=== PATIENT | female | born 1980 | race African-American/Black ===

== ENCOUNTER 2016-07-12 13:05 | Emergency (ER) | payer OTHER ==
[2016-07-12 13:18] VITALS: BP 124/84; PULSE 113; TEMP 99.4; BMI 30.9
[2016-07-12] MEDS ORDERED: ALBUTEROL SO4 6.7 GM HFA INHALER IH ONE (13:30)
[2016-07-12] MEDS ORDERED: IBUPROFEN 400 MG TABLET (FP) PO ONE ×2 (13:46→13:53)
--- NOTE | 2016-07-12 14:22 | PDOC ---
History of Present Illness - General Chief Complaint: Cold Symptoms Stated Complaint: FEVER, SORE THROAT Time Seen by Provider: 07/12/16 13:37 History Source: Patient Exam Limitations: No Limitations - History of Present Illness Initial Comments: 07/12/16 14:17 cc LEFT EAR PAIN, SORE THROAT; BODY ACHES X 3 DAYS; SOME COUGHING; NO NVD Timing/Duration: reports: getting worse (STARTED X 4 DAYS AGO WITH FEVER X TODAY ) Severity: reports: moderate Possible Cause: No: other Modifying Factors: improves with: activity Past History - Past Medical History Allergies/Adverse Reactions: Allergies Allergy/AdvReac Type Severity Reaction Status Date / Time No Known Allergies Allergy Verified 07/12/16 13:14 Home Medications: Ambulatory Orders Hydrochlorothiazide [Hctz -] 25 mg PO DAILY 05/02/15 Metoprolol Succinate [Toprol XL -] 25 mg PO DAILY #30 tab.sr.24h 05/02/15 Cephalexin Monohydrate [Keflex -] 500 mg PO BID #20 capsule 04/13/16 Metoclopramide HCl [Reglan] 10 mg PO QID #20 tablet 04/13/16 HTN: Yes Suicide Attempt (Hx): No - Immunization History Immunization Up to Date: Yes - Psycho/Social/Smoking Cessation Hx Anxiety: No Suicidal Ideation: No Smoking Status: No Smoking History: Never smoked Have you smoked in the past 12 months: Yes Number of Cigarettes Smoked Daily: 6 Information on smoking cessation initiated: No 'Breaking Loose' booklet given: 04/13/16 Hx Alcohol Use: No Drug/Substance Use Hx: No Substance Use Type: None Review of Systems - Review of Systems Constitutional: Yes: Fever, Malaise. No: Chills HEENTM: Yes: Ear Pain (ON LEFT X 2 DAYS). No: Symptoms Reported Respiratory: No: Symptoms reported Cardiac (ROS): No: Symptoms Reported, Lightheadedness ABD/GI: No: Symptoms Reported Integumentary: No: Symptoms Reported, Rash *Physical Exam - Vital Signs Last Vital Signs Temp Pulse Resp BP Pulse Ox 99.4 F 113 H 18 124/84 100 07/12/16 13:15 07/12/16 13:15 07/12/16 13:15 07/12/16 13:15 07/12/16 13:15 - Physical Exam General Appearance: Yes: Appropriately Dressed. No: Apparent Distress HEENT: positive: TMs Normal, Pharynx Normal, Pharyngeal Erythema, Tonsillar Erythema, Nasal Congestion, Rhinorrhea, Other (MILD STS TO LEFT CANAL; PAIN INCREASES WITH TRAGUS TUG). negative: Tonsillar Exudate, TM Bulging, TM Dull, TM Erythema Respiratory/Chest: positive: Lungs Clear. negative: Chest Tender, Normal Breath Sounds, Accessory Muscle Use Cardiovascular: positive: Regular Rhythm, Regular Rate Female Pelvic Exam: negative: normal external exam Gastrointestinal/Abdominal: positive: Normal Bowel Sounds, Flat, Soft, Organomegaly. negative: Tender Lymphatic: negative: Adenopathy Extremity: negative: Normal Capillary Refill Integumentary: positive: Normal Color, Dry, Warm ED Treatment Course - ADDITIONAL ORDERS Additional order review: 07/12/16 13:45 Group A Strep Rapid Antigen - Final Throat - Medications Given in the ED: ED Medications Discontinued Medications Generic Name Dose Route Start Last Admin Trade Name Freq PRN Reason Stop Dose Admin Albuterol Sulfate 2 puff 07/12/16 13:30 07/12/16 13:54 Ventolin Hfa Inhaler - IH 07/12/16 13:31 Not Given ONCE ONE Ibuprofen 400 mg 07/12/16 13:46 07/12/16 13:54 Motrin - PO 07/12/16 13:47 400 mg ONCE ONE Administration Medical Decision Making - Medical Decision Making 07/12/16 14:21 WILL TREAT WITH MOTRIN AND EAR DROPS; STREP = NEGATIVE *DC/Admit/Observation/Transfer Diagnosis at time of Disposition: Otitis externa Qualifiers: Otitis externa type: unspecified type Laterality: left Chronicity: acute Qualified Code(s): H60.502 - Unspecified acute noninfective otitis externa, left ear - Discharge Dispostion Disposition: HOME Condition at time of disposition: Stable Admit: No - Patient Instructions Additional Instructions: EAR DROPS DIRECTED; MOTRIN FOR PAIN - Post Discharge Activity Work/School Note: Back to Work
== END 2016-07-12 14:32 | disposition home or self-care (01) ==
LOC: JERFT 13:05
PROC: 3E0F7GC Introduction of Other Therapeutic Substance into Respiratory Tract, Via Natural or Artificial Opening (ICD-10-PCS; principal; 2016-07-12)
DX: H60.502 Unspecified acute noninfective otitis externa, left ear (principal)
CPT/HCPCS: 87070; 87430; 94640; 99281-25

== ENCOUNTER 2016-11-07 21:03 | Emergency (ER) | payer SELFPAY ==
[2016-11-07 21:37] VITALS: BMI 32.3
[2016-11-07] MEDS ORDERED: SODIUM CHLORIDE 1,000 ML IV STA (22:38)
--- NOTE | 2016-11-07 22:38 | PDOC ---
History of Present Illness - General History Source: Patient Exam Limitations: No Limitations - History of Present Illness Initial Comments: 11/07/16 23:08 The patient is a 36 year old female with significant past medical history of hypertension who presents to the ED for 3 days of diffuse abdominal discomfort, nausea, vomiting, and diarrhea. States she has no appetite since yesterday. Patient reports having one episode of diverticulitis in the past, however her abdominal discomfort does not appear to be the same. She also reports 3 days of sore throat, fever, and chills. States she has not checked her temperature. Denies any sick contacts or recent travels. The patient denies cough, SOB, chest pain, and palpitations. Allergies: NKDA Social History: No alcohol, tobacco, or drug use reported. Past Surgical History: None reported PCP: At [facility] <Rehana Wallis - Last Filed: 11/07/16 23:08> - General History Source: Patient <Eric Vazquez - Last Filed: 11/08/16 00:42> - General Chief Complaint: Vomiting/Diarrhea Stated Complaint: COLD SYMPTOMS Time Seen by Provider: 11/07/16 22:38 Past History <Rehana Wallis - Last Filed: 11/07/16 23:08> - Past Medical History HTN: Yes Suicide Attempt (Hx): No - Immunization History Immunization Up to Date: Yes - Psycho/Social/Smoking Cessation Hx Anxiety: No Suicidal Ideation: No Smoking Status: No Smoking History: Never smoked Have you smoked in the past 12 months: Yes Number of Cigarettes Smoked Daily: 6 Information on smoking cessation initiated: No 'Breaking Loose' booklet given: 04/13/16 Hx Alcohol Use: No Drug/Substance Use Hx: No Substance Use Type: None <Eric Vazquez - Last Filed: 11/08/16 00:42> - Past Medical History Allergies/Adverse Reactions: Allergies Allergy/AdvReac Type Severity Reaction Status Date / Time No Known Allergies Allergy Verified 11/07/16 21:36 Home Medications: Ambulatory Orders Hydrochlorothiazide [Hctz -] 25 mg PO DAILY 05/02/15 Nifedipine [Procardia Xl] 30 mg PO DAILY 11/07/16 Ibuprofen 800 mg PO TID #30 tablet 11/08/16 Penicillin V Potassium [Pen Vee K -] 500 mg PO TID #30 tablet 11/08/16 Review of Systems - Review of Systems Able to Perform ROS?: Yes Comments:: 11/07/16 23:08 CONSTITUTIONAL: +fever, chills, decreased appetite Absent: no fatigue EYES: Absent: visual changes ENT: +sore throat Absent: ear pain CARDIOVASCULAR: Absent: chest pain, no palpitations RESPIRATORY: Absent: cough, no SOB GI: +abdominal pain, nausea, vomiting, diarrhea Absent: no constipation GENITOURINARY: Absent: dysuria, no frequency, no hematuria MUSCULOSKELETAL: Absent: back pain, no arthralgia, no myalgia SKIN: Absent: rash NEURO: Absent: headache <Rehana Wallis - Last Filed: 11/07/16 23:08> *Physical Exam - Vital Signs Last Vital Signs Temp Pulse Resp BP Pulse Ox 98.5 F 105 H 20 107/85 98 11/07/16 21:33 11/07/16 21:33 11/07/16 21:33 11/07/16 21:33 11/07/16 21:33 - Physical Exam Comments: 11/07/16 23:08 GENERAL: Well-appearing, well-nourished. Mild distress. HEENT: Normocephalic, atraumatic. PERRL, EOM intact. Posterior pharynx is erythematous with no exudates. CARDIOVASCULAR: Tachycardia. Regular rhythm. Normal S1, S2. PULMONARY: Clear to auscultation bilaterally. ABDOMEN: Soft, non-distended, mild tenderness throughout. Normoactive bowel sounds. EXTREMITIES: Normal ROM in all four extremities. No gross deformities. SKIN: Warm, dry. No rash NEUROLOGICAL: No focal neurological deficits. <Rehana Wallis - Last Filed: 11/07/16 23:08> - Vital Signs Last Vital Signs Temp Pulse Resp BP Pulse Ox 98.5 F 105 H 20 107/85 98 11/07/16 21:33 11/07/16 21:33 11/07/16 21:33 11/07/16 21:33 11/07/16 21:33 <Eric Vazquez - Last Filed: 11/08/16 00:42> ED Treatment Course - LABORATORY CBC & Chemistry Diagram: 11/07/16 23:28 11/07/16 23:28 <Eric Vazquez - Last Filed: 11/08/16 00:42> Medical Decision Making - Medical Decision Making 11/08/16 00:42 Dr. Vazquez: The scribe's documentation has been prepared under my direction and personally reviewed by me in its entirery. I confirm that the note above accurately reflects all work, treatment, procedures, and medical decision making performed by me. <Eric Vazquez - Last Filed: 11/08/16 00:42> *DC/Admit/Observation/Transfer - Attestations Scribe Attestion: 11/07/16 23:09 Documentation prepared by Rehana Wallis, acting as claim review medical director for Eric Vazquez MD/DO. <Rehana Wallis - Last Filed: 11/07/16 23:08> - Discharge Dispostion Admit: No <Eric Vazquez - Last Filed: 11/08/16 00:42> Diagnosis at time of Disposition: Strep pharyngitis - Discharge Dispostion Disposition: HOME Condition at time of disposition: Stable - Prescriptions Prescriptions: Ibuprofen 800 mg PO TID #30 tablet Penicillin V Potassium [Pen Vee K -] 500 mg PO TID #30 tablet - Referrals Referrals: STAFF,NOT ON [Primary Care Provider] - Jaz Hermosillo MD [Staff Physician] - - Patient Instructions Printed Discharge Instructions: DI for Strep Throat - Post Discharge Activity Work/School Note: Back to Work
[2016-11-07] MEDS ORDERED: ONDANSETRON 4 MG/2 ML VIAL IVPUSH STA (22:39)
[2016-11-07] MEDS ORDERED: ONDANSETRON 4 MG/2 ML VIAL ONE (23:08)
[2016-11-07 23:34] LABS: EOSINOPHIL 0.9 % (0-4.5); MCHC 32.7 g/dl (32.0-36.0); MEAN CELL VOLUME 91.8 fl (80-96); MEAN PLT VOLUME 8.4 fl (7.5-11.1); NEUTROPHILS 74.9 % (42.8-82.8); PLATELET COUNT 333 K/MM3 (134-434); RDW 15.4 % (11.6-15.6); WHITE BLOOD COUNT 12.6 K/mm3 (4.0-10.0)
[2016-11-08 00:06] LABS: AMYLASE 33 U/L (25-115); ANION GAP 12 (8-16); CALCIUM 8.7 mg/dL (8.5-10.1); CO2 30 mmol/L (21-32); CREATININE 0.7 mg/dL (0.55-1.02); GLUCOSE,RANDOM 89 mg/dL (74-106); MAGNESIUM 2.5 mg/dL (1.8-2.4); SGOT/AST 20 U/L (15-37); SGPT/ALT 21 U/L (12-78)
[2016-11-08 00:08] LABS: ALK PHOS 115 U/L (45-117); BILIRUBIN,TOTAL 0.4 mg/dL (0.2-1.0); TOT PROT 7.6 g/dl (6.4-8.2)
[2016-11-08] MEDS ORDERED: PENICILLIN V POTASSIUM 500 MG TABLET PO ONE (00:39)
[2016-11-08] MEDS ORDERED: IBUPROFEN 400 MG TABLET (FP) PO ONE ×2 (00:40→00:53)
[2016-11-08 01:40] VITALS: BP 111/84; PULSE 89; TEMP 98.3
== END 2016-11-08 01:40 | disposition home or self-care (01) ==
LOC: JER 21:03
PROC: 3E033GC Introduction of Other Therapeutic Substance into Peripheral Vein, Percutaneous Approach (ICD-10-PCS; principal; 2016-11-07)
PROC: 3E0337Z Introduction of Electrolytic and Water Balance Substance into Peripheral Vein, Percutaneous Approach (ICD-10-PCS; 2016-11-07)
DX: J02.0 Streptococcal pharyngitis (principal); I10 Essential (primary) hypertension; Z87.891 Personal history of nicotine dependence
CPT/HCPCS: 36415; 80053; 81003; 82150; 83690; 83735; 84703; 85025; 87070; 87077; 87430; 99283-25

== ENCOUNTER 2016-12-22 15:26 | Inpatient (IN) | payer SELFPAY ==
[2016-12-22 15:31] VITALS: BMI 30.9
[2016-12-22] MEDS ORDERED: SODIUM CHLORIDE 2,000 ML IV STA (16:27)
[2016-12-22] MEDS ORDERED: ONDANSETRON 4 MG/2 ML VIAL IVPB ONE (16:27)
[2016-12-22] MEDS ORDERED: ONDANSETRON 4 MG/2 ML VIAL ONE (16:40)
--- NOTE | 2016-12-22 16:52 | PDOC ---
History of Present Illness - General History Source: Patient Exam Limitations: No Limitations - History of Present Illness Initial Comments: The patient is a 36 yo F with a past medical history significant for HTN, D&C in April and diverticulitis who presents with nausea, vomiting, diarrhea and abdominal pain since 1 am last night. The patient states shes had approximately 12 episodes of vomiting and diarrhea. She describes her diarrhea as a yellow bile-like color. The patient denies blood in her vomit or stool. The patient states her abdominal pain radiates towards her back on both sides. She notes her pain increases immediately prior an episode of vomiting and diarrhea. The patient also endorses an associated headache. She states her last meal was grilled pork chop and carrots. 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 The patient denies fevers, She endorses chills. She denies chest pain , sob, dysuria or hematuria. The patient denies vaginal discharge or bleeding. She states her LMP was in November 25. Social Hx: Smoker (1 pack per week), Social ETOH <Ashlyn Diego - Last Filed: 12/22/16 17:03> <Daysi Cortez - Last Filed: 12/23/16 00:35> - General Chief Complaint: Pain Stated Complaint: FEVER, ABD PAIN/VOMITING/DIARRHEA Time Seen by Provider: 12/22/16 15:56 Past History <Ashlyn Diego - Last Filed: 12/22/16 17:03> - Past Medical History HTN: Yes Suicide Attempt (Hx): No - Immunization History Immunization Up to Date: Yes - Psycho/Social/Smoking Cessation Hx Anxiety: No Suicidal Ideation: No Smoking Status: No Smoking History: Never smoked Have you smoked in the past 12 months: Yes Number of Cigarettes Smoked Daily: 6 Information on smoking cessation initiated: No 'Breaking Loose' booklet given: 04/13/16 Hx Alcohol Use: No Drug/Substance Use Hx: No Substance Use Type: None <Daysi Cortez - Last Filed: 12/23/16 00:35> - Past Medical History Allergies/Adverse Reactions: Allergies Allergy/AdvReac Type Severity Reaction Status Date / Time No Known Allergies Allergy Verified 12/22/16 17:00 Home Medications: Ambulatory Orders Hydrochlorothiazide [Hctz -] 25 mg PO DAILY 05/02/15 Nifedipine [Procardia Xl] 30 mg PO DAILY 11/07/16 Review of Systems - Review of Systems Able to Perform ROS?: Yes Comments:: GENERAL/CONSTITUTIONAL: No fever or chills. No weakness. HEAD, EYES, EARS, NOSE AND THROAT: No change in vision. No ear pain or discharge. No sore throat. CARDIOVASCULAR: No chest pain or shortness of breath. RESPIRATORY: No cough, wheezing, or hemoptysis. GASTROINTESTINAL: + nausea, vomiting, diarrhea, abdominal No constipation. GENITOURINARY: No dysuria, frequency, or change in urination. MUSCULOSKELETAL: No joint or muscle swelling or pain. No neck or back pain. SKIN: No rash NEUROLOGIC: +headache No vertigo, loss of consciousness, or change in strength/sensation. ALLERGIC/IMMUNOLOGIC: No hives or skin allergy. <Ashlyn Diego - Last Filed: 12/22/16 17:03> *Physical Exam - Vital Signs Last Vital Signs Temp Pulse Resp BP Pulse Ox 98 F 105 H 19 141/98 100 12/22/16 15:29 12/22/16 15:29 12/22/16 15:29 12/22/16 15:29 12/22/16 15:29 - Physical Exam Comments: GENERAL: Awake, alert, and fully oriented, in no acute distress HEAD: No signs of trauma EYES: PERRLA, EOMI, sclera anicteric, conjunctiva clear ENT: Auricles normal inspection, hearing grossly normal, nares patent, oropharynx clear without exudates. Dry mucosa NECK: Normal ROM, supple, no lymphadenopathy, JVD, or masses LUNGS: Breath sounds equal, clear to auscultation bilaterally. No wheezes, and no crackles HEART: Regular rate and rhythm, normal S1 and S2, no murmurs, rubs or gallops ABDOMEN: Soft, tenderness to palpation in all four quadrants but worse in LUQ and epigastric area, normoactive bowel sounds. No guarding, no rebound. No masses EXTREMITIES: Normal range of motion, no edema. No clubbing or cyanosis. No cords, erythema, or tenderness NEUROLOGICAL: Cranial nerves II through XII grossly intact. Normal speech, normal gait SKIN: Warm, Dry, normal turgor, no rashes or lesions noted. <Ashlyn Diego - Last Filed: 12/22/16 17:03> - Vital Signs Last Vital Signs Temp Pulse Resp BP Pulse Ox 98 F 105 H 19 141/98 100 12/22/16 15:29 12/22/16 15:29 12/22/16 15:29 12/22/16 15:29 12/22/16 15:29 <Daysi Cortez - Last Filed: 12/23/16 00:35> ED Treatment Course - LABORATORY CBC & Chemistry Diagram: 12/22/16 16:40 12/22/16 16:40 <Daysi Cortez - Last Filed: 12/23/16 00:35> Medical Decision Making - Medical Decision Making 12/22/16 17:11 36yo F hx HTN, diverticulitis p/w cramping diffuse abd pain, worse in the epigastric and LUQs a/w NBNB emesis and diarrhea. HR is 105 and pt's MM appear dry. 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 Likely gastroenteritis with dehydration, however given diffuse abd ttp including in the LLQ and RLQ, the differential is wide and includes recurrent diverticulitis vs appendicitis vs FLIGHT PARAMEDIC pathology such as ectopic , ovarian cyst, TOA, ovarian torsion. Will perform pelvic exam to eval for FLIGHT PARAMEDIC etiology. UTI vs pyelo also on differential but unlkely as she lucy dysuria, freq, etc. With N/V /D and cramping, likely gastro but given patients age and broad differential, especially with hx for diverticulitis/LLQ ttp will consider a CT if she continues to be tender on serial abd exams. -UPT -UA -labs -2L NS -zofran -serial abd exams 12/22/16 18:06 Upon serial abd exam, pt persistently tender in LLQ. Pelvic exam wnl with no CMT and no adnexal/uterine ttp Also continues to have NBNB diarrhea. Will order CTAP to eval for diverticulitis vs other acute intrabd pathology 12/23/16 00:27 CTAP with enteritis. Pt continues to have diarrhea. Likely gastroenteritis. Ordered levaquin and flagyl. Pt also still clinically dry and mildly tachycardic to 106 after 2L NS. Ordered 1L lactated ringer and admitted to the hospitalist for further management <Daysi Cortez - Last Filed: 12/23/16 00:35> *DC/Admit/Observation/Transfer - Attestations Scribe Attestion: Documentation prepared by Ashlyn Diego, acting as medical reviewer for Daysi Cortez MD, /DO. <Ashlyn Diego - Last Filed: 12/22/16 17:03> - Discharge Dispostion Admit: Yes - Attestations Physician Attestion: 12/22/16 22:31 I, Dr. Daysi Cortez MD, attest that this document has been prepared under my direction and personally reviewed by me in its entirety. I further attest, that it accurately reflects all work, treatment, procedures and medical decision -making performed by me. <Daysi Cortez - Last Filed: 12/23/16 00:35> Diagnosis at time of Disposition: Enteritis, Gastroenteritis - Discharge Dispostion Condition at time of disposition: Stable
--- NOTE | 2016-12-22 17:25 | PDOC ---
History of Present Illness - General History Source: Patient Exam Limitations: No Limitations - History of Present Illness Initial Comments: 12/22/16 17:18 The patient is a 36F with a PMH of HTN who presents to the ED with b/l lumbar region abdominal pain. The patient states that she woke up at 3 am this morning and has had nonstop nausea and vomiting and diarrhea. The vomiting is NBNB and the diarrhea is watery and now yellow. She has had no recent travel, no sick contacts, no recent antibiotics. She states that nothing stays down. She has not eaten any weird foods to trigger this episode. 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 The patient also has a history of diverticulitis in 2012 and states that the feeling is similar to this. Surg: D&C in april, shoulder surgery Allergies: None Social: Occasional cigarettes and drinking, no drugs <Aiden Barksdale - Last Filed: 12/29/16 22:26> <Daysi Cortez - Last Filed: 12/30/16 02:31> - General Chief Complaint: Pain Stated Complaint: FEVER, ABD PAIN/VOMITING/DIARRHEA Time Seen by Provider: 12/22/16 15:56 Past History - Past Medical History HTN: Yes Suicide Attempt (Hx): No - Immunization History Immunization Up to Date: Yes - Psycho/Social/Smoking Cessation Hx Anxiety: No Suicidal Ideation: No Smoking Status: No Smoking History: Never smoked Have you smoked in the past 12 months: Yes Number of Cigarettes Smoked Daily: 6 Information on smoking cessation initiated: No 'Breaking Loose' booklet given: 04/13/16 Hx Alcohol Use: No Drug/Substance Use Hx: No Substance Use Type: None <Aiden Barksdale - Last Filed: 12/29/16 22:26> <Daysi Cortez - Last Filed: 12/30/16 02:31> - Past Medical History Allergies/Adverse Reactions: Allergies Allergy/AdvReac Type Severity Reaction Status Date / Time No Known Allergies Allergy Verified 12/22/16 17:00 Home Medications: Ambulatory Orders Hydrochlorothiazide [Hctz -] 25 mg PO DAILY 05/02/15 Nifedipine [Procardia Xl] 30 mg PO DAILY 11/07/16 Levofloxacin [Levaquin -] 500 mg PO DAILY@0600 #1 tablet 12/28/16 Metronidazole [Flagyl -] 500 mg PO TID #5 tablet 12/28/16 Review of Systems - Review of Systems Able to Perform ROS?: Yes Is the patient limited Hebrew proficient: No Constitutional: Yes: Chills. No: Fever HEENTM: Yes: Other (neck stiffness) Respiratory: No: Shortness of Breath Cardiac (ROS): No: Chest Pain ABD/GI: Yes: Nausea, Vomiting, Other (abd pain) Endocrine: Yes: Increased Thirst <Aiden Barksdale - Last Filed: 12/29/16 22:26> *Physical Exam - Vital Signs Last Vital Signs Temp Pulse Resp BP Pulse Ox 98 F 105 H 19 141/98 100 12/22/16 15:29 12/22/16 15:29 12/22/16 15:29 12/22/16 15:29 12/22/16 15:29 - Physical Exam General Appearance: Yes: Nourished, Appropriately Dressed, Mild Distress. No: Apparent Distress HEENT: positive: Normal Voice, Hearing Grossly Normal Neck: negative: Tender Respiratory/Chest: positive: Lungs Clear, Normal Breath Sounds. negative: Chest Tender, Respiratory Distress, Crackles, Rales, Rhonchi, Stridor, Wheezing Cardiovascular: positive: Regular Rhythm, Regular Rate, S1, S2. negative: Diastolic Murmur, Systolic Murmur Female Pelvic Exam: positive: normal external exam, normal adnexa. negative: CMT, discharge, lesions, Bartholin mass, adnexal tenderness, vaginal bleeding Gastrointestinal/Abdominal: positive: Tender (LLQ tender to deep palpation), Flat, Soft. negative: Protuberent, Distended, Guarding, Rebound, Tenderness Extremity: positive: Normal Inspection, Normal Range of Motion. negative: Swelling, Calf Tenderness Integumentary: positive: Normal Color, Dry, Warm. negative: Clammy, Diaphoresis , Swelling, Ecchymosis Neurologic: positive: Fully Oriented, Alert, Normal Mood/Affect, Motor Strength 5/5 <Aiden Barksdale - Last Filed: 12/29/16 22:26> - Vital Signs Last Vital Signs Temp Pulse Resp BP Pulse Ox 97.2 F L 89 24 132/76 98 12/28/16 09:41 12/28/16 13:25 12/28/16 13:25 12/28/16 13:25 12/28/16 11:00 <Daysi Cortez - Last Filed: 12/30/16 02:31> ED Treatment Course - LABORATORY CBC & Chemistry Diagram: 12/28/16 06:20 12/28/16 06:20 - Medications Given in the ED: ED Medications Discontinued Medications Generic Name Dose Route Start Last Admin Trade Name Freq PRN Reason Stop Dose Admin Ondansetron HCl 4 mg 12/22/16 16:27 12/22/16 16:57 Zofran Injection IVPB 12/22/16 16:28 4 mg ONCE ONE Administration <ElvatrinidadAiden - Last Filed: 12/29/16 22:26> - LABORATORY CBC & Chemistry Diagram: 12/28/16 06:20 12/28/16 06:20 - ADDITIONAL ORDERS Additional order review: 12/23/16 09:40 Salmonella/Shigella Culture - Final Stool NO GROWTH OF SALMONELLA OR SHIGELLA SPECIES OBTAINED Campylobacter Culture - Final NO GROWTH OF CAMPYLOBACTER SPECIES OBTAINED Yersinia Culture - Final NO GROWTH OF YERSINIA SPECIES OBTAINED Vibrio Culture - Final NO GROWTH OF VIBRIO SPECIES OBTAINED Escherichia coli 0157 Culture - Final NO GROWTH OF E COLI 0157 OBTAINED 12/23/16 09:40 Gram Stain - Final Stool 12/23/16 09:40 Clostridium difficile Antigen (JULY) - Final Stool Clostridium difficile Toxin Assay - Final 12/23/16 12/22/16 06:58 16:40 RBC 3.14 L 3.83 MCV 93.3 93.8 MCHC 33.2 32.1 RDW 15.9 H 15.8 H MPV 8.5 9.0 Neutrophils % 86.5 H 90.8 H D Lymphocytes % 9.8 D 5.3 L D Monocytes % 3.3 L 3.1 L Eosinophils % 0.3 0.6 Basophils % 0.1 0.2 - Medications Given in the ED: ED Medications Discontinued Medications Generic Name Dose Route Start Last Admin Trade Name Freq PRN Reason Stop Dose Admin Acetaminophen 650 mg 12/22/16 22:31 12/24/16 21:32 Tylenol - PO 650 mg Q4H PRN Administration FEVER OR PAIN Hydrochlorothiazide 25 mg 12/23/16 10:00 12/28/16 13:26 Hctz - PO 25 mg DAILY KASSI Administration Sodium Chloride 2,000 mls @ 1,000 mls/hr 12/22/16 16:27 12/22/16 16:57 Normal Saline - IV 12/22/16 18:26 1,000 mls/hr ASDIR STA Administration Metronidazole 100 mls @ 100 mls/hr 12/22/16 22:21 12/22/16 22:38 Flagyl 500mg Premixed Ivpb - IVPB 12/22/16 23:20 100 mls/hr ONCE ONE Administration Levofloxacin 100 mls @ 100 mls/hr 12/22/16 22:21 12/22/16 23:29 Levaquin 500 Mg Premixed Ivpb - IVPB 12/22/16 23:20 100 mls/hr ONCE ONE Administration Lactated Ringer's 1,000 mls @ 1,000 mls/hr 12/22/16 22:28 12/22/16 23:56 Lactated Ringers Solution IV 12/22/16 23:27 1,000 mls/hr ONCE STA Administration Sodium Chloride 1,000 mls @ 125 mls/hr 12/22/16 22:45 12/23/16 22:04 Normal Saline - IV 125 mls/hr ASDIR KASSI Administration Metronidazole 100 mls @ 100 mls/hr 12/23/16 15:45 12/27/16 18:39 Flagyl 500mg Premixed Ivpb - IVPB Not Given Q8H-IV KASSI Levofloxacin 100 mls @ 100 mls/hr 12/23/16 22:00 12/26/16 22:18 Levaquin 500 Mg Premixed Ivpb - IVPB 100 mls/hr DAILY@2200 KASSI Administration Potassium Chloride 100 mls @ 100 mls/hr 12/24/16 09:45 12/24/16 13:37 Potassium Chloride 10 Meq Premix Ivpb - IVPB 12/24/16 11:44 100 mls/hr Q60M KASSI Administration Potassium Chloride 40 meq/ 1,020 mls @ 125 mls/hr 12/24/16 09:32 12/26/16 12:25 Sodium Chloride IVPB Not Given Q8H KASSI Sodium Chloride 1,000 mls @ 125 mls/hr 12/26/16 11:45 12/27/16 12:00 Normal Saline - IV 125 mls/hr ASDIR KASSI Administration Levofloxacin 500 mg 12/27/16 20:45 12/28/16 06:03 Levaquin - PO 500 mg DAILY@0600 KASSI Administration Metronidazole 500 mg 12/27/16 22:00 12/28/16 13:31 Flagyl - PO 500 mg TID KASSI Administration Morphine Sulfate 1 mg 12/23/16 08:42 12/23/16 10:06 Morphine Injection - IVPUSH 1 mg Q4H PRN Administration PAIN Morphine Sulfate 1 mg 12/23/16 09:57 12/24/16 13:27 Morphine Injection - IVPUSH 1 mg Q4H PRN Administration PAIN Nifedipine 30 mg 12/23/16 10:00 12/28/16 13:26 Procardia Xl - PO 30 mg DAILY KASSI Administration Ondansetron HCl 4 mg 12/22/16 16:27 12/22/16 16:57 Zofran Injection IVPB 12/22/16 16:28 4 mg ONCE ONE Administration Ondansetron HCl 4 mg 12/22/16 22:31 12/23/16 13:48 Zofran Injection IVPB 4 mg Q6H PRN Administration NAUSEA Potassium Chloride 20 meq 12/24/16 14:54 12/24/16 15:47 Potassium Chloride Oral Liquid PO 12/24/16 14:55 20 meq ONCE ONE Administration Potassium Chloride 40 meq 12/27/16 10:00 12/27/16 10:00 Potassium Chloride Oral Liquid PO Not Given DAILY [facility] Sumatriptan Succinate 25 mg 12/24/16 09:32 12/24/16 11:11 Imitrex - PO 12/24/16 09:33 25 mg ONCE ONE Administration Sumatriptan Succinate 25 mg 12/25/16 13:35 12/25/16 14:22 Imitrex - PO 12/25/16 13:36 25 mg ONCE ONE Administration <Nassef,Yomna - Last Filed: 12/30/16 02:31> Medical Decision Making - Medical Decision Making 12/22/16 17:55 The patient is a 36F with a PMH of HTN and diverticulitis who presents with 1 day of vomiting and diarrhea. The patient's acute onset and symptoms make the diagnosis of diverticulitis less likely. On the differential is ectopic , appendicitis, TOA. My cured meats supervisor has ordered labs to rule out these diagnoses. 12/22/16 18:17 The patient has been reevaluated as still is tender to palpation over her LUQ. I will discuss these findings with Dr. Cortez. 12/22/16 19:[address] Paz, night team. <Aiden Barksdale - Last Filed: 12/29/16 22:26> *DC/Admit/Observation/Transfer - Attestations Physician Attestion: 12/29/16 22:26 I, Dr. Aiden Barksdale, attest that this document has been prepared under my direction and personally reviewed by me in its entirety. I further attest, that it accurately reflects all work, treatment, procedures and medical decision -making performed by me. <Aiden Barksdale - Last Filed: 12/29/16 22:26> - Discharge Dispostion Admit: Yes <Daysi Cortez - Last Filed: 12/30/16 02:31> Diagnosis at time of Disposition: Enteritis, Gastroenteritis - Discharge Dispostion Condition at time of disposition: Stable - Prescriptions
[2016-12-22 17:47] LABS: BASOPHIL 0.2 % (0-2.0); EOSINOPHIL 0.6 % (0-4.5); MCH 30.1 pg (25.7-33.7); MCHC 32.1 g/dl (32.0-36.0); MEAN CELL VOLUME 93.8 fl (80-96); NEUTROPHILS 90.8 % (42.8-82.8); PLATELET COUNT 278 K/MM3 (134-434); RDW 15.8 % (11.6-15.6); WHITE BLOOD COUNT 10.5 K/mm3 (4.0-10.0)
[2016-12-22 18:14] LABS: ALBUMIN 2.9 g/dl (3.4-5.0); ANION GAP 9 (8-16); BILIRUBIN,TOTAL 0.5 mg/dL (0.2-1.0); CALCIUM 8.4 mg/dL (8.5-10.1); CO2 25 mmol/L (21-32); CREATININE 0.8 mg/dL (0.55-1.02); GLUCOSE,RANDOM 77 mg/dL (74-106); SGOT/AST 12 U/L (15-37); SGPT/ALT 17 U/L (12-78); TOT PROT 6.9 g/dl (6.4-8.2)
[2016-12-22 18:15] LABS: ALK PHOS 97 U/L (45-117)
[2016-12-22 18:24] LABS: URINE APPEARANCE CLEAR; URINE BILIRUBIN NEGATIVE (NEGATIVE); URINE BLOOD NEGATIVE (NEGATIVE); URINE COLOR LTYELLOW; URINE GLUCOSE (UA) NEGATIVE (NEGATIVE); URINE KETONE TRACE (NEGATIVE); URINE LEUK ESTERASE NEGATIVE (NEGATIVE); URINE NITRITE NEGATIVE (NEGATIVE); URINE PROTEIN NEGATIVE (NEGATIVE); URINE UROBILINOGEN NEGATIVE mg/dL (0.2-1.0)
[2016-12-22] MEDS ORDERED: METRONIDAZOLE 500 MG PREMIXED 100 ML IVPB ONE ×2 (22:21→22:30)
[2016-12-22] MEDS ORDERED: LEVOFLOXACIN 500 MG IVPB 100 ML IVPB ONE ×2 (22:21→22:30)
[2016-12-22] MEDS ORDERED: LACTATED RINGERS SOLUTION 1,000 ML IV STA (22:28)
--- NOTE | 2016-12-22 22:28 | PN ---
Teaching Attending Note Name of Resident: Luda Osorio ATTENDING PHYSICIAN STATEMENT I saw and evaluated the patient. I reviewed the resident's note and discussed the case with the resident. I agree with the resident's findings and plan as documented. SUBJECTIVE: 36 y/o woman c/o vomiting, diarrhea and chills. OBJECTIVE: GEN: Afebrile, A&Ox3 HEENT: PERRLA, EOMI, MMM CVS: RRR, S1,S2 Lungs: CTA, no wheezing Abd: Soft, tender, BS+, no guarding or rebound Ext: Nl ROM, 2+Pulses, CBCD WBC 10.5 K/mm3 (4.0-10.0) H 12/22/16 16:40 RBC 3.83 M/mm3 (3.60-5.2) 12/22/16 16:40 Hgb 11.5 GM/dL (10.7-15.3) 12/22/16 16:40 Hct 35.9 % (32.4-45.2) 12/22/16 16:40 MCV 93.8 fl (80-96) 12/22/16 16:40 MCHC 32.1 g/dl (32.0-36.0) 12/22/16 16:40 RDW 15.8 % (11.6-15.6) H 12/22/16 16:40 Plt Count 278 K/MM3 (134-434) 12/22/16 16:40 MPV 9.0 fl (7.5-11.1) 12/22/16 16:40 CMP Sodium 138 mmol/L (136-145) 12/22/16 16:40 Potassium 3.6 mmol/L (3.5-5.1) 12/22/16 16:40 Chloride 104 mmol/L (98-107) D 12/22/16 16:40 Carbon Dioxide 25 mmol/L (21-32) 12/22/16 16:40 Anion Gap 9 (8-16) 12/22/16 16:40 BUN 13 mg/dL (7-18) 12/22/16 16:40 Creatinine 0.8 mg/dL (0.55-1.02) 12/22/16 16:40 Creat Clearance w eGFR > 60 (>60) 12/22/16 16:40 Calcium 8.4 mg/dL (8.5-10.1) L 12/22/16 16:40 Total Bilirubin 0.5 mg/dL (0.2-1.0) D 12/22/16 16:40 AST 12 U/L (15-37) L D 12/22/16 16:40 ALT 17 U/L (12-78) 12/22/16 16:40 Alkaline Phosphatase 97 U/L (45-117) 12/22/16 16:40 Total Protein 6.9 g/dl (6.4-8.2) 12/22/16 16:40 Albumin 2.9 g/dl (3.4-5.0) L 12/22/16 16:40 ASSESSMENT AND PLAN: Acute Gastroenteritis IVF NS 150cc/h Zofran prn Tylenol prn q6h Diluadid 0.5mg stat and prn q6h Admitted for observation
[2016-12-22] MEDS ORDERED: ONDANSETRON 4 MG/2 ML VIAL IVPB PRN (22:31)
--- NOTE | 2016-12-22 23:28 | HP ---
CHIEF COMPLAINT: vomiting, diarrhea, abdominal pain PCP: [facility], pt does not recall name HISTORY OF PRESENT ILLNESS: 36yo F with PMH of HTN, diverticulitis, presents today c/o vomiting, diarrhea, abdominal pain since 3am. Pt reports cramping and left sided abdominal pain followed by watery diarrhea beginning at 3am this morning. Pt reports nb/nb vomiting beginning at 4am. Pt took Tylenol for pain, but has not been able to keep anything down. At its peak pain rated 10/10, with a sharp/stabbing quality. Pain increases prior to an episode of vomiting or diarrhea. 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 Pt has never had these symptoms before. ER course was notable for: (1) urine test negative (2) zofran (3) NS 1L (4) metronidazole (5) levofloxacin Recent Travel: Arrived back from [place] last Monday, 6 days ago. PAST MEDICAL HISTORY: HTN diverticulitis 2007 PAST SURGICAL HISTORY: D&C 04/2016 L shoulder surgery 2 yrs ago Social History: Smokin pack per week x 9 yrs Alcohol: occasionally Drugs: none Family History: mother with HTN mother's mother with DM Allergies No Known Allergies Allergy (Verified 12/22/16 17:00) HOME MEDICATIONS: Home Medications Medication Instructions Recorded Hydrochlorothiazide [Hctz -] 25 mg PO DAILY 05/02/15 Nifedipine [Procardia Xl] 30 mg PO DAILY 11/07/16 REVIEW OF SYSTEMS CONSTITUTIONAL: Present: generalized weakness Absent: fever, chills, diaphoresis, malaise HEENT: Absent: rhinorrhea, nasal congestion, throat pain, throat swelling, ear pain, eye pain, visual changes CARDIOVASCULAR: Absent: chest pain, palpitations, irregular heart rate, lightheadedness, peripheral edema RESPIRATORY: Absent: cough, shortness of breath, dyspnea with exertion, orthopnea, wheezing, stridor, hemoptysis GASTROINTESTINAL: Present: Left sided abdominal pain, abdominal distension, nausea, vomiting, diarrhea Absent: melena, hematochezia GENITOURINARY: Absent: dysuria, frequency, urgency, hesitancy, hematuria, flank pain, genital pain MUSCULOSKELETAL: Absent: myalgia, arthralgia, joint swelling, back pain, neck pain SKIN: Absent: rash, itching, pallor HEMATOLOGIC/IMMUNOLOGIC: Absent: easy bleeding, easy bruising, lymphadenopathy, frequent infections NEUROLOGIC: Present: headache PHYSICAL EXAMINATION Vital Signs - 24 hr 12/22/16 12/22/16 15:29 21:08 Temperature 98 F Pulse Rate 105 H Pulse Rate [ 110 H Apical] Respiratory 19 14 Rate Blood Pressure 141/98 Blood Pressure 128/83 [Left Arm] O2 Sat by Pulse 100 99 Oximetry (%) GENERAL: Awake, alert, and fully oriented, in no acute distress. HEAD: Normal with no signs of trauma. EYES: Extraocular movements intact, sclera anicteric, conjunctiva clear. No lid lag. EARS, NOSE, THROAT: Ears normal, dry mucous membranes NECK: Supple without lymphadenopathy, JVD, or masses. LUNGS: Breath sounds diminished, but equal and clear to auscultation bilaterally. No wheezes, and no crackles. No accessory muscle use. HEART: Regular rate and rhythm, normal S1 and S2 without murmur, rub or gallop. ABDOMEN: tender to deep palpation, distended, normoactive bowel sounds, no guarding, no rebound, no masses. LOWER EXTREMITIES: 2+ pulses, warm, well-perfused. No calf tenderness. No peripheral edema. NEUROLOGICAL: Normal speech. PSYCHIATRIC: Cooperative. Good eye contact. Appropriate mood and affect. SKIN: Warm, dry, normal turgor, no rashes or lesions noted, normal capillary refill. Laboratory Results - last 24 hr 12/22/16 12/22/16 12/22/16 16:38 16:38 16:40 WBC 10.5 H RBC 3.83 Hgb 11.5 Hct 35.9 MCV 93.8 MCH 30.1 MCHC 32.1 RDW 15.8 H Plt Count 278 MPV 9.0 Neutrophils % 90.8 H D Lymphocytes % 5.3 L D Monocytes % 3.1 L Eosinophils % 0.6 Basophils % 0.2 Sodium Potassium Chloride Carbon Dioxide Anion Gap BUN Creatinine Creat Clearance w eGFR Random Glucose Calcium Total Bilirubin AST ALT Alkaline Phosphatase Total Protein Albumin Lipase Urine Color Ltyellow Urine Appearance Clear Urine pH 5.0 Ur Specific [place] 1.020 Urine Protein Negative Urine Glucose (UA) Negative Urine Ketones Trace H Urine Blood Negative Urine Nitrite Negative Urine Bilirubin Negative Urine Urobilinogen Negative Ur Leukocyte Esterase Negative Urine HCG, Qual Negative 12/22/16 16:40 WBC RBC Hgb Hct MCV MCH MCHC RDW Plt Count MPV Neutrophils % Lymphocytes % Monocytes % Eosinophils % Basophils % Sodium 138 Potassium 3.6 Chloride 104 D Carbon Dioxide 25 Anion Gap 9 BUN 13 Creatinine 0.8 Creat Clearance w eGFR > 60 Random Glucose 77 Calcium 8.4 L Total Bilirubin 0.5 D AST 12 L D ALT 17 Alkaline Phosphatase 97 Total Protein 6.9 Albumin 2.9 L Lipase 65 L Urine Color Urine Appearance Urine pH Ur Specific [place] Urine Protein Urine Glucose (UA) Urine Ketones Urine Blood Urine Nitrite Urine Bilirubin Urine Urobilinogen Ur Leukocyte Esterase Urine HCG, Qual IMAGIN12/22/16 CT ab/pelvis reveals short small bowel segment with significant wall thickening. Ischemia and an infiltrative process also noted. Diverticulosis without evidence of active diverticulitis. Normal-appearing appendix. Suggestion of multiple uterine fibroids. ASSESSMENT/PLAN: 36yo F with PMH of diverticulitis, HTN adm to med-surg for gastroenteritis. (1) intractable nausea/vomiting, diarrhea - likely r/t gastroenteritis vs diverticulitis vs ischemic bowel - cont. IVFs - cont. zofran prn - f/u lactic acid - f/u stool culture - dilaudid 0.5mg po q6hr prn and tylenol 650mg po q4hr prn for pain (2) htn - cont. nifedipine and HCTZ (3) FEN - Fluids: NS 1L - Electrolytes: cont. to monitor - Nutrition: clear liquids, advance as souleymane (4) [employer] - pt should be referred to [facility] for outpatient f/u (5) DVT Prophylaxis - early ambulation as souleymane Visit type - Emergency Visit Emergency Visit: Yes ED Registration Date: 12/22/16 Care time: The patient presented to the Emergency Department on the above date and was hospitalized for further evaluation of their emergent condition. - New Patient This patient is new to me today: Yes Date on this admission: 12/23/16 - Critical Care Critical Care patient: No
[2016-12-23] MEDS: SODIUM CHLORIDE 1,000 ML IV SCH ×4 (00:28→22:04)
[2016-12-23] MEDS: ACETAMINOPHEN 325 MG TABLET (FP) PO PRN ×4 (01:35→22:04)
[2016-12-23] MEDS ORDERED: ACETAMINOPHEN 325 MG TABLET (FP) ONE (01:40)
[2016-12-23] MEDS ORDERED: HYDROmorphone HCL 2 MG TABLET PO PRN (06:27)
[2016-12-23 08:12] LABS: BASOPHIL 0.1 % (0-2.0); EOSINOPHIL 0.3 % (0-4.5); MCHC 33.2 g/dl (32.0-36.0); MEAN CELL VOLUME 93.3 fl (80-96); MEAN PLT VOLUME 8.5 fl (7.5-11.1); NEUTROPHILS 86.5 % (42.8-82.8); PLATELET COUNT 230 K/MM3 (134-434); RDW 15.9 % (11.6-15.6); WHITE BLOOD COUNT 9.1 K/mm3 (4.0-10.0)
[2016-12-23] MEDS ORDERED: morphine CARPU-JECT 2 MG/1 ML DISP.SYRIN IVPUSH PRN (08:42)
[2016-12-23] MEDS: HYDROCHLOROTHIAZIDE 25 MG TABLET (FP) PO SCH (10:05)
[2016-12-23] MEDS: NIFEdipine E.R. 30 MG TABLET (FP) PO SCH (10:05)
--- NOTE | 2016-12-23 10:08 | EKG ---
Test Reason : Blood Pressure : / mmHG Vent. Rate : 116 BPM Atrial Rate : 116 BPM P-R Int : 130 ms QRS Dur : 086 ms QT Int : 344 ms P-R-T Axes : 052 018 009 degrees QTc Int : 478 ms SINUS TACHYCARDIA NONSPECIFIC ST ABNORMALITY WHEN COMPARED WITH ECG OF 13-APR-2016 01:31, NO SIGNIFICANT CHANGE WAS FOUND Confirmed by URSULA BENÍTEZ MD ([id number]) on 12/23/2016 10:08:25 AM Referred By: Confirmed By:URSULA BENÍTEZ MD
[2016-12-23] MEDS ORDERED: ALBUTEROL SO4 2.5/IPRATROPIUM 0.5 INH SOL 3 ML VIAL.NEB. NEB PRN (15:10)
--- NOTE | 2016-12-23 15:21 | PN ---
Physical Exam: SUBJECTIVE: Patient seen and examined. c/o abdominal pain, distention and continuous rectal leakage watery diarrhea. unable to tolerate po, she gets abdominal cramps and nausea with any food intake. denies further episodes of vomiting but due to nausea and abdominal cramps does want to eat anything. Colonoscopy at time of diverticulitis in 2007 was negative for any masses, ulcers, colonic mucosal lesions. Does not follow with GI, does not take any GI medications. OBJECTIVE: Vital Signs Period Temp Pulse Resp BP Sys/Jj Pulse Ox Last 24 Hr 98.4 F-100.1 F 95-113 14-18 107-119/60-76 99-99 GENERAL: The patient is awake, alert, and fully oriented, in no acute distress. HEAD: Normal with no signs of trauma. no sinus tenderness EYES: PERRL, extraocular movements intact, sclera anicteric, conjunctiva clear. No ptosis. ENT: oropharynx clear without exudates, ulcers, lesions, moist mucous membranes. NECK: Trachea midline, full range of motion, supple. thick neck without LAD, thyromegaly. LUNGS: Breath sounds equal, clear to auscultation bilaterally, no wheezes, no crackles, no accessory muscle use. HEART: Regular rate and rhythm, S1, S2 without murmur, rub or gallop. ABDOMEN: Soft,tender to palpation in LLQ, suprapubic and RUQ, distended, hyperactive bowel sounds, no guarding, + rebound in b/l lower quadrants, tympanic throughout to percussion. obturators/ psoas/rebollar's negative. +CVA tenderness to percussion b/l EXTREMITIES: 2+ DP pulses, warm, well-perfused, no edema in upper or lower extremities. no spinal tenderness. NEUROLOGICAL: Normal speech, facial symmetry, 5/5 b/l handgrip. PSYCH: Normal mood, normal affect. SKIN: Warm, dry, normal turgor, no rashes or lesions noted RECTAL: no external hemorrhoids/anal fissures/ulcers, normal rectal tone, rectal vault without blood/stool. no stool externally. skin intact. normal rectal tone. Laboratory Results - last 24 hr 12/23/16 12/23/16 06:58 06:58 WBC 9.1 RBC 3.14 L Hgb 9.7 L D Hct 29.3 L D MCV 93.3 MCH 31.0 MCHC 33.2 RDW 15.9 H Plt Count 230 MPV 8.5 Neutrophils % 86.5 H Lymphocytes % 9.8 D Monocytes % 3.3 L Eosinophils % 0.3 Basophils % 0.1 Lactic Acid 0.7 Active Medications Generic Name Dose Route Start Last Admin Trade Name Freq PRN Reason Stop Dose Admin Acetaminophen 650 mg 12/22/16 22:31 12/23/16 13:53 Tylenol - PO 650 mg Q4H PRN Administration FEVER OR PAIN Hydrochlorothiazide 25 mg 12/23/16 10:00 12/23/16 10:05 Hctz - PO 25 mg DAILY KASSI Administration Sodium Chloride 1,000 mls @ 125 mls/hr 12/22/16 22:45 12/23/16 06:17 Normal Saline - IV 125 mls/hr ASDIR KASSI Administration Morphine Sulfate 1 mg 12/23/16 09:57 Morphine Injection - IVPUSH Q4H PRN PAIN Nifedipine 30 mg 12/23/16 10:00 12/23/16 10:05 Procardia Xl - PO 30 mg DAILY KASSI Administration Ondansetron HCl 4 mg 12/22/16 22:31 12/23/16 13:48 Zofran Injection IVPB 4 mg Q6H PRN Administration NAUSEA ASSESSMENT/PLAN: 36yo F with hx of diverticulitis and HTN admitted to for gastroenteritis, unable to tolerate PO and continuous diarrhea. # continous diarrhea, intractable nausea - likely due to enteritis or inflammation. given pt's hx of colitis, likely inflammatory -- while ischemic bowel is in differential, pt does not appear toxic, have bloody diarrhea, have afib for possible emboli or atherosclerosis for vessel occlusion and BP is controlled. - stool cx and gram stain pending to r/i infectious process(pt is now afebrile, no white count) - cont. IVF NS @ 125cc/hr - advance diet as tolerated, pain control with tylenol 650mg po q4hr prn and morphine 1mg ivpush prn q4hr - continue abx metronidazole 500 q8hr IVPB + levoquin 500mg IVPB qdaily - nausea 4mg zofran IVPB q6hr prn - GI consulted for further evaluation, if further imaging is needed or continued abx. #Ruptured ovarian cyst noted on CT scan - outpatient follow-up with INSURANCE CODER #HTN - nifedipine 30mg po daily - HCTZ 25mg po daily DVT Prophylaxis - early ambulation as tolerated, low risk Diet: low sodium regular for dinner Visit type - Emergency Visit Emergency Visit: No - New Patient This patient is new to me today: Yes Date on this admission: 12/23/16 - Critical Care Critical Care patient: No
--- NOTE | 2016-12-23 16:16 | CON.GI ---
Consult Consult Specialty:: GI - for Dr. Herrera Referred by:: Hospitalist Service Reason for Consultation:: Nausea/Vomiting/Diarrhea - History of Present Illness Chief Complaint: I was vomiting and had diarrhea History of Present Illness: The patient is a 36F in her USOH up until early yesterday morning. She says that at around 4 AM she was awoken by significant abdominal cramping followed by copious watery diarrhea. The diarrhea was non-bloody, non-mucoid. [facility] vomiting occurred as well along with chills. She waited to see iof her symptoms improved however the N/V/D persisted accompanied by a 101.1 fever at home. This promted evaluation at the [facility] ER yesterday afternoon. In the ER triage vitals revealed T: 98 P: 105 BP: 141/98. She was noted to have a temp of 100.1 a little later on as well. A mild leukocytosis of 10.5 was noted with initial hgb of 11.5. Repeat Hgb this morning was 9.7. She denies a history of anemia, there was no melena and she saw a scant amount of bright red blood with a BM 4 am this morning. She was given 1 L of IV fluids in the ER. Currently the nausea/vomiting has subsided but the diarrhea persists. She denies similar episodes in the past but says she has intermittently had diarrhea chronically depending on what she eats (dairy / beef). She recently returned from an uneventful 1 week long trip to [place] this past Monday, but otherwise denies recent travel. (She did comment that she may have eaten something that gave her cramps and some gas during the trip). 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 She was on a 2 week course of penicillin last month for strep throat. She alludes to seeing Dr. Jose Abdi, centerless grinder operator, after she was admitted to [facility] for evaluation of diverticulitis. She says that work-up culminated in her undergoing EGD and Colonoscopy that were OK. There is no family history of colorectal cancer, IBD or other GI malignancy. She has a history of HTN but denies a recent change in her medications or use of any recent OTC medications. 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 Place of : [facility] History of Recent Travel: Yes ([place] for 1 week) Home Medications - Allergies Allergies/Adverse Reactions: Allergies Allergy/AdvReac Type Severity Reaction Status Date / Time No Known Allergies Allergy Verified 12/22/16 17:00 - Home Medications Home Medications: Ambulatory Orders Hydrochlorothiazide [Hctz -] 25 mg PO DAILY 05/02/15 Nifedipine [Procardia Xl] 30 mg PO DAILY 11/07/16 Family Disease History - Family Disease History Family Disease History: Other: Father ( 78: drowned), Mother ( 50: ruptured cerebral aneurysm), Brother (1, healthy), Sister (1, healthy) Other Family History: No children. Remaining family history as in HPI Review of Systems - Review of Systems Constitutional: denies: Loss of Appetite, Unintentional Wgt. Loss Cardiovascular: denies: Chest Pain Respiratory: denies: SOB Gastrointestinal: reports: Bloating, Diarrhea, Nausea (resolved), Vomiting ( resolved). denies: Constipation, Dysphagia, Indigestion, Melena Genitourinary: denies: Vaginal Bleeding (denies menorrhagia) Musculoskeletal: denies: Back Pain, Joint Pain Neurological: denies: Headache Physical Exam-GI Vital Signs: Vital Signs Temperature 98.4 F 12/23/16 13:47 Pulse Rate 95 H 12/23/16 13:47 Respiratory Rate 18 12/23/16 13:47 Blood Pressure 119/76 12/23/16 13:47 O2 Sat by Pulse Oximetry (%) 99 12/23/16 14:00 Constitutional: Yes: Calm Eyes: No: Sclera Icterus Cardiovascular: Yes: Regular Rate and Rhythm Respiratory: Yes: CTA Bilaterally Gastrointestinal Inspection: No: Distention ...Auscultate: Yes: Normoactive Bowel Sounds ...Palpate: Yes: Tenderness (TTP LUQ, left paramedian abdomen.). No: Guarding, Hepatomegaly, Splenomegaly ...Percussion: No: Tympanitic ...Rectal Exam: Yes: Guaiac Negative (trace liquid brown stool), Other. No: Hemorrhoids/External, Mass Edema: No Neurological: Yes: Alert, Oriented Labs: CBC, BMP 12/23/16 06:58 Hepatic Panel Total Bilirubin 0.5 mg/dL (0.2-1.0) D 12/22/16 16:40 AST 12 U/L (15-37) L D 12/22/16 16:40 ALT 17 U/L (12-78) 12/22/16 16:40 Alkaline Phosphatase 97 U/L (45-117) 12/22/16 16:40 Albumin 2.9 g/dl (3.4-5.0) L 12/22/16 16:40 Imaging - Results Cat Scan: Report Reviewed (multiple fibroids, adnexal cysts, ? com[pression of bladder, segment of small bowel wall thickening), Image Reviewed Problem List - Problems (1) Gastroenteritis Assessment/Plan: Overall clinically improved from presentation, still with low grade temps earlier today Plan: Stool studies are pending. Ordered stool for rota/norovirus / O&P Continue Abx for now. Consider ID eval Full liquid diet Unclear etiology of normocytic anemia. Guaiac negative on exam without history of anemia or overt rectal bleeding/melena. ? if secondary to viral process. ? dilutional. Anemia w/u per primary team. Consider heme eval W/U of guide changer findings with guide changer If worsening abdominal pain, consider surgical evaluation and keep NPO Code(s): K52.9 - NONINFECTIVE GASTROENTERITIS AND COLITIS, UNSPECIFIED
[2016-12-23] MEDS: METRONIDAZOLE 500 MG PREMIXED 100 ML IVPB SCH (16:49)
--- NOTE | 2016-12-23 17:48 | PN ---
Teaching Attending Note Name of Resident: Iam Varma ATTENDING PHYSICIAN STATEMENT I saw and evaluated the patient. I reviewed the resident's note and discussed the case with the resident. I agree with the resident's findings and plan as documented. SUBJECTIVE: Patient continues to have non-bloody, watery diarrhea, nausea and chills. OBJECTIVE: Vital Signs Period Temp Pulse Resp BP Sys/Jj Pulse Ox Last 24 Hr 98.4 F-100.1 F 95-113 14-18 107-134/60-83 99-99 HEART: S1S2, RRR LUNGS: Clear ABDOMEN: Soft, non-distended, mild diffuse tenderness, hyperactive BS EXTREMITIES: No edema Current Medications Generic Name Dose Route Start Last Admin Trade Name Freq PRN Reason Stop Dose Admin Acetaminophen 650 mg 12/22/16 22:31 12/23/16 13:53 Tylenol - PO 650 mg Q4H PRN Administration FEVER OR PAIN Hydrochlorothiazide 25 mg 12/23/16 10:00 12/23/16 10:05 Hctz - PO 25 mg DAILY KASSI Administration Sodium Chloride 1,000 mls @ 125 mls/hr 12/22/16 22:45 12/23/16 16:48 Normal Saline - IV 125 mls/hr ASDIR KASSI Administration Metronidazole 100 mls @ 100 mls/hr 12/23/16 15:45 12/23/16 16:49 Flagyl 500mg Premixed Ivpb - IVPB 100 mls/hr Q8H-IV KASSI Administration Levofloxacin 100 mls @ 100 mls/hr 12/23/16 22:00 Levaquin 500 Mg Premixed Ivpb - IVPB DAILY@2200 KASSI Morphine Sulfate 1 mg 12/23/16 09:57 Morphine Injection - IVPUSH Q4H PRN PAIN Nifedipine 30 mg 12/23/16 10:00 12/23/16 10:05 Procardia Xl - PO 30 mg DAILY KASSI Administration Ondansetron HCl 4 mg 12/22/16 22:31 12/23/16 13:48 Zofran Injection IVPB 4 mg Q6H PRN Administration NAUSEA ASSESSMENT AND PLAN: This is a 36-year-old woman with a history of diverticulitis, HTN who presented to the ER with abdominal pain, vomiting and diarrhea. 1. Nausea, vomiting, diarrhea - Had temp 100.1 this overnight, tachycardia improving - Possible infectious gastroenteritis - Continue IV fluid - Continue Levaquin, Flagyl - Continue Zofran as needed for nausea - Stool studies pending 2. Ruptured ovarian cyst - Outpatient philosophy and religion instructor follow-up 3. HTN - Continue Procardia, HCTZ 4. Anemia, normocytic
[2016-12-23] MEDS ORDERED: ALBUTEROL SO4 2.5/IPRATROPIUM 0.5 INH SOL 3 ML VIAL.NEB. NEB SCH (18:00)
[2016-12-23] MEDS: LEVOFLOXACIN 500 MG IVPB 100 ML IVPB SCH (22:02)
[2016-12-23] MEDS: morphine CARPU-JECT 4 MG/1 ML DISP.SYRIN IVPUSH PRN (23:55)
[2016-12-24] MEDS: METRONIDAZOLE 500 MG PREMIXED 100 ML IVPB SCH ×4 (02:36→18:54)
[2016-12-24 07:04] LABS: BASOPHIL 0.3 % (0-2.0); EOSINOPHIL 2.9 % (0-4.5); MCH 30.7 pg (25.7-33.7); MCHC 32.9 g/dl (32.0-36.0); MEAN CELL VOLUME 93.3 fl (80-96); MEAN PLT VOLUME 8.3 fl (7.5-11.1); PLATELET COUNT 245 K/MM3 (134-434); RDW 15.8 % (11.6-15.6); WHITE BLOOD COUNT 6.9 K/mm3 (4.0-10.0)
[2016-12-24 07:29] LABS: ANION GAP 7 (8-16); CALCIUM 7.4 mg/dL (8.5-10.1); CO2 24 mmol/L (21-32); CREATININE 0.5 mg/dL (0.55-1.02); GLUCOSE,RANDOM 78 mg/dL (74-106)
[2016-12-24 07:36] LABS: THYROID STIMULATING HORMONE 2.19 uIU/ml (0.358-3.74)
--- NOTE | 2016-12-24 09:21 | PN ---
Teaching Attending Note Name of Resident: Jovon Morfin ATTENDING PHYSICIAN STATEMENT I saw and evaluated the patient. I reviewed the resident's note and discussed the case with the resident. I agree with the resident's findings and plan as documented. SUBJECTIVE: Patient continues to have diarrhea. She had severe left sided abdominal pain when she attempted full liquid diet. OBJECTIVE: Vital Signs Period Temp Pulse Resp BP Sys/Jj Pulse Ox Last 24 Hr 98.2 F-99.6 F 83-101 18-20 106-134/60-79 99-99 HEART: S1S2, RRR LUNGS: Clear ABDOMEN: Soft, non-distended, mild left-sided tenderness, normal BS EXTREMITIES: No edema ASSESSMENT AND PLAN: This is a 36-year-old woman with a history of diverticulitis, HTN who presented to the ER with abdominal pain, vomiting and diarrhea. 1. Nausea, vomiting, diarrhea - Afebrile, tachycardia improved - Possible infectious gastroenteritis - Change back to clear liquid diet and advance as tolerated - Continue IV fluid, Levaquin, Flagyl, Zofran as needed for nausea - Stool C. difficile negative; other studies pending 2. Hypokalemia - Replete potassium 3. Ruptured ovarian cyst - Outpatient baked and graphite inspector follow-up 4. HTN - Continue Procardia, HCTZ 5. Anemia, normocytic - TSH normal - Ferritin normal; iron, TIBC, iron saturation pending - Stool negative for occult blood
--- NOTE | 2016-12-24 09:35 | PN ---
GI Progress Note - Objective Vital Signs: Vital Signs Temperature 98.2 F 12/24/16 06:00 Pulse Rate 83 12/24/16 09:04 Respiratory Rate 20 12/24/16 09:04 Blood Pressure 118/70 12/24/16 09:04 O2 Sat by Pulse Oximetry (%) 99 12/23/16 22:00 Labs: CBC, BMP 12/24/16 06:00 12/24/16 06:00 Problem List - Problems (1) Gastroenteritis Code(s): K52.9 - NONINFECTIVE GASTROENTERITIS AND COLITIS, UNSPECIFIED
--- NOTE | 2016-12-24 09:48 | PN ---
GI Progress Note Subjective: States that pain was worse after full liquid diet Overall,however,she states that abdominal pain and diarrhea have both improved Afebrile overnight - Objective Vital Signs: Vital Signs Temperature 98.2 F 12/24/16 06:00 Pulse Rate 83 12/24/16 09:04 Respiratory Rate 20 12/24/16 09:04 Blood Pressure 118/70 12/24/16 09:04 O2 Sat by Pulse Oximetry (%) 99 12/23/16 22:00 Constitutional: Calm Eyes: No: Sclera Icterus Cardiovascular: Yes: Regular Rate and Rhythm Gastrointestinal Inspection: No: Distention ...Auscultate: Yes: Normoactive Bowel Sounds ...Palpate: Yes: Tenderness (much improved TTP LUQ / left paramedian abdomen). No: Guarding, Tenderness, Rebound Edema: No Neurological: Yes: Alert, Oriented Labs: CBC, BMP 12/24/16 06:00 12/24/16 06:00 Problem List - Problems (1) Gastroenteritis Assessment/Plan: Clinically improved however pain after full liquid diet Change back to clears. If continued worsening pain, NPO w/ IV hydration AM labs Other recommendation as outlined in initial consult Code(s): K52.9 - NONINFECTIVE GASTROENTERITIS AND COLITIS, UNSPECIFIED
[2016-12-24] MEDS: SUMAtriptan SUCCINATE 25 MG TABLET PO ONE ×2 (11:02→11:11)
[2016-12-24] MEDS: KCL 10 MEQ IVPB 100 ML IVPB SCH ×2 (11:02→13:37)
[2016-12-24] MEDS: NIFEdipine E.R. 30 MG TABLET (FP) PO SCH (11:11)
[2016-12-24] MEDS: SODIUM CHLORIDE 1,000 ML with POTASSIUM CHLORIDE 40 MEQ IVPB SCH ×2 (11:11→13:30)
[2016-12-24] MEDS: HYDROCHLOROTHIAZIDE 25 MG TABLET (FP) PO SCH (11:11)
--- NOTE | 2016-12-24 12:02 | PN ---
Physical Exam: SUBJECTIVE: Patient seen and examined Patient had 3 BM overnight. No blood. Pain was worse on a full liquid diet. Patient has been complaining of left sided headaches with photophobia. Has hx of migraine. OBJECTIVE: Vital Signs Period Temp Pulse Resp BP Sys/Jj Pulse Ox Last 24 Hr 98.2 F-98.4 F 83-89 18-20 106-129/60-79 99 GENERAL: The patient is awake, alert, and fully oriented, in no acute distress. HEAD: Normal with no signs of trauma. no sinus tenderness EYES: PERRL, extraocular movements intact, sclera anicteric, conjunctiva clear. No ptosis. ENT: oropharynx clear without exudates, ulcers, lesions, moist mucous membranes. NECK: Trachea midline, full range of motion, supple. thick neck without LAD, thyromegaly. LUNGS: Breath sounds equal, clear to auscultation bilaterally, no wheezes, no crackles, no accessory muscle use. HEART: Regular rate and rhythm, S1, S2 without murmur, rub or gallop. ABDOMEN: Soft,tender to palpation in LUQ, mild distention, hyperactive bowel sounds (improved from yesterday), no guarding, EXTREMITIES: 2+ DP pulses, warm, well-perfused, no edema in upper or lower extremities. no spinal tenderness. NEUROLOGICAL: Normal speech, facial symmetry, 5/5 b/l handgrip. PSYCH: Normal mood, normal affect. SKIN: Warm, dry, normal turgor, no rashes or lesions noted RECTAL: no external hemorrhoids/anal fissures/ulcers, normal rectal tone, rectal vault without blood/stool. no stool externally. skin intact. normal rectal tone. Laboratory Results - last 24 hr 12/24/16 12/24/16 12/24/16 06:00 06:00 06:00 WBC 6.9 RBC 3.05 L Hgb 9.4 L Hct 28.5 L MCV 93.3 MCH 30.7 MCHC 32.9 RDW 15.8 H Plt Count 245 MPV 8.3 Neutrophils % 65.0 D Lymphocytes % 24.1 D Monocytes % 7.7 D Eosinophils % 2.9 D Basophils % 0.3 Retic Count 2.04 H Sodium 140 Potassium 3.0 L Chloride 109 H Carbon Dioxide 24 Anion Gap 7 L BUN 2 L* D Creatinine 0.5 L D Random Glucose 78 Calcium 7.4 L Ferritin TSH 2.19 12/24/16 06:00 WBC RBC Hgb Hct MCV MCH MCHC RDW Plt Count MPV Neutrophils % Lymphocytes % Monocytes % Eosinophils % Basophils % Retic Count Sodium Potassium Chloride Carbon Dioxide Anion Gap BUN Creatinine Random Glucose Calcium Ferritin 44.945 TSH Active Medications Generic Name Dose Route Start Last Admin Trade Name Freq PRN Reason Stop Dose Admin Acetaminophen 650 mg 12/22/16 22:31 12/23/16 22:04 Tylenol - PO 650 mg Q4H PRN Administration FEVER OR PAIN Hydrochlorothiazide 25 mg 12/23/16 10:00 12/24/16 11:11 Hctz - PO 25 mg DAILY KASSI Administration Metronidazole 100 mls @ 100 mls/hr 12/23/16 15:45 12/24/16 11:02 Flagyl 500mg Premixed Ivpb - IVPB Not Given Q8H-IV KASSI Levofloxacin 100 mls @ 100 mls/hr 12/23/16 22:00 12/23/16 22:02 Levaquin 500 Mg Premixed Ivpb - IVPB 100 mls/hr DAILY@2200 KASSI Administration Potassium Chloride 40 meq/ 1,020 mls @ 125 mls/hr 12/24/16 09:32 12/24/16 11:11 Sodium Chloride IVPB Not Given Q8H KASSI Morphine Sulfate 1 mg 12/23/16 09:57 12/23/16 23:55 Morphine Injection - IVPUSH 1 mg Q4H PRN Administration PAIN Nifedipine 30 mg 12/23/16 10:00 12/24/16 11:11 Procardia Xl - PO 30 mg DAILY KASSI Administration Ondansetron HCl 4 mg 12/22/16 22:31 12/23/16 13:48 Zofran Injection IVPB 4 mg Q6H PRN Administration NAUSEA ASSESSMENT/PLAN: 36yo F with hx of diverticulitis and HTN admitted to for gastroenteritis, unable to tolerate PO and continuous diarrhea. # continous diarrhea, intractable nausea - likely due to enteritis or inflammation. given pt's hx of colitis, likely inflammatory -- while ischemic bowel is in differential, pt does not appear toxic, have bloody diarrhea, have afib for possible emboli or atherosclerosis for vessel occlusion and BP is controlled. - stool cx and gram stain pending to r/o infectious process (pt is afebrile, no white count, tachycardia is improving), C. Diff negative. - cont. IVF NS @ 125cc/hr - change back to clear liquid diet, advance diet as tolerated - pain control with tylenol 650mg po q4hr prn and morphine 1mg ivpush prn q4hr - continue abx metronidazole 500 q8hr IVPB + levoquin 500mg IVPB qdaily - nausea 4mg zofran IVPB q6hr prn - GI on board #Headache -Left sided, with photophobia -Has hx of migraine headaches -1x dose of imitrex 25 mg PO given #Hypokalemia -Kcl 40 meq in IVF given #Ruptured ovarian cyst noted on CT scan - outpatient follow-up with CERTIFIED PHYSICIAN'S ASSISTANT #HTN - nifedipine 30mg po daily - HCTZ 25mg po daily #Normocytic anemia -TSH normal -Iron studies currently pending -Guiaic negative DVT Prophylaxis - early ambulation as tolerated, low risk Diet: clear liquid Visit type - Emergency Visit Emergency Visit: No - New Patient This patient is new to me today: Yes Date on this admission: 12/24/16 - Critical Care Critical Care patient: No
[2016-12-24] MEDS: morphine CARPU-JECT 4 MG/1 ML DISP.SYRIN IVPUSH PRN (13:27)
[2016-12-24] MEDS ORDERED: POTASSIUM CHLORIDE ORAL LIQUID 20 MEQ/15 ML PO ONE (14:54)
[2016-12-24] MEDS: ACETAMINOPHEN 325 MG TABLET (FP) PO PRN (21:32)
[2016-12-24] MEDS: LEVOFLOXACIN 500 MG IVPB 100 ML IVPB SCH (21:32)
[2016-12-25] MEDS: METRONIDAZOLE 500 MG PREMIXED 100 ML IVPB SCH ×3 (01:42→18:39)
[2016-12-25] MEDS: SODIUM CHLORIDE 1,000 ML with POTASSIUM CHLORIDE 40 MEQ IVPB SCH ×3 (01:42→16:30)
[2016-12-25 06:41] LABS: SERUM IRON 16 ug/dL (27-159); TOTAL IRON BINDING CAPACITY 296 ug/dL (250-450); UIBC 280 ug/dL (131-425)
[2016-12-25 08:59] LABS: BASOPHIL 0.3 % (0-2.0); EOSINOPHIL 2.7 % (0-4.5); MCH 30.4 pg (25.7-33.7); MEAN CELL VOLUME 92.4 fl (80-96); MEAN PLT VOLUME 8.4 fl (7.5-11.1); NEUTROPHILS 48.6 % (42.8-82.8); PLATELET COUNT 278 K/MM3 (134-434); RDW 15.1 % (11.6-15.6); WHITE BLOOD COUNT 6.1 K/mm3 (4.0-10.0)
--- NOTE | 2016-12-25 09:16 | PN ---
Physical Exam: SUBJECTIVE: Patient seen and examined The patient is a 36-year-old woman with a history of diverticulitis and HTN who was admitted to inpatient services with suspected infectious gastroenteritis. She has less abdominal pain today. Stools more formed. OBJECTIVE: Vital Signs Period Temp Pulse Resp BP Sys/Jj Pulse Ox Last 24 Hr 98.1 F-99.2 F 79-88 18-20 107-139/68-90 98 HEART: S1S2, RRR LUNGS: Rhonchi at left base ABDOMEN: Soft, mildly tender to deep palpation in the LLQ and LUQ, non-distended , normal BS EXTREMITIES: Trace edema Laboratory Results - last 24 hr 12/24/16 12/25/16 06:00 07:50 WBC 6.1 RBC 3.36 L Hgb 10.2 L Hct 31.1 L MCV 92.4 MCH 30.4 MCHC 33.0 RDW 15.1 Plt Count 278 MPV 8.4 Neutrophils % 48.6 D Lymphocytes % 38.2 D Monocytes % 10.2 Eosinophils % 2.7 Basophils % 0.3 Iron 16 L TIBC 296 Iron Saturation 5 L Active Medications Generic Name Dose Route Start Last Admin Trade Name Freq PRN Reason Stop Dose Admin Acetaminophen 650 mg 12/22/16 22:31 12/24/16 21:32 Tylenol - PO 650 mg Q4H PRN Administration FEVER OR PAIN Hydrochlorothiazide 25 mg 12/23/16 10:00 12/24/16 11:11 Hctz - PO 25 mg DAILY KASSI Administration Metronidazole 100 mls @ 100 mls/hr 12/23/16 15:45 12/25/16 01:42 Flagyl 500mg Premixed Ivpb - IVPB 100 mls/hr Q8H-IV KASSI Administration Levofloxacin 100 mls @ 100 mls/hr 12/23/16 22:00 12/24/16 21:32 Levaquin 500 Mg Premixed Ivpb - IVPB 100 mls/hr DAILY@2200 KASSI Administration Potassium Chloride 40 meq/ 1,020 mls @ 125 mls/hr 12/24/16 09:32 12/25/16 01:42 Sodium Chloride IVPB 125 mls/hr Q8H KASSI Administration Morphine Sulfate 1 mg 12/23/16 09:57 12/24/16 13:27 Morphine Injection - IVPUSH 1 mg Q4H PRN Administration PAIN Nifedipine 30 mg 12/23/16 10:00 12/24/16 11:11 Procardia Xl - PO 30 mg DAILY KASSI Administration Ondansetron HCl 4 mg 12/22/16 22:31 12/23/16 13:48 Zofran Injection IVPB 4 mg Q6H PRN Administration NAUSEA ASSESSMENT/PLAN: #GI Suspected infectious gastroenteritis Afebrile, tachycardia improved Stool C. difficile negative, stool cx negative thus-far, norovirus and rotovirus pending Appreciate GI input Continue IV fluid Advance diet to full liquids Continue Levaquin and Flagyl fornow Zofran prn nausea Tylenol and Morphine prn pain #FEN Diet advanced to full liquids She was hypokalemic Continue NS with KCL May be able to d/c KCL in am # Ruptured ovarian cyst Outpatient mechanical integrity engineer follow-up #CARDIOVASCULAR Chronic HTN Stable Continue Procardia, HCTZ #HEME Mild anemia, normocytic and with normal RMD TSH normal Ferritin normal TIBS normal Iron was low (16) Stool negative for occult blood Will defer and further evaluation and/or treatment to outpatient setting #PROPHYLAXIS Eating Ambulating #DISPOSITION Possible discharge in am Visit type - Emergency Visit Emergency Visit: Yes ED Registration Date: 12/23/16 Care time: The patient presented to the Emergency Department on the above date and was hospitalized for further evaluation of their emergent condition. - New Patient This patient is new to me today: Yes Date on this admission: 12/25/16 - Critical Care Critical Care patient: No
[2016-12-25 09:23] LABS: ALBUMIN 2.5 g/dl (3.4-5.0); ANION GAP 8 (8-16); BILIRUBIN,TOTAL 0.2 mg/dL (0.2-1.0); C-REACTIVE PROTEIN 3.3 MG/DL (0.00-0.3); CALCIUM 7.9 mg/dL (8.5-10.1); CO2 24 mmol/L (21-32); CREATININE 0.6 mg/dL (0.55-1.02); GLUCOSE,RANDOM 80 mg/dL (74-106); SGOT/AST 8 U/L (15-37); SGPT/ALT 12 U/L (12-78); TOT PROT 5.9 g/dl (6.4-8.2)
[2016-12-25 09:24] LABS: ALK PHOS 73 U/L (45-117)
[2016-12-25] MEDS: NIFEdipine E.R. 30 MG TABLET (FP) PO SCH (09:54)
[2016-12-25] MEDS: HYDROCHLOROTHIAZIDE 25 MG TABLET (FP) PO SCH (09:54)
--- NOTE | 2016-12-25 10:09 | PN ---
GI Progress Note Subjective: Sitting up in bed, states feeling much better Had 1 soft BM this morning Pain improved but she feels as though it has moved to the left lower quadrant - Objective Vital Signs: Vital Signs Temperature 99.3 F 12/25/16 09:39 Pulse Rate 80 12/25/16 09:39 Respiratory Rate 20 12/25/16 09:39 Blood Pressure 125/71 12/25/16 09:39 O2 Sat by Pulse Oximetry (%) 98 12/24/16 11:00 Constitutional: Calm Eyes: No: Sclera Icterus Cardiovascular: Yes: Regular Rate and Rhythm Gastrointestinal Inspection: No: Distention ...Auscultate: Yes: Normoactive Bowel Sounds ...Palpate: Yes: Tenderness (TTP LUQ, mild LLQ) ...Percussion: No: Tympanitic Edema: No Neurological: Yes: Alert, Oriented Labs: CBC, BMP 12/25/16 07:50 12/25/16 07:50 Microbiology 12/23/16 09:40 Stool Gram Stain - Neg 12/23/16 09:40 Stool Clostridium difficile Antigen (JULY) - Neg 12/23/16 09:40 Stool Clostridium difficile Toxin Assay - Neg 12/23/16 21:45 Stool Norovirus GI - Pending 12/23/16 21:45 Stool Norovirus GII - Pending 12/23/16 09:40 Stool Salmonella/Shigella Culture - Preliminary 12/23/16 09:40 Stool Escherichia coli 0157 Culture - Preliminary NO ENTERIC PATHOGENS, 24 HOURS, ON PRIMARY PLATES NO ENTERIC PATHOGENS, 24 HOURS, ON PRIMARY PLATES NO ENTERIC PATHOGENS, 24 HOURS, ON PRIMARY PLATES NO ENTERIC PATHOGENS, 24 HOURS, ON PRIMARY PLATES NO ENTERIC PATHOGENS, 24 HOURS, ON PRIMARY PLATES 12/24/16 06:00 Rotavirus Report Status Pending Problem List - Problems (1) Gastroenteritis Assessment/Plan: Clinically improved. Still with LUQ pain.Ordered abdominal US to reevaluate spleen Advancing diet to full liquids again Anemia improving without intervention. ? if secondary to systemic process Code(s): K52.9 - NONINFECTIVE GASTROENTERITIS AND COLITIS, UNSPECIFIED
[2016-12-25] MEDS ORDERED: SUMAtriptan SUCCINATE 25 MG TABLET PO ONE (13:35)
[2016-12-25] MEDS: LEVOFLOXACIN 500 MG IVPB 100 ML IVPB SCH (21:27)
[2016-12-26] MEDS: METRONIDAZOLE 500 MG PREMIXED 100 ML IVPB SCH ×3 (01:32→17:43)
[2016-12-26] MEDS: SODIUM CHLORIDE 1,000 ML with POTASSIUM CHLORIDE 40 MEQ IVPB SCH ×2 (01:34→12:25)
[2016-12-26 07:36] LABS: MCH 30.5 pg (25.7-33.7); MCHC 32.7 g/dl (32.0-36.0); MEAN CELL VOLUME 93.3 fl (80-96); MEAN PLT VOLUME 8.3 fl (7.5-11.1); PLATELET COUNT 315 K/MM3 (134-434); RDW 15.5 % (11.6-15.6); WHITE BLOOD COUNT 7.1 K/mm3 (4.0-10.0)
[2016-12-26 08:05] LABS: ANION GAP 8 (8-16); CO2 23 mmol/L (21-32); CREATININE 0.6 mg/dL (0.55-1.02); GLUCOSE,RANDOM 84 mg/dL (74-106); PHOSPHOROUS 2.6 mg/dL (2.5-4.9)
[2016-12-26] MEDS: NIFEdipine E.R. 30 MG TABLET (FP) PO SCH (10:27)
[2016-12-26] MEDS: HYDROCHLOROTHIAZIDE 25 MG TABLET (FP) PO SCH (10:27)
--- NOTE | 2016-12-26 11:24 | PN ---
Teaching Attending Note Name of Resident: Jovon Morfin ATTENDING PHYSICIAN STATEMENT I saw and evaluated the patient. I reviewed the resident's note and discussed the case with the resident. I agree with the resident's findings and plan as documented. SUBJECTIVE: She feels better OBJECTIVE: Vitals noted ASSESSMENT AND PLAN: Continue current diet Change to NS without KCl Begin po KCl Appreciate GI input Possible discharge tomorrow if she continues to improve See resident note for full details
--- NOTE | 2016-12-26 11:30 | PN ---
GI Progress Note Subjective: Diarrhea resolving however left sided abdominal pain persists No acute events - Objective Vital Signs: Vital Signs Temperature 98.4 F 12/26/16 06:00 Pulse Rate 70 12/26/16 06:00 Respiratory Rate 20 12/26/16 06:00 Blood Pressure 114/70 12/26/16 06:00 O2 Sat by Pulse Oximetry (%) 99 12/25/16 11:00 Constitutional: Well Nourished Eyes: No: Sclera Icterus Cardiovascular: Yes: Regular Rate and Rhythm Respiratory: No: CTA Bilaterally Gastrointestinal Inspection: No: Distention ...Auscultate: Yes: Normoactive Bowel Sounds ...Palpate: Yes: Tenderness (Left abdomen both LUQ and LLQ) ...Percussion: No: Tympanitic Edema: No Neurological: Yes: Alert, Oriented Labs: CBC, BMP 12/26/16 07:15 12/26/16 07:15 Hepatic Panel Total Bilirubin 0.2 mg/dL (0.2-1.0) D 12/25/16 07:50 AST 8 U/L (15-37) L D 12/25/16 07:50 ALT 12 U/L (12-78) D 12/25/16 07:50 Alkaline Phosphatase 73 U/L (45-117) D 12/25/16 07:50 Albumin 2.5 g/dl (3.4-5.0) L 12/25/16 07:50 Problem List - Problems (1) Gastroenteritis Assessment/Plan: Clinically improved however with persistent left sided abdominal pain Awaiting abdominal US Pending results and if left sided abdominal pain persists, repeat contrast CT scan Code(s): K52.9 - NONINFECTIVE GASTROENTERITIS AND COLITIS, UNSPECIFIED
[2016-12-26] MEDS: SODIUM CHLORIDE 1,000 ML IV SCH (12:24)
--- NOTE | 2016-12-26 17:19 | PN ---
Physical Exam: SUBJECTIVE: Patient seen and examined Patient states diarrhea is resolving but left sided abdominal pain still persists. OBJECTIVE: Vital Signs Period Temp Pulse Resp BP Sys/Jj Pulse Ox Last 24 Hr 97.9 F-98.4 F 61-82 18-20 102-134/55-82 GENERAL: The patient is awake, alert, and fully oriented, in no acute distress. HEAD: Normal with no signs of trauma. no sinus tenderness EYES: PERRL, extraocular movements intact, sclera anicteric, conjunctiva clear. No ptosis. ENT: oropharynx clear without exudates, ulcers, lesions, moist mucous membranes. NECK: Trachea midline, full range of motion, supple. thick neck without LAD, thyromegaly. LUNGS: Breath sounds equal, clear to auscultation bilaterally, no wheezes, no crackles, no accessory muscle use. HEART: Regular rate and rhythm, S1, S2 without murmur, rub or gallop. ABDOMEN: Soft,tender to palpation in LUQ/LLQ, No distention, Positive bs, no guarding, EXTREMITIES: 2+ DP pulses, warm, well-perfused, no edema in upper or lower extremities. no spinal tenderness. NEUROLOGICAL: Normal speech, facial symmetry, 5/5 b/l handgrip. PSYCH: Normal mood, normal affect. SKIN: Warm, dry, normal turgor, no rashes or lesions noted RECTAL: no external hemorrhoids/anal fissures/ulcers, normal rectal tone, rectal vault without blood/stool. no stool externally. skin intact. normal rectal tone. Laboratory Results - last 24 hr 12/26/16 12/26/16 07:15 07:15 WBC 7.1 RBC 3.55 L Hgb 10.8 Hct 33.1 MCV 93.3 MCH 30.5 MCHC 32.7 RDW 15.5 Plt Count 315 MPV 8.3 Sodium 139 Potassium 4.2 Chloride 108 H Carbon Dioxide 23 Anion Gap 8 BUN 3 L D Creatinine 0.6 Random Glucose 84 Calcium 8.0 L Phosphorus 2.6 Magnesium 2.0 Active Medications Generic Name Dose Route Start Last Admin Trade Name Freq PRN Reason Stop Dose Admin Acetaminophen 650 mg 12/22/16 22:31 12/24/16 21:32 Tylenol - PO 650 mg Q4H PRN Administration FEVER OR PAIN Hydrochlorothiazide 25 mg 12/23/16 10:00 12/26/16 10:27 Hctz - PO 25 mg DAILY KASSI Administration Metronidazole 100 mls @ 100 mls/hr 12/23/16 15:45 12/26/16 10:27 Flagyl 500mg Premixed Ivpb - IVPB 100 mls/hr Q8H-IV KASSI Administration Levofloxacin 100 mls @ 100 mls/hr 12/23/16 22:00 12/25/16 21:27 Levaquin 500 Mg Premixed Ivpb - IVPB 100 mls/hr DAILY@2200 KASSI Administration Sodium Chloride 1,000 mls @ 125 mls/hr 12/26/16 11:45 12/26/16 12:24 Normal Saline - IV 125 mls/hr ASDIR KASSI Administration Nifedipine 30 mg 12/23/16 10:00 12/26/16 10:27 Procardia Xl - PO 30 mg DAILY KASSI Administration Ondansetron HCl 4 mg 12/22/16 22:31 12/23/16 13:48 Zofran Injection IVPB 4 mg Q6H PRN Administration NAUSEA Potassium Chloride 40 meq 12/27/16 10:00 Potassium Chloride Oral Liquid PO DAILY KASSI ASSESSMENT/PLAN: 36yo F with hx of diverticulitis and HTN admitted to for gastroenteritis, unable to tolerate PO and continuous diarrhea. # continous diarrhea, intractable nausea - likely due to enteritis or inflammation. given pt's hx of colitis, likely inflammatory -- while ischemic bowel is in differential, pt does not appear toxic, have bloody diarrhea, have afib for possible emboli or atherosclerosis for vessel occlusion and BP is controlled. - stool cx and gram stain negative to date, C. Diff negative. - cont. IVF NS @ 125cc/hr - pain control with tylenol 650mg po q4hr prn - continue abx metronidazole 500 q8hr IVPB + levoquin 500mg IVPB qdaily - nausea 4mg zofran IVPB q6hr prn - GI on board #Headache, Resolved -Left sided, with photophobia -Has hx of migraine headaches -1x dose of imitrex 25 mg PO given #Hypokalemia -Kcl 40 meq po daily #Ruptured ovarian cyst noted on CT scan - outpatient follow-up with JUKE BOX MECHANIC #HTN - nifedipine 30mg po daily - HCTZ 25mg po daily #Normocytic anemia -TSH normal -Iron studies currently pending -Guiaic negative DVT Prophylaxis - early ambulation as tolerated, low risk Diet: Full liquid, advance as tolerated Dispo: if pt still complains of pain tomorrow, will undergo repeat CT with po/ iv contrast. Visit type - Emergency Visit Emergency Visit: No - New Patient This patient is new to me today: No - Critical Care Critical Care patient: No - Discharge Referral Referred to [facility] Med P.C.: No
[2016-12-26] MEDS: LEVOFLOXACIN 500 MG IVPB 100 ML IVPB SCH (22:18)
[2016-12-27] MEDS: METRONIDAZOLE 500 MG PREMIXED 100 ML IVPB SCH ×3 (03:00→18:39)
[2016-12-27 08:42] LABS: BASOPHIL 0.4 % (0-2.0); MCH 30.9 pg (25.7-33.7); MCHC 33.2 g/dl (32.0-36.0); MEAN CELL VOLUME 93.2 fl (80-96); MEAN PLT VOLUME 8.5 fl (7.5-11.1); NEUTROPHILS 49.8 % (42.8-82.8); PLATELET COUNT 353 K/MM3 (134-434); RDW 15.8 % (11.6-15.6); WHITE BLOOD COUNT 8.6 K/mm3 (4.0-10.0)
[2016-12-27 08:50] LABS: ANION GAP 6 (8-16); CALCIUM 7.9 mg/dL (8.5-10.1); CO2 24 mmol/L (21-32); CREATININE 0.7 mg/dL (0.55-1.02); GLUCOSE,RANDOM 88 mg/dL (74-106); MAGNESIUM 1.8 mg/dL (1.8-2.4); PHOSPHOROUS 3.1 mg/dL (2.5-4.9)
[2016-12-27] MEDS ORDERED: POTASSIUM CHLORIDE ORAL LIQUID 20 MEQ/15 ML PO SCH (10:00)
--- NOTE | 2016-12-27 10:28 | PN ---
GI Progress Note Subjective: No acute events Diarrhea improved however persistent left flank / LUQ abdominal pain - Objective Vital Signs: Vital Signs Temperature 98.4 F 12/27/16 06:00 Pulse Rate 85 12/27/16 06:00 Respiratory Rate 18 12/27/16 06:00 Blood Pressure 122/84 12/27/16 06:00 O2 Sat by Pulse Oximetry (%) 98 12/26/16 21:00 Constitutional: Calm Eyes: No: Sclera Icterus Cardiovascular: Yes: Regular Rate and Rhythm Respiratory: Yes: CTA Bilaterally Gastrointestinal Inspection: No: Distention ...Auscultate: Yes: Normoactive Bowel Sounds ...Palpate: Yes: Tenderness (TTP left abdomen / flank, no CVA tenderness) ...Percussion: No: Tympanitic Edema: No Neurological: Yes: Alert, Oriented Labs: CBC, BMP 12/27/16 07:15 12/27/16 07:15 - ....Imaging Ultrasound: Report Reviewed (Normal sized spleen) Problem List - Problems (1) Gastroenteritis Assessment/Plan: Clinically improved however now with persistent left flank pain For repeat CT scan with PO contrast to assess for urinary tract pathology / reevaluate small bowel Code(s): K52.9 - NONINFECTIVE GASTROENTERITIS AND COLITIS, UNSPECIFIED
[2016-12-27] MEDS: NIFEdipine E.R. 30 MG TABLET (FP) PO SCH (10:36)
[2016-12-27] MEDS: HYDROCHLOROTHIAZIDE 25 MG TABLET (FP) PO SCH (10:36)
[2016-12-27] MEDS: SODIUM CHLORIDE 1,000 ML IV SCH (12:00)
--- NOTE | 2016-12-27 16:11 | PN ---
Teaching Attending Note Name of Resident: Jovon Morfin ATTENDING PHYSICIAN STATEMENT I saw and evaluated the patient. I reviewed the resident's note and discussed the case with the resident. I agree with the resident's findings and plan as documented. SUBJECTIVE:continues to have pain. not exacerbated by food. states shes had similar pain in the past but was assoc with diverticulitis. only 1 BM yesterday , soft but not loose. no BM today. denies CP, SOB, fever, chills, N/V/C/D. no family hx of blood disorders OBJECTIVE: Last Vital Signs Temp Pulse Resp BP Pulse Ox 97.9 F 72 18 126/81 100 12/27/16 14:35 12/27/16 14:35 12/27/16 14:35 12/27/16 14:35 12/27/16 11:00 General NAD CV S1 S2 RRR no murmur/rub/gallop Lungs CTA B/l no wheezing/rales/rhonchi Abdomen soft +LUQ tenderness no cva tenderness, soft ND, +BS ASSESSMENT AND PLAN: 36-year-old woman with a history of diverticulitis, HTN who presented to the ER with abdominal pain, vomiting and diarrhea. 1. Gastroenteritis- resolved. diarrhea has resolved. was on liquid diet as having LUQ pain. currently drinking contrast will repeat CT today to further evaluate. U/s negative for spleen pathology. On flagyl/Levaquin day 5. GI on board 2. Hypokalemia-resolved 3. R Ruptured ovarian cyst- Outpatient flight engineer performance qualified follow-up 4. HTN- Continue Procardia, HCTZ 5. Anemia, normocytic- resolved. 6. DVT ppx- EAM
--- NOTE | 2016-12-27 16:21 | PN ---
Physical Exam: SUBJECTIVE: Patient seen and examined No acute events overnight. Patient's diarrhea is improving. Stools are becoming more formed. Patient still complains of LUQ abdominal pain. OBJECTIVE: Vital Signs Period Temp Pulse Resp BP Sys/Jj Pulse Ox Last 24 Hr 97.9 F-98.6 F 18-85 18-20 96-129/56-85 98-100 GENERAL: The patient is awake, alert, and fully oriented, in no acute distress. HEAD: Normal with no signs of trauma. no sinus tenderness EYES: PERRL, extraocular movements intact, sclera anicteric, conjunctiva clear. No ptosis. ENT: oropharynx clear without exudates, ulcers, lesions, moist mucous membranes. NECK: Trachea midline, full range of motion, supple. thick neck without LAD, thyromegaly. LUNGS: Breath sounds equal, clear to auscultation bilaterally, no wheezes, no crackles, no accessory muscle use. HEART: Regular rate and rhythm, S1, S2 without murmur, rub or gallop. ABDOMEN: Soft,tender to palpation in LUQ, No distention, Positive bs, no guarding, EXTREMITIES: 2+ DP pulses, warm, well-perfused, no edema in upper or lower extremities. no spinal tenderness. NEUROLOGICAL: Normal speech, facial symmetry, 5/5 b/l handgrip. PSYCH: Normal mood, normal affect. SKIN: Warm, dry, normal turgor, no rashes or lesions noted RECTAL on admission: no external hemorrhoids/anal fissures/ulcers, normal rectal tone, rectal vault without blood/stool. no stool externally. skin intact. normal rectal tone. Laboratory Results - last 24 hr 12/27/16 12/27/16 07:15 07:15 WBC 8.6 RBC 3.62 Hgb 11.2 Hct 33.8 MCV 93.2 MCH 30.9 MCHC 33.2 RDW 15.8 H Plt Count 353 MPV 8.5 Neutrophils % 49.8 Lymphocytes % 40.3 H Monocytes % 7.5 Eosinophils % 2.0 Basophils % 0.4 Sodium 138 Potassium 4.0 Chloride 108 H Carbon Dioxide 24 Anion Gap 6 L BUN 7 D Creatinine 0.7 Random Glucose 88 Calcium 7.9 L Phosphorus 3.1 Magnesium 1.8 Active Medications Generic Name Dose Route Start Last Admin Trade Name Freq PRN Reason Stop Dose Admin Acetaminophen 650 mg 12/22/16 22:31 12/24/16 21:32 Tylenol - PO 650 mg Q4H PRN Administration FEVER OR PAIN Hydrochlorothiazide 25 mg 12/23/16 10:00 12/27/16 10:36 Hctz - PO 25 mg DAILY KASSI Administration Metronidazole 100 mls @ 100 mls/hr 12/23/16 15:45 12/27/16 10:36 Flagyl 500mg Premixed Ivpb - IVPB 100 mls/hr Q8H-IV KASSI Administration Levofloxacin 100 mls @ 100 mls/hr 12/23/16 22:00 12/26/16 22:18 Levaquin 500 Mg Premixed Ivpb - IVPB 100 mls/hr DAILY@2200 KASSI Administration Sodium Chloride 1,000 mls @ 125 mls/hr 12/26/16 11:45 12/27/16 12:00 Normal Saline - IV 125 mls/hr ASDIR KASSI Administration Nifedipine 30 mg 12/23/16 10:00 12/27/16 10:36 Procardia Xl - PO 30 mg DAILY KASSI Administration Ondansetron HCl 4 mg 12/22/16 22:31 12/23/16 13:48 Zofran Injection IVPB 4 mg Q6H PRN Administration NAUSEA Potassium Chloride 40 meq 12/27/16 10:00 Potassium Chloride Oral Liquid PO DAILY KASSI ASSESSMENT/PLAN: 36yo F with hx of diverticulitis and HTN admitted to for gastroenteritis, unable to tolerate PO and continuous diarrhea. # Gastroenteritis, resolving. Likely infectious -Currently on full liquid diet, still causing LUQ pain - stool cx and gram stain negative to date, C. Diff negative. - cont. IVF NS @ 125cc/hr - pain control with tylenol 650mg po q4hr prn - continue abx Day 6 metronidazole 500 q8hr IVPB + levoquin 500mg IVPB qdaily - nausea 4mg zofran IVPB q6hr prn - GI on board -Will f/u CT abd/pelvis with contrast #Headache, Resolved -Left sided, with photophobia -Has hx of migraine headaches -1x dose of imitrex 25 mg PO given #Hypokalemia, resolved -Monitor potassium #Ruptured ovarian cyst noted on CT scan - outpatient follow-up with PURCHASING EXPEDITOR #HTN - nifedipine 30mg po daily - HCTZ 25mg po daily #Normocytic anemia -TSH normal -Iron studies currently pending -Guiaic negative DVT Prophylaxis - early ambulation as tolerated, low risk Diet: Full liquid, advance as tolerated Dispo: Pending CT results Visit type - Emergency Visit Emergency Visit: No - New Patient This patient is new to me today: No - Critical Care Critical Care patient: No
[2016-12-27] MEDS ORDERED: ONDANSETRON *ODT* 4 MG TABLET SL PRN (20:38)
[2016-12-27] MEDS ORDERED: metroNIDAZOLE 250 MG TABLET PO SCH ×3 (20:45→21:16)
[2016-12-27] MEDS: LEVOFLOXACIN 500 MG TABLET (FP) PO SCH (21:46)
[2016-12-27] MEDS: metroNIDAZOLE 250 MG TABLET PO SCH (21:46)
[2016-12-28] MEDS: LEVOFLOXACIN 500 MG TABLET (FP) PO SCH (06:03)
[2016-12-28] MEDS: metroNIDAZOLE 250 MG TABLET PO SCH ×2 (06:03→13:31)
[2016-12-28 07:44] LABS: BASOPHIL 0.3 % (0-2.0); EOSINOPHIL 2.1 % (0-4.5); MCH 30.3 pg (25.7-33.7); MEAN PLT VOLUME 8.4 fl (7.5-11.1); NEUTROPHILS 50.5 % (42.8-82.8); PLATELET COUNT 327 K/MM3 (134-434); RDW 15.3 % (11.6-15.6); WHITE BLOOD COUNT 7.7 K/mm3 (4.0-10.0)
[2016-12-28 08:05] LABS: ANION GAP 10 (8-16); CALCIUM 8.4 mg/dL (8.5-10.1); CO2 23 mmol/L (21-32); CREATININE 0.7 mg/dL (0.55-1.02); GLUCOSE,RANDOM 92 mg/dL (74-106); MAGNESIUM 1.9 mg/dL (1.8-2.4); PHOSPHOROUS 3.4 mg/dL (2.5-4.9)
[2016-12-28 09:42] VITALS: TEMP 97.2
[2016-12-28] MEDS: NIFEdipine E.R. 30 MG TABLET (FP) PO SCH ×2 (09:42→13:26)
[2016-12-28] MEDS: HYDROCHLOROTHIAZIDE 25 MG TABLET (FP) PO SCH ×2 (09:42→13:26)
--- NOTE | 2016-12-28 13:22 | PN ---
GI Progress Note Subjective: No acute events. Diarrhea resolved Some persistent LUQ abdominal pain, occurs after meals Denies CP/SOB - Objective Vital Signs: Vital Signs Temperature 97.2 F L 12/28/16 09:41 Pulse Rate 90 12/28/16 09:41 Respiratory Rate 20 12/28/16 09:41 Blood Pressure 129/55 12/28/16 09:41 O2 Sat by Pulse Oximetry (%) 100 12/27/16 11:00 Constitutional: Calm Eyes: No: Sclera Icterus Cardiovascular: Yes: Regular Rate and Rhythm Respiratory: Yes: CTA Bilaterally Gastrointestinal Inspection: No: Scars ...Auscultate: Yes: Normoactive Bowel Sounds ...Palpate: Yes: Tenderness (TTP along left lower ribs anteriorly and latrerally ) Edema: No Neurological: Yes: Alert, Oriented Labs: CBC, BMP 12/28/16 06:20 12/28/16 06:20 Problem List - Problems (1) Gastroenteritis Assessment/Plan: Clinically improved. Pain in the LUQ seems to be reproducible. ? if musculoskeletal in nature. Unrevealing repeat CT scan in the area as well as US. Improved appearance of enteritis. Consider topical therapy to the area? Complete 7 day course of abx. Ms. Waldron follows with Dr. Abdi however currently has no insurance. I offered her follow-up at the [facility] GI clinic and called over there to get her an appointment ([phone]) on 01/11/17 at 3pm. I gave this information to her nurse as part of her discharge disposition Code(s): K52.9 - NONINFECTIVE GASTROENTERITIS AND COLITIS, UNSPECIFIED
[2016-12-28 13:26] VITALS: BP 132/76; PULSE 89
--- NOTE | 2016-12-28 14:35 | DS ---
Physical Exam: LABS Laboratory Results - last 24 hr Selected Entries 12/22/16 12/23/16 12/23/16 15:29 03:24 09:22 Temperature 98 F 100.1 F H Pulse Rate 105 H 113 H 101 H Blood Pressure 141/98 12/23/16 12/25/16 12/27/16 13:47 14:29 19:12 Temperature 98.4 F Pulse Rate 95 H Blood Pressure 125/80 12/28/16 12/28/16 12/28/16 07:00 09:41 13:25 Temperature 97.2 F L Pulse Rate 89 Blood Pressure 118/68 132/76 Laboratory Tests 12/22/16 12/22/16 12/23/16 16:40 16:40 06:58 WBC 10.5 H Potassium 3.6 Lactic Acid 0.7 Calcium 8.4 L Iron TIBC Iron Saturation AST ALT Alkaline Phosphatase C-Reactive Protein Total Protein Albumin Lipase 65 L TSH 12/24/16 12/24/16 12/25/16 06:00 06:00 07:50 WBC Potassium 3.0 L Lactic Acid Calcium 7.9 L Iron 16 L TIBC 296 Iron Saturation 5 L AST 8 L D ALT 12 D Alkaline Phosphatase 73 D C-Reactive Protein 3.3 H Total Protein 5.9 L Albumin 2.5 L Lipase TSH 2.19 12/25/16 12/28/16 12/28/16 07:50 06:20 06:20 WBC 6.1 7.7 Potassium Lactic Acid Calcium 8.4 L Iron TIBC Iron Saturation AST ALT Alkaline Phosphatase C-Reactive Protein Total Protein Albumin Lipase TSH Microbiology 12/23/16 21:45 Stool Norovirus GI - Final NEG 12/23/16 21:45 Stool Norovirus GII - Hannah NEGl 12/23/16 09:40 Stool Salmonella/Shigella Culture - Final NEG 12/23/16 09:40 Stool Escherichia coli 0157 Culture - Final NEG NO GROWTH OF SALMONELLA OR SHIGELLA SPECIES OBTAINED NO GROWTH OF CAMPYLOBACTER SPECIES OBTAINED NO GROWTH OF YERSINIA SPECIES OBTAINED NO GROWTH OF VIBRIO SPECIES OBTAINED NO GROWTH OF E COLI 0157 OBTAINED 12/23/16 09:40 Stool Gram Stain - Final 12/23/16 09:40 Stool Clostridium difficile Antigen (JULY) - Final NEG 12/23/16 09:40 Stool Clostridium difficile Toxin Assay - Final NEG Imaging: EKG 12/22- Sinus tachy CT abd/pelvis w/ contrast 12/22- Diverticulosis coli again seen in the descending and proximal sigmoid colon without evidence of acute diverticulitis. Normal- appearing appendix. Short small bowel segment with significant thickening of its wall without enhancement, stranding of the surrounding fat and minimal free fluid. Differential diagnoses includes enteritis, inflammatory versus infectious. It also includes ischemia and an infiltrative process. Us abdomen 12/26- Normal spleen. Repeat ct abd/pelvis w/ contrast 12/27- Improvement in small bowel thickening since 12/22/2016. No evidence of acute pathology within the abdomen or pelvis. HOSPITAL COURSE: Date of Admission:12/23/16 Date of Discharge: 12/28/16 36yo F with PMH of HTN, diverticulitis, presented with vomiting, diarrhea, LUQ abdominal pain. Patient was admitted for likley gastroenteritis, vs diverticulitis, vs ischemic bowel. She underwent Ct abd/pelvis w/ contrast in the ED (results above). Patient was started on levaquin and flagyl. She underwent stool studies, which all resulted as negative. She was started on clear liquid diet, which was advanced to full liquid. However, patient was put back on a clear liquid diet when she began experiencing worsening pain after eating. An abd u/s was performed to r/o splenomegaly (results above) and a repeat CT abd/pelvis was done, which showed improvement (results above). Patient 's diarrhea resolved and she began tolerating food. Patient was d/c to finish a 7 day course of levaquin and flagyl. She was told to f/u with video news editor regarding an incidental ovarian cyst found on CT. She was set up with a PCP to f/u. Minutes to complete discharge: 45 Discharge Summary Reason For Visit: ENTERITIS Current Active Problems Gastroenteritis (Acute) History of hypertension (Chronic) Condition: Improved - Instructions Diet, Activity, Other Instructions: You were in the hospital due to an infection in your gastrointestinal tract. Please follow up with the GI clinic in 1-2 weeks at [facility] on the 1st floor on december at 3pm -[phone] .follow lactose free low residue diet. Please follow up with a primary care provider within 1 week. A referral has been provided for you. For your Ruptured ovarian cyst, you can follow up with your tuck pointer. Please finish a course of antibiotics as prescribed (last day 12/29/16). -Levaquin 500 mg daily (1 tablet on 12/29) -Flagyl 500 mg three times per day (2 more tablets on 12/28, 3 tablets on 12/29) Continue your home medications for your high blood pressure. If you have any chest pain, shortness of breath, worsening diarrhea, bloody diarrhea, or any new symptoms please come back to the hospital immediately. Referrals: Jose Abdi MD [Staff Physician] - 3 Weeks Shana Khan MD [Staff Physician] - Disposition: HOME - Home Medications Comprehensive Discharge Medication List: Ambulatory Orders Hydrochlorothiazide [Hctz -] 25 mg PO DAILY 05/02/15 Nifedipine [Procardia Xl] 30 mg PO DAILY 11/07/16 Levofloxacin [Levaquin -] 500 mg PO DAILY@0600 #1 tablet 12/28/16 Metronidazole [Flagyl -] 500 mg PO TID #5 tablet 12/28/16 This patient is new to me today: No Emergency Visit: No Critical Care patient: No - Discharge Referral Referred to [facility] Med P.C.: No
--- NOTE | 2016-12-28 15:01 | PN ---
Teaching Attending Note Name of Resident: Jovon Morfin ATTENDING PHYSICIAN STATEMENT I saw and evaluated the patient. I reviewed the resident's note and discussed the case with the resident. I agree with the resident's findings and plan as documented. SUBJECTIVE:clinically improved. ate regular diet with only minimal LUQ tenderness. denies CP, SOB, fever, chills, N/V OBJECTIVE: Last Vital Signs Temp Pulse Resp BP Pulse Ox 97.2 F L 89 24 132/76 100 12/28/16 09:41 12/28/16 13:25 12/28/16 13:25 12/28/16 13:25 12/27/16 11:00 General NAD CV S1 S2 RRR no murmur/rub/gallop Lungs CTA B/l no wheezing/rales/rhonchi Abdomen soft +LUQ tenderness no cva tenderness, soft ND, +BS ASSESSMENT AND PLAN: 36-year-old woman with a history of diverticulitis, HTN who presented to the ER with abdominal pain, vomiting and diarrhea. 1. Gastroenteritis- resolved. diarrhea has resolved. repeat CT done today shows resolving colitis and no other pathology. tolerated regualr diet. possible LUQ tendernes is more muscular at this time possibly from frequent BM. multiple imaging studies are negative for acute pathology. will d/c on levaquin/flagyl to complete 7 day course. will need to f/u in [facility] GI clinic. 2. Hypokalemia-resolved 3. R Ruptured ovarian cyst- Outpatient residential supervisor follow-up 4. HTN- Continue Procardia, HCTZ 5. Anemia, normocytic- resolved. 6. DVT ppx- EAM
== END 2016-12-28 14:14 | disposition home or self-care (01) | DRG 392 ==
LOC: JER 15:26 → JERBED 22:32 → J5S 12-23 02:58 → OBSVTOIN 12-23 15:22
PROVIDERS: ADMIT Internal Medicine; ATTEND Internal Medicine
DX: K52.9 Noninfective gastroenteritis and colitis, unspecified (principal); E87.6 Hypokalemia; N83.201 Unspecified ovarian cyst, right side; I10 Essential (primary) hypertension; D64.9 Anemia, unspecified; R51 Headache; K57.90 Diverticulosis of intestine, part unspecified, without perforation or abscess without bleeding; H53.143 Visual discomfort, bilateral; G43.909 Migraine, unspecified, not intractable, without status migrainosus; R11.2 Nausea with vomiting, unspecified
CPT/HCPCS: 36415; 74176-TC; 74177-TC; 76705-TC; 80048; 80053; 81003; 82728; 83540; 83550; 83605; 83690; 83735; 84100; 84443; 84703; 85025; 85027; 85044; 86140; 87045; 87046; 87205; 87324; 87425; 87449; 87798; 93005; 93010; 99283-25; G0378

== ENCOUNTER 2017-11-12 19:26 | Emergency (ER) | payer OTHER ==
[2017-11-12 19:32] VITALS: BP 143/82; PULSE 123; TEMP 97.9; BMI 34.9
--- NOTE | 2017-11-12 20:15 | PDOC ---
History of Present Illness - General Chief Complaint: Pain, Acute Stated Complaint: VOMITING/nausea/diarrhea Time Seen by Provider: 11/12/17 19:57 History Source: Patient Exam Limitations: No Limitations - History of Present Illness Initial Comments: 11/12/17 20:10 Patient is a 37 year old female with h/o Diverticulosis, diverticulitis, HTN, left shoulder rotator cuff repair, cystectomy left breast c/o abd pain, n/v/d. States diarrhea and RLQ pain which started 1 week ago, diarrhea is watery, no hematochezia, then progressed to vomiting and chills which started 5 days ago, with no assoc fever. Pain is in the llq similar to her diverticulitis pain, 7/ 10, sharp, cramping, radiates to the back. Has not seem anyone for these symptoms. LMP 10/10/17 PMD: Dr. Shavonne Llamas PMHX: as above PSOCHX: (+) cig 1/pack wk, occ etoh, no drug ALL: NKDA GENERAL/CONSTITUTIONAL: [No fever or chills. No weakness. No weight change.] HEAD, EYES, EARS, NOSE AND THROAT: [No change in vision. No ear pain or discharge. No sore throat.] CARDIOVASCULAR: [No chest pain or shortness of breath.] RESPIRATORY: [No cough, wheezing, or hemoptysis.] GASTROINTESTINAL: [No nausea, vomiting, diarrhea or constipation. No rectal bleeding.] GENITOURINARY: [No dysuria, frequency, or change in urination.] MUSCULOSKELETAL: [No joint or muscle swelling or pain. No neck or back pain.] SKIN AND BREASTS: [No rash or easy bruising.] NEUROLOGIC: [No headache, vertigo, loss of consciousness, or loss of sensation.] PSYCHIATRIC: [No depression or anxiety.] ENDOCRINE: [No increased thirst. No abnormal weight change.] HEMATOLOGIC/LYMPHATIC: [No anemia, easy bleeding, or history of blood clots.] ALLERGIC/IMMUNOLOGIC: [No hives or skin allergy. No latex allergy.] GENERAL: [The patient is awake, alert, and fully oriented, in no acute distress. ] HEAD: [Normal with no signs of trauma.] EYES: [Pupils equal, round and reactive to light, extraocular movements intact, sclera anicteric, conjunctiva clear.] ENT: [Ears normal, nares patent, oropharynx clear without exudates. Moist mucous membranes.] NECK: [Normal range of motion, supple without lymphadenopathy, JVD, or masses.] LUNGS: [Breath sounds equal, clear to auscultation bilaterally. No wheezes, and no crackles.] HEART: [Regular rate and rhythm, normal S1 and S2 without murmur, rub.] ABDOMEN: [Soft, (+) tenderness to the LLQ, normoactive bowel sounds. No guarding, no rebound. No masses.] PELVIC: no vag bleeding, (+) no mass felt in the left adnexal, EXTREMITIES: [Normal range of motion, no edema. No clubbing or cyanosis. No cords, erythema, or tenderness.] NEUROLOGICAL: [Cranial nerves II through XII grossly intact. Normal speech, normal gait.] PSYCH: [Normal mood, normal affect.] SKIN: [Warm, Dry, normal turgor, no rashes or lesions noted.] Past History - Past Medical History Allergies/Adverse Reactions: Allergies Allergy/AdvReac Type Severity Reaction Status Date / Time No Known Allergies Allergy Verified 11/12/17 19:32 Home Medications: Ambulatory Orders Hydrochlorothiazide [Hctz -] 25 mg PO DAILY 05/02/15 Nifedipine [Procardia Xl] 30 mg PO DAILY 11/07/16 Cephalexin [Keflex] 500 mg PO QID 7 Days #28 capsule 11/13/17 Metoclopramide HCl [Reglan] 10 mg PO QID #20 tablet 11/13/17 GI Disorders: Yes (diverticulitis) HTN: Yes - Surgical History Orthopedic Surgery: Yes (left shoulder) - Immunization History Immunization Up to Date: Yes - Suicide/Smoking/Psychosocial Hx Smoking Status: No Smoking History: Never smoked Have you smoked in the past 12 months: No Number of Cigarettes Smoked Daily: 6 Information on smoking cessation initiated: No 'Breaking Loose' booklet given: 04/13/16 Hx Alcohol Use: No Drug/Substance Use Hx: No Substance Use Type: None Review of Systems - Review of Systems Constitutional: Yes: See HPI, Chills. No: Fever, Loss of Appetite HEENTM: Yes: See HPI. No: Eye Pain, Blurred Vision, Recent change in vision Respiratory: Yes: See HPI. No: Cough, Orthopnea, Shortness of Breath Cardiac (ROS): No: Chest Pain ABD/GI: Yes: See HPI, Nausea, Vomiting, Abdominal cramping : Yes: Flank Pain. No: Dysuria Integumentary: No: Change in Color, Dryness, Erythema Neurological: No: Headache Psychiatric: No: Anxiety, Depression Endocrine: No: Excessive Sweating Hematologic/Lymphatic: Yes: Anemia *Physical Exam - Vital Signs Last Vital Signs Temp Pulse Resp BP Pulse Ox 97.9 F 123 H 16 143/82 100 11/12/17 19:30 11/12/17 19:30 11/12/17 19:30 11/12/17 19:30 11/12/17 19:30 - Physical Exam General Appearance: Yes: Mild Distress HEENT: positive: EOMI, POLA. negative: Scleral Icterus (R) Neck: positive: Trachea midline Respiratory/Chest: positive: Lungs Clear, Normal Breath Sounds. negative: Chest Tender, Respiratory Distress Cardiovascular: positive: Regular Rhythm, Regular Rate, S1, S2. negative: Edema , JVD, Murmur Gastrointestinal/Abdominal: positive: Tender (Left side of abdomen ). 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 labs, ct abd/pelvis IVF, toradol decline pain meds noted to have (+) test. US bedside show gest sac small. will send for offical US of the Laboratory Tests 11/12/17 22:30 Beta HCG, Quant 3194.8 11/13/17 02:30 Patient Full Name: JOSE GOMEZ Patient Accession No: [id number] Patient : 1980 Reason for Exam: llq abd pain,r/o ectopic Referring Physician: Patient Name: PATRICIA GARCIA THIS IS A PRELIMINARY REPORT FROM IMAGING TELEPHONE ORDER CLERK ROOM SERVICE DATE OF SERVICE: 2017-11-13 00:26:48 IMAGES: 28 Exam: Obstetrical ultrasound HISTORY: Left lower quadrant pain. Rule out ectopic COMPARISON: None. FINDINGS: There is a small 4.2 mm sac in the endometrial complex. This could represent a gestational sac. It measures 5 weeks. No pole or yolk sac is identified. It may be too early. 6.1 cm uterine fibroid noted. Normal right ovary. The left ovary could not be visualized. Please note that since the left ovary could not be visualized, and the patient had left lower quadrant pain, I cannot evaluate the possibility of pathology such as ectopic gestation in the left adnexa (in which case the sac noted in the uterus would be pseudo-gestational sac). Close followup recommended to distinguish between a normal early intrauterine gestation versus failed gestation versus ectopic gestation. THIS DOCUMENT HAS BEEN ELECTRONICALLY SIGNED Jay Preston MD 11/13/2017 01:29 EM MItz. Please call Imaging Desk Editor [phone] ([phone]) with questions. INTERPRETING RADIOLOGIST: Jay Preston MD Electronically Signed: Nov 13, 2017 01:30AM EDT 11/13/17 02:34 D/W the patient finding on the ultrasound. Explained to her that we are unable to rule out ectopic at this time and will need to follow up in 48 hours. I will put the patient on Keflex should incase this is a divertiulitis. 11/13/17 02:46 Case is discussed with Dr. Treviño of PRINTING BINDERY ASSISTANT agrees with the plan to repeat the ultrasound and beta hCG in 48 hours. 11/13/17 03:20 Repeat vital signs b/p 146/88, p 99, t 98.3, O2 sat 100% on RA Patient is currently on hydrochlorothiazide and Procardia. We'll tell her to continue her meds until she is seen by OB. I advised her to get an PRINTING BINDERY ASSISTANT immediately I discussed the physical exam findings, ancillary test results and final diagnoses with the patient. I answered all of the patient's questions. The patient was satisfied with the care received and felt comfortable with the discharge plan and treatment plan. The Patient agrees to follow up with the primary care physician within 24-72 hours. *DC/Admit/Observation/Transfer Diagnosis at time of Disposition: Abdominal pain, left lower quadrant Qualifiers: Weeks of gestation: unspecified Qualified Code(s): Z34.90 - Encounter for supervision of normal , unspecified, unspecified trimester - Discharge Dispostion Disposition: HOME Condition at time of disposition: Stable - Prescriptions Prescriptions: Cephalexin [Keflex] 500 mg PO QID 7 Days #28 capsule Metoclopramide HCl [Reglan] 10 mg PO QID #20 tablet - Referrals - Patient Instructions Printed Discharge Instructions: DI for Ectopic , DI for Antibiotic -- associated Colitis -- C difficile, DI for Hyperemesis Gravidarum, DI for Abdominal Pain -- Early Additional Instructions: Your Discharge Instructions: You must call primary care physician within 24 hours to arrange follow-up. Return to the Emergency Department within 48 hours for repeat beta hCG and ultrasound. Since ectopic was not completely ruled out it is important for you to return to the emergency room at the scheduled time. However if your symptoms are persistent or worsening symptoms, for fever, chills , SOB, dizziness, worsening abdominal pain, chest pain or any other concerns. Return to the emergency room immediately. Continue your blood pressure medications until seen by PRINTING BINDERY ASSISTANT. Hydrochlorothiazide may not be the drug of choice to be on while you're , however, will not discontinue your meds at this time without OB follow-up. Please see PRINTING BINDERY ASSISTANT immediately. - Post Discharge Activity
[2017-11-12] MEDS ORDERED: KETOROLAC TROMETHAMINE 30 MG/1 ML VIAL IVPUSH ONE (20:36)
[2017-11-12] MEDS ORDERED: ONDANSETRON 4 MG/2 ML VIAL IVPUSH ONE (20:36)
[2017-11-12 21:15] LABS: BASO % 0.8 % (0-2.0); EOS % 1.6 % (0-4.5); HEMATOCRIT 34.4 % (32.4-45.2); HEMOGLOBIN 11.4 GM/dL (10.7-15.3); LYMPH % 30.8 % (8-40); MCH 31.8 pg (25.7-33.7); MCHC 33.3 g/dl (32.0-36.0); MEAN CELL VOLUME 95.4 fl (80-96); MEAN PLT VOLUME 8.4 fl (7.5-11.1); MONO % 6.4 % (3.8-10.2); NEUT % 60.4 % (42.8-82.8); PLATELET COUNT 344 K/MM3 (134-434); RDW 16.4 % (11.6-15.6); WHITE BLOOD COUNT 8.9 K/mm3 (4.0-10.0)
[2017-11-12 22:27] LABS: URINE APPEARANCE CLEAR; URINE BILIRUBIN NEGATIVE (<2.0 mg/dL); URINE COLOR YELLOW; URINE GLUCOSE (UA) NEGATIVE (NEGATIVE); URINE KETONE NEGATIVE (NEGATIVE); URINE LEUK ESTERASE NEGATIVE (NEGATIVE); URINE NITRITE NEGATIVE (NEGATIVE); URINE PROTEIN NEGATIVE (NEGATIVE); URINE UROBILINOGEN NEGATIVE mg/dL (0.2-1.0)
[2017-11-12 22:31] LABS: HCG,QUALITATIVE URINE POSITIVE
[2017-11-12 23:11] LABS: ALBUMIN 3.1 g/dl (3.4-5.0); ALK PHOS 91 U/L (45-117); ANION GAP 8 (8-16); BILIRUBIN,TOTAL 0.3 mg/dL (0.2-1.0); BLOOD UREA NITROGEN 11 mg/dL (7-18); CALCIUM 8.7 mg/dL (8.5-10.1); CHLORIDE 106 mmol/L (98-107); CHOLESTEROL 147 mg/dL (50-200); CO2 23 mmol/L (21-32); CREATININE 0.7 mg/dL (0.55-1.02); GLUCOSE,RANDOM 91 mg/dL (74-106); HDL CHOLESTEROL 105 mg/dL (40-60); POTASSIUM 3.5 mmol/L (3.5-5.1); SGOT/AST 16 U/L (15-37); SGPT/ALT 25 U/L (12-78); SODIUM 137 mmol/L (136-145); TRIGLYCERIDES 131 mg/dL (35-160)
[2017-11-13] MEDS ORDERED: CEPHALEXIN MONOHYDRATE 500 MG CAPSULE (UD) PO ONE (02:53)
[2017-11-13] MEDS ORDERED: SODIUM CHLORIDE 0.9% 500 ML INFUS.BAG IV ONE (03:07)
== END 2017-11-13 03:30 | disposition home or self-care (01) ==
LOC: JER 19:26
PROC: 3E033GC Introduction of Other Therapeutic Substance into Peripheral Vein, Percutaneous Approach (ICD-10-PCS; principal; 2017-11-12)
PROC: 3E0333Z Introduction of Anti-inflammatory into Peripheral Vein, Percutaneous Approach (ICD-10-PCS; 2017-11-12)
DX: O26.891 Other specified pregnancy related conditions, first trimester (principal); R10.32 Left lower quadrant pain; O34.11 Maternal care for benign tumor of corpus uteri, first trimester; O10.911 Unspecified pre-existing hypertension complicating pregnancy, first trimester; O99.611 Diseases of the digestive system complicating pregnancy, first trimester; K92.89 Other specified diseases of the digestive system; Z3A.01 Less than 8 weeks gestation of pregnancy
CPT/HCPCS: 36415; 76817-TC; 80053; 80061; 81003; 83721; 84702; 84703; 85025; 96374; 96375; 99282-25

== ENCOUNTER 2017-11-14 13:36 | Emergency (ER) | payer OTHER ==
[2017-11-14 13:50] VITALS: BP 145/76; PULSE 120; TEMP 98.3; BMI 34.9
[2017-11-14] MEDS ORDERED: ACETAMINOPHEN 325 MG TABLET (FP) PO ONE (14:26)
--- NOTE | 2017-11-14 14:27 | PDOC ---
Rapid Medical Evaluation Chief Complaint: Pain Time Seen by Provider: 11/14/17 14:21 Medical Evaluation: Allergies Allergy/AdvReac Type Severity Reaction Status Date / Time No Known Allergies Allergy Verified 11/14/17 13:48 Vital Signs Temp Pulse Resp BP Pulse Ox 98.3 F 120 H 18 145/76 100 11/14/17 13:48 11/14/17 13:48 11/14/17 13:48 11/14/17 13:48 11/14/17 13:48 11/14/17 14:27 Pt. is a 37 y/o F who presents to the ED for f/u on her US and blood work. Pt states when she was here on 11/12/17 they were unable to see a . Pt also reports lower abdominal cramping Exam: Ambulatory, AAOx3, abdomen soft non-tender with no rebound or tenderness Orders: Labs, transvaginal, Tylenol Pt to proceed to ED for further evaluation
[2017-11-14] MEDS ORDERED: ACETAMINOPHEN 325 MG TABLET (FP) ONE (14:54)
--- NOTE | 2017-11-14 15:16 | PDOC ---
*Physical Exam - Vital Signs Last Vital Signs Temp Pulse Resp BP Pulse Ox 98.3 F 120 H 18 145/76 100 11/14/17 13:48 11/14/17 13:48 11/14/17 13:48 11/14/17 13:48 11/14/17 13:48 ED Treatment Course - LABORATORY CBC & Chemistry Diagram: 11/14/17 14:56 11/14/17 14:52 - Medications Given in the ED: ED Medications Discontinued Medications Generic Name Dose Route Start Last Admin Trade Name Keyon PRN Reason Stop Dose Admin Acetaminophen 650 mg 11/14/17 14:26 11/14/17 14:58 Tylenol - PO 11/14/17 14:27 650 mg ONCE ONE Administration Medical Decision Making - Medical Decision Making 11/14/17 15:16 Pt seen by Midlevel Provider under my direct supervision Pt interviewed and examined Ancillary studies reviewed I agree with plan as outlined by Midlevel Provider *DC/Admit/Observation/Transfer Diagnosis at time of Disposition: Abdominal pain during - Discharge Dispostion Disposition: HOME Condition at time of disposition: Good - Referrals Referrals: Nuris Batista MD [Staff Physician] - - Patient Instructions Printed Discharge Instructions: DI for Abdominal Pain -- Early Additional Instructions: Please start vitamins and follow up with referred RETAIL MANAGEMENT TRAINEE. I also recommend that you contact her insurance to see which provider is in the plan along with high lift operator/GYN due to history of miscarriages. - Post Discharge Activity
--- NOTE | 2017-11-14 16:28 | PDOC ---
History of Present Illness - General Chief Complaint: Pain Stated Complaint: REPEAT BETA HCG (PCP SENT) Time Seen by Provider: 11/14/17 14:21 History Source: Patient Exam Limitations: No Limitations - History of Present Illness Initial Comments: 11/14/17 15:41 37-year-old female presents to the emergency room for follow-up beta hCG and ultrasound. Patient states was here 2 days prior had lab work but was unable to see and ultrasound. Patient states has had no vaginal bleeding but complaints of mild mid suprapubic tenderness for the past week. Patient states has had 4 other miscarries with no genetic or high risk follow-up. 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 Patient has no urinary complaints, fever, chills, complaints of constipation, diarrhea, abdominal distention, or vaginal discharge. Timing/Duration: reports: intermittent Quality: reports: mild, cramping Abdominal Pain Onset Location: reports: suprapubic Pain Radiation: reports: no radiation Activities at Onset: reports: none Aggravating Factors: improves with: None Alleviating Factors: improves with: None Past History - Travel Traveled outside of the country in the last 30 days: No - Past Medical History Allergies/Adverse Reactions: Allergies Allergy/AdvReac Type Severity Reaction Status Date / Time No Known Allergies Allergy Verified 11/14/17 13:48 Home Medications: Ambulatory Orders Nifedipine [Procardia Xl] 30 mg PO DAILY 11/07/16 COPD: No GI Disorders: Yes (diverticulitis) HTN: Yes - Surgical History Orthopedic Surgery: Yes (left shoulder) - Immunization History Immunization Up to Date: Yes - Suicide/Smoking/Psychosocial Hx Smoking Status: No Smoking History: Never smoked Have you smoked in the past 12 months: No Number of Cigarettes Smoked Daily: 10 Information on smoking cessation initiated: No 'Breaking Loose' booklet given: 04/13/16 Hx Alcohol Use: No Drug/Substance Use Hx: No Substance Use Type: None Patient Lives Alone: No Review of Systems - Review of Systems Able to Perform ROS?: No Constitutional: No: Symptoms Reported HEENTM: No: Symptoms Reported Respiratory: No: Symptoms reported Cardiac (ROS): No: Symptoms Reported ABD/GI: Yes: Abdominal cramping : No: Symptoms Reported Integumentary: No: Symptoms Reported Neurological: No: Symptoms reported *Physical Exam - Vital Signs Last Vital Signs Temp Pulse Resp BP Pulse Ox 98.3 F 120 H 18 145/76 100 11/14/17 13:48 11/14/17 13:48 11/14/17 13:48 11/14/17 13:48 11/14/17 13:48 - Physical Exam General Appearance: Yes: Nourished, Appropriately Dressed. No: Apparent Distress HEENT: negative: Pale Conjunctivae Neck: positive: Normal Thyroid, Supple Respiratory/Chest: positive: Lungs Clear, Normal Breath Sounds. negative: Respiratory Distress, Accessory Muscle Use Cardiovascular: positive: Regular Rhythm, Tachycardia. negative: Murmur Female Pelvic Exam: negative: discharge, vaginal bleeding Gastrointestinal/Abdominal: positive: Normal Bowel Sounds, Soft. negative: Distended, Tenderness Extremity: positive: Normal Capillary Refill. negative: Pedal Edema Integumentary: positive: Normal Color, Warm, Moist Neurologic: positive: Motor Strength 5/5 (ambulatory) ED Treatment Course - LABORATORY CBC & Chemistry Diagram: 11/14/17 14:56 11/14/17 14:52 - ADDITIONAL ORDERS Additional order review: Laboratory Results 11/14/17 11/14/17 14:52 14:52 Beta HCG, Quant 4372.5 Blood Type O POSITIVE Antibody Screen Negative - Medications Given in the ED: ED Medications Discontinued Medications Generic Name Dose Route Start Last Admin Trade Name Keyno PRN Reason Stop Dose Admin Acetaminophen 650 mg 11/14/17 14:26 11/14/17 14:58 Tylenol - PO 11/14/17 14:27 650 mg ONCE ONE Administration Medical Decision Making - Medical Decision Making 11/14/17 15:42 Patient here for repeat beta hCG and ultrasound. Patient had a beta hCG of 3400 with no IUP seen 2 days ago. Patient ordered for labs and urine and ultrasound. 11/14/17 16:43 Laboratory Tests 11/12/17 11/14/17 11/14/17 22:30 14:52 14:52 Beta HCG, Quant 3194.8 4372.5 Blood Type O POSITIVE Antibody Screen Negative 11/14/17 17:02 Patient states pain has been relieved with Tylenol. Ultrasound shows an intrauterine fluid collection with the appearance of the gestational sac. A yolk sac is present. No photo pole is identified , measured at 5 weeks 3 days. Chemistry CBC and urine still pending. 11/14/17 17:45 Laboratory Tests 11/14/17 11/14/17 14:30 14:52 Sodium 143 Potassium 3.8 Chloride 113 H Carbon Dioxide 21 Anion Gap 9 BUN 5 L Creatinine 0.7 Random Glucose 86 Calcium 8.6 Total Bilirubin 0.2 AST 18 ALT 25 Alkaline Phosphatase 93 Total Protein 7.4 Albumin 3.3 L Urine Blood 1+ H Urine Nitrite Negative Urine Bilirubin Negative Ur Leukocyte Esterase Negative Urine WBC (Auto) <1 Urine RBC (Auto) 2 Patient will be given referral to DIP PAINTER and recommended to start prenatals. *DC/Admit/Observation/Transfer Diagnosis at time of Disposition: Abdominal pain during Qualifiers: Trimester: first trimester Qualified Code(s): O26.891 - Other specified related conditions, first trimester - Discharge Dispostion Disposition: HOME Condition at time of disposition: Good - Referrals Referrals: Nuris Batista MD [Staff Physician] - - Patient Instructions Printed Discharge Instructions: DI for Abdominal Pain -- Early Additional Instructions: Please start vitamins and follow up with referred ULTRASOUND COORDINATOR. I also recommend that you contact her insurance to see which provider is in the plan along with high heel builder/GYN due to history of miscarriages. - Post Discharge Activity
[2017-11-14 17:09] LABS: ALBUMIN 3.3 g/dl (3.4-5.0); ALK PHOS 93 U/L (45-117); ANION GAP 9 (8-16); BILIRUBIN,TOTAL 0.2 mg/dL (0.2-1.0); BLOOD UREA NITROGEN 5 mg/dL (7-18); CALCIUM 8.6 mg/dL (8.5-10.1); CHLORIDE 113 mmol/L (98-107); CO2 21 mmol/L (21-32); CREATININE 0.7 mg/dL (0.55-1.02); GLUCOSE,RANDOM 86 mg/dL (74-106); POTASSIUM 3.8 mmol/L (3.5-5.1); SGOT/AST 18 U/L (15-37); SGPT/ALT 25 U/L (12-78); SODIUM 143 mmol/L (136-145); TOT PROT 7.4 g/dl (6.4-8.2)
[2017-11-14 17:12] LABS: BASO % 0.5 % (0-2.0); EOS % 1.6 % (0-4.5); HEMATOCRIT 36.6 % (32.4-45.2); HEMOGLOBIN 12.2 GM/dL (10.7-15.3); LYMPH % 28.8 % (8-40); MCH 31.6 pg (25.7-33.7); MCHC 33.3 g/dl (32.0-36.0); MEAN CELL VOLUME 94.9 fl (80-96); MEAN PLT VOLUME 9.1 fl (7.5-11.1); MONO % 6.6 % (3.8-10.2); NEUT % 62.5 % (42.8-82.8); PLATELET COUNT 335 K/MM3 (134-434); RBC 3.86 M/mm3 (3.60-5.2); RDW 16.3 % (11.6-15.6); WHITE BLOOD COUNT 6.1 K/mm3 (4.0-10.0)
[2017-11-14 17:16] LABS: URINE APPEARANCE CLOUDY; URINE BILIRUBIN NEGATIVE (<2.0 mg/dL); URINE COLOR STRAW; URINE GLUCOSE (UA) NEGATIVE (NEGATIVE); URINE KETONE NEGATIVE (NEGATIVE); URINE LEUK ESTERASE NEGATIVE (NEGATIVE); URINE NITRITE NEGATIVE (NEGATIVE); URINE PROTEIN NEGATIVE (NEGATIVE); URINE UROBILINOGEN NEGATIVE mg/dL (0.2-1.0)
[2017-11-14 17:32] LABS: EPI CELLS FEW /HPF (FEW); URINE BACTERIA RARE /hpf (NONE SEEN)
== END 2017-11-14 18:20 | disposition home or self-care (01) ==
LOC: JER 13:36
DX: O26.891 Other specified pregnancy related conditions, first trimester (principal); R10.30 Lower abdominal pain, unspecified; Z3A.01 Less than 8 weeks gestation of pregnancy; O16.1 Unspecified maternal hypertension, first trimester; Z87.19 Personal history of other diseases of the digestive system
CPT/HCPCS: 36415; 76817-TC; 80053; 81003; 81015; 84702; 85025; 86850; 86900; 86901; 99282-25

== ENCOUNTER 2018-02-13 13:28 | Emergency (ER) | payer OTHER ==
[2018-02-13 13:39] VITALS: BP 131/86; PULSE 88; TEMP 99.2; BMI 33.9
--- NOTE | 2018-02-13 14:42 | PDOC ---
History of Present Illness - General Chief Complaint: Ear Problem Stated Complaint: Cold Symptoms Time Seen by Provider: 02/13/18 14:26 History Source: Patient Exam Limitations: No Limitations - History of Present Illness Initial Comments: 02/13/18 14:34 Came for evaluation of 2 weeks intermittent cough, fullness to face and sinus congestion, ear congestion. 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 Has used Tylenol and Motrin but was concerned about using any decongestants due to her hypertension. MAXIMUM TEMPERATURE was 102 at home a few days ago Timing/Duration: reports: getting worse, intermittent Severity: reports: mild, moderate Modifying Factors: improves with: coughing Associated Symptoms: reports: cough, earache, facial pain, fever/chills, headache, nasal congestion, nasal drainage. denies: sore throat, wheezing Past History - Travel Traveled outside of the country in the last 30 days: No Close contact w/someone who was outside of country & ill: No - Past Medical History Allergies/Adverse Reactions: Allergies Allergy/AdvReac Type Severity Reaction Status Date / Time No Known Allergies Allergy Verified 02/13/18 13:39 Home Medications: Ambulatory Orders Nifedipine [Procardia Xl] 30 mg PO DAILY 11/07/16 Amox-Tr/K Cl [Augmentin 875Mg Tablet] 1 tab PO BID #20 tablet 02/13/18 Nifedipine [Adalat cc] 60 mg PO DAILY #14 tablet.er 02/13/18 COPD: No GI Disorders: Yes (diverticulitis) HTN: Yes - Surgical History Orthopedic Surgery: Yes (left shoulder) - Immunization History Immunization Up to Date: Yes - Suicide/Smoking/Psychosocial Hx Smoking Status: No Smoking History: Current every day smoker Have you smoked in the past 12 months: No Number of Cigarettes Smoked Daily: 10 Information on smoking cessation initiated: No 'Breaking Loose' booklet given: 04/13/16 Hx Alcohol Use: No Drug/Substance Use Hx: No Substance Use Type: None *Physical Exam - Vital Signs Last Vital Signs Temp Pulse Resp BP Pulse Ox 99.2 F 88 18 131/86 98 02/13/18 13:36 02/13/18 13:36 02/13/18 13:36 02/13/18 13:36 02/13/18 13:36 - Physical Exam General Appearance: Yes: Nourished, Appropriately Dressed, Apparent Distress, Mild Distress, Moderate Distress HEENT: positive: POLA, TMs Normal (congtested but landmarks easily visualized), Pharynx Normal, Rhinorrhea, Other (sinuses are full with some tenderness and ethmoid and maxillary sinus areas.). negative: Pharyngeal Erythema, Tonsillar Exudate Neck: positive: Supple. negative: Tender, Lymphadenopathy (R), Lymphadenopathy (L) Respiratory/Chest: positive: Lungs Clear, Normal Breath Sounds. 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 Understands we'll start and follow-up with her physician if necessary *DC/Admit/Observation/Transfer Diagnosis at time of Disposition: Upper respiratory infection Qualifiers: URI type: unspecified URI Qualified Code(s): J06.9 - Acute upper respiratory infection, unspecified - Discharge Dispostion Disposition: HOME Condition at time of disposition: Stable Decision to Admit order: No - Prescriptions Prescriptions: Amox-Tr/K Cl [Augmentin 875Mg Tablet] 1 tab PO BID #20 tablet Nifedipine [Adalat cc] 60 mg PO DAILY #14 tablet.er - Referrals - Patient Instructions Printed Discharge Instructions: DI for Viral Upper Respiratory Infection -- Adult Additional Instructions: Rest, drink lots of fluids: Teas, water, soups, Pedialyte Saltwater gargles Steamy showers/seem to face break up mucus Avoid contact with others until fevers and cough resolved Lots of handwashing and good hygiene Continue [id number] medications for symptomatic relief Tylenol or Motrin for fever and pain Watch and wait Augmentin, if symptoms worsen: Thickened yellow-green drainage from nose or with cough, worsened fevers, worsened symptoms Followup with private physician in one to 2 days as needed Return to emergency department for worsened symptoms, fevers, dehydration - Post Discharge Activity Forms/Work/School Notes: Back to Work
== END 2018-02-13 15:35 | disposition home or self-care (01) ==
LOC: JERFT 13:28
DX: J06.9 Acute upper respiratory infection, unspecified (principal)
CPT/HCPCS: 99281-25

== ENCOUNTER 2018-03-31 23:32 | Observation (INO) | payer OTHER ==
[2018-03-31 23:38] VITALS: BMI 32.3
--- NOTE | 2018-03-31 23:51 | PDOC ---
Attending Attestation - HPI HPI: 04/01/18 00:08 The patient is a 38 year old female, with a significant PMH of hypertension, who presents to the emergency department with 30 minutes of constant chest pain. The patient states the chest pain radiates to the left side of her chest, exacerbated while lying flat and alleviated while sitting upright, with associated lightheadedness and shortness of breath. The patient states she was watching television when the chest pain began. The patient states at presentation the chest pain feels like it is resolving on its own. The patient also reports left calf pain for 1 day. Denies any recent surgeries or immobilizations. Denies any recent hemoptysis. Denies fever, chills, nausea, vomit, diarrhea and constipation. Denies dysuria, frequency, urgency and hematuria. Allergies: NKA Documentation prepared by Simone Lamb, acting as medical laboratory assistant for Meir Leong MD. <Simone Lamb - Last Filed: 04/01/18 00:08> - Resident Resident Name: Aiden Barksdale - ED Attending Attestation I have performed the following: I have examined & evaluated the patient, The case was reviewed & discussed with the resident, I agree w/resident's findings & plan, Exceptions are as noted - Physicial Exam PE: 04/01/18 01:06 Patient is awake and alert, well-nourished, hypertensive and tachycardic on arrival Normocephalic and atraumatic PERRLA, EOMI No JVD, no carotid bruits CTA RRR Soft, nontender, nondistended No extremity edema No focal neurological deficits - Medical Decision Making 04/01/18 01:07 38-year-old female with history of hypertension presents with elevated blood pressure, tachycardic, pleuritic, reproducible left-sided chest wall and lightheadedness. Differential diagnoses includes hypertensive emergency versus ACS versus PE versus dissection. EKG reveals sinus tachycardia without evidence of acute ischemia at this time. Will treat hypertension with sublingual nitroglycerin. We'll obtain chest x-ray to evaluate for widened mediastinum. Blood pressure bilaterally is without significant difference. Will rule out DVT by Doppler ultrasound. Will obtain d-dimer as patient is low probably by Wells criteria. Will reassess. <Meir Leong - Last Filed: 04/01/18 01:08>
[2018-04-01] MEDS ORDERED: NITROGLYCERIN SUBLINGUAL 1/150 0.4 MG TAB SL ONE ×2 (00:06→00:39)
[2018-04-01] MEDS ORDERED: NITROGLYCERIN SUBLINGUAL 1/150 0.4 MG TAB ONE (00:12)
[2018-04-01 00:43] LABS: BASO % 0.7 % (0-2.0); EOS % 3.3 % (0-4.5); HEMATOCRIT 39.4 % (32.4-45.2); HEMOGLOBIN 13.4 GM/dL (10.7-15.3); LYMPH % 47.2 % (8-40); MCH 33.7 pg (25.7-33.7); MEAN CELL VOLUME 99.1 fl (80-96); MEAN PLT VOLUME 8.9 fl (7.5-11.1); MONO % 5.6 % (3.8-10.2); NEUT % 43.2 % (42.8-82.8); PLATELET COUNT 335 K/MM3 (134-434); RBC 3.97 M/mm3 (3.60-5.2); RDW 14.2 % (11.6-15.6); WHITE BLOOD COUNT 7.3 K/mm3 (4.0-10.0)
[2018-04-01] MEDS ORDERED: NITROGLYCERIN 2% OINTMENT - 1GM PACKET TD ONE ×2 (00:48→00:51)
[2018-04-01 00:54] LABS: INR 0.91 (0.83-1.09); PROTHROMBIN TIME (PATIENT) 10.7 SEC (9.7-13.0)
[2018-04-01] MEDS: SODIUM CHLORIDE 0.9% 1000 ML INFUS.BAG IV ONE ×2 (00:58→01:03)
[2018-04-01 01:08] LABS: ALBUMIN 3.4 g/dl (3.4-5.0); ALK PHOS 115 U/L (45-117); ANION GAP 8 MMOL/L (8-16); BILIRUBIN,TOTAL 0.2 mg/dL (0.2-1); BLOOD UREA NITROGEN 15 mg/dL (7-18); CALCIUM 8.7 mg/dL (8.5-10.1); CHLORIDE 105 mmol/L (98-107); CO2 26 mmol/L (21-32); CREATININE 0.9 mg/dL (0.55-1.3); GLUCOSE,RANDOM 94 mg/dL (74-106); MAGNESIUM 1.9 mg/dL (1.8-2.4); POTASSIUM 3.6 mmol/L (3.5-5.1); SGOT/AST 18 U/L (15-37); SGPT/ALT 29 U/L (13-61); SODIUM 139 mmol/L (136-145); TOT PROT 7.4 g/dl (6.4-8.2)
--- NOTE | 2018-04-01 01:42 | PDOC ---
History of Present Illness - General Chief Complaint: Chest Pain Stated Complaint: CHEST PAIN/DIZZY Time Seen by Provider: 03/31/18 23:41 History Source: Patient Exam Limitations: No Limitations - History of Present Illness Initial Comments: 04/01/18 01:22 The patient is a 38F with a PMH of HTN who presents to the ER with complaints of CP. The patient states that she feels a chest tightness which started 20 minutes prior to her presentation. She states that she was laying down watching tv when she got a sudden onset chest tightness with lightheadedness and SOB. The pain is retrosternal, radiating to her L side, not associated with nausea or vomiting but is associated with SOB and lightheadedness. She denies fevers, chills, nausea, vomiting, recent travel, hx of DVT, hemoptysis, hx of cancer, hx of recent surgery. Past History - Past Medical History Allergies/Adverse Reactions: Allergies Allergy/AdvReac Type Severity Reaction Status Date / Time No Known Allergies Allergy Verified 03/31/18 23:37 Home Medications: Ambulatory Orders Nifedipine [Procardia Xl] 30 mg PO DAILY 11/07/16 Amox-Tr/K Cl [Augmentin 875Mg Tablet] 1 tab PO BID #20 tablet 02/13/18 Nifedipine [Adalat cc] 60 mg PO DAILY #14 tablet.er 02/13/18 COPD: No GI Disorders: Yes (diverticulitis) HTN: Yes - Surgical History Orthopedic Surgery: Yes (left shoulder) - Immunization History Immunization Up to Date: Yes - Suicide/Smoking/Psychosocial Hx Smoking Status: No Smoking History: Current every day smoker Have you smoked in the past 12 months: No Number of Cigarettes Smoked Daily: 10 Information on smoking cessation initiated: Yes 'Breaking Loose' booklet given: 04/13/16 Hx Alcohol Use: No Drug/Substance Use Hx: No Substance Use Type: None Review of Systems - Review of Systems Able to Perform ROS?: Yes Comments:: 04/01/18 03:07 GENERAL/CONSTITUTIONAL: No fever or chills. No weakness. HEAD, EYES, EARS, NOSE AND THROAT: No change in vision. No ear pain or discharge. No sore throat. CARDIOVASCULAR: Positive for chest pain and lightheadedness. No palpitations. RESPIRATORY: Positive for shortness of breath. No cough, wheezing, or hemoptysis. GASTROINTESTINAL: No nausea, vomiting, diarrhea, constipation, or abdominal pain. GENITOURINARY: No dysuria, frequency, hematuria, or change in urination. MUSCULOSKELETAL: No joint or muscle swelling or pain. No neck or back pain. SKIN: No rash or lesions. NEUROLOGIC: No headache, numbness, tingling, focal weakness, loss of consciousness, or change in strength/sensation. ENDOCRINE: No increased thirst. No abnormal weight change. HEMATOLOGIC/LYMPHATIC: No anemia, easy bleeding, or history of blood clots. ALLERGIC/IMMUNOLOGIC: No hives or skin allergy. Is the patient limited Polish proficient: No *Physical Exam - Vital Signs Last Vital Signs Temp Pulse Resp BP Pulse Ox 97.6 F 111 H 20 167/100 100 03/31/18 23:35 04/01/18 00:30 04/01/18 00:30 04/01/18 00:30 04/01/18 00:30 - Physical Exam Comments: 04/01/18 03:07 GENERAL: Well developed, well nourished. Awake and alert. No acute distress. HEENT: Normocephalic, atraumatic. Hearing grossly normal. Moist mucous membranes. PERRLA, EOMI. No conjunctival pallor. Sclera are non-icteric. NECK: Supple. Full ROM. CARDIOVASCULAR: Regular rate and rhythm. No murmurs, rubs, or gallops. Tenderness over anterior chest wall. PULMONARY: No evidence of respiratory distress. Lungs clear to auscultation bilaterally. No wheezing, rales or rhonchi. ABDOMINAL: Soft. Non-tender. Non-distended. No rebound or guarding. GENITOURINARY: No CVA tenderness bilaterally. MUSCULOSKELETAL: Normal range of motion at all joints. No bony deformities or tenderness. EXTREMITIES: No cyanosis. No clubbing. No edema. Mild calf tenderness in L calf. SKIN: Warm and dry. Normal capillary refill. No rashes. No jaundice. NEUROLOGICAL: Alert, awake, appropriate. Cranial nerves 2-12 grossly intact. Normal speech. Gait is normal without ataxia. PSYCHIATRIC: Cooperative. Good eye contact. Appropriate mood and affect. ED Treatment Course - LABORATORY CBC & Chemistry Diagram: 03/31/18 00:19 03/31/18 00:19 - ADDITIONAL ORDERS Additional order review: Laboratory Results 04/01/18 03/31/18 03/31/18 00:19 00:19 00:19 PT with INR 10.70 INR 0.91 Sodium 139 Potassium 3.6 Chloride 105 Carbon Dioxide 26 Anion Gap 8 BUN 15 Creatinine 0.9 Creat Clearance w eGFR > 60 Random Glucose 94 Calcium 8.7 Magnesium 1.9 Total Bilirubin 0.2 AST 18 ALT 29 Alkaline Phosphatase 115 Creatine Kinase 188 Troponin I < 0.02 Total Protein 7.4 Albumin 3.4 Serum , Qual Negative 03/31/18 00:19 RBC 3.97 MCV 99.1 H MCHC 34.0 RDW 14.2 D MPV 8.9 Neutrophils % 43.2 D Lymphocytes % 47.2 H D Monocytes % 5.6 Eosinophils % 3.3 D Basophils % 0.7 - RADIOLOGY Radiology Studies Ordered: Category Date Time Status CHEST X-RAY PORTABLE* [RAD] Stat Radiology 04/01/18 00:55 Taken DUPLEX VASCUL US-1 LEG [US] Stat Ultrasound 03/31/18 23:56 Ordered - Medications Given in the ED: ED Medications Discontinued Medications Generic Name Dose Route Start Last Admin Trade Name [place]on PRN Reason Stop Dose Admin Nitroglycerin 0.4 mg 04/01/18 00:06 04/01/18 00:14 Nitrostat - SL 04/01/18 00:07 0.4 mg ONCE ONE Administration Nitroglycerin 0.4 mg 04/01/18 00:39 04/01/18 00:57 Nitrostat - SL 04/01/18 00:40 Not Given ONCE ONE Nitroglycerin 1 inch 04/01/18 00:48 04/01/18 00:52 Nitro-Bid 2% Paste - TD 04/01/18 00:49 1 inch ONCE ONE Administration Sodium Chloride 1,000 ml 03/31/18 23:54 04/01/18 01:03 Normal Saline - IV 03/31/18 23:55 Not Given ONCE ONE Medical Decision Making - Medical Decision Making 04/01/18 03:08 The patient is a 38F with a PMH of HTN who presents to the ER with complaints of chest pain and lightheadedness. Ddx is HTNsive emergency vs PE vs ACS vs pericardial effusion. Bedside sono negative. EKG unremarkable. Initial trop negative. D-dimer negative. Pt continuing to complain of lightheadedness. Pt's initial BP's elevated. Given 0.4 nitro and brought down significantly. Preliminary read of CXR showing possible cephalization of fluids. Will monitor patient. I have microblogged for admission. 04/01/18 03:23 I have endorsed the patient to Dr. Laura for admission. *DC/Admit/Observation/Transfer Diagnosis at time of Disposition: Hypertensive urgency Chest pain Qualifiers: Chest pain type: unspecified Qualified Code(s): R07.9 - Chest pain, unspecified - Discharge Dispostion Condition at time of disposition: Guarded Decision to Admit order: Yes - Referrals - Patient Instructions - Post Discharge Activity
--- NOTE | 2018-04-01 02:23 | PN ---
Teaching Attending Note Name of Resident: Fabián Laura ATTENDING PHYSICIAN STATEMENT I saw and evaluated the patient. I reviewed the resident's note and discussed the case with the resident. I agree with the resident's findings and plan as documented. SUBJECTIVE: Patient is a 38 year old woman with a history of HTN, diverticulitis, left shoulder rotator cuff repair, left breast cystectomy and tobacco use who presents to the ER with complaints of chest pain. Says chest tightness started 20 minutes prior to her presentation. She states that she was laying down watching TV when she got a sudden onset chest tightness with lightheadedness and SOB. The pain is retrosternal, radiating to her left side, not associated with nausea or vomiting but is associated with SOB and lightheadedness. Also had left calf pain. Her systolic BP was >200 mmHg on arrival and she was treated with SL NTG. She denies fevers, chills, nausea, vomiting, recent travel or hemoptysis. OBJECTIVE: Alert Vital Signs Period Temp Pulse Resp BP Sys/Jj Pulse Ox Last 24 Hr 97.6 F-98.1 F 93-111 18-20 125-183/78-103 98-100 HEENT: No Jaundice, eye redness or discharge, PERRLA, EOMI. NO papilledema. Normocephalic, atraumatic. External ears are normal and hearing is grossly intact. No nasal discharge. Neck: Supple, nontender. No palpable adenopathy or thyromegaly. No JVD Chest: Good effort. Clear to auscultation; tender left chest wall. Heart: Regular. No S3, rub or murmur Abdomen: Not distended, soft, nontender and no HSM. No rebound or guarding. Normoactive bowel sounds. Ext: Peripheral pulses intact. No leg edema. Skin: Warm and dry. No petechiae, rash or ecchymosis. Neuro: Alert. Oriented x3. CN 2-12 grossly intact. Sensation grossly intact in all four extremities and DTR are symmetric. Home Medications Medication Instructions Recorded Nifedipine [Procardia Xl] 30 mg PO DAILY 11/07/16 Amox-Tr/K Cl [Augmentin 875Mg 1 tab PO BID #20 tablet 02/13/18 Tablet] Nifedipine [Adalat cc] 60 mg PO DAILY #14 tablet.er 02/13/18 Abnormal Lab Results 03/31/18 00:19 MCV 99.1 H Lymphocytes % 47.2 H D ASSESSMENT AND PLAN: 1. Chest pain/Hypertensive Urgency - Pain is atypical. EKG showed sinus tachycardia with no ST-T wave changes and troponin is negative. No DVT on doppler. CXR result is pending. Will get urine toxicology, admit to telemetry to rule out ACS, get ECHO, fasting lipids and consult cardiology. Her BP has improved. Will restart her home antihypertensive medication and give her Lisinopril 10 mg at night. 2. Tobacco Use We will provide patient all the necessary assistance to facilitate smoking cessation and prescribe Nicotine patch. 3. Obesity - Will provide patient all the necessary assistance, counseling and positive reinforcement to facilitate weight loss. Consult blockers skiver. 4. Alcohol abuse - Patient drinks 3 glasses of wine a day. Will implement [facility] alcohol withdrawal protocol, fall and aspiration precautions. Treat with thiamine and folic acid and monitor electrolytes (Ca,Mg,K,P). Knit Tubing [place] patient about abstaining from alcohol and refer to alcohol detox upon discharge. 5. DVT prophylaxis - Lovenox 40 mg SQ q 24 hours. 6. Advance directives - Full code
[2018-04-01] MEDS ORDERED: ASPIRIN COATED 81 MG TABLET.EC PO ONE (02:58)
[2018-04-01] MEDS ORDERED: ASPIRIN 81 MG CHEWABLE TABLETS ONE (03:02)
--- NOTE | 2018-04-01 04:11 | HP ---
CHIEF COMPLAINT: Chest pain, Shortness of breath PCP: Dr Shavonne López-[facility] HISTORY OF PRESENT ILLNESS: Pt is a pleasant 38 y/o lady with a significant past medical history of HTN and diverticulosis presented to [facility] ED yesterday late evening c/o shortness of breath and chest pain. Pt endorses that she was in her [employer] watching television when she suddenly began experiencing chest pain and shortness of breath approximately 20 minutes before her arrival to hospital. Pain is described as crampy in nature, located on the left side of her chest and radiates below her left breast. Chest pain is associated with lightheadedness but not with nausea or vomiting. Pt also endorses left calf pain for 1 day. Doppler was performed in ED which was negative. Denies LOC, changes in vision, or weakness. Her systolic blood pressure was reportedly >200 per ED resident, SL nitro and nitro paste were administered. ER course was notable for: (1) Troponin <0.02 (2) Doppler ultrasound negative left leg (3) Nitrol SL, Nitro Paste given in ED Recent Travel: denies PAST MEDICAL HISTORY: HTN, Diverticulosis PAST SURGICAL HISTORY: Rotator cuff surgery, dilation and curettage, breast cystectomy. Social History: Smoking: Smokes 5-10 cigarettes per day Alcohol: drinks 3 glasses wine per day Drugs: denies Family History: Mom- HTN. Dad- negative Allergies denies No Known Allergies Allergy (Verified 03/31/18 23:37) HOME MEDICATIONS: Home Medications Medication Instructions Recorded Nifedipine [Procardia Xl] 30 mg PO DAILY 11/07/16 Amox-Tr/K Cl [Augmentin 875Mg 1 tab PO BID #20 tablet 02/13/18 Tablet] Nifedipine [Adalat cc] 60 mg PO DAILY #14 tablet.er 02/13/18 REVIEW OF SYSTEMS CONSTITUTIONAL: Absent: fever, chills, diaphoresis, generalized weakness, malaise, loss of appetite, weight change HEENT: Absent: rhinorrhea, nasal congestion, throat pain, throat swelling, difficulty swallowing, mouth swelling, ear pain, eye pain, visual changes CARDIOVASCULAR: PRESENT chest pain, palpitations, irregular heart rate, lightheadedness RESPIRATORY: Absent: cough, shortness of breath, dyspnea with exertion, orthopnea, wheezing, stridor, hemoptysis GASTROINTESTINAL: Absent: abdominal pain, abdominal distension, nausea, vomiting, diarrhea, constipation, melena, hematochezia GENITOURINARY: Absent: dysuria, frequency, urgency, hesitancy, hematuria, flank pain, genital pain MUSCULOSKELETAL: PRESENT: Left calf pain SKIN: Absent: rash, itching, pallor HEMATOLOGIC/IMMUNOLOGIC: Absent: easy bleeding, easy bruising, lymphadenopathy, frequent infections ENDOCRINE: Absent: unexplained weight gain, unexplained weight loss, heat intolerance, cold intolerance NEUROLOGIC: Absent: headache, focal weakness or paresthesias, dizziness, unsteady gait, seizure, mental status changes, bladder or bowel incontinence PSYCHIATRIC: Absent: anxiety, depression, suicidal or homicidal ideation, hallucinations. PHYSICAL EXAMINATION Vital Signs - 24 hr 03/31/18 04/01/18 04/01/18 23:35 00:30 01:00 Temperature 97.6 F Pulse Rate 110 H Pulse Rate [ 111 H Apical] Respiratory 18 20 Rate Blood Pressure 183/103 H Blood Pressure 158/94 [Left Arm] Blood Pressure 167/100 125/78 [Right] O2 Sat by Pulse 100 100 Oximetry (%) 04/01/18 02:00 Temperature 98.1 F Pulse Rate Pulse Rate [ 93 H Apical] Respiratory 18 Rate Blood Pressure Blood Pressure [Left Arm] Blood Pressure 131/83 [Right] O2 Sat by Pulse 98 Oximetry (%) GENERAL: Awake Alert Oriented Pleasant HEAD: NC/AT EYES: PERRLA EOMI EARS, NOSE, THROAT: MMM NECK: No JVD, supple LUNGS: Dec at bases HEART:RRR No MRG S1S2. ABDOMEN: NDNT No HSM MUSCULOSKELETAL: FROM UPPER EXTREMITIES: No CCE LOWER EXTREMITIES: No CCE. NEUROLOGICAL: Cranial nerves II-XII intact. Normal speech. Normal gait. PSYCHIATRIC: Cooperative. Good eye contact. Appropriate mood and affect. SKIN: No rashes or lesions appreciated Laboratory Results - last 24 hr 03/31/18 03/31/18 03/31/18 00:19 00:19 00:19 WBC 7.3 RBC 3.97 Hgb 13.4 Hct 39.4 MCV 99.1 H MCH 33.7 MCHC 34.0 RDW 14.2 D Plt Count 335 MPV 8.9 Absolute Neuts (auto) 3.1 Neutrophils % 43.2 D Lymphocytes % 47.2 H D Monocytes % 5.6 Eosinophils % 3.3 D Basophils % 0.7 Nucleated RBC % 0 PT with INR INR D-Dimer Sodium 139 Potassium 3.6 Chloride 105 Carbon Dioxide 26 Anion Gap 8 BUN 15 Creatinine 0.9 Creat Clearance w eGFR > 60 Random Glucose 94 Calcium 8.7 Magnesium 1.9 Total Bilirubin 0.2 AST 18 ALT 29 Alkaline Phosphatase 115 Creatine Kinase 188 Creatine Kinase Index 0.7 CK-MB (CK-2) 1.5 Troponin I < 0.02 Total Protein 7.4 Albumin 3.4 Serum , Qual Negative 04/01/18 04/01/18 00:19 00:29 WBC RBC Hgb Hct MCV MCH MCHC RDW Plt Count MPV Absolute Neuts (auto) Neutrophils % Lymphocytes % Monocytes % Eosinophils % Basophils % Nucleated RBC % PT with INR 10.70 INR 0.91 D-Dimer 408 Sodium Potassium Chloride Carbon Dioxide Anion Gap BUN Creatinine Creat Clearance w eGFR Random Glucose Calcium Magnesium Total Bilirubin AST ALT Alkaline Phosphatase Creatine Kinase Creatine Kinase Index CK-MB (CK-2) Troponin I Total Protein Albumin Serum , Qual ASSESSMENT/PLAN: Pt is a pleasant 38 y/o lady with a significant past medical history of HTN and diverticulosis presented to [facility] ED yesterday late evening c/o shortness of breath and chest pain since yesterday late evening before ED presentation. #Chest Pain/Hypertensive Urgency -BP in ED systolic >200 -Repeat EKG. Initial EKG sinus Tachycardia 113 BPM -Cardiology consult -Tele Obs -Nifedipine 60 mg po daily -10 mg Lisinopril HS-Newly added in light of pt's elevated BP not controlled with solely Nifedipine 60 po daily -Nicotine patches -Fasting lipids -Urine toxicology -DVT doppler negative -Counseled on tobacco/alcohol abuse-nicotine patches -Troponin <0.02, pending second Troponin #FEN No Fluids Monitor electrolytes Sodium controlled Diet DVT ppx: Heparin SQ TID #Dispo: Tele Obs Visit type - Emergency Visit Emergency Visit: Yes ED Registration Date: 04/01/18 Care time: The patient presented to the Emergency Department on the above date and was hospitalized for further evaluation of their emergent condition. - New Patient This patient is new to me today: Yes Date on this admission: 04/01/18 - Critical Care Critical Care patient: No
[2018-04-01 05:18] LABS: HEMOGLOBIN 11.2 GM/dL (10.7-15.3); MCH 32.6 pg (25.7-33.7); MEAN CELL VOLUME 98.8 fl (80-96); MEAN PLT VOLUME 8.3 fl (7.5-11.1); PLATELET COUNT 279 K/MM3 (134-434); RBC 3.44 M/mm3 (3.60-5.2); WHITE BLOOD COUNT 6.4 K/mm3 (4.0-10.0)
[2018-04-01 05:34] LABS: INR 0.88 (0.83-1.09); PROTHROMBIN TIME (PATIENT) 10.4 SEC (9.7-13.0)
[2018-04-01 05:36] LABS: ACTIVATED PTT 27.6 SECONDS (25.2-36.5)
[2018-04-01 05:43] LABS: ANION GAP 6 MMOL/L (8-16); BLOOD UREA NITROGEN 14 mg/dL (7-18); CALCIUM 8.2 mg/dL (8.5-10.1); CHLORIDE 106 mmol/L (98-107); CO2 25 mmol/L (21-32); CREATININE 0.7 mg/dL (0.55-1.3); GLUCOSE,RANDOM 92 mg/dL (74-106); MAGNESIUM 1.9 mg/dL (1.8-2.4); PHOSPHOROUS 3.4 mg/dL (2.5-4.9); POTASSIUM 4.1 mmol/L (3.5-5.1); SODIUM 137 mmol/L (136-145)
[2018-04-01] MEDS: HEPARIN NA (PORCINE) 5,000 UNITS/ML 1ML VIAL SQ SCH ×2 (06:39→15:16)
[2018-04-01] MEDS ORDERED: HEPARIN NA (PORCINE) 5,000 UNITS/ML 1ML VIAL ONE (06:41)
[2018-04-01 07:03] LABS: CHOLESTEROL 172 mg/dL (50-200); HDL CHOLESTEROL 92 mg/dL (40-60); TRIGLYCERIDES 64 mg/dL (0-150)
[2018-04-01] MEDS ORDERED: NIFEdipine E.R. 30 MG TABLET (FP) ONE (09:47)
[2018-04-01] MEDS ORDERED: NIFEdipine E.R 60 MG TABLET (UD) PO SCH (10:00)
[2018-04-01] MEDS ORDERED: LOSARTAN POTASSIUM 50 MG TABLET (FP) PO SCH (10:45)
--- NOTE | 2018-04-01 11:43 | HOSP ---
Subjective - Review of Symptoms General: No: Chills, Night Sweats, Fatigue, Malaise, Appetite, Other HEENT: No: Head Aches, Visual Changes, Eye Pain, Ear Pain, Dysphasia, Sinus Congestion, Post Nasal Drip, Sore Throat, Other Pulmonary: No: Dyspnea, Cough, Pleuritic Chest Pain, Other Cardiovascular: No: Chest Pain, Palpitations, Orthopnea, Paroxysmal Noc. Dyspnea , Edema, Light Headedness, Other Gastrointestinal: No: Nausea, NOSYM, Vomiting, Abdominal Pain, Diarrhea, Constipation, Melena, Hematochezia, Other Genitourinary: No: Dysuria, NOSYM, Frequency, Incontinence, Hematuria, Retention , Other Musculoskeletal: No: No Symptoms, Back Pain, Crepitus, Decreased ROM, Extremity Pain, Joint Pain, Joint Swelling, Muscle Pain, Muscle Cramps, Muscle Weakness, Other Neurological: No: Weakness, Numbness, Incoordination, Change in speech, Confusion, Seizures, Other Physical Examination Vital Signs: Vital Signs Temperature 98.8 F 04/01/18 09:55 Pulse Rate 90 04/01/18 09:55 Respiratory Rate 18 04/01/18 09:55 Blood Pressure 139/91 04/01/18 09:55 O2 Sat by Pulse Oximetry (%) 98 04/01/18 09:55 Constitutional: Yes: Well Nourished, No Distress, Calm, Obese Eyes: Yes: WNL, Conjunctiva Clear, EOM Intact HENT: Yes: WNL, Atraumatic, Normocephalic Neck: Yes: WNL, Supple, Trachea Midline Cardiovascular: Yes: WNL, Regular Rate and Rhythm, S1, S2 Respiratory: Yes: WNL, Regular, CTA Bilaterally Gastrointestinal: Yes: WNL, Normal Bowel Sounds, Soft ...Rectal Exam: Yes: Deferred Musculoskeletal: Yes: WNL Extremities: Yes: WNL Integumentary: Yes: WNL Wound/Incision: Yes: Clean/Dry Neurological: Yes: WNL, Alert, Oriented Labs: CBC, BMP 04/01/18 05:05 04/01/18 05:05 Hospitalist Encounter Assessment: this is a 38 y/o f with HTN class II obesity presented for elevated BP and atypical chest pain #Atypical Chest Pain - ACS r/o with 2 negative troponin -f/u with Cardiology consult -Nicotine patches -Counseled on tobacco/alcohol abuse-nicotine patches -Troponin <0.02, pending second Troponin Hypertensive urgency: - start the patient on Ramipril 10mg daily c/w nifidipine 60mg #FEN No Fluids Monitor electrolytes Sodium controlled Diet DVT ppx: Heparin SQ TID
--- NOTE | 2018-04-01 12:46 | CON.CARD ---
Cardiology Consult (text) - Consultation Consultation Note: cc: cp hpi: 38 f hx htn here with cp. Pt was on procardia and valsartan for htn for a while w/o issue, then valsartan stopped due to recall and pt did not take a replacement med so her bp has been high lately. Last night was relaxing and started to have left chest tightness, sob, dizzy. Came right to ER and sbp 200s , bp treated and pt felt better. Feels well now. no more cp, dizzy, sob. No palps loc, pnd orthopnea le edema. pmh: per hpi psh: shoulder surgery social: +tob fam: no premature cad, scd ros: per hpi; no nvd fever cough gib hematuria dysuria muscle pain meds: nidefipine 60 qd pe: Vital Signs Period Temp Pulse Resp BP Sys/Jj Pulse Ox Last 24 Hr 97.6 F-98.8 F 86-111 18-20 112-183/65-103 98-100 nad no jvd rrr s1s2 no mrg cta bl nl eff aaox3 no le e/c/c abd nt nd pos bs no jaundice diaphoresis pos dp pt no carotid bruits Laboratory Last Values WBC 6.4 K/mm3 (4.0-10.0) 04/01/18 05:05 RBC 3.44 M/mm3 (3.60-5.2) L 04/01/18 05:05 Hgb 11.2 GM/dL (10.7-15.3) 04/01/18 05:05 Hct 34.0 % (32.4-45.2) 04/01/18 05:05 MCV 98.8 fl (80-96) H 04/01/18 05:05 MCH 32.6 pg (25.7-33.7) 04/01/18 05:05 MCHC 33.0 g/dl (32.0-36.0) 04/01/18 05:05 RDW 14.0 % (11.6-15.6) 04/01/18 05:05 Plt Count 279 K/MM3 (134-434) 04/01/18 05:05 MPV 8.3 fl (7.5-11.1) 04/01/18 05:05 Absolute Neuts (auto) 3.1 K/mm3 (1.5-8.0) 03/31/18 00:19 Neutrophils % 43.2 % (42.8-82.8) D 03/31/18 00:19 Lymphocytes % 47.2 % (8-40) H D 03/31/18 00:19 Monocytes % 5.6 % (3.8-10.2) 03/31/18 00:19 Eosinophils % 3.3 % (0-4.5) D 03/31/18 00:19 Basophils % 0.7 % (0-2.0) 03/31/18 00:19 Nucleated RBC % 0 % (0-0) 03/31/18 00:19 PT with INR 10.40 SEC (9.7-13.0) 04/01/18 05:05 INR 0.88 (0.83-1.09) 04/01/18 05:05 PTT (Actin FS) 27.6 SECONDS (25.2-36.5) 04/01/18 05:05 D-Dimer 408 ng/ml (0-500) 04/01/18 00:29 Sodium 137 mmol/L (136-145) 04/01/18 05:05 Potassium 4.1 mmol/L (3.5-5.1) 04/01/18 05:05 Chloride 106 mmol/L (98-107) 04/01/18 05:05 Carbon Dioxide 25 mmol/L (21-32) 04/01/18 05:05 Anion Gap 6 MMOL/L (8-16) L 04/01/18 05:05 BUN 14 mg/dL (7-18) 04/01/18 05:05 Creatinine 0.7 mg/dL (0.55-1.3) 04/01/18 05:05 Creat Clearance w eGFR > 60 (>60) 04/01/18 05:05 Random Glucose 92 mg/dL (74-106) 04/01/18 05:05 Calcium 8.2 mg/dL (8.5-10.1) L 04/01/18 05:05 Phosphorus 3.4 mg/dL (2.5-4.9) 04/01/18 05:05 Magnesium 1.9 mg/dL (1.8-2.4) 04/01/18 05:05 Total Bilirubin 0.2 mg/dL (0.2-1) 03/31/18 00:19 AST 18 U/L (15-37) 03/31/18 00:19 ALT 29 U/L (13-61) 03/31/18 00:19 Alkaline Phosphatase 115 U/L (45-117) 03/31/18 00:19 Creatine Kinase 188 IU/L (26-192) 03/31/18 00:19 Creatine Kinase Index 0.7 % (0.0-5.0) 03/31/18 00:19 CK-MB (CK-2) 1.5 ng/mL (0.5-3.6) 03/31/18 00:19 Troponin I < 0.02 ng/ml (0.00-0.05) 04/01/18 05:05 Total Protein 7.4 g/dl (6.4-8.2) 03/31/18 00:19 Albumin 3.4 g/dl (3.4-5.0) 03/31/18 00:19 Triglycerides 64 mg/dL (0-150) 04/01/18 05:05 Cholesterol 172 mg/dL (50-200) 04/01/18 05:05 Total LDL Cholesterol 69 mg/dL (5-100) 04/01/18 05:05 HDL Cholesterol 92 mg/dL (40-60) H 04/01/18 05:05 Serum , Qual Negative 03/31/18 00:19 ecg: sinus tachy, nl intervals, no ischemic changes cxr: clear lungs a/p: 38 f hx htn here with cp. cp, sob, dizzy: -occurred in setting of elevated bp, likely etiology -now that bp improved her sxs have resolved -no signs acs tob use: -smoking cessation htn: -Pt was on procardia and valsartan for htn for awhile w/o issue, then valsartan stopped due to recall and pt did not take a replacement med so her bp has been high lately. -cont nifedipine 60 qd, will add losartan 50 to replace valsartan -bp already improved and pt feeling better-->if bp remains controlled later this afternoon then ok for dc from cardiac pov.
[2018-04-01 15:16] VITALS: BP 140/93; PULSE 92; TEMP 98.3
--- NOTE | 2018-04-01 18:50 | EKG ---
Test Reason : Blood Pressure : / mmHG Vent. Rate : 098 BPM Atrial Rate : 098 BPM P-R Int : 132 ms QRS Dur : 102 ms QT Int : 368 ms P-R-T Axes : 049 009 024 degrees QTc Int : 469 ms NORMAL SINUS RHYTHM NORMAL ECG WHEN COMPARED WITH ECG OF 31-MAR-2018 23:40, NO SIGNIFICANT CHANGE WAS FOUND Confirmed by BEAR PERES MD ([id number]) on 04/01/2018 6:49:57 PM Referred By: Confirmed By:BEAR PERES MD
--- NOTE | 2018-04-01 18:51 | EKG ---
Test Reason : Blood Pressure : / mmHG Vent. Rate : 113 BPM Atrial Rate : 113 BPM P-R Int : 134 ms QRS Dur : 080 ms QT Int : 350 ms P-R-T Axes : 056 026 035 degrees QTc Int : 480 ms SINUS TACHYCARDIA OTHERWISE NORMAL ECG WHEN COMPARED WITH ECG OF 23-DEC-2016 01:25, T WAVE VARIATION Confirmed by BEAR PERES MD ([id number]) on 04/01/2018 6:50:33 PM Referred By: Confirmed By:BEAR PERES MD
[2018-04-01] MEDS ORDERED: LISINOPRIL 10 MG TABLET (FP) PO SCH (22:00)
== END 2018-04-01 14:15 | disposition home or self-care (01) ==
LOC: JER 23:32 → JERBED 04-01 02:03
PROVIDERS: ADMIT Internal Medicine; ATTEND Internal Medicine
DX: I16.0 Hypertensive urgency (principal); R07.9 Chest pain, unspecified; I10 Essential (primary) hypertension; F17.210 Nicotine dependence, cigarettes, uncomplicated; E66.9 Obesity, unspecified; Z68.32 Body mass index [BMI] 32.0-32.9, adult; F10.10 Alcohol abuse, uncomplicated
CPT/HCPCS: 36415; 71045-TC-FY; 80048; 80053; 80061; 82550; 82553; 83721; 83735; 84100; 84484; 84703; 85025; 85027; 85379; 85610; 85730; 93005; 93010; 93971-TC; 99285-25; G0378; J1644; J7030

== ENCOUNTER 2018-05-26 14:21 | Emergency (ER) | payer OTHER ==
[2018-05-26 14:30] VITALS: BMI 33.9
--- NOTE | 2018-05-26 14:40 | PDOC ---
Attending Attestation - HPI HPI: 05/26/18 15:01 The patient is a 38 year old woman with a past medical history of HTN and diverticulosis who is presenting with chest pain today. Patient states the chest pain is 7/10 in intensity and was intermittent but is now constant. Patient is also complaining of associated frontal headache and lightheadedness, which she describes as "she was about to faint." Patient also admits to nausea earlier that has now resolved on its own. Patient is not on any oral contraceptives. Denies long periods of immobilization or long flights. Patient states she is on an antibiotic for diverticulitis, which she believes may be causing her nausea. Allergies: NKDA Surgeries: None reported. Social Hx: No reported alcohol, drug or cigarette use. <Elvira Sterling - Last Filed: 05/26/18 15:01> - Physicial Exam PE: 05/26/18 15:22 Agree with resident exam. Patient is awake, alert and oriented x 3 and in no acute distress. Lungs are clear. Heart is tachycardic, with regular rate and rhythm and no murmurs. Abdomen is soft, non distended, with very mild tenderness to deep palpation on the left sided without guarding or rebound. - Medical Decision Making 05/26/18 15:24 Pt presents to the ED complaining of pressure like chest pain. She is tachycardic to the 120s at rest in the ED. Differential includes muscular chest pain, less likely PE, less likely ACS, hyperthyroidism, PNA. Will check labs and CXR, rectal temp and TSH and D dimer. Will treat with IVF and check rectal temp. If we are unable to find an alternate explaination for her tachycardia, will consider CT PE. <Michelle Salazar - Last Filed: 05/26/18 15:50>
--- NOTE | 2018-05-26 14:57 | PDOC ---
History of Present Illness - General Chief Complaint: Chest Pain Stated Complaint: CHEST PAIN,HEADACHE Time Seen by Provider: 05/26/18 14:37 History Source: Patient Exam Limitations: No Limitations - History of Present Illness Initial Comments: 05/26/18 14:39 38 year old woman with a past medical history of HTN, diverticulosis L breast lumpectomy (2008), L shoulder surgery (2011) who presents w/ 1hour of 7/10 nonradiating L sided chest pain that onset while sitting on the couch. The pain was initially intermittent but has now become constant over the past 20min. The pain is associated with lightheadedness and with a frontal headache of 8/10 and some nausea that has since resolved. The patient is on cirpo for diverticulitis for which she does not recall the name and believes her nausea to be due to her antibiotic or from drinking baking soda for her headache. The patient also has had diarrhea since starting her antibiotics. The patient denies recent illness, cough, congestion. Denies improvement of symptoms with leaning forward or lying back. She denies any physical overexertion, or lifting any heavy boxes or objects. The patient denies any long flights or car rides, recent surgery or immobilization and is not taking OCP but admits to smoking 5 cigarettes a day. LNMP 05/02/18. The patient is sexually active without contraception use. The patient denies abdominal pain, dysuria, hematuria, constopation. She has no other complaints at bedside. Past History - Past Medical History Allergies/Adverse Reactions: Allergies Allergy/AdvReac Type Severity Reaction Status Date / Time No Known Allergies Allergy Verified 05/26/18 14:26 Home Medications: Ambulatory Orders Nifedipine [Adalat cc] 60 mg PO DAILY #14 tablet.er 02/13/18 Nifedipine [Adalat cc] 60 mg PO DAILY 30 Days #30 tablet.er 04/01/18 Ramipril [Altace] 10 mg PO DAILY 30 Days #30 capsule 04/01/18 Ciprofloxacin [Cipro (Restricted To Id)] 500 mg PO BID 05/26/18 COPD: No GI Disorders: Yes (diverticulitis) HTN: Yes - Surgical History Orthopedic Surgery: Yes (left shoulder) - Immunization History Immunization Up to Date: Yes - Suicide/Smoking/Psychosocial Hx Smoking Status: No Smoking History: Current every day smoker Have you smoked in the past 12 months: No Number of Cigarettes Smoked Daily: 5 Information on smoking cessation initiated: No 'Breaking Loose' booklet given: 04/13/16 Hx Alcohol Use: Yes (SOCIALLY) Drug/Substance Use Hx: No Substance Use Type: None Review of Systems - Review of Systems Able to Perform ROS?: Yes Is the patient limited Nepali proficient: No Constitutional: No: Chills, Diaphoresis, Fever HEENTM: No: Blurred Vision, Tinnitus Respiratory: No: Cough, Orthopnea, Shortness of Breath Cardiac (ROS): Yes: Chest Pain, Lightheadedness. No: Palpitations, Syncope, Chest Tightness ABD/GI: Yes: Diarrhea. No: Constipated, Nausea, Vomiting : No: Burning, Dysuria, Hematuria Musculoskeletal: Yes: Back Pain (chronic) Neurological: Yes: Headache. No: Numbness, Tingling *Physical Exam - Vital Signs Last Vital Signs Temp Pulse Resp BP Pulse Ox 97.9 F 135 H 18 146/80 100 05/26/18 14:27 05/26/18 14:27 05/26/18 14:27 05/26/18 14:27 05/26/18 14:27 - Physical Exam Comments: 05/26/18 15:21 GENERAL: Awake, alert, and fully oriented, in no acute distress HEAD: No signs of trauma, normocephalic, atraumatic EYES: EOMI, sclera anicteric, conjunctiva clear ENT: oropharynx clear without exudates. Moist mucosa NECK: Normal ROM, supple LUNGS: No distress, speaks full sentences, clear to auscultation bilaterally HEART: tachycardic rate and regular rhythm, normal S1 and S2, no murmurs, rubs or gallops, peripheral pulses normal and equal bilaterally. reproducible chest pain when palpated feels sharp, pain worsening with extension of the L arm. ABDOMEN: Soft, LLQ tenderness to palpation - baseline 2/2 diverticulitis , normoactive bowel sounds. No guarding, no rebound. No masses EXTREMITIES : Normal inspection, Normal range of motion, no edema. No clubbing or cyanosis. NEUROLOGICAL: Cranial nerves II through XII grossly intact. Normal speech, no focal sensorimotor deficits SKIN: Warm, Dry, normal turgor, no rashes or lesions noted Moderate Sedation - Procedure Monitoring Vital Signs: Procedure Monitoring Vital Signs Temperature 97.9 F 05/26/18 14:27 Pulse Rate 135 H 05/26/18 14:27 Respiratory Rate 18 05/26/18 14:27 Blood Pressure 146/80 05/26/18 14:27 O2 Sat by Pulse Oximetry (%) 100 05/26/18 14:27 ED Treatment Course - LABORATORY CBC & Chemistry Diagram: 05/26/18 16:00 05/26/18 16:00 Medical Decision Making - Medical Decision Making 05/26/18 15:20 38 year old woman with a past medical history of HTN, diverticulosis L breast lumpectomy (2008), L shoulder surgery (2011) who presents w/ 1hour of 7/10 L sided chest pain that onset while sitting on the couch. The pain was initially intermittent but has now become constant over the past 20min. The pain is associated with lightheadedness and with a frontal headache of 8/10 and some nausea that has since resolved. ED Course: Patient tachycardic but with reproducible chest pain. Consider PE vs ACS vs arrythmia vs infectious vs iup vs electrolyte derangement vs hyperthyroidism Less likely alcohol withdrawal as patient reports drinking wine daily. cbc, cmp, tsh, ddimer, ekg, ua, ucx, upreg ivf, tylenol PERC score 1: cannot be ruled out - d-dimer pending rectal temp 99.1 05/26/18 16:55 Patient reassessed pain improved to 4/10 HR at 80s, improved clinically pending cmp d-dimer negative cbc - unremarkable upreg- negative 05/26/18 16:56 cmp - unremarkable trop - negative 05/26/18 17:43 CXR: midline airway, appropriate vascular markings, no blunting of costophrenic angle, no cardiomegaly, as read by this insurance underwriter and attending. Patient stable for discharge. Informed of all lab and imaging results. Given follow up instructions and strict return precautions. Patient expressed understanding and agree to plan. *DC/Admit/Observation/Transfer Diagnosis at time of Disposition: Atypical chest pain - Discharge Dispostion Disposition: HOME Condition at time of disposition: Stable Decision to Admit order: No - Referrals Referrals: Zbigniew May MD [Staff Physician] - - Patient Instructions Printed Discharge Instructions: DI for Atypical Chest Pain Additional Instructions: You were seen in the ED for complaints of chest pain. In the ED you were evaluated with labwork and imaging. Your results were unremarkable. There does not appear to be an acute need for immediate hospitalization. You are advised to follow up with your Primary Care Physician within 1 week. You were given a referral to Cardiology and are advised to follow up within 5-7 days. Return to the ED immediately if you experience worsening chest pain, shortness of breath, nausea, vomiting, headache, loss of consciousness, abdominal pain or palpitations. - Post Discharge Activity
[2018-05-26] MEDS ORDERED: SODIUM CHLORIDE 1,000 ML IV SCH (15:00)
[2018-05-26] MEDS ORDERED: ACETAMINOPHEN 1000 MG/100 ML VIAL (NON FORMULARY) IVPB ONE (15:13)
[2018-05-26] MEDS ORDERED: ACETAMINOPHEN INJECTION 100 ML IVPB ONE (16:03)
[2018-05-26 16:19] LABS: BASO % 0.9 % (0-2.0); EOS % 1.3 % (0-4.5); HEMATOCRIT 38.5 % (32.4-45.2); HEMOGLOBIN 13.6 GM/dL (10.7-15.3); LYMPH % 31.5 % (8-40); MCH 34.1 pg (25.7-33.7); MCHC 35.3 g/dl (32.0-36.0); MEAN CELL VOLUME 96.8 fl (80-96); MEAN PLT VOLUME 8.6 fl (7.5-11.1); MONO % 5.4 % (3.8-10.2); NEUT % 60.9 % (42.8-82.8); PLATELET COUNT 362 K/MM3 (134-434); RBC 3.98 M/mm3 (3.60-5.2); RDW 14.8 % (11.6-15.6); WHITE BLOOD COUNT 7.5 K/mm3 (4.0-10.0)
[2018-05-26 16:28] VITALS: TEMP 99.1
[2018-05-26 16:48] LABS: HCG,QUALITATIVE URINE Negative; URINE APPEARANCE CLEAR; URINE BILIRUBIN NEGATIVE (<2.0 mg/dL); URINE COLOR STRAW; URINE GLUCOSE (UA) NEGATIVE (NEGATIVE); URINE KETONE NEGATIVE (NEGATIVE); URINE LEUK ESTERASE NEGATIVE (NEGATIVE); URINE NITRITE NEGATIVE (NEGATIVE); URINE PROTEIN NEGATIVE (NEGATIVE); URINE UROBILINOGEN NEGATIVE mg/dL (0.2-1.0)
[2018-05-26 16:56] LABS: ALBUMIN 3.6 g/dl (3.4-5.0); ALK PHOS 106 U/L (45-117); ANION GAP 9 MMOL/L (8-16); BILIRUBIN,TOTAL 0.5 mg/dL (0.2-1); BLOOD UREA NITROGEN 8 mg/dL (7-18); CALCIUM 8.6 mg/dL (8.5-10.1); CHLORIDE 104 mmol/L (98-107); CO2 25 mmol/L (21-32); CREATININE 0.7 mg/dL (0.55-1.3); GLUCOSE,RANDOM 85 mg/dL (74-106); POTASSIUM 3.8 mmol/L (3.5-5.1); SGOT/AST 17 U/L (15-37); SGPT/ALT 26 U/L (13-61); SODIUM 139 mmol/L (136-145); TOT PROT 7.7 g/dl (6.4-8.2)
[2018-05-26 18:05] VITALS: BP 102/78; PULSE 92
--- NOTE | 2018-05-27 17:03 | EKG ---
Test Reason : Blood Pressure : / mmHG Vent. Rate : 124 BPM Atrial Rate : 124 BPM P-R Int : 128 ms QRS Dur : 086 ms QT Int : 322 ms P-R-T Axes : 059 024 016 degrees QTc Int : 462 ms SINUS TACHYCARDIA LEFT ATRIAL ENLARGEMENT BORDERLINE ECG WHEN COMPARED WITH ECG OF 01-APR-2018 00:55, NO SIGNIFICANT CHANGE WAS FOUND Confirmed by MD HARLEY MOYSES ([id number]) on 05/27/2018 5:03:06 PM Referred By: Confirmed By:MYLENE HARLEY MD
== END 2018-05-26 18:05 | disposition home or self-care (01) ==
LOC: JER 14:21
PROC: 3E033NZ Introduction of Analgesics, Hypnotics, Sedatives into Peripheral Vein, Percutaneous Approach (ICD-10-PCS; principal; 2018-05-26)
DX: R07.9 Chest pain, unspecified (principal); I10 Essential (primary) hypertension; K57.92 Diverticulitis of intestine, part unspecified, without perforation or abscess without bleeding; Z79.2 Long term (current) use of antibiotics
CPT/HCPCS: 36415; 71045-TC-FY; 80053; 81003; 84443; 84484; 84703; 85025; 85379; 87086; 93005; 93010; 96374; 99284-25; J0131; J7030

== ENCOUNTER 2018-08-05 11:19 | Emergency (ER) | payer OTHER ==
[2018-08-05 11:26] VITALS: BMI 31.4
--- NOTE | 2018-08-05 11:48 | PDOC ---
History of Present Illness - General Chief Complaint: Vomiting/Diarrhea Stated Complaint: COLD SYMPTOMS Time Seen by Provider: 08/05/18 11:47 History Source: Patient - History of Present Illness Timing/Duration: reports: constant, getting worse Quality: reports: severe Abdominal Pain Onset Location: reports: LUQ, LLQ Past History - Past Medical History Allergies/Adverse Reactions: Allergies Allergy/AdvReac Type Severity Reaction Status Date / Time No Known Allergies Allergy Verified 08/05/18 11:26 Home Medications: Ambulatory Orders Nifedipine [Adalat cc] 60 mg PO DAILY #14 tablet.er 02/13/18 Nifedipine [Adalat cc] 60 mg PO DAILY 30 Days #30 tablet.er 04/01/18 Ramipril [Altace] 10 mg PO DAILY 30 Days #30 capsule 04/01/18 Ciprofloxacin [Cipro (Restricted To Id)] 500 mg PO BID 05/26/18 COPD: No GI Disorders: Yes (diverticulitis) HTN: Yes - Surgical History Orthopedic Surgery: Yes (left shoulder) - Immunization History Immunization Up to Date: Yes - Suicide/Smoking/Psychosocial Hx Smoking Status: No Smoking History: Never smoked Have you smoked in the past 12 months: No Number of Cigarettes Smoked Daily: 5 'Breaking Loose' booklet given: 04/13/16 Hx Alcohol Use: Yes (SOCIALLY) Drug/Substance Use Hx: No Substance Use Type: None *Physical Exam - Vital Signs Last Vital Signs Temp Pulse Resp BP Pulse Ox 97.7 F 107 H 20 136/87 100 08/05/18 11:23 08/05/18 11:23 08/05/18 11:23 08/05/18 11:23 08/05/18 11:23 - Physical Exam General Appearance: Yes: Nourished, Appropriately Dressed. No: Apparent Distress HEENT: positive: Normal Voice Neck: positive: Supple Respiratory/Chest: negative: Respiratory Distress Gastrointestinal/Abdominal: positive: Normal Bowel Sounds, Tender (Poorly localized ttp to L side of abd), Soft. negative: Distended, Guarding, Rebound Musculoskeletal: negative: CVA Tenderness Integumentary: positive: Dry, Warm Neurologic: positive: Fully Oriented, Alert, Normal Mood/Affect Moderate Sedation - Procedure Monitoring Vital Signs: Procedure Monitoring Vital Signs Temperature 97.7 F 08/05/18 11:23 Pulse Rate 107 H 08/05/18 11:23 Respiratory Rate 20 08/05/18 11:23 Blood Pressure 136/87 08/05/18 11:23 O2 Sat by Pulse Oximetry (%) 100 08/05/18 11:23 ED Treatment Course - LABORATORY CBC & Chemistry Diagram: 08/05/18 12:20 08/05/18 13:11 Medical Decision Making - Medical Decision Making 08/05/18 11:48 38 yo F, h/o HTN, recurrnt diverticulitis medically managed in past, here w/ diffuse abdominal pain, more so to L flank with intermittent nausea, vomiting and diarrhea. No hematochezia, fever or chills. States symptoms somewhat similar to her prior to episodes of diverticulitis. No dysuria or vaginal discharge See exam R/o recurrent diverticulitis, ?gastroenteritis -pain control -zofran -IVF -labs -CT 08/05/18 14:59 CT neg for diverticulitis or other acute pathology, +fibroid uterus seen. Pain improved w meds w/ NT abd on rpt exam. Able to souleymane po. Stable for discharge w/ GI f/u this week *DC/Admit/Observation/Transfer Diagnosis at time of Disposition: Abdominal pain Qualifiers: Abdominal location: left lower quadrant Qualified Code(s): R10.32 - Left lower quadrant pain - Discharge Dispostion Disposition: HOME Condition at time of disposition: Improved - Referrals Referrals: ON STAFF,NOT [Primary Care Provider] - - Patient Instructions Printed Discharge Instructions: DI for Abdominal Pain-Adult Additional Instructions: Your CAT scan today showed no evidence of diverticulitis or any other acute findings to explain your pain. Your blood work and urine were normal as well. Please follow-up with your GI doctor this week - Post Discharge Activity
[2018-08-05] MEDS ORDERED: ONDANSETRON 4 MG/2 ML VIAL IVPUSH ONE (11:50)
[2018-08-05] MEDS ORDERED: KETOROLAC TROMETHAMINE 30 MG/1 ML VIAL IVPUSH ONE (11:50)
[2018-08-05] MEDS ORDERED: SODIUM CHLORIDE 1,000 ML IV STA (11:50)
[2018-08-05] MEDS ORDERED: ONDANSETRON 4 MG/2 ML VIAL ONE (12:22)
[2018-08-05] MEDS ORDERED: KETOROLAC TROMETHAMINE 30 MG/1 ML VIAL ONE (12:22)
[2018-08-05 12:29] LABS: BASO % 1.1 % (0-2.0); EOS % 1.9 % (0-4.5); HEMATOCRIT 34.3 % (32.4-45.2); HEMOGLOBIN 11.9 GM/dL (10.7-15.3); LYMPH % 34.9 % (8-40); MCH 34.2 pg (25.7-33.7); MCHC 34.5 g/dl (32.0-36.0); MEAN PLT VOLUME 8.5 fl (7.5-11.1); MONO % 6.5 % (3.8-10.2); NEUT % 55.6 % (42.8-82.8); PLATELET COUNT 317 K/MM3 (134-434); RBC 3.47 M/mm3 (3.60-5.2); RDW 15.7 % (11.6-15.6); WHITE BLOOD COUNT 5.5 K/mm3 (4.0-10.0)
[2018-08-05 12:38] LABS: HCG,QUALITATIVE URINE Negative
[2018-08-05 13:04] LABS: URINE APPEARANCE CLEAR; URINE BILIRUBIN NEGATIVE (<2.0 mg/dL); URINE COLOR YELLOW; URINE GLUCOSE (UA) NEGATIVE (NEGATIVE); URINE KETONE NEGATIVE (NEGATIVE); URINE LEUK ESTERASE NEGATIVE (NEGATIVE); URINE NITRITE NEGATIVE (NEGATIVE); URINE PROTEIN NEGATIVE (NEGATIVE); URINE UROBILINOGEN NEGATIVE mg/dL (0.2-1.0)
[2018-08-05 13:55] LABS: ALK PHOS 105 U/L (45-117); ANION GAP 7 MMOL/L (8-16); BILIRUBIN,TOTAL 0.3 mg/dL (0.2-1); BLOOD UREA NITROGEN 12 mg/dL (7-18); CALCIUM 8.2 mg/dL (8.5-10.1); CHLORIDE 109 mmol/L (98-107); CO2 23 mmol/L (21-32); CREATININE 0.6 mg/dL (0.55-1.3); GLUCOSE,RANDOM 69 mg/dL (74-106); POTASSIUM 4.3 mmol/L (3.5-5.1); SGOT/AST 12 U/L (15-37); SGPT/ALT 19 U/L (13-61); SODIUM 139 mmol/L (136-145); TOT PROT 6.8 g/dl (6.4-8.2)
[2018-08-05] MEDS ORDERED: morphine CARPU-JECT 4 MG/1 ML DISP.SYRIN IVPUSH ONE (14:28)
[2018-08-05] MEDS ORDERED: morphine SULFATE 4 MG/ML VIAL ONE (14:35)
[2018-08-05 15:14] VITALS: BP 126/84; PULSE 84; TEMP 98.5
== END 2018-08-05 15:30 | disposition home or self-care (01) ==
LOC: JER 11:19
PROC: 3E0337Z Introduction of Electrolytic and Water Balance Substance into Peripheral Vein, Percutaneous Approach (ICD-10-PCS; principal; 2018-08-05)
PROC: 3E033NZ Introduction of Analgesics, Hypnotics, Sedatives into Peripheral Vein, Percutaneous Approach (ICD-10-PCS; 2018-08-05)
PROC: 3E0333Z Introduction of Anti-inflammatory into Peripheral Vein, Percutaneous Approach (ICD-10-PCS; 2018-08-05)
PROC: 3E033GC Introduction of Other Therapeutic Substance into Peripheral Vein, Percutaneous Approach (ICD-10-PCS; 2018-08-05)
DX: R10.32 Left lower quadrant pain (principal); I10 Essential (primary) hypertension; D25.9 Leiomyoma of uterus, unspecified; Z87.19 Personal history of other diseases of the digestive system
CPT/HCPCS: 36415; 74176-TC; 80053; 81003; 84703; 85025; 96361; 96374; 96375; 99282-25; J7030

== ENCOUNTER 2018-08-20 13:35 | Emergency (ER) | payer OTHER | END 2018-08-20 16:11 | disposition left against medical advice (07) | LOC: JER 13:35 ==

== ENCOUNTER 2018-10-20 18:07 | Emergency (ER) | payer OTHER | END 2018-10-20 19:05 | disposition home or self-care (01) | LOC: JERFT 18:07 ==

== ENCOUNTER → 2018-10-31 | Emergency (ER) | payer OTHER ==
[~2018-10-31] MED LIST: KETOROLAC TROMETHAMINE 30 MG/1 ML VIAL IVPUSH ONE; KETOROLAC TROMETHAMINE 30 MG/1 ML VIAL ONE; ONDANSETRON 4 MG/2 ML VIAL IVPUSH ONE; ONDANSETRON 4 MG/2 ML VIAL ONE; SODIUM CHLORIDE 1,000 ML IV STA
--- NOTE | 2018-10-31 07:49 | PDOC ---
*Physical Exam - Vital Signs Last Vital Signs Temp Pulse Resp BP Pulse Ox 98.4 F 87 18 144/97 98 10/31/18 07:29 10/31/18 07:29 10/31/18 07:29 10/31/18 07:29 10/31/18 07:29 - Physical Exam Comments: 10/31/18 07:48 The patient was examined by [YENNI Isabel] under my direct supervision. I personally evaluated the patient. I concur with the above findings and the plan of care.
--- NOTE | 2018-10-31 07:54 | PDOC ---
History of Present Illness - General Chief Complaint: Pain, Acute Stated Complaint: VOMITING,ABD PAIN Time Seen by Provider: 10/31/18 07:38 History Source: Patient - History of Present Illness Timing/Duration: reports: getting worse Past History - Past Medical History Allergies/Adverse Reactions: Allergies Allergy/AdvReac Type Severity Reaction Status Date / Time No Known Allergies Allergy Verified 10/31/18 07:34 Home Medications: Ambulatory Orders Nifedipine [Adalat cc] 60 mg PO DAILY 30 Days #30 tablet.er 04/01/18 Ramipril [Altace] 10 mg PO DAILY 30 Days #30 capsule 04/01/18 COPD: No GI Disorders: Yes (diverticulitis) HTN: Yes - Surgical History Orthopedic Surgery: Yes (left shoulder) - Immunization History Td Vaccination: Yes Immunization Up to Date: Yes - Suicide/Smoking/Psychosocial Hx Smoking Status: No Smoking History: Never smoked Have you smoked in the past 12 months: No Number of Cigarettes Smoked Daily: 5 'Breaking Loose' booklet given: 04/13/16 Hx Alcohol Use: No Drug/Substance Use Hx: No Substance Use Type: None Review of Systems - Review of Systems Constitutional: No: Chills, Fever, Weakness ABD/GI: Yes: Diarrhea, Nausea, Vomiting, Abdominal cramping. No: Blood Streaked Bowels, Constipated, Rectal Bleeding, Tarry Stools : No: Dysuria, Hematuria *Physical Exam - Vital Signs Last Vital Signs Temp Pulse Resp BP Pulse Ox 98.4 F 87 18 144/97 98 10/31/18 07:29 10/31/18 07:29 10/31/18 07:29 10/31/18 07:29 10/31/18 07:29 - Physical Exam General Appearance: Yes: Appropriately Dressed, Mild Distress HEENT: positive: Normal Voice Neck: positive: Supple Respiratory/Chest: negative: Respiratory Distress Gastrointestinal/Abdominal: positive: Normal Bowel Sounds, Tender (sig ttp to L mid abd and LLQ), Soft. negative: Distended, Guarding, Rebound Musculoskeletal: negative: CVA Tenderness Integumentary: positive: Dry, Warm Neurologic: positive: Fully Oriented, Alert, Normal Mood/Affect ED Treatment Course - LABORATORY CBC & Chemistry Diagram: 10/31/18 07:55 10/31/18 07:55 Medical Decision Making - Medical Decision Making 10/31/18 07:38 38 yo F, h/o HTN, diverticulitis, p/w L sided abd pain w/ n/v/d x several days. She has had about 8-12 episodes of non-bloody watery stool and that vomiting became constant yesterday. Denies any fever or chills. States current symptoms feels like her diverticulitis which she's had multiple times. States she was told she may need surgery, but that she is usually medically managed see exam R/o diverticulitis vs gastroentritis, less likely appy, biliary source or gastritis -pain control -zofran -IVF -labs -CT 10/31/18 11:58 Patient's labs unremarkable. CT negative for diverticulitis, but shows a large fibroid. Patient informed of results and given urine to collect sample. Patient never returned with urine and was unable to be located in ER, despite multiple staff members looking for patient and over head paging patient. Patient had IV in place. I called pt and left urgent message to return to ER. Incident report filed. Charge nurse to contact [facility] *DC/Admit/Observation/Transfer Diagnosis at time of Disposition: Eloped from emergency department - Discharge Dispostion Disposition: ELOPED - Referrals - Patient Instructions - Post Discharge Activity
[2018-10-31 08:12] VITALS: BP 144/97; PULSE 87; TEMP 98.4; BMI 31.3
[2018-10-31 08:24] LABS: BASO % 1.4 % (0-2.0); EOS % 3.3 % (0-4.5); HEMATOCRIT 35.8 % (32.4-45.2); HEMOGLOBIN 11.9 GM/dL (10.7-15.3); LYMPH % 41.5 % (8-40); MCH 32.7 pg (25.7-33.7); MCHC 33.1 g/dl (32.0-36.0); MEAN CELL VOLUME 98.7 fl (80-96); MEAN PLT VOLUME 9.5 fl (7.5-11.1); MONO % 6.3 % (3.8-10.2); NEUT % 47.5 % (42.8-82.8); RBC 3.63 M/mm3 (3.60-5.2); RDW 14.7 % (11.6-15.6)
[2018-10-31 08:57] LABS: BILIRUBIN,TOTAL 0.2 mg/dL (0.2-1); BLOOD UREA NITROGEN 12.1 mg/dL (7-18); CALCIUM 7.8 mg/dL (8.5-10.1); CREATININE 0.7 mg/dL (0.55-1.3); POTASSIUM 4.7 mmol/L (3.5-5.1); TOT PROT 6.9 g/dl (6.4-8.2)
[2018-10-31 09:43] LABS: PLATELET COUNT 286 K/MM3 (134-434)
== END | disposition left against medical advice (07) ==
LOC: JER 07:27
PROC: 3E0333Z Introduction of Anti-inflammatory into Peripheral Vein, Percutaneous Approach (ICD-10-PCS; principal; 2018-10-31)
PROC: 3E033GC Introduction of Other Therapeutic Substance into Peripheral Vein, Percutaneous Approach (ICD-10-PCS; 2018-10-31)
PROC: 3E0337Z Introduction of Electrolytic and Water Balance Substance into Peripheral Vein, Percutaneous Approach (ICD-10-PCS; 2018-10-31)
DX: R10.9 Unspecified abdominal pain (principal)
CPT/HCPCS: 36415; 74177-TC; 80053; 83690; 84703; 85025; 96361; 96374; 96375; 99282-25; J7030

== ENCOUNTER 2019-04-06 17:06 | Inpatient (IN) | payer OTHER ==
[2019-04-06] MEDS ORDERED: ONDANSETRON 4 MG/2 ML VIAL IVPUSH ONE ×2 (18:04→23:11)
[2019-04-06] MEDS ORDERED: SODIUM CHLORIDE 1,000 ML IV STA ×2 (18:04→20:52)
[2019-04-06] MEDS ORDERED: morphine CARPU-JECT 4 MG/1 ML DISP.SYRIN IVPUSH ONE (18:04)
--- NOTE | 2019-04-06 18:20 | PDOC ---
History of Present Illness - General Chief Complaint: Pain Stated Complaint: ABD PAIN Time Seen by Provider: 04/06/19 17:16 History Source: Patient Exam Limitations: No Limitations - History of Present Illness Travel History: No Initial Comments: 04/06/19 18:15 HISTORY OF PRESENT ILLNESS: 39-year-old woman with past medical history of hypertension and diverticulitis presents to the emergency department for evaluation of diffuse abdominal pain for 1 week accompanied by nausea, vomiting and diarrhea. Patient reports the pain started as a sharp, poking cramping sensation in her left upper quadrant and slowly spread down to her left lower quadrant and across to the right side of her abdomen. She reports the pain is an 8/10 presently. Patient reports the pain is consistent with her usual diverticulitis pain but is concerned with the diffuse abdominal pain as her diverticulitis pain she usually contained to the left side of her abdomen. She reports having 6-7 episodes of watery brown stools over the past week. In addition she is experiencing consistent nausea with multiple episodes of vomiting undigested food without any blood noted in the vomit or stool. Patient reports frequent hospitalizations for her diverticulitis most recently in June 2018 at [place]. Patient reports her metal trimmer had recommended colon resection due to the extensive nature of her diverticuli. GI: [facility] No recent travel or sick contacts. PAST MEDICAL HISTORY: See HPI SURGICAL HISTORY: Denies ALLERGIES: No known drug allergies REVIEW OF SYSTEMS General/Constitutional: Denies fever or chills. Denies weakness, weight change. HEENT: Denies change in vision. Denies ear pain or discharge. Denies sore throat. Cardiovascular: Denies chest pain or shortness of breath. Respiratory: Denies cough, wheezing, or hemoptysis. Gastrointestinal: See HPI Genitourinary: Denies dysuria, frequency, or change in urination. Musculoskeletal: Denies joint or muscle swelling or pain. Denies neck or back pain. Skin and breasts: Denies rash or easy bruising. Neurologic: Denies headache, vertigo, loss of consciousness, or loss of sensation. Psychiatric: Denies depression or anxiety. Endocrine: Denies increased thirst. Denies abnormal weight change. Hematologic/Lymphatic: Denies anemia, easy bleeding, or history of blood clots. Allergic/Immunologic: Denies hives or skin allergy. Denies latex allergy. PHYSICAL EXAM General Appearance: Well-appearing, appropriately dressed. No apparent distress , no intoxication. HEENT: EOMI, PERRLA, normal ENT inspection, normal voice, TMs normal, pharynx normal. No conjunctival pallor. No photophobia, scleral icterus. Neck: Supple. Trachea midline. No tenderness, rigidity, carotid bruit, stridor , lymphadenopathy, or thyromegaly. Respiratory/Chest: Lungs CTAB. No shortness of breath, chest tenderness, respiratory distress, accessory muscle use. No crackles, rales, rhonchi, stridor , wheezing, dullness Cardiovascular: RRR. S1, S2. No JVD, murmur, bradycardia, tachycardia. Vascular Pulses: Dorsalis-Pedis (R): 2+, Dorsalis-Pedis (L): 2+ Gastrointestinal/Abdominal: Normal bowel sounds. Abdomen soft, non-distended. Diffuse abdominal tenderness with guarding. No rebound tenderness. No organomegaly, pulsatile mass, hernia, hepatomegaly, splenomegaly. Past History - Past Medical History Allergies/Adverse Reactions: Allergies Allergy/AdvReac Type Severity Reaction Status Date / Time No Known Allergies Allergy Verified 04/06/19 17:13 Home Medications: Ambulatory Orders Ramipril [Altace] 10 mg PO DAILY 30 Days #30 capsule 04/01/18 Nifedipine ER [Procardia XL -] 1 tab PO DAILY 04/07/19 COPD: No GI Disorders: Yes (diverticulitis) HTN: Yes - Surgical History Orthopedic Surgery: Yes (left shoulder) - Immunization History Td Vaccination: Yes Immunization Up to Date: Yes - Psycho Social/Smoking Cessation Hx Smoking Status: No Smoking History: Never smoked Have you smoked in the past 12 months: No Number of Cigarettes Smoked Daily: 5 'Breaking Loose' booklet given: 04/13/16 Hx Alcohol Use: No Drug/Substance Use Hx: No Substance Use Type: None *Physical Exam - Vital Signs Last Vital Signs Temp Pulse Resp BP Pulse Ox 98.5 F 100 H 18 151/94 98 04/06/19 17:10 04/06/19 17:10 04/06/19 17:10 04/06/19 17:10 04/06/19 17:10 ED Treatment Course - LABORATORY CBC & Chemistry Diagram: 04/07/19 05:35 04/07/19 05:35 - RADIOLOGY Radiology Studies Ordered: Category Date Time Status ABDOMEN & PELVIS CT WITH CONTR [CT] Stat CT Scan 04/06/19 18:06 Ordered Medical Decision Making - Medical Decision Making 04/06/19 18:18 A/P: 39-year-old woman with diffuse abdominal pain, nausea, vomiting and diarrhea for the past 7 days Abdomen diffusely tender with guarding present in all abdominal garza Differential diagnosis includes but not limited to-diverticulitis, obstruction, appendicitis, ischemia, colitis, enteritis Labs including lactate Urine including culture and EKG Stool samples Normal saline 1 L IV bolus Morphine 4 mg IV now Zofran 4 mg IV now Reassess 04/07/19 00:23 CAT scan is read by imaging on-call: There is question of minimal edema surrounding diverticuli within the distal descending colon; this may suggest early acute diverticulitis. There is a mass within the left breast measuring 3.6 cm. There is part of a mass visualized within the left breast on the prior exam. Recommended mammography or breast ultrasound for further characterization. The stomach is distended with food material; cannot exclude a degree of gastric outlet obstruction versus delayed gastric emptying recommend correlation with recent meal. Hepatic steatosis As patient is having continued pain, I will admit to the hospitalist for early diverticulitis and pain management. Blood cultures Flagyl 500 mg IV now Ceftriaxone 1 g IV now 04/07/19 01:00 Case has been discussed with the hospitalist who accepts for admission under Dr. Barrett. Discharge - Discharge Information Problems reviewed: Yes Clinical Impression/Diagnosis: Diverticulitis Condition: Fair - Admission Yes - Follow up/Referral - Patient Discharge Instructions - Post Discharge Activity
[2019-04-06 18:23] LABS: BASO % 1.4 % (0-2.0); EOS % 2.1 % (0-4.5); HEMATOCRIT 37.7 % (32.4-45.2); HEMOGLOBIN 12.6 GM/dL (10.7-15.3); LYMPH % 35.1 % (8-40); MCH 33.6 pg (25.7-33.7); MCHC 33.5 g/dl (32.0-36.0); MEAN CELL VOLUME 100.4 fl (80-96); MEAN PLT VOLUME 8.5 fl (7.5-11.1); MONO % 4.5 % (3.8-10.2); NEUT % 56.9 % (42.8-82.8); PLATELET COUNT 327 K/MM3 (134-434); RBC 3.76 M/mm3 (3.60-5.2); RDW 14.5 % (11.6-15.6); WHITE BLOOD COUNT 7.5 K/mm3 (4.0-10.0)
[2019-04-06] MEDS ORDERED: ONDANSETRON 4 MG/2 ML VIAL ONE ×2 (18:24→22:44)
[2019-04-06] MEDS ORDERED: morphine SULFATE 4 MG/ML VIAL ONE (18:24)
[2019-04-06 18:49] LABS: ALBUMIN 3.3 g/dl (3.4-5.0); BILIRUBIN,TOTAL 0.1 mg/dL (0.2-1); BLOOD UREA NITROGEN 9.6 mg/dL (7-18); CALCIUM 8.3 mg/dL (8.5-10.1); CREATININE 0.8 mg/dL (0.55-1.3); POTASSIUM 3.9 mmol/L (3.5-5.1); TOT PROT 7.1 g/dl (6.4-8.2)
[2019-04-06] MEDS ORDERED: HYDROmorphone HCL CARPU-JECT 2 MG/1 ML DISP.SYRIN IVPUSH ONE ×2 (19:21→22:00)
[2019-04-06] MEDS ORDERED: HYDROmorphone HCl 2 MG/ML VIAL ONE (19:23)
[2019-04-06 19:38] LABS: URINE APPEARANCE CLEAR; URINE BILIRUBIN NEGATIVE (NEGATIVE); URINE COLOR YELLOW; URINE GLUCOSE (UA) NEGATIVE (NEGATIVE); URINE KETONE NEGATIVE (NEGATIVE); URINE LEUK ESTERASE NEGATIVE (NEGATIVE); URINE NITRITE NEGATIVE (NEGATIVE); URINE PROTEIN NEGATIVE (NEGATIVE); URINE UROBILINOGEN 0.2 mg/dL (0.2-1.0)
[2019-04-06] MEDS: SODIUM CHLORIDE 1,000 ML IV SCH (23:20)
[2019-04-07] MEDS ORDERED: CEFTRIAXONE 1,000 MG in DEXTROSE 5%-WATER - 50 ML IVPB ONE (00:24)
--- NOTE | 2019-04-07 01:16 | PN ---
Teaching Attending Note Name of Resident: Asa Gotti ATTENDING PHYSICIAN STATEMENT I saw and evaluated the patient. I reviewed the resident's note and discussed the case with the resident. I agree with the resident's findings and plan as documented. SUBJECTIVE: 39-year-old woman with multiple hospitalizations for diverticulitis, most recent one was in June 2018 at [place], L breast lumpectomy (2008), L shoulder surgery (2011) complained of diffuse abdominal pain for 1 week accompanied by nausea, vomiting and diarrhea. Patient reported the pain consistent with her usual diverticulitis picture. 6-7 episodes of watery brown stools over the past week. Multiple episodes of vomiting with undigested food without blood. Patient reports that she was recommended to have colectomy performed previously due to her recurrent diverticulitis episodes. OBJECTIVE: Last Vital Signs Temp Pulse Resp BP Pulse Ox 98.5 F 97 H 18 128/84 100 04/06/19 17:10 04/06/19 21:48 04/06/19 21:48 04/06/19 21:48 04/06/19 21:48 GENERAL: Well developed, well nourished. Awake and alert. No acute distress. HEENT: Normocephalic, atraumatic. PERRLA, EOMI. No conjunctival pallor. Sclera are non- icteric. Moist mucous membranes. Oropharynx is clear. NECK: Supple. Full ROM. No JVD. Carotid pulses 2+ and symmetric, without bruits. No thyromegaly. No lymphadenopathy. CARDIOVASCULAR: Regular rate and rhythm. No murmurs, rubs, or gallops. Distal pulses are 2+ and symmetric. PULMONARY: No evidence of respiratory distress. Lungs clear to auscultation bilaterally. No wheezing, rales or rhonchi. ABDOMINAL: Bilateral abdominal tenderness to palpation, negative for rebound tenderness. Bowel sounds are present. MUSCULOSKELETAL Normal range of motion at all joints. No bony deformities or tenderness. No CVA tenderness. EXTREMITIES: No cyanosis. No clubbing. No edema. No calf tenderness. SKIN: Warm and dry. Normal capillary refill. No rashes. No jaundice. PSYCHIATRIC: Cooperative. Good eye contact. Appropriate mood and affect. Abnormal Lab Results 04/06/19 04/06/19 04/06/19 18:19 18:19 18:19 MCV 100.4 H Chloride 109 H Anion Gap 5 L Random Glucose 168 H Lactic Acid 2.5 H* Calcium 8.3 L Total Bilirubin 0.1 L Alkaline Phosphatase 132 H Albumin 3.3 L imaging reviewed CAT scan is read by imaging on-call: There is question of minimal edema surrounding diverticuli within the distal descending colon; this may suggest early acute diverticulitis. There is a mass within the left breast measuring 3.6 cm. There is part of a mass visualized within the left breast on the prior exam. Recommended mammography or breast ultrasound for further characterization. The stomach is distended with food material; cannot exclude a degree of gastric outlet obstruction versus delayed gastric emptying recommend correlation with recent meal. Hepatic steatosis ASSESSMENT AND PLAN: 39-year-old woman with sepsis secondary to acute diverticulitis with lactic acidosis. Admit to [facility] IV fluid hydration Ceftriaxone and metronidazole Repeat lactate Would need GI follow-up after discharge for possible colonoscopy after 6 weeks versus partial colectomy as was recommended previously #Left breast mass as described by CAT scan of abdomen and pelvis3.6 cm diameter. Left breast ultrasound for further evaluation DVT prophylaxisheparin subcutaneously
--- NOTE | 2019-04-07 01:41 | HP ---
CHIEF COMPLAINT: Abdominal pain PCP: Dr. Shavonne López- [facility] HISTORY OF PRESENT ILLNESS: 39 F with PMH of Diverticulitis and HTN who presents with abdominal pain for the last 6 days. Pain began in the left upper quadrant of the abdomen and has spread to the right side. Abdomen is now diffusely in pain. Patient had 7 episodes of diarrhea over the past day, and 5 episodes of nonbloody nonbilious emesis. Pain rated at a 8/10 today before coming to the hospital. Symptoms today are similar to prior episodes of diverticulitis she has had. Patient endorses decreased appetite and feeling weaker, with increased shortness of breath. Denies any sick contacts, recent illnesses, changes in diet, and no one at home is experiencing the same symptoms she is. ER course was notable for: (1) EKG was done which showed normal sinus rhythm. Lactic acid was measured to be 2.5. (2) Patient was given 1 gram of Ceftriaxone and [address]idazole. (3) CT Abdomen/ Pelvis shows there is a mass within the left breast measuring 3.6 cm. Hepatic steatosis. No intrahepatic biliary dilatation. The gallbladder is nondilated. The CBD is nondilated. The spleen, adrenals, pancreas are unremarkable. There is a moderate sized duodenal diverticulum of the third portion of the duodenum. Normal appendix. No bowel wall thickening or evidence of obstruction. Scattered colonic diverticula. There is question of minimal edema surrounding a diverticula within the distal descending colon; this may suggest early acute diverticulitis. Fibroid uterus. The stomach is distended with food material; cannot exclude a degree of gastric outlet obstruction versus delayed gastric emptying recommend correlation with recent meal. The urinary bladder is distended which limits evaluation. No lymphadenopathy. No free fluid. Small fat-containing umbilical hernia. No acute fracture Recent Travel: None PAST MEDICAL HISTORY: HTN and Diveritculitis. Family medical history: HTN, DM. PAST SURGICAL HISTORY: L rotator cuff repair in 2013, D&C August 2018, Left breast cyst removal in 2003 Social History: Smokin pack/ week Alcohol: 7-8 drinks week Drugs: Denies Allergies No Known Allergies Allergy (Verified 04/06/19 17:13) HOME MEDICATIONS: Home Medications Medication Instructions Recorded Nifedipine [Adalat cc] 60 mg PO DAILY 30 Days #30 04/01/18 tablet.er Ramipril [Altace] 10 mg PO DAILY 30 Days #30 capsule 04/01/18 REVIEW OF SYSTEMS CONSTITUTIONAL: Absent: fever, chills, diaphoresis, generalized weakness, malaise, loss of appetite, weight change HEENT: Absent: rhinorrhea, nasal congestion, throat pain, throat swelling, difficulty swallowing, mouth swelling, ear pain, eye pain, visual changes CARDIOVASCULAR: chest pain, Absent: syncope, palpitations, irregular heart rate, lightheadedness, peripheral edema RESPIRATORY: shortness of breath Absent: cough, dyspnea with exertion, orthopnea, wheezing, stridor, hemoptysis GASTROINTESTINAL:abdominal pain, abdominal distension Absent: nausea, vomiting, diarrhea, constipation, melena, hematochezia GENITOURINARY: Absent: dysuria, frequency, urgency, hesitancy, hematuria, flank pain, genital pain MUSCULOSKELETAL: Absent: myalgia, arthralgia, joint swelling, back pain, neck pain SKIN: Absent: rash, itching, pallor HEMATOLOGIC/IMMUNOLOGIC: Absent: easy bleeding, easy bruising, lymphadenopathy, frequent infections NEUROLOGIC: Absent: headache, focal weakness or paresthesias, dizziness, unsteady gait, seizure, mental status changes, bladder or bowel incontinence PHYSICAL EXAMINATION Vital Signs - 24 hr 04/06/19 04/06/19 04/06/19 17:10 19:38 21:48 Temperature 98.5 F Pulse Rate 100 H Pulse Rate [ 104 H 97 H Radial] Respiratory 18 20 18 Rate Blood Pressure 151/94 Blood Pressure 127/79 128/84 [Left Arm] O2 Sat by Pulse 98 98 100 Oximetry (%) GENERAL: Awake, alert, and fully oriented, in no acute distress. HEAD: Normal with no signs of trauma. EYES: Pupils equal, round and reactive to light, extraocular movements intact, sclera anicteric, conjunctiva clear. LUNGS: Breath sounds equal, clear to auscultation bilaterally. No wheezes, and no crackles. No accessory muscle use. HEART: Regular rate and rhythm, normal S1 and S2 without murmur, rub or gallop. ABDOMEN: Tender in all 4 quadrants, normoactive bowel sounds. No hepatomegaly or splenomegaly. MUSCULOSKELETAL: Normal range of motion at all joints. No bony deformities or tenderness. No CVA tenderness. UPPER EXTREMITIES: 2+ pulses, warm, well-perfused. No cyanosis. No clubbing. No peripheral edema. LOWER EXTREMITIES: 2+ pulses, warm, well-perfused. No calf tenderness. No peripheral edema. NEUROLOGICAL: Cranial nerves II-XII intact. Normal speech. PSYCHIATRIC: Cooperative. Good eye contact. Appropriate mood and affect. SKIN: Warm, dry, normal turgor, no rashes or lesions noted, normal capillary refill. Laboratory Results - last 24 hr 04/06/19 04/06/19 04/06/19 18:19 18:19 18:19 WBC 7.5 RBC 3.76 Hgb 12.6 Hct 37.7 MCV 100.4 H MCH 33.6 MCHC 33.5 RDW 14.5 Plt Count 327 MPV 8.5 D Absolute Neuts (auto) 4.3 Neutrophils % 56.9 Lymphocytes % 35.1 Monocytes % 4.5 Eosinophils % 2.1 Basophils % 1.4 Nucleated RBC % 0 Sodium 140 Potassium 3.9 Chloride 109 H Carbon Dioxide 26 Anion Gap 5 L BUN 9.6 Creatinine 0.8 Est GFR (CKD-EPI)AfAm 106.88 Est GFR (CKD-EPI)NonAf 92.22 Random Glucose 168 H Lactic Acid Calcium 8.3 L Total Bilirubin 0.1 L AST 23 ALT 33 Alkaline Phosphatase 132 H Creatine Kinase 142 Troponin I < 0.02 Total Protein 7.1 Albumin 3.3 L Lipase 341 Urine Color Urine Appearance Urine pH Ur Specific [place] Urine Protein Urine Glucose (UA) Urine Ketones Urine Blood Urine Nitrite Urine Bilirubin Urine Urobilinogen Ur Leukocyte Esterase Urine HCG, Qual 04/06/19 04/06/19 04/06/19 18:19 19:20 19:20 WBC RBC Hgb Hct MCV MCH MCHC RDW Plt Count MPV Absolute Neuts (auto) Neutrophils % Lymphocytes % Monocytes % Eosinophils % Basophils % Nucleated RBC % Sodium Potassium Chloride Carbon Dioxide Anion Gap BUN Creatinine Est GFR (CKD-EPI)AfAm Est GFR (CKD-EPI)NonAf Random Glucose Lactic Acid 2.5 H* Calcium Total Bilirubin AST ALT Alkaline Phosphatase Creatine Kinase Troponin I Total Protein Albumin Lipase Urine Color Yellow Urine Appearance Clear Urine pH 6.0 Ur Specific [place] 1.017 Urine Protein Negative Urine Glucose (UA) Negative Urine Ketones Negative Urine Blood Negative Urine Nitrite Negative Urine Bilirubin Negative Urine Urobilinogen 0.2 Ur Leukocyte Esterase Negative Urine HCG, Qual Negative ASSESSMENT/PLAN: 39 F with PMH of diverticulitis and HTN who presents with sepsis secondary to acute divertiulitis 1)Sepsis secondary to acute diverticulitis -Lactic of 2.5 on presentation. Trended to 1.4. Tachycardic. History of multiple hosptilizations for acute diverticulitis. -NPO for now. Can advance diet in AM to clears if nausea has subsided. -Ceftriaxone 2 gram IV daily -Metronidazole 500 mg IV Q8H -Morphine 2 mg IV Q4H PRN -Zofran 4mg IV Q6H PRN 2)HTN -Continue Nifedipine 60 mg PO QDaily -Continue Ramipril 10 mg PO Qdaily 3) Breast Mass on CT Abdomen -Patient noted that she had cyst removed from breast. Noted that there is a mass remaining in the breast for which her physician uses as a marker. Regularly follows up with her PCP for assessment of the mass. DVT: Heparin 5000 unit SQ TID F:NS @ 125 ml/hr E:Monitor BMP N:NPO Visit type - Emergency Visit Emergency Visit: Yes ED Registration Date: 04/07/19 Care time: The patient presented to the Emergency Department on the above date and was hospitalized for further evaluation of their emergent condition. - New Patient This patient is new to me today: Yes Date on this admission: 04/07/19 - Critical Care Critical Care patient: No ATTENDING PHYSICIAN STATEMENT I saw and evaluated the patient. I reviewed the resident's note and discussed the case with the resident. I agree with the resident's findings and plan as documented. SUBJECTIVE: OBJECTIVE: ASSESSMENT AND PLAN:
[2019-04-07] MEDS ORDERED: ONDANSETRON 4 MG/2 ML VIAL IVPUSH PRN (02:21)
[2019-04-07] MEDS ORDERED: CEFTRIAXONE 1 GM/50 ML BAG ONE (03:54)
[2019-04-07 06:13] LABS: BASO % 0.5 % (0-2.0); EOS % 0.2 % (0-4.5); HEMATOCRIT 32.5 % (32.4-45.2); HEMOGLOBIN 10.9 GM/dL (10.7-15.3); MCH 33.3 pg (25.7-33.7); MCHC 33.5 g/dl (32.0-36.0); MEAN CELL VOLUME 99.3 fl (80-96); MEAN PLT VOLUME 8.5 fl (7.5-11.1); MONO % 5.6 % (3.8-10.2); NEUT % 74.7 % (42.8-82.8); PLATELET COUNT 277 K/MM3 (134-434); RBC 3.27 M/mm3 (3.60-5.2); RDW 14.5 % (11.6-15.6); WHITE BLOOD COUNT 8.1 K/mm3 (4.0-10.0)
[2019-04-07] MEDS: SODIUM CHLORIDE 1,000 ML IV SCH ×2 (06:30→09:52)
[2019-04-07] MEDS: HEPARIN NA (PORCINE) 5,000 UNITS/ML 1ML VIAL SQ SCH ×3 (06:34→21:22)
[2019-04-07 07:03] VITALS: BMI 34.3
[2019-04-07 07:53] LABS: BILIRUBIN,TOTAL 0.2 mg/dL (0.2-1); BLOOD UREA NITROGEN 7.3 mg/dL (7-18); CALCIUM 7.6 mg/dL (8.5-10.1); CREATININE 0.6 mg/dL (0.55-1.3); POTASSIUM 3.7 mmol/L (3.5-5.1); TOT PROT 6.4 g/dl (6.4-8.2)
[2019-04-07] MEDS: NIFEdipine E.R 60 MG TABLET (UD) PO SCH (09:52)
[2019-04-07] MEDS ORDERED: RAMIPRIL 5 MG CAPSULE (FP) PO SCH (10:00)
--- NOTE | 2019-04-07 10:00 | PN ---
Progress Note (short form) - Note Progress Note: Subjective: no fever or chills. She feels better. pain in abd started to come back . no N/ V. last diarrhea was yesterday at 4 pm Objective: Vital Signs: Last Vital Signs Temp Pulse Resp BP Pulse Ox 98.1 F 75 16 117/79 97 04/07/19 09:41 04/07/19 09:41 04/07/19 09:41 04/07/19 09:41 04/07/19 06:38 Laboratory Results - last 24 hr 04/06/19 04/06/19 04/06/19 18:19 18:19 18:19 WBC 7.5 RBC 3.76 Hgb 12.6 Hct 37.7 MCV 100.4 H MCH 33.6 MCHC 33.5 RDW 14.5 Plt Count 327 MPV 8.5 D Absolute Neuts (auto) 4.3 Neutrophils % 56.9 Lymphocytes % 35.1 Monocytes % 4.5 Eosinophils % 2.1 Basophils % 1.4 Nucleated RBC % 0 Sodium 140 Potassium 3.9 Chloride 109 H Carbon Dioxide 26 Anion Gap 5 L BUN 9.6 Creatinine 0.8 Est GFR (CKD-EPI)AfAm 106.88 Est GFR (CKD-EPI)NonAf 92.22 Random Glucose 168 H Lactic Acid Calcium 8.3 L Total Bilirubin 0.1 L AST 23 ALT 33 Alkaline Phosphatase 132 H Creatine Kinase 142 Troponin I < 0.02 Total Protein 7.1 Albumin 3.3 L Lipase 341 Urine Color Urine Appearance Urine pH Ur Specific [place] Urine Protein Urine Glucose (UA) Urine Ketones Urine Blood Urine Nitrite Urine Bilirubin Urine Urobilinogen Ur Leukocyte Esterase Urine HCG, Qual 04/06/19 04/06/19 04/06/19 18:19 19:20 19:20 WBC RBC Hgb Hct MCV MCH MCHC RDW Plt Count MPV Absolute Neuts (auto) Neutrophils % Lymphocytes % Monocytes % Eosinophils % Basophils % Nucleated RBC % Sodium Potassium Chloride Carbon Dioxide Anion Gap BUN Creatinine Est GFR (CKD-EPI)AfAm Est GFR (CKD-EPI)NonAf Random Glucose Lactic Acid 2.5 H* Calcium Total Bilirubin AST ALT Alkaline Phosphatase Creatine Kinase Troponin I Total Protein Albumin Lipase Urine Color Yellow Urine Appearance Clear Urine pH 6.0 Ur Specific [place] 1.017 Urine Protein Negative Urine Glucose (UA) Negative Urine Ketones Negative Urine Blood Negative Urine Nitrite Negative Urine Bilirubin Negative Urine Urobilinogen 0.2 Ur Leukocyte Esterase Negative Urine HCG, Qual Negative 04/07/19 04/07/19 04/07/19 03:28 05:35 05:35 WBC 8.1 RBC 3.27 L Hgb 10.9 Hct 32.5 MCV 99.3 H MCH 33.3 MCHC 33.5 RDW 14.5 Plt Count 277 MPV 8.5 Absolute Neuts (auto) 6.0 Neutrophils % 74.7 D Lymphocytes % 19.0 D Monocytes % 5.6 Eosinophils % 0.2 D Basophils % 0.5 Nucleated RBC % 0 Sodium 137 Potassium 3.7 Chloride 106 Carbon Dioxide 24 Anion Gap 8 BUN 7.3 Creatinine 0.6 Est GFR (CKD-EPI)AfAm 132.14 Est GFR (CKD-EPI)NonAf 114.01 Random Glucose 97 Lactic Acid 1.4 Calcium 7.6 L Total Bilirubin 0.2 AST 16 ALT 25 Alkaline Phosphatase 101 Creatine Kinase Troponin I Total Protein 6.4 Albumin 3.0 L Lipase Urine Color Urine Appearance Urine pH Ur Specific [place] Urine Protein Urine Glucose (UA) Urine Ketones Urine Blood Urine Nitrite Urine Bilirubin Urine Urobilinogen Ur Leukocyte Esterase Urine HCG, Qual 04/07/19 05:35 WBC RBC Hgb Hct MCV MCH MCHC RDW Plt Count MPV Absolute Neuts (auto) Neutrophils % Lymphocytes % Monocytes % Eosinophils % Basophils % Nucleated RBC % Sodium Potassium Chloride Carbon Dioxide Anion Gap BUN Creatinine Est GFR (CKD-EPI)AfAm Est GFR (CKD-EPI)NonAf Random Glucose Lactic Acid 1.6 Calcium Total Bilirubin AST ALT Alkaline Phosphatase Creatine Kinase Troponin I Total Protein Albumin Lipase Urine Color Urine Appearance Urine pH Ur Specific [place] Urine Protein Urine Glucose (UA) Urine Ketones Urine Blood Urine Nitrite Urine Bilirubin Urine Urobilinogen Ur Leukocyte Esterase Urine HCG, Qual Physical Exam: NAD , awake, alert, MMM CV: RRR, 2/6 SM at [facility] Lungs: CTAB Abd: soft, ND, TTP in LLQ, RLQ, and RUQ. No rebound tenderness or quarding. Ext : No edema Breasts: L breast with 2 small masses just left to the areola. 2cm , and 1 cm in diameter. no tenderness. no LAP in axillary areas. No masses in R breast Imaging: CT images reviewed. large uterus with calcified fibroid. large stomach, and L breast masses . report is still pending . Assessment/Plan: 39 y/o lady with h/o L breast lumpectomy ( benign ) , multiple episodes of diverticulitis, and HTN who presented with abd pain and diarrhea. 1- Acute diverticulitis: slightly improved . - cont ceftriaxone and flagyl - follow final CT report - change IVF to D5NS - bowel rest. possibly clears for tomorrow - follow blood cx . - Lactic normalized - f/u wit her GI at [facility] as out pt 2- Dilated stomach on CT: will wait for CT final read 3-L breast masses: she was asked to follow up as out pt for mammo and US 4- Heart murmur: out pt Echo. pat was made aware. 5- HTN : cont meds . confirmed with her DVT PX : heparin Visit type - Emergency Visit Emergency Visit: Yes ED Registration Date: 04/07/19 Care time: The patient presented to the Emergency Department on the above date and was hospitalized for further evaluation of their emergent condition. - New Patient This patient is new to me today: Yes Date on this admission: 04/07/19 - Critical Care Critical Care patient: No
[2019-04-07] MEDS: DEXTROSE 5%-NORMAL SALINE 1,000 ML IV SCH ×2 (10:24→20:09)
--- NOTE | 2019-04-07 16:59 | EKG ---
Test Reason : Blood Pressure : / mmHG Vent. Rate : 095 BPM Atrial Rate : 095 BPM P-R Int : 134 ms QRS Dur : 086 ms QT Int : 364 ms P-R-T Axes : 063 060 038 degrees QTc Int : 457 ms NORMAL SINUS RHYTHM NORMAL ECG WHEN COMPARED WITH ECG OF 26-MAY-2018 14:34, NONSPECIFIC T WAVE ABNORMALITY NOW EVIDENT IN ANTERIOR LEADS Confirmed by URSULA BENÍTEZ MD ([id number]) on 04/07/2019 4:59:27 PM Referred By: Confirmed By:URSULA BENÍTEZ MD
[2019-04-07] MEDS: MORPHINE SULFATE 2 MG/ML VIAL IVPUSH PRN (20:10)
[2019-04-07] MEDS: RAMIPRIL 5 MG CAPSULE (FP) PO SCH (21:22)
[2019-04-07] MEDS ORDERED: ACETAMINOPHEN 1000 MG/100 ML VIAL (NON FORMULARY) IVPB ONE (22:49)
[2019-04-08] MEDS: MORPHINE SULFATE 2 MG/ML VIAL IVPUSH PRN ×2 (00:50→08:45)
[2019-04-08] MEDS: DEXTROSE 5%-NORMAL SALINE 1,000 ML IV SCH ×2 (04:06→12:11)
[2019-04-08] MEDS: HEPARIN NA (PORCINE) 5,000 UNITS/ML 1ML VIAL SQ SCH ×3 (05:30→21:22)
[2019-04-08 07:53] LABS: BASO % 0.8 % (0-2.0); EOS % 3.4 % (0-4.5); HEMATOCRIT 30.5 % (32.4-45.2); HEMOGLOBIN 10.2 GM/dL (10.7-15.3); LYMPH % 48.8 % (8-40); MAGNESIUM 1.9 mg/dL (1.8-2.4); MCH 33.3 pg (25.7-33.7); MCHC 33.6 g/dl (32.0-36.0); MEAN CELL VOLUME 99.2 fl (80-96); MONO % 8.3 % (3.8-10.2); NEUT % 38.7 % (42.8-82.8); PHOSPHOROUS 2.6 mg/dL (2.5-4.9); PLATELET COUNT 240 K/MM3 (134-434); POTASSIUM 3.3 mmol/L (3.5-5.1); RBC 3.07 M/mm3 (3.60-5.2); RDW 14.3 % (11.6-15.6); WHITE BLOOD COUNT 4.3 K/mm3 (4.0-10.0)
[2019-04-08] MEDS ORDERED: DEXTROSE 5%-WATER 100 ML IVPB ONE (08:24)
[2019-04-08] MEDS: NIFEdipine E.R 60 MG TABLET (UD) PO SCH (09:16)
[2019-04-08] MEDS: CEFTRIAXONE 2 GM in DEXTROSE 5%-WATER 100 ML IVPB SCH (09:17)
[2019-04-08] MEDS: oxyCODONE HCL 5 MG TABLET PO PRN ×2 (12:11→21:29)
--- NOTE | 2019-04-08 16:06 | PN ---
Teaching Attending Note Name of Resident: Indigo Schaefer ATTENDING PHYSICIAN STATEMENT I saw and evaluated the patient. I reviewed the resident's note and discussed the case with the resident. I agree with the resident's findings and plan as documented. SUBJECTIVE: no fever or chills. No CERVANTES . has significant Abd pain , that was severe at some point . in both sides of her abd OBJECTIVE: NAD , awake, alert, MMM CV: RRR, 2/6 SM at LUSB Lungs: CTAB Abd: soft, ND, TTP in LLQ, RLQ, and RUQ. No rebound tenderness or quarding. Ext : No edema Assessment/Plan: 39 y/o lady with h/o L breast lumpectomy ( benign ) , multiple episodes of diverticulitis, and HTN who presented with abd pain and diarrhea. 1- Acute diverticulitis: stable with no fever or leukocytosis , but still with significant pain - cont ceftriaxone and flagyl day 2 - final CT report indicated possible R sided diverticulitis and distended stomach. - will ask GI to evaluate this gastric distention . ? EGD, ? GI series - will not start diet . cont NPO - follow blood cx . - HAs GI at [facility] . offered total colectomy before . f/u with them 2- Dilated stomach on CT: no vomiting. unclear etiology. - final CT report indicated possible R sided diverticulitis and distended stomach. - will ask GI to evaluate this gastric distention . ? EGD, ? GI series 3-L breast masses: follow up as out pt for mammo and US 4- Heart murmur: out pt Echo. pat was made aware. 5- HTN : cont meds . heparin SQ
--- NOTE | 2019-04-08 16:16 | PN ---
Physical Exam: SUBJECTIVE: Patient seen and examined. She reports 7/10 abdominal pain. She denies fever, chills, n/v/d. OBJECTIVE: Vital Signs Period Temp Pulse Resp BP Sys/Jj Pulse Ox Last 24 Hr 97.7 F-98.6 F 76-90 16-20 109-128/63-83 100-100 GENERAL: The patient is awake, alert, and fully oriented, in no acute distress. HEAD: Normal with no signs of trauma. EYES: PERRL, extraocular movements intact, sclera anicteric, conjunctiva clear. No ptosis. ENT: Ears normal, nares patent, moist mucous membranes. NECK: Trachea midline, full range of motion, supple. LUNGS: Clear to auscultation bilaterally HEART: Regular rate and rhythm, no murmur appreciated ABDOMEN: Soft, nontender, nondistended, normoactive bowel sounds, mild guarding EXTREMITIES: Warm, well-perfused, no edema. NEUROLOGICAL: Cranial nerves II through XII grossly intact. Normal speech, gait not observed. PSYCH: Normal mood, normal affect. SKIN: Warm, dry, normal turgor Laboratory Results - last 24 hr 04/08/19 04/08/19 06:30 06:30 WBC 4.3 RBC 3.07 L Hgb 10.2 L Hct 30.5 L MCV 99.2 H MCH 33.3 MCHC 33.6 RDW 14.3 Plt Count 240 MPV 9.0 Absolute Neuts (auto) 1.7 Neutrophils % 38.7 L D Lymphocytes % 48.8 H D Monocytes % 8.3 Eosinophils % 3.4 D Basophils % 0.8 Nucleated RBC % 0 Potassium 3.3 L Phosphorus 2.6 Magnesium 1.9 Active Medications Generic Name Dose Route Start Last Admin Trade Name Freq PRN Reason Stop Dose Admin Heparin Sodium (Porcine) 5,000 unit 04/07/19 06:00 04/08/19 14:18 Heparin - SQ 5,000 unit TID KASSI Administration Ceftriaxone Sodium 2 gm/ 100 mls @ 200 mls/hr 04/08/19 10:00 04/08/19 09:17 Dextrose IVPB 200 mls/hr DAILY KASSI Administration Protocol Metronidazole 500 mg in 100 mls @ 100 mls/hr 04/07/19 10:00 04/08/19 10:04 Flagyl 500mg Premixed Ivpb - IVPB 100 mls/hr Q8H-IV KASSI Administration Dextrose/Sodium Chloride 1,000 mls @ 100 mls/hr 04/07/19 10:15 04/08/19 12:11 D5-Ns - IV Not Given ASDIR KASSI Morphine Sulfate 2 mg 04/07/19 02:21 04/08/19 08:45 Morphine Sulfate IVPUSH 2 mg Q4H PRN Administration PAIN LEVEL 6-10 Nifedipine 60 mg 04/07/19 10:00 04/08/19 09:16 Procardia Xl - PO Not Given DAILY KASSI Ondansetron HCl 4 mg 04/07/19 02:21 Zofran Injection IVPUSH Q6H PRN NAUSEA Oxycodone HCl 5 mg 04/08/19 11:55 04/08/19 12:11 Roxicodone - PO 5 mg Q6H PRN Administration PAIN LEVEL 4 - 6 Ramipril 10 mg 04/07/19 22:00 04/07/19 21:22 Altace - PO 10 mg HS KASSI Administration ASSESSMENT/PLAN: Ms. Waldron is a 39y/o female with hx of diverticulitis and HTN who presents with abdominal pain. Pt was found to have sepsis 2/2 acute diverticulitis. #sepsis 2/[address] showed right side diverticulitis with pericolonic stranding near descending colon possibly early acute diverticulitis. Gastric distention noted that is new compared to previous imaging. -ceftriaxone 2g daily (day 2) -flagyl 500mg Q8H (day 2) -morphine 2mg Q4H PRN pain -oxycodone 5mg Q6H PRN pain -GI consulted for distention #HTN -nifedipine 60 mg daily -ramipril 10 mg daily #left breast mass -continue out pt f/u DVT Ppx Heparin 5000 unit SQ TID FEN D5NS 100mL/hr monitor labs NPO, consider advancing diet tomorrow Visit type - Emergency Visit Emergency Visit: Yes ED Registration Date: 04/07/19 Care time: The patient presented to the Emergency Department on the above date and was hospitalized for further evaluation of their emergent condition. - New Patient This patient is new to me today: Yes Date on this admission: 04/08/19 - Critical Care Critical Care patient: No - Discharge Referral Referred to [facility] Med P.C.: No ATTENDING PHYSICIAN STATEMENT I saw and evaluated the patient. I reviewed the resident's note and discussed the case with the resident. I agree with the resident's findings and plan as documented. SUBJECTIVE: OBJECTIVE: ASSESSMENT AND PLAN:
[2019-04-08] MEDS: RAMIPRIL 5 MG CAPSULE (FP) PO SCH (21:22)
[2019-04-09] MEDS: MORPHINE SULFATE 2 MG/ML VIAL IVPUSH PRN (01:10)
[2019-04-09] MEDS: HEPARIN NA (PORCINE) 5,000 UNITS/ML 1ML VIAL SQ SCH ×2 (05:32→13:38)
--- NOTE | 2019-04-09 06:35 | CON.GI ---
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 History of Recent Travel: Yes ([place] for 1 week) Home Medications - Allergies Allergies/Adverse Reactions: Allergies Allergy/AdvReac Type Severity Reaction Status Date / Time No Known Allergies Allergy Verified 04/06/19 17:13 - Home Medications Home Medications: Ambulatory Orders Ramipril [Altace] 10 mg PO DAILY 30 Days #30 capsule 04/01/18 Nifedipine ER [Procardia XL -] 1 tab PO DAILY 04/07/19 Physical Exam-GI Vital Signs: Vital Signs Temperature 98.1 F 04/09/19 06:19 Pulse Rate 76 04/09/19 06:19 Respiratory Rate 20 04/09/19 06:19 Blood Pressure 131/80 04/09/19 06:19 O2 Sat by Pulse Oximetry (%) 100 04/08/19 21:00 Labs: CBC, BMP 04/08/19 06:30 04/08/19 06:30
[2019-04-09 08:10] LABS: BLOOD UREA NITROGEN 5.9 mg/dL (7-18); CALCIUM 7.9 mg/dL (8.5-10.1); CREATININE 0.6 mg/dL (0.55-1.3); POTASSIUM 3.5 mmol/L (3.5-5.1)
[2019-04-09 08:14] LABS: HEMATOCRIT 29.9 % (32.4-45.2); HEMOGLOBIN 9.8 GM/dL (10.7-15.3); MCH 32.9 pg (25.7-33.7); MCHC 32.7 g/dl (32.0-36.0); MEAN CELL VOLUME 100.5 fl (80-96); PLATELET COUNT 219 K/MM3 (134-434); RBC 2.97 M/mm3 (3.60-5.2); RDW 14.6 % (11.6-15.6); WHITE BLOOD COUNT 4.7 K/mm3 (4.0-10.0)
[2019-04-09] MEDS ORDERED: PT OWN MED DRAWER 7, Y5N ONE (10:38)
[2019-04-09] MEDS ORDERED: DEXTROSE 5%-WATER 100 ML IVPB ONE (10:39)
[2019-04-09] MEDS: CEFTRIAXONE 2 GM in DEXTROSE 5%-WATER 100 ML IVPB SCH (10:49)
[2019-04-09] MEDS: NIFEdipine E.R 60 MG TABLET (UD) PO SCH (10:50)
[2019-04-09] MEDS: DEXTROSE 5%-NORMAL SALINE 1,000 ML IV SCH (13:29)
[2019-04-09 13:47] VITALS: BP 112/63; PULSE 91; TEMP 98.6
--- NOTE | 2019-04-09 14:06 | CONS ---
GASTROINTESTINAL CONSULTATION DATE OF CONSULTATION: DATE OF DICTATION: 04/09/2019 HISTORY OF PRESENT ILLNESS: The patient is a 39-year-old female. Past medical history significant for diverticulitis and hypertension, also with rotator cuff repair, D and C, left breast cyst removal in 2003. She presented to the hospital with abdominal pain for approximately 5-6 days. Pain was located diffusely throughout her abdomen. She has had multiple episodes of diarrhea and nausea and vomiting over the past couple of days. She denies any blood in the stool, melena or hematemesis. She also denies any fevers or chills. She states her symptoms are similar to previous episodes of diverticulitis in the past. She states her last endoscopy was in 2019 and colonoscopy which revealed diverticulosis; these were done at [facility]. PAST MEDICAL AND SURGICAL HISTORY: As listed in the HPI. ALLERGIES: No known drug allergies. SOCIAL HISTORY: Smokes a pack a week. Drinks alcohol socially. Denies any additional drug use. HOME MEDICATIONS: Include nifedipine and ramipril. REVIEW OF SYSTEMS: As per the HPI. PHYSICAL EXAMINATION: Vital Signs: Temperature 98, pulse 72, blood pressure 127/84, pulse oximetry 95% on room air, respirations 16. General: No acute distress. HEENT: Anicteric sclera. Cardiovascular: S1, S2. Regular rate and rhythm. Lungs: Bilaterally clear to auscultation. Abdomen: Soft and nontender. Extremities: No edema. LABORATORIES: White blood cell count 4.7, hemoglobin 9.8 and hematocrit 29, MCV 100.5, platelet count 219. Sodium 140, potassium 3.5, BUN 5.9, creatinine 0.6, glucose 96. Lactic acid on admission was 2.5, currently it is 1.6. Liver tests: Total bilirubin 0.2, AST 16, ALT 25, alkaline phosphatase 101. Urine is negative. Blood cultures are negative. IMAGING: She had a CT scan of the abdomen and pelvis done on April 06 which was with contrast. It revealed focal mass within the left breast. Gastric distention. Questionable food and fluid accumulation. Questionable recent large meal ingestion or secondary to gastroparesis or gastric outlet obstruction. Followup imaging as indicated. Equivocal, minimal pericolonic soft-tissue stranding around a diverticulum located in the distal descending colon. Questionable early diverticulitis and a subtle, 3.8 x 2.7-cm homogenous mass in the medial left hepatic lobe. This was seen on an MRI in 2010. Questionable adenoma or focal nodular hyperplasia. Stable, subcentimeter right hepatic lobe cyst. Diffuse hepatic steatosis. Diverticulum along the third portion of the duodenum. Fibroid uterus and small umbilical hernia. To follow this up, I ordered abdominal x-ray to rule out an obstructive process. This revealed a nonspecific bowel pattern with retained stool in the colon. No sign of ileus, obstruction or gastric distention. There is a large calcified mass in the pelvis, most likely a fibroid uterus. No sign of free air or pneumatosis. Constipation or fecal impaction is not seen. IMPRESSION: Abdominal pain, nausea and vomiting, and intermittent loose bowel movements suspicious for an infectious etiology. She may in fact have early diverticulosis. I doubt she has gastric outlet obstruction. Her repeat imaging is not consistent with these findings. RECOMMENDATIONS: She can be advanced to a clear liquid diet, today. She should be continued on ceftriaxone and metronidazole; she should complete a 10-day course. Her diet can slowly be advanced to a full liquid diet, tomorrow, as tolerated, and then to a low-residue, lactose-free diet. Reports from her endoscopy in 2019 at [facility] should be obtained. If her condition were to worsen, she would require an inpatient upper endoscopy to be done. For now, would prefer to hold off on invasive procedures. This patient will be followed by the GI service. DO JENNIFER DIEGO/[id number]
--- NOTE | 2019-04-09 14:21 | PN ---
Physical Exam: SUBJECTIVE: Patient seen and examined. Pt reports today that abdominal pain is 7 /10 despite pain medication. She reports decreased back pain. She denies fever, chills, n/v/d. OBJECTIVE: Vital Signs Period Temp Pulse Resp BP Sys/Jj Pulse Ox Last 24 Hr 97.3 F-98.8 F 72-91 20-20 112-133/63-84 95-100 GENERAL: The patient is awake, alert, and fully oriented, resting comfortably. HEAD: Normal with no signs of trauma. EYES: PERRL, extraocular movements intact, conjunctiva clear. ENT: Ears normal, nares patent, moist mucous membranes. NECK: Trachea midline, full range of motion, supple. LUNGS: Clear to auscultation bilaterally HEART: Regular rate and rhythm, no murmur appreciated ABDOMEN: Soft, diffusely tender on deep palpation, nondistended, normoactive bowel sounds, slight guarding, mild umbilical hernia EXTREMITIES: Warm, well-perfused, no edema. NEUROLOGICAL: Cranial nerves II through XII grossly intact. Normal speech, gait not observed. PSYCH: Normal mood, normal affect. SKIN: Warm, dry, normal turgor. Laboratory Results - last 24 hr 04/09/19 04/09/19 06:48 06:48 WBC 4.7 RBC 2.97 L Hgb 9.8 L Hct 29.9 L MCV 100.5 H MCH 32.9 MCHC 32.7 RDW 14.6 Plt Count 219 MPV 9.0 Sodium 140 Potassium 3.5 Chloride 110 H Carbon Dioxide 24 Anion Gap 5 L BUN 5.9 L Creatinine 0.6 Est GFR (CKD-EPI)AfAm 132.14 Est GFR (CKD-EPI)NonAf 114.01 Random Glucose 96 Calcium 7.9 L Active Medications Generic Name Dose Route Start Last Admin Trade Name Freq PRN Reason Stop Dose Admin Heparin Sodium (Porcine) 5,000 unit 04/07/19 06:00 04/09/19 13:38 Heparin - SQ Not Given TID KASSI Ceftriaxone Sodium 2 gm/ 100 mls @ 200 mls/hr 04/08/19 10:00 04/09/19 10:49 Dextrose IVPB 200 mls/hr DAILY KASSI Administration Protocol Metronidazole 500 mg in 100 mls @ 100 mls/hr 04/07/19 10:00 04/09/19 10:49 Flagyl 500mg Premixed Ivpb - IVPB 100 mls/hr Q8H-IV KASSI Administration Dextrose/Sodium Chloride 1,000 mls @ 100 mls/hr 04/07/19 10:15 04/09/19 13:29 D5-Ns - IV 100 mls/hr ASDIR KASSI Administration Morphine Sulfate 2 mg 04/07/19 02:21 04/09/19 01:10 Morphine Sulfate IVPUSH 2 mg Q4H PRN Administration PAIN LEVEL 6-10 Nifedipine 60 mg 04/07/19 10:00 04/09/19 10:50 Procardia Xl - PO 60 mg DAILY KASSI Administration Ondansetron HCl 4 mg 04/07/19 02:21 Zofran Injection IVPUSH Q6H PRN NAUSEA Oxycodone HCl 5 mg 04/08/19 11:55 04/08/19 21:29 Roxicodone - PO 5 mg Q6H PRN Administration PAIN LEVEL 4 - 6 Ramipril 10 mg 04/07/19 22:00 04/08/19 21:22 Altace - PO 10 mg HS KASSI Administration ASSESSMENT/PLAN: Ms. Waldron is a 39y/o female with hx of diverticulitis and HTN who presents with abdominal pain. Pt was found to have sepsis 2/2 acute diverticulitis. #sepsis 2/[address] showed right side diverticulitis with pericolonic stranding near descending colon possibly early acute diverticulitis. Gastric distention noted that is new compared to previous imaging. Leukocytosis resolved. -ceftriaxone 2g daily (day 3) -flagyl 500mg Q8H (day 3) -morphine 2mg Q4H PRN pain -oxycodone 5mg Q6H PRN pain -GI consulted for distention- no tx needed currently -sending medical records request to [facility] for previous EGD and colonoscopy: fax #HTN -nifedipine 60 mg daily -ramipril 10 mg daily #left breast mass -continue out pt f/u DVT Ppx Heparin 5000 unit SQ TID FEN D5NS 100mL/hr monitor labs NPO, consider advancing diet tomorrow ATTENDING PHYSICIAN STATEMENT I saw and evaluated the patient. I reviewed the resident's note and discussed the case with the resident. I agree with the resident's findings and plan as documented. SUBJECTIVE: OBJECTIVE: ASSESSMENT AND PLAN:
--- NOTE | 2019-04-09 15:30 | PN ---
Teaching Attending Note Name of Resident: Indigo Schaefer ATTENDING PHYSICIAN STATEMENT I saw and evaluated the patient. I reviewed the resident's note and discussed the case with the resident. I agree with the resident's findings and plan as documented. SUBJECTIVE: cont to have pain in R and L abd . No N/V OBJECTIVE: NAD , awake, alert, MMM CV: RRR, 2/6 SM at LUSB Lungs: CTAB Abd: soft, ND, TTP in LLQ, RLQ, and RUQ. No rebound tenderness or quarding. Ext : No edema Assessment/Plan: 39 y/o lady with h/o L breast lumpectomy ( benign ) , multiple episodes of diverticulitis, and HTN who presented with abd pain and diarrhea. 1- Acute diverticulitis: stable. - cont ceftriaxone and flagyl day 3 - upgrade diet to liquids today - follow blood cx . - HAs GI at [facility] . offered total colectomy before . f/u with them - cont oxy . will dc morphine in am 2- Dilated stomach on CT: no vomiting. unclear etiology. - Gi did not recommend need for EGD unless condition worsens - will try to obtain records of last EGD 3-L breast masses: follow up as out pt for mammo and US 4- Heart murmur: out pt Echo. pat was made aware. 5- HTN : cont meds . HLOC
--- NOTE | 2019-04-09 17:39 | DS ---
Physical Exam: SUBJECTIVE: Patient seen and examined. She has decided to leave [facility]. OBJECTIVE: Vital Signs Period Temp Pulse Resp BP Sys/Jj Pulse Ox Last 24 Hr 97.3 F-98.8 F 72-91 20-20 112-133/63-84 95-100 PHYSICAL EXAM GENERAL: The patient is awake, alert, and fully oriented, in no acute distress. HEAD: Normal with no signs of trauma. EYES: PERRL, extraocular movements intact, sclera anicteric, conjunctiva clear. ENT: Ears normal, nares patent, oropharynx clear without exudates, moist mucous membranes. NECK: Trachea midline, full range of motion, supple. LUNGS: Breath sounds equal, clear to auscultation bilaterally, no wheezes, no crackles, no accessory muscle use. HEART: Regular rate and rhythm, S1, S2 without murmur, rub or gallop. ABDOMEN: Soft, nontender, nondistended, normoactive bowel sounds, no guarding, no rebound, no hepatosplenomegaly, no masses. EXTREMITIES: 2+ pulses, warm, well-perfused, no edema. NEUROLOGICAL: Cranial nerves II through XII grossly intact. Normal speech, gait not observed. PSYCH: Normal mood, normal affect. SKIN: Warm, dry, normal turgor, no rashes or lesions noted. LABS Laboratory Results - last 24 hr 04/09/19 04/09/19 06:48 06:48 WBC 4.7 RBC 2.97 L Hgb 9.8 L Hct 29.9 L MCV 100.5 H MCH 32.9 MCHC 32.7 RDW 14.6 Plt Count 219 MPV 9.0 Sodium 140 Potassium 3.5 Chloride 110 H Carbon Dioxide 24 Anion Gap 5 L BUN 5.9 L Creatinine 0.6 Est GFR (CKD-EPI)AfAm 132.14 Est GFR (CKD-EPI)NonAf 114.01 Random Glucose 96 Calcium 7.9 L HOSPITAL COURSE: Date of Admission:04/07/19 Date of Discharge: 04/09/19 Discharge Summary Problems reviewed: Yes Reason For Visit: DIVERTICULITIS Current Active Problems Diverticulitis (Acute) - Instructions Diet, Activity, Other Instructions: Referrals: ON STAFF,NOT [Primary Care Provider] - Disposition: AGAINST MEDICAL ADVICE - Home Medications Comprehensive Discharge Medication List: Ambulatory Orders Ramipril [Altace] 10 mg PO DAILY 30 Days #30 capsule 04/01/18 Nifedipine ER [Procardia XL -] 1 tab PO DAILY 04/07/19 - Discharge Referral Referred to [facility] Med P.C.: No ATTENDING PHYSICIAN STATEMENT I saw and evaluated the patient. I reviewed the resident's note and discussed the case with the resident. I agree with the resident's findings and plan as documented. SUBJECTIVE: OBJECTIVE: ASSESSMENT AND PLAN:
== END 2019-04-09 18:00 | disposition left against medical advice (07) | DRG 244 ==
LOC: JER 17:06 → JERBED 04-07 01:01 → J7W 04-07 06:06
PROVIDERS: ADMIT Internal Medicine; ATTEND Internal Medicine
DX: K57.32 Diverticulitis of large intestine without perforation or abscess without bleeding (principal); N63.20 Unspecified lump in the left breast, unspecified quadrant; R00.0 Tachycardia, unspecified; K31.89 Other diseases of stomach and duodenum; K76.0 Fatty (change of) liver, not elsewhere classified; I10 Essential (primary) hypertension; R01.1 Cardiac murmur, unspecified; D25.9 Leiomyoma of uterus, unspecified; N83.202 Unspecified ovarian cyst, left side; K42.9 Umbilical hernia without obstruction or gangrene
CPT/HCPCS: 36415; 74019-TC-FY; 74177-TC; 80048; 80053; 81003; 82550; 83605; 83690; 83735; 84100; 84132; 84484; 84703; 85025; 85027; 87040; 87086; 93005; 93010; 99284-25; J0131; J1644; J7030

== ENCOUNTER 2019-05-22 17:51 | Emergency (ER) | payer OTHER ==
[2019-05-22 17:57] VITALS: BMI 70.4
--- NOTE | 2019-05-22 18:18 | PDOC ---
History of Present Illness - General History Source: Patient Exam Limitations: No Limitations <Karen Casper - Last Filed: 05/23/19 20:18> <Chad Rutherford - Last Filed: 05/25/19 17:39> - General Chief Complaint: Chest Pain Stated Complaint: CHEST PAIN Time Seen by Provider: 05/22/19 18:05 Past History - Travel Traveled outside of the country in the last 30 days: No Close contact w/someone who was outside of country & ill: No - Past Medical History Anemia: No Asthma: No Cancer: No Cardiac Disorders: No CVA: No COPD: No CHF: No Dementia: No Diabetes: No GI Disorders: Yes (diverticulitis) Disorders: No HTN: Yes Hypercholesterolemia: No Liver Disease: No Seizures: No Thyroid Disease: No - Surgical History Abdominal Surgery: No Appendectomy: No Cardiac Surgery: No Cholecystectomy: No Lung Surgery: No Neurologic Surgery: No Orthopedic Surgery: Yes (left shoulder) - Immunization History Td Vaccination: Yes Immunization Up to Date: Yes - Psycho Social/Smoking Cessation Hx Smoking Status: No Smoking History: Never smoked Have you smoked in the past 12 months: No Number of Cigarettes Smoked Daily: 5 Information on smoking cessation initiated: No 'Breaking Loose' booklet given: 04/13/16 Hx Alcohol Use: No Drug/Substance Use Hx: No Substance Use Type: None Hx Substance Use Treatment: No <Karen Casper - Last Filed: 05/23/19 20:18> <Chad Rutherford - Last Filed: 05/25/19 17:39> - Past Medical History Allergies/Adverse Reactions: Allergies Allergy/AdvReac Type Severity Reaction Status Date / Time No Known Allergies Allergy Verified 05/22/19 19:33 Home Medications: Ambulatory Orders Ramipril [Altace] 10 mg PO DAILY 30 Days #30 capsule 04/01/18 Nifedipine ER [Procardia XL -] 1 tab PO DAILY 04/07/19 Review of Systems - Review of Systems Able to Perform ROS?: Yes Comments:: 05/22/19 21:18 CONSTITUTIONAL: Absent: fever, chills, diaphoresis, generalized weakness, malaise, loss of appetite HEENT: Absent: rhinorrhea, nasal congestion, throat pain, throat swelling, difficulty swallowing, mouth swelling, ear pain, eye pain, visual Changes CARDIOVASCULAR: Present: Left-sided chest pain. Absent: loss of consciousness, palpitations, irregular heart rate, peripheral edema RESPIRATORY: Absent: cough, shortness of breath, dyspnea with exertion, orthopnea, wheezing, stridor, hemoptysis GASTROINTESTINAL: Present: Left-sided abdominal pain. Absent: abdominal distension, nausea, vomiting, diarrhea, constipation, melena, hematochezia GENITOURINARY: Absent: dysuria, frequency, urgency, hesitancy, hematuria, flank pain, genital pain MUSCULOSKELETAL: Absent: myalgia, arthralgia, joint swelling SKIN: Absent: rash, itching, pallor HEMATOLOGIC/IMMUNOLOGIC: Absent: easy bleeding, easy bruising, lymphadenopathy, frequent infections ENDOCRINE: Absent: unexplained weight gain, unexplained weight loss, heat intolerance, cold intolerance NEUROLOGIC: Absent: headache, focal weakness or paresthesias, dizziness, unsteady gait, seizure, mental status changes, bladder or bowel incontinence PSYCHIATRIC: Absent: anxiety, depression, suicidal or homicidal ideation, hallucinations. Is the patient limited Italian proficient: No <Karen Casper - Last Filed: 05/23/19 20:18> *Physical Exam - Vital Signs Last Vital Signs Temp Pulse Resp BP Pulse Ox 98.1 F 119 H 18 129/86 100 05/22/19 17:54 05/22/19 17:54 05/22/19 17:54 05/22/19 17:54 05/22/19 17:54 - Physical Exam 05/22/19 21:20 GENERAL: Well developed, well nourished. Awake and alert. No acute distress. HEENT: Normocephalic, atraumatic. PERRLA, EOMI. No conjunctival pallor. Sclera are non- icteric. Moist mucous membranes. Oropharynx is clear. NECK: Supple. Full ROM. No JVD. Carotid pulses 2+ and symmetric, without bruits. No thyromegaly. No lymphadenopathy. CARDIOVASCULAR: Regular rate and rhythm. No murmurs, rubs, or gallops. Distal pulses are 2+ and symmetric. PULMONARY: No evidence of respiratory distress. Lungs clear to auscultation bilaterally. No wheezing, rales or rhonchi. ABDOMINAL: TTP of the LUQ, LLQ. with mild guarding. Soft. Non-distended. No rebound. No organomegaly. Normoactive bowel sounds. MUSCULOSKELETAL TTP of the L chest wall. Normal range of motion at all joints. No bony deformities or tenderness. No CVA tenderness. EXTREMITIES: No cyanosis. No clubbing. No edema. No calf tenderness. SKIN: Warm and dry. Normal capillary refill. No rashes. No jaundice. NEUROLOGICAL: Alert, awake, appropriate. Cranial nerves 2-12 intact. No deficits to light touch and temperature in face, upper extremities and lower extremities. No motor deficits in the in face, upper extremities and lower extremities. Normoreflexic in the upper and lower extremities. Normal speech. Toes are down- going bilaterally. Gait is normal without ataxia. PSYCHIATRIC: Cooperative. Good eye contact. Appropriate mood and affect. <Karen Casper - Last Filed: 05/23/19 20:18> - Vital Signs Last Vital Signs Temp Pulse Resp BP Pulse Ox 98.5 F 96 H 20 129/84 98 05/22/19 21:03 05/22/19 21:33 05/22/19 21:03 05/22/19 21:03 05/22/19 21:03 <Chad Rutherford - Last Filed: 05/25/19 17:39> Heart Score/ECG Review - History History: Slightly suspicious - Electrocardiogram EKG: Normal - Age Age: </= 44 - Risk Factors Risk Factors Heart Score: Yes Hx Hypertension Based on the list above the patient has:: 1-2 risk factors - Troponin Troponin: </= normal limit - Score Heart Score - Total: 1 <Karen Casper - Last Filed: 05/23/19 20:18> ED Treatment Course - LABORATORY CBC & Chemistry Diagram: 05/22/19 18:44 05/22/19 18:44 <Karen Casper - Last Filed: 05/23/19 20:18> - LABORATORY CBC & Chemistry Diagram: 05/22/19 18:44 05/22/19 18:44 - ADDITIONAL ORDERS Additional order review: 05/22/19 19:25 Urine Culture - Final Urine - Urine Clean Catch Normal Urogenital Alecia 05/22/19 18:44 RBC 3.89 MCV 98.0 H MCHC 33.2 RDW 15.0 MPV 9.7 Neutrophils % 61.2 D Lymphocytes % 30.4 D Monocytes % 5.3 Eosinophils % 1.6 Basophils % 1.5 - Medications Given in the ED: ED Medications Discontinued Medications Generic Name Dose Route Start Last Admin Trade Name Keyon PRN Reason Stop Dose Admin Acetaminophen 1,000 mg 05/22/19 18:32 05/22/19 19:21 Ofirmev Injection - IVPB 05/22/19 18:33 1,000 mg ONCE ONE Administration Al Hydroxide/Mg Hydroxide 30 ml 05/22/19 21:40 05/22/19 21:50 Mylanta Oral Suspension - PO 05/22/19 21:41 30 ml ONCE ONE Administration Sodium Chloride 1,000 mls @ 1,000 mls/hr 05/22/19 18:32 05/22/19 19:21 Normal Saline - IV 05/22/19 19:31 1,000 mls/hr ASDIR STA Administration Famotidine/Sodium Chloride 20 mg in 50 mls @ 100 mls/hr 05/22/19 21:40 21:50 Pepcid 20 Mg Premixed Ivpb - IVPB 05/22/19 22:09 100 mls/hr ONCE ONE Administration Lidocaine HCl 20 ml 05/22/19 21:40 05/22/19 21:50 Xylocaine 2% Viscous Oral - MM 05/22/19 21:41 20 ml ONCE ONE Administration <Chad Rutherford - Last Filed: 05/25/19 17:39> Medical Decision Making - Medical Decision Making 05/23/19 00:21 the patient is a 39-year-old female with past medical history of hypertension, diverticulosis with chronic diverticulitis. Who presents to the ER today for left-sided chest pain as well as abdominal pain. She states that the pain started about 30 minutes prior to arrival. She states that pain is a pressure- like feeling and feels like a bubble in her chest. She states that when she touches her chest the pain hurts more. She also notes she has abdominal pain is concerned she might have another diverticulitis flare. Denies fevers, chills , difficulty breathing, shortness of breath, nausea, vomiting, diarrhea and palpitations. A/P: Atypical chest pain On exam patient with visible chest wall tenderness along the left side from the sternum radiating under the left breast. no visible rashes. Lung sounds are clear to auscultation bilaterally with good aeration to the bases. EKG shows sinus tachycardia at a rate of 103. Normal intervals and axis. No acute ST-T wave changes. Broad differential diagnosis to include ACS, gastritis, gastroenteritis, diverticulitis, shingles. Wells criteria 1. Patient low risk for PE. Basic lab work ordered including 2 troponins. No leukocytosis, electrolytes are grossly normal. Both sets of troponins are - [address] shows no acute pathology in the abdomen. Chest x-ray was ordered however patient refused. chest pain has improved since being in the ER. Patient would like to be discharged home to follow-up with her primary care tomorrow. Overall heart score is a 1. We will discharge home with strict return precautions should her chest pain worsen to return to the ER. I discussed the physical exam findings, ancillary test results and final diagnoses with the patient. I answered all of the patient's questions. The patient was satisfied with the care received and felt comfortable with the discharge plan and treatment plan. The Patient agrees to follow up with the primary care physician/specialist within 24-72 hours. Return precautions were given. <Karen Casper - Last Filed: 05/23/19 20:18> - Medical Decision Making 05/25/19 17:39 I reviewed the case of the mid-level practitioner and was available for consultation while in the emergency department <Chad Rutherford - Last Filed: 05/25/19 17:39> Discharge - Discharge Information Problems reviewed: Yes - Admission No <Karen Casper - Last Filed: 05/23/19 20:18> <Chad Rutherford - Last Filed: 05/25/19 17:39> - Discharge Information Clinical Impression/Diagnosis: Atypical chest pain Condition: Stable Disposition: HOME - Patient Discharge Instructions Patient Printed Discharge Instructions: DI for Atypical Chest Pain Additional Instructions: You were evaluated for your chest pain today Your EKG and cardiac blood work was normal. You CT of your abdomen was normal Please take Tylenol or Motrin as needed for pain. Follow the dosing instructions on the bottle according to the manufacture. Follow up with your Primary care doctor tomorrow Return to the ER for worsening pain, difficulty breathing, dizziness, lightheadedness, rash, or if you have any changes in your symptoms - Post Discharge Activity Work/Back to School Note: Back to Work
[2019-05-22] MEDS ORDERED: ACETAMINOPHEN 1000 MG/100 ML VIAL (NON FORMULARY) IVPB ONE (18:32)
[2019-05-22] MEDS ORDERED: SODIUM CHLORIDE 1,000 ML IV STA (18:32)
[2019-05-22] MEDS ORDERED: ACETAMINOPHEN INJECTION 100 ML IVPB ONE (18:47)
[2019-05-22 18:57] LABS: BASO % 1.5 % (0-2.0); EOS % 1.6 % (0-4.5); HEMATOCRIT 38.1 % (32.4-45.2); HEMOGLOBIN 12.6 GM/dL (10.7-15.3); LYMPH % 30.4 % (8-40); MCH 32.5 pg (25.7-33.7); MCHC 33.2 g/dl (32.0-36.0); MEAN PLT VOLUME 9.7 fl (7.5-11.1); MONO % 5.3 % (3.8-10.2); NEUT % 61.2 % (42.8-82.8); PLATELET COUNT 411 K/MM3 (134-434); RBC 3.89 M/mm3 (3.60-5.2); WHITE BLOOD COUNT 8.4 K/mm3 (4.0-10.0)
[2019-05-22 19:18] LABS: INR 1.01 (0.83-1.09); PROTHROMBIN TIME (PATIENT) 11.9 SEC (9.7-13.0)
[2019-05-22 19:21] LABS: ALBUMIN 3.5 g/dl (3.4-5.0); ALK PHOS 109 U/L (45-117); ANION GAP 8 MMOL/L (8-16); BILIRUBIN,TOTAL 0.3 mg/dL (0.2-1); BLOOD UREA NITROGEN 10.5 mg/dL (7-18); CALCIUM 8.8 mg/dL (8.5-10.1); CHLORIDE 105 mmol/L (98-107); CO2 26 mmol/L (21-32); CREATININE 0.7 mg/dL (0.55-1.3); GLUCOSE,RANDOM 88 mg/dL (74-106); POTASSIUM 4.3 mmol/L (3.5-5.1); SGOT/AST 28 U/L (15-37); SGPT/ALT 31 U/L (13-61); SODIUM 139 mmol/L (136-145); TOT PROT 7.7 g/dl (6.4-8.2)
[2019-05-22 20:19] LABS: EPI CELLS 4.5 /HPF (0-5/HPF); HYALINE CASTS 2 /lpf (0-8); URINE APPEARANCE CLOUDY; URINE BACTERIA 35.1 /hpf (NEGATIVE); URINE BILIRUBIN NEGATIVE (NEGATIVE); URINE COLOR YELLOW; URINE GLUCOSE (UA) NEGATIVE (NEGATIVE); URINE KETONE NEGATIVE (NEGATIVE); URINE LEUK ESTERASE NEGATIVE (NEGATIVE); URINE NITRITE NEGATIVE (NEGATIVE); URINE PROTEIN 1+ (NEGATIVE); URINE RBC 553 /hpf (0-4); URINE WBC 4 /hpf (0-5)
[2019-05-22 21:04] VITALS: BP 129/84; TEMP 98.5
[2019-05-22 21:33] VITALS: PULSE 96
[2019-05-22] MEDS ORDERED: MAG HYDROX/AL HYDROX/SIMETH 30 ML UNIT-DOSE CUP PO ONE (21:40)
[2019-05-22] MEDS ORDERED: FAMOTIDINE 20 MG/50 ML IVPB 20 MG/50 ML MG IVPB ONE ×2 (21:40→21:44)
[2019-05-22] MEDS ORDERED: LIDOCAINE VISCOUS 2% ORAL/TOP 20 ML UNIT-DOSE CUP MM ONE (21:40)
[2019-05-22] MEDS ORDERED: LIDOCAINE VISCOUS 2% ORAL/TOP 20 ML UNIT-DOSE CUP ONE (21:43)
[2019-05-22] MEDS ORDERED: MAG HYDROX/AL HYDROX/SIMETH 30 ML UNIT-DOSE CUP ONE (21:43)
[2019-05-22] MEDS ORDERED: KETOROLAC TROMETHAMINE 15 MG/ML VIAL IVPUSH ONE (23:37)
[2019-05-22] MEDS ORDERED: KETOROLAC TROMETHAMINE 60 MG/2 ML VIAL ONE (23:39)
--- NOTE | 2019-05-23 11:53 | EKG ---
Test Reason : Blood Pressure : / mmHG Vent. Rate : 103 BPM Atrial Rate : 103 BPM P-R Int : 126 ms QRS Dur : 086 ms QT Int : 354 ms P-R-T Axes : 063 026 022 degrees QTc Int : 463 ms SINUS TACHYCARDIA OTHERWISE NORMAL ECG WHEN COMPARED WITH ECG OF 06-APR-2019 19:07, NO SIGNIFICANT CHANGE WAS FOUND Confirmed by BRIDGET DAY MD ([id number]) on 05/23/2019 11:52:31 AM Referred By: Confirmed By:BRIDGET DAY MD
== END 2019-05-22 23:51 | disposition home or self-care (01) ==
LOC: JER 17:51
PROC: 3E033NZ Introduction of Analgesics, Hypnotics, Sedatives into Peripheral Vein, Percutaneous Approach (ICD-10-PCS; principal; 2019-05-22)
PROC: 3E033GC Introduction of Other Therapeutic Substance into Peripheral Vein, Percutaneous Approach (ICD-10-PCS; 2019-05-22)
DX: R07.89 Other chest pain (principal); I10 Essential (primary) hypertension
CPT/HCPCS: 36415; 74177-TC; 80053; 81003; 82550; 82553; 84484; 84703; 85025; 85610; 87086; 93005; 93010; 99285-25; J0131; J7030; Q9967

== ENCOUNTER 2019-07-03 21:34 | Inpatient (IN) | payer OTHER ==
[2019-07-03] MEDS ORDERED: SODIUM CHLORIDE 1,000 ML IV SCH (23:15)
--- NOTE | 2019-07-03 23:16 | PDOC ---
Attending Attestation - Resident Resident Name: BangJenniffer - ED Attending Attestation I have performed the following: I have examined & evaluated the patient, The case was reviewed & discussed with the resident, I agree w/resident's findings & plan - HPI HPI: 07/04/19 04:30 see resident hpi - Physicial Exam PE: 07/04/19 04:37 see resident exam - Medical Decision Making 07/04/19 04:37 39-year-old female complaining of sudden onset of left lateral chest wall and left leg tingling and numbness with mild headache Code oropeza was activated on arrival NIH scale on initial presentation was 2 Case discussed at length with neurology after plain head CT was read as negative who does not recommend thrombolytics at this time due to lack of severity of presentation On reexam patient states her symptoms are improved, she is grossly motor intact , paresthesias have resolved There is some mild weakness on plantar flexion on the left Thrombolytic therapy and reasons for exclusion were discussed with the patient who agrees with the plan at this time Please see resident note for detailed NIH scale as well as documentation of exclusion criteria/discussion with neurology.
--- NOTE | 2019-07-03 23:45 | PDOC ---
History of Present Illness - General Chief Complaint: Blood Pressure Problem Stated Complaint: HIGH BP/HEADACHE/ PAIN Time Seen by Provider: 07/03/19 22:54 tPA Exclusion Checklist 0-3hr - Thrombolytic Therapy Candidate Is the patient eligible for Thrombolytic Therapy?: No - Relative Exclusion Criteria 0-3h Rapid improvement: Yes Stroke severity too mild: Yes - Ineligibility reason(s) Reasons No tPA given: See reason(s) noted above Past History - Past Medical History Allergies/Adverse Reactions: Allergies Allergy/AdvReac Type Severity Reaction Status Date / Time No Known Allergies Allergy Verified 07/03/19 21:54 Home Medications: Ambulatory Orders Nifedipine ER [Procardia XL -] 90 mg PO DAILY #30 tab.er.24 07/05/19 Ramipril [Altace] 10 mg PO DAILY 30 Days #30 capsule 07/05/19 Anemia: No Asthma: No Cancer: No Cardiac Disorders: No CVA: No COPD: No CHF: No Dementia: No Diabetes: No GI Disorders: Yes (diverticulitis) Disorders: No HTN: Yes Hypercholesterolemia: No Liver Disease: No Seizures: No Thyroid Disease: No - Surgical History Abdominal Surgery: No Appendectomy: No Cardiac Surgery: No Cholecystectomy: No Lung Surgery: No Neurologic Surgery: No Orthopedic Surgery: Yes (left shoulder) - Immunization History Td Vaccination: Yes Immunization Up to Date: Yes - Psycho Social/Smoking Cessation Hx Smoking Status: No Smoking History: Current some day smoker Have you smoked in the past 12 months: Yes Number of Cigarettes Smoked Daily: 2 Information on smoking cessation initiated: No 'Breaking Loose' booklet given: 04/13/16 Hx Alcohol Use: Yes Drug/Substance Use Hx: No Substance Use Type: None Hx Substance Use Treatment: No *Physical Exam - Vital Signs Last Vital Signs Temp Pulse Resp BP Pulse Ox 97.9 F 107 H 16 176/105 H 100 07/03/19 21:51 07/03/19 21:51 07/03/19 21:51 07/03/19 21:51 07/03/19 21:51 ED Treatment Course - LABORATORY CBC & Chemistry Diagram: 07/05/19 06:26 07/05/19 06:26 Medical Decision Making - Medical Decision Making 07/03/19 23:32 HPI: 39yo F hx HTN, smoking, and diverticulitis presents from home with lightheadedness, L shoulder/neck/upper back pain, bitemporal pounding headache, nausea, intermittent tinnitus and hearing loss in L ear, and numbness of LLE since 2099 this PM in setting of elevated BP 154/110 and 170/20 at home, similar sx to 2014 when pt had high BP. Pt took extra 60mg dose of nifedipine at 2099 due to sx and elevated BP. States normal BP 130s/80s. States 1wk of intermittent L ear pain and hearing loss, but otherwise in USOH prior to 2099 this PM. Pt was relaxing then stood up from bending over at 2099, initiating these sx. ROS: Constitutional: Negative for chills, fever, fatigue, diaphoresis. HENT: Positive for L ear pain, hearing loss, tinnitus. Negative for sore throat , rhinorrhea, congestion. Eyes: Negative for visual disturbance. Respiratory: Negative for wheezing, shortness of breath and cough. Cardiovascular: Positive for high BP. Negative for chest pain, palpitations, and leg swelling. Gastrointestinal: Positive for nausea. Negative for abdominal pain, blood in stool, constipation, diarrhea, and vomiting. Genitourinary: Negative for dysuria, flank pain, and hematuria. Musculoskeletal: Positive for L shoulder/neck/upper back pain. Negative for myalgias. Skin: Negative for rash. Neurological: Positive for headache, lightheadedness, LLE numbness. Negative for vertigo, syncope, weakness. Psychiatric/Behavioral: Negative for behavioral problems and confusion. PE: Gen: Alert, NAD, comfortable-appearing. HEENT: PERRL, EOMI, MMM, NCAT. No conjunctival pallor. Sclera are non-icteric. Oropharynx is clear. Ear canals and TMs normal. CV: Regular rate and rhythm. No murmurs, rubs, or gallops. PULM: No resp distress. CTAB, no wheezes, rales, or rhonchi. ABD: soft, NT/ND, no rebound tenderness or guarding, no CVA tenderness. BACK: No TTP of c/t/l-spine. No step-offs or deformities. MSK: No bony deformities. 2+ pulses in all extremities. NEURO: AAOx3. PERRL. CN 2-12 intact. No pronator drift. +LLE drift to bed without touching in 5sec. No dysmetria. No dysdiadochokinesia. No abnormal nystagmus. Strength to light touch intact in all extremities but pt states more dull on LLE. 4+/5 strengh LLE plantarflexion/dorsiflexion, remaining extremities 5/5 strength. EXTREMITIES: No cyanosis. No clubbing. No edema. No calf tenderness. PSYCH: Normal mood and thought pattern. SKIN: Warm and dry. Normal capillary refill. No rashes. No jaundice. MDM: 39yo F hx HTN, smoking, and diverticulitis presents from home with lightheadedness, L shoulder/neck/upper back pain, bitemporal pounding headache, nausea, intermittent tinnitus and hearing loss in L ear, and numbness of LLE since 2099 this PM in setting of elevated BP 154/110 and 170/20 at home, similar sx to 2014 when pt had high BP. Hemodynamically stable, 153/98, afebrile, LLE decreased sensation and weak, otherwise neurologically intact. NIHSS 2 for decreased sensation and weakness (drift but doesn't touch bed) LLE. Ddx: CVA/TIA, ICH, Hypertensive emergency, carotid dissection, ACS/KS, arrhythmia, metabolic derangement, anemia -Code gonzalez activated Initial NIHSS 2, post-CT NIHSS 2. -Stroke labs: reviewed -EKG: NSR, 97bpm, normal axis, normal intervals, no e/o acute ischemia -CTH: no acute pathology -CXR: no acute pathology -Neuro consult -Pain management: tylenol -Dispo: likely admit stroke r/o, pending w/u 07/03/19 23:[address] Croft's office - paged. 07/04/19 00:36 Dr Croft paged again 07/04/19 00:[address] Croft - discussed case, recommended permissive hypertension to 180s/110, no TPA at this time due to low severity of sx and presentation of sx not consistent with CVA, admit for stroke w/u. -CTA neck and brain 07/04/19 03:42 CTAs negative per C Pt's CERVANTES returning (after improved s/p tylenol) - reglan and benadryl. Pt re-examined. Sx improved. LLE sensation returned to normal, weakness improved but still mild. Attending discussed thrombolytic and reasons for exclusion. Admit to stroke unit. Pt signed out to admitting team. Discharge - Discharge Information Problems reviewed: Yes Clinical Impression/Diagnosis: Left leg numbness, Headache, Left leg weakness Condition: Improved Disposition: HOME - Admission Yes - Follow up/Referral - Patient Discharge Instructions - Post Discharge Activity
[2019-07-03 23:54] LABS: BASO % 1.1 % (0-2.0); HEMATOCRIT 34.4 % (32.4-45.2); HEMOGLOBIN 11.5 GM/dL (10.7-15.3); LYMPH % 27.3 % (8-40); MCH 32.9 pg (25.7-33.7); MCHC 33.6 g/dl (32.0-36.0); MEAN CELL VOLUME 98.1 fl (80-96); MEAN PLT VOLUME 8.7 fl (7.5-11.1); MONO % 6.3 % (3.8-10.2); NEUT % 63.3 % (42.8-82.8); PLATELET COUNT 341 K/MM3 (134-434); RDW 14.8 % (11.6-15.6); WHITE BLOOD COUNT 7.9 K/mm3 (4.0-10.0)
[2019-07-04 00:07] LABS: INR 0.87 (0.83-1.09); PROTHROMBIN TIME (PATIENT) 10.3 SEC (9.7-13.0)
[2019-07-04 00:09] LABS: ACTIVATED PTT 29.4 SECONDS (25.2-36.5)
[2019-07-04] MEDS ORDERED: ACETAMINOPHEN 1000 MG/100 ML VIAL (NON FORMULARY) IVPB ONE (00:36)
[2019-07-04] MEDS ORDERED: ACETAMINOPHEN INJECTION 100 ML IVPB ONE (00:37)
[2019-07-04 01:13] LABS: ALBUMIN 2.9 g/dl (3.4-5.0); BILIRUBIN,TOTAL 0.3 mg/dL (0.2-1); BLOOD UREA NITROGEN 11.6 mg/dL (7-18); CALCIUM 8.4 mg/dL (8.5-10.1); CREATININE 0.6 mg/dL (0.55-1.3); POTASSIUM 3.8 mmol/L (3.5-5.1); TOT PROT 6.4 g/dl (6.4-8.2)
[2019-07-04] MEDS ORDERED: ASPIRIN 325 MG TABLET PO ONE (02:48)
[2019-07-04] MEDS ORDERED: METOCLOPRAMIDE HCL INJECTION 10 MG/2 ML VIAL IVPB ONE (03:42)
[2019-07-04] MEDS ORDERED: METOCLOPRAMIDE HCL INJECTION 10 MG/2 ML VIAL ONE (04:00)
[2019-07-04] MEDS ORDERED: ASPIRIN 325 MG ENTERIC COATED TABLET (FP) ONE (04:01)
[2019-07-04 04:29] LABS: URINE APPEARANCE CLEAR; URINE COLOR YELLOW; URINE GLUCOSE (UA) NEGATIVE (NEGATIVE)
[2019-07-04 04:30] LABS: URINE BILIRUBIN NEGATIVE (NEGATIVE); URINE KETONE NEGATIVE (NEGATIVE); URINE LEUK ESTERASE NEGATIVE (NEGATIVE); URINE NITRITE NEGATIVE (NEGATIVE); URINE PROTEIN NEGATIVE (NEGATIVE); URINE UROBILINOGEN 0.2 mg/dL (0.2-1.0)
--- NOTE | 2019-07-04 05:45 | HP ---
<Devora Childs - Last Filed: 07/04/19 06:11> CHIEF COMPLAINT: lightheadedness, tinnitus, L sided numbness PCP: HISTORY OF PRESENT ILLNESS: 39 y.o. F PMH HTN, diverticulitis, nicotine dependence presenting for lightheadedness, LLE numbness, L tinnitus & hearing impairment, nausea. The patient has had these similar symptoms in 2016. Symptoms began around 9pm last evening. She took her BP which she noted was elevated 150s/100s, took an extra dose of her nifedipine 60mg and noted her BP was increasing further so she came to the ED. Her tinnitus has resolved but she is now experiencing LLE weakness. On admission pt was hypertensive to 170s/100s, tachycardic. On ROS, patient denies headaches/ vision changes/ dizziness/ chest pain/ SOB/ abd pain/ myalgias / nausea/ vomiting/ diarrhea. ER course was notable for: (1) CT head negative for acute pathology (2) NIHSS 1 (3) Recent Travel: denies PAST MEDICAL HISTORY: as per hpi PAST SURGICAL HISTORY: L rotator cuff repair Social History: Smoking: not every day but frequently Alcohol:social Drugs: denies Allergies No Known Allergies Allergy (Verified 07/03/19 21:54) HOME MEDICATIONS: Home Medications Medication Instructions Recorded Ramipril [Altace] 10 mg PO DAILY 30 Days #30 capsule 04/01/18 Nifedipine ER [Procardia XL -] 60 mg PO DAILY 04/07/19 PHYSICAL EXAMINATION Vital Signs - 24 hr 07/03/19 07/03/19 07/04/19 21:51 23:30 04:15 Temperature 97.9 F Pulse Rate 107 H Pulse Rate [ 98 H 98 H Left Radial] Respiratory 16 17 Rate Blood Pressure 176/105 H Blood Pressure 153/98 130/76 [Right Arm] O2 Sat by Pulse 100 100 99 Oximetry (%) GENERAL: Awake, alert, and fully oriented, in no acute distress. HEENT: NCAT EOMI PERRLA MMM LUNGS: Breath sounds equal, clear to auscultation bilaterally. No wheezes, and no crackles. No accessory muscle use. HEART: Regular rate and rhythm, normal S1 and S2 without murmur, rub or gallop. ABDOMEN: Soft, nontender, not distended, normoactive bowel sounds, no guarding MUSCULOSKELETAL: Normal range of motion at all joints. No bony deformities or tenderness. No CVA tenderness. EXTREMITIES: 2+ pulses, warm, well-perfused. No peripheral edema. NEUROLOGICAL: Cranial nerves II-XII intact. Normal speech. Sensation intact b/ l LE although patient states left leg "feels weird". Mild LLE motor drift does not hit bed. PSYCHIATRIC: Cooperative. Good eye contact. Appropriate mood and affect. SKIN: Warm, dry, normal turgor, no rashes or lesions noted, normal capillary refill. Laboratory Results - last 24 hr Laboratory Last Values WBC 7.9 K/mm3 (4.0-10.0) 07/03/19 23:40 RBC 3.50 M/mm3 (3.60-5.2) L 07/03/19 23:40 Hgb 11.5 GM/dL (10.7-15.3) 07/03/19 23:40 Hct 34.4 % (32.4-45.2) 07/03/19 23:40 MCV 98.1 fl (80-96) H 07/03/19 23:40 MCH 32.9 pg (25.7-33.7) 07/03/19 23:40 MCHC 33.6 g/dl (32.0-36.0) 07/03/19 23:40 RDW 14.8 % (11.6-15.6) 07/03/19 23:40 Plt Count 341 K/MM3 (134-434) 07/03/19 23:40 MPV 8.7 fl (7.5-11.1) D 07/03/19 23:40 Absolute Neuts (auto) 5.0 K/mm3 (1.5-8.0) 07/03/19 23:40 Neutrophils % 63.3 % (42.8-82.8) 07/03/19 23:40 Lymphocytes % 27.3 % (8-40) 07/03/19 23:40 Monocytes % 6.3 % (3.8-10.2) 07/03/19 23:40 Eosinophils % 2.0 % (0-4.5) 07/03/19 23:40 Basophils % 1.1 % (0-2.0) 07/03/19:40 Nucleated RBC % 0 % (0-0) 07/03/19 23:40 PT with INR 10.30 SEC (9.7-13.0) 07/03/19 23:40 INR 0.87 (0.83-1.09) 07/03/19 23:40 PTT (Actin FS) 29.4 SECONDS (25.2-36.5) 07/03/19 23:40 Sodium 139 mmol/L (136-145) 07/04/19 00:30 Potassium 3.8 mmol/L (3.5-5.1) 07/04/19 00:30 Chloride 109 mmol/L (98-107) H 07/04/19 00:30 Carbon Dioxide 23 mmol/L (21-32) 07/04/19 00:30 Anion Gap 7 MMOL/L (8-16) L 07/04/19 00:30 BUN 11.6 mg/dL (7-18) 07/04/19 00:30 Creatinine 0.6 mg/dL (0.55-1.3) 07/04/19 00:30 Est GFR (CKD-EPI)AfAm 132.14 07/04/19 00:30 Est GFR (CKD-EPI)NonAf 114.01 07/04/19 00:30 Random Glucose 86 mg/dL (74-106) 07/04/19 00:30 Calcium 8.4 mg/dL (8.5-10.1) L 07/04/19 00:30 Total Bilirubin 0.3 mg/dL (0.2-1) 07/04/19 00:30 AST 18 U/L (15-37) 07/04/19 00:30 ALT 29 U/L (13-61) 07/04/19 00:30 Alkaline Phosphatase 101 U/L (45-117) 07/04/19 00:30 Creatine Kinase 142 U/L (26-192) 07/04/19 00:30 Troponin I < 0.02 ng/ml (0.00-0.05) 07/04/19 00:30 Total Protein 6.4 g/dl (6.4-8.2) 07/04/19 00:30 Albumin 2.9 g/dl (3.4-5.0) L 07/04/19 00:30 Triglycerides 62 mg/dL (0-150) 07/04/19 00:30 Cholesterol 174 mg/dL (50-200) 07/04/19 00:30 Total LDL Cholesterol 50 mg/dL (5-100) 07/04/19 00:30 HDL Cholesterol 112 mg/dL (40-60) H 07/04/19 00:30 Serum , Qual Negative 07/03/19 23:34 Urine Color Yellow 07/04/19 03:49 Urine Appearance Clear 07/04/19 03:49 Urine pH 5.0 (5.0-8.0) 07/04/19 03:49 Ur Specific [place] 1.066 (1.010-1.035) H 07/04/19 03:49 Urine Protein Negative (NEGATIVE) 07/04/19 03:49 Urine Glucose (UA) Negative (NEGATIVE) 07/04/19 03:49 Urine Ketones Negative (NEGATIVE) 07/04/19 03:49 Urine Blood Negative (NEGATIVE) 07/04/19 03:49 Urine Nitrite Negative (NEGATIVE) 07/04/19 03:49 Urine Bilirubin Negative (NEGATIVE) 07/04/19 03:49 Urine Urobilinogen 0.2 mg/dL (0.2-1.0) 07/04/19 03:49 Ur Leukocyte Esterase Negative (NEGATIVE) 07/04/19 03:49 Blood Type Cancelled 07/03/19 23:40 Antibody Screen Cancelled 07/03/19 23:40 ASSESSMENT/PLAN: 39 y.o. F PMH HTN, diverticulitis, nicotine dependence presenting for TIA. #TIA -CT head shows no acute pathology -monitor blood pressure-- hold home anti HTN meds for now -aspirin 325mg/d -f/u lipid panel -f/u MRA brain -neuro consulted (Dr. pearson) -speech & swallow eval #Nicotine dependence -educated on importance of smoking cessation -can provide gum or patch if needed #FEN -gentle hydration -trend lytes replete prn -sodium controlled diet #PPX heparin SQ #Dispo telemetry ATTENDING PHYSICIAN STATEMENT I saw and evaluated the patient. I reviewed the resident's note and discussed the case with the resident. I agree with the resident's findings and plan as documented. SUBJECTIVE: OBJECTIVE: ASSESSMENT AND PLAN: <Anthony Matias - Last Filed: 07/04/19 06:34> CHIEF COMPLAINT: PCP: HISTORY OF PRESENT ILLNESS: ER course was notable for: (1) (2) (3) Recent Travel: PAST MEDICAL HISTORY: PAST SURGICAL HISTORY: Social History: Smoking: Alcohol: Drugs: Allergies No Known Allergies Allergy (Verified 07/03/19 21:54) HOME MEDICATIONS: Home Medications Medication Instructions Recorded Ramipril [Altace] 10 mg PO DAILY 30 Days #30 capsule 04/01/18 Nifedipine ER [Procardia XL -] 60 mg PO DAILY 04/07/19 REVIEW OF SYSTEMS CONSTITUTIONAL: Absent: fever, chills, diaphoresis, generalized weakness, malaise, loss of appetite, weight change HEENT: Absent: rhinorrhea, nasal congestion, throat pain, throat swelling, difficulty swallowing, mouth swelling, ear pain, eye pain, visual changes CARDIOVASCULAR: Absent: chest pain, syncope, palpitations, irregular heart rate, lightheadedness , peripheral edema RESPIRATORY: Absent: cough, shortness of breath, dyspnea with exertion, orthopnea, wheezing, stridor, hemoptysis GASTROINTESTINAL: Absent: abdominal pain, abdominal distension, nausea, vomiting, diarrhea, constipation, melena, hematochezia GENITOURINARY: Absent: dysuria, frequency, urgency, hesitancy, hematuria, flank pain, genital pain MUSCULOSKELETAL: Absent: myalgia, arthralgia, joint swelling, back pain, neck pain SKIN: Absent: rash, itching, pallor HEMATOLOGIC/IMMUNOLOGIC: Absent: easy bleeding, easy bruising, lymphadenopathy, frequent infections ENDOCRINE: Absent: unexplained weight gain, unexplained weight loss, heat intolerance, cold intolerance NEUROLOGIC: Absent: headache, focal weakness or paresthesias, dizziness, unsteady gait, seizure, mental status changes, bladder or bowel incontinence PSYCHIATRIC: Absent: anxiety, depression, suicidal or homicidal ideation, hallucinations. PHYSICAL EXAMINATION Vital Signs - 24 hr 07/03/19 07/03/19 07/04/19 21:51 23:30 04:15 Temperature 97.9 F Pulse Rate 107 H Pulse Rate [ 98 H 98 H Left Radial] Respiratory 16 17 Rate Blood Pressure 176/105 H Blood Pressure 153/98 130/76 [Right Arm] O2 Sat by Pulse 100 100 99 Oximetry (%) GENERAL: Awake, alert, and fully oriented, in no acute distress. HEAD: Normal with no signs of trauma. EYES: Pupils equal, round and reactive to light, extraocular movements intact, sclera anicteric, conjunctiva clear. No lid lag. EARS, NOSE, THROAT: Ears normal, nares patent, oropharynx clear without exudates. Moist mucous membranes. NECK: Normal range of motion, supple without lymphadenopathy, JVD, or masses. LUNGS: Breath sounds equal, clear to auscultation bilaterally. No wheezes, and no crackles. No accessory muscle use. HEART: Regular rate and rhythm, normal S1 and S2 without murmur, rub or gallop. ABDOMEN: Soft, nontender, not distended, normoactive bowel sounds, no guarding, no rebound, no masses. No hepatomegaly or splenomegaly. MUSCULOSKELETAL: Normal range of motion at all joints. No bony deformities or tenderness. No CVA tenderness. UPPER EXTREMITIES: 2+ pulses, warm, well-perfused. No cyanosis. No clubbing. No peripheral edema. LOWER EXTREMITIES: 2+ pulses, warm, well-perfused. No calf tenderness. No peripheral edema. NEUROLOGICAL: Cranial nerves II-XII intact. Normal speech. Normal gait. PSYCHIATRIC: Cooperative. Good eye contact. Appropriate mood and affect. SKIN: Warm, dry, normal turgor, no rashes or lesions noted, normal capillary refill. Laboratory Results - last 24 hr 07/03/19 07/03/19 07/03/19 23:34 23:40 23:40 WBC RBC Hgb Hct MCV MCH MCHC RDW Plt Count MPV Absolute Neuts (auto) Neutrophils % Lymphocytes % Monocytes % Eosinophils % Basophils % Nucleated RBC % PT with INR 10.30 INR 0.87 PTT (Actin FS) 29.4 Sodium Potassium Chloride Carbon Dioxide Anion Gap BUN Creatinine Est GFR (CKD-EPI)AfAm Est GFR (CKD-EPI)NonAf Random Glucose Calcium Total Bilirubin AST ALT Alkaline Phosphatase Creatine Kinase Cancelled Troponin I Cancelled Total Protein Albumin Triglycerides Cholesterol Total LDL Cholesterol HDL Cholesterol Serum , Qual Negative Urine Color Urine Appearance Urine pH Ur Specific [place] Urine Protein Urine Glucose (UA) Urine Ketones Urine Blood Urine Nitrite Urine Bilirubin Urine Urobilinogen Ur Leukocyte Esterase Blood Type Antibody Screen 07/03/19 07/03/19 07/03/19 23:40 23:40 23:40 WBC 7.9 RBC 3.50 L Hgb 11.5 Hct 34.4 MCV 98.1 H MCH 32.9 MCHC 33.6 RDW 14.8 Plt Count 341 MPV 8.7 D Absolute Neuts (auto) 5.0 Neutrophils % 63.3 Lymphocytes % 27.3 Monocytes % 6.3 Eosinophils % 2.0 Basophils % 1.1 Nucleated RBC % 0 PT with INR INR PTT (Actin FS) Sodium Cancelled Potassium Cancelled Chloride Cancelled Carbon Dioxide Cancelled Anion Gap Cancelled BUN Cancelled Creatinine Cancelled Est GFR (CKD-EPI)AfAm Cancelled Est GFR (CKD-EPI)NonAf Cancelled Random Glucose Cancelled Calcium Cancelled Total Bilirubin Cancelled AST Cancelled ALT Cancelled Alkaline Phosphatase Cancelled Creatine Kinase Troponin I Total Protein Cancelled Albumin Cancelled Triglycerides Cancelled Cholesterol Cancelled Total LDL Cholesterol Cancelled HDL Cholesterol Cancelled Serum , Qual Urine Color Urine Appearance Urine pH Ur Specific [place] Urine Protein Urine Glucose (UA) Urine Ketones Urine Blood Urine Nitrite Urine Bilirubin Urine Urobilinogen Ur Leukocyte Esterase Blood Type Cancelled Antibody Screen Cancelled 07/04/19 07/04/19 07/04/19 00:30 00:30 03:49 WBC RBC Hgb Hct MCV MCH MCHC RDW Plt Count MPV Absolute Neuts (auto) Neutrophils % Lymphocytes % Monocytes % Eosinophils % Basophils % Nucleated RBC % PT with INR INR PTT (Actin FS) Sodium 139 Potassium 3.8 Chloride 109 H Carbon Dioxide 23 Anion Gap 7 L BUN 11.6 Creatinine 0.6 Est GFR (CKD-EPI)AfAm 132.14 Est GFR (CKD-EPI)NonAf 114.01 Random Glucose 86 Calcium 8.4 L Total Bilirubin 0.3 AST 18 ALT 29 Alkaline Phosphatase 101 Creatine Kinase 142 Troponin I < 0.02 Total Protein 6.4 Albumin 2.9 L Triglycerides 62 Cholesterol 174 Total LDL Cholesterol 50 HDL Cholesterol 112 H Serum , Qual Urine Color Yellow Urine Appearance Clear Urine pH 5.0 Ur Specific [place] 1.066 H Urine Protein Negative Urine Glucose (UA) Negative Urine Ketones Negative Urine Blood Negative Urine Nitrite Negative Urine Bilirubin Negative Urine Urobilinogen 0.2 Ur Leukocyte Esterase Negative Blood Type Antibody Screen ASSESSMENT/PLAN: Visit type - Emergency Visit Emergency Visit: Yes ED Registration Date: 07/04/19 Care time: The patient presented to the Emergency Department on the above date and was hospitalized for further evaluation of their emergent condition. - New Patient This patient is new to me today: Yes Date on this admission: 07/04/19 - Critical Care Critical Care patient: No ATTENDING PHYSICIAN STATEMENT I saw and evaluated the patient. I reviewed the resident's note and discussed the case with the resident. I agree with the resident's findings and plan as documented. 39 y.o. F PMH HTN, diverticulitis, nicotine dependence presenting for lightheadedness, LLE numbness, heaviness, tinnitus which started last evening. Her BP was found to be elevated 150/100. After coming to ED her left lower extremity heaviness started resolving. Denies dizziness, facial droop, UE weakness, numbness,slurred speech R/o Acute stroke Admit to stroke unit MRA brain Neurology consulted by ED ASA 325 given. Cont with ASA 81 Hb a1c, lipid panel DVt ppx Further stroke work up after MRA and as per neurology ]
--- NOTE | 2019-07-04 06:07 | PN.NIHSS ---
NIH Stroke Scale - Initial Evaluation Level of consciousness: Alert Ask patient the month and their age: Answers both correctly Ask patient to open & close eyes; make fist and let go: Obeys both correctly Best gaze (horizontal eye movement): Normal Visual field testing: No visual field loss Facial paresis (Show teeth/raise eyebrows/close eyes tight): Normal symmetrical movement Motor Function: Left Arm: Normal Motor Function: Right Arm: Normal (extends arm 90 (or 45) degrees for 10 seconds without drift Motor Function: Left Leg: Drift Motor Function: Right Leg: Normal (extends leg 30 degrees for 5 seconds without drift) Limb Ataxia: No ataxia Sensory(Use pinprick test arms,legs,trunk,face/side to side): Normal Best language (Describe picture, name items, read sentences): No Aphasia Dysarthria (read several words): Normal articulation Extinction and Inattention: No abnormality - Total Score NIH Stroke Scale Score: 1
[2019-07-04 07:59] LABS: BASO % 0.6 % (0-2.0); EOS % 1.9 % (0-4.5); HEMATOCRIT 31.4 % (32.4-45.2); HEMOGLOBIN 10.6 GM/dL (10.7-15.3); LYMPH % 26.5 % (8-40); MCH 33.2 pg (25.7-33.7); MCHC 33.7 g/dl (32.0-36.0); MEAN CELL VOLUME 98.6 fl (80-96); MEAN PLT VOLUME 8.4 fl (7.5-11.1); MONO % 7.5 % (3.8-10.2); NEUT % 63.5 % (42.8-82.8); PLATELET COUNT 295 K/MM3 (134-434); RBC 3.18 M/mm3 (3.60-5.2); RDW 14.5 % (11.6-15.6); WHITE BLOOD COUNT 6.7 K/mm3 (4.0-10.0)
[2019-07-04] MEDS: HEPARIN NA (PORCINE) 5,000 UNITS/ML 1ML VIAL SQ SCH ×3 (08:05→21:23)
[2019-07-04] MEDS ORDERED: HEPARIN NA (PORCINE) 5,000 UNITS/ML 1ML VIAL ONE ×3 (08:06→21:21)
[2019-07-04 08:18] LABS: ALBUMIN 2.8 g/dl (3.4-5.0); BILIRUBIN,TOTAL 0.2 mg/dL (0.2-1); CREATININE 0.7 mg/dL (0.55-1.3); POTASSIUM 3.7 mmol/L (3.5-5.1)
--- NOTE | 2019-07-04 09:19 | CONSULT ---
Consult - text type - Consultation Consultation Note: Neurology CHIEF COMPLAINT: lightheadedness, tinnitus, L sided numbness HISTORY OF PRESENT ILLNESS: 39 y.o. F PMH HTN, diverticulitis, nicotine dependence presented for lightheadedness, LLE numbness, L tinnitus & hearing impairment, nausea. The patient has had these similar symptoms in 2016. Symptoms began around 9pm on day prior to admission. She took her BP which she noted was elevated 150s/100s, took an extra dose of her nifedipine 60mg and noted her BP was increasing further so she came to the ED. Her tinnitus has resolved but she is now experiencing LLE weakness. On admission pt was hypertensive to 170s/100s, tachycardic. On ROS, patient denied headaches/ vision changes/ dizziness/ chest pain/ SOB/ abd pain/ myalgias/ nausea/ vomiting/ diarrhea. Head CT performed and showed no acute pathology. CTA of Head and Neck completed and awaiting official report. patient reports that her left lower extremity feels better and near baseline, discussed with her that symptoms may have been precipitated by elevation in blood pressure. We'll obtain MRI brain to evaluate and rule out stroke. ot on adaily aspirin at home. Lipid profile reviewed, LDL normal at 50. Recent Travel: denies PAST MEDICAL HISTORY: as per hpi PAST SURGICAL HISTORY: L rotator cuff repair Family History: HTN Social History: Smoking: not every day but frequently Alcohol:social Drugs: denies REVIEW OF SYSTEMS CONSTITUTIONAL: Absent: fever, chills, diaphoresis, generalized weakness, malaise, loss of appetite, weight change HEENT: Absent: rhinorrhea, nasal congestion, throat pain, throat swelling, difficulty swallowing, mouth swelling, ear pain, eye pain, visual changes CARDIOVASCULAR: Absent: chest pain, syncope, palpitations, irregular heart rate, lightheadedness , peripheral edema RESPIRATORY: Absent: cough, shortness of breath, dyspnea with exertion, orthopnea, wheezing, stridor, hemoptysis GASTROINTESTINAL: Absent: abdominal pain, abdominal distension, nausea, vomiting, diarrhea, constipation, melena, hematochezia GENITOURINARY: Absent: dysuria, frequency, urgency, hesitancy, hematuria, flank pain, genital pain MUSCULOSKELETAL: Absent: myalgia, arthralgia, joint swelling, back pain, neck pain SKIN: Absent: rash, itching, pallor HEMATOLOGIC/IMMUNOLOGIC: Absent: easy bleeding, easy bruising, lymphadenopathy, frequent infections ENDOCRINE: Absent: unexplained weight gain, unexplained weight loss, heat intolerance, cold intolerance NEUROLOGIC: Absent: headache, focal weakness or paresthesias, dizziness, unsteady gait, seizure, mental status changes, bladder or bowel incontinence PSYCHIATRIC: Absent: anxiety, depression, suicidal or homicidal ideation, hallucinations. Allergies No Known Allergies Allergy (Verified 07/03/19 21:54) HOME MEDICATIONS: Home Medications Medication Instructions Recorded Ramipril [Altace] 10 mg PO DAILY 30 Days #30 capsule 04/01/18 Nifedipine ER [Procardia XL -] 60 mg PO DAILY 04/07/19 Active Medications Aspirin (Ecotrin -) 325 mg PO DAILY [facility] Heparin Sodium (Porcine) (Heparin -) 5,000 unit SQ TID [facility] Last Admin: 07/04/19 08:05 Dose: 5,000 unit Sodium Chloride (Normal Saline -) 1,000 mls @ 42 mls/hr IV ASDIR [facility] Last Admin: 07/03/19 23:48 Dose: 42 mls/hr PHYSICAL EXAMINATION Vital Signs Period Temp Pulse Resp BP Sys/Jj Pulse Ox Last 24 Hr 97.9 F 98-107 16-17 130-176/76-105 99-100 GENERAL: Awake, alert, and fully oriented, in no acute distress. HEENT: NCAT EOMI PERRLA MMM LUNGS: Breath sounds equal, clear to auscultation bilaterally. No wheezes, and no crackles. No accessory muscle use. HEART: Regular rate and rhythm, normal S1 and S2 without murmur, rub or gallop. ABDOMEN: Soft, nontender, not distended, normoactive bowel sounds, no guarding MUSCULOSKELETAL: Normal range of motion at all joints. No bony deformities or tenderness. No CVA tenderness. EXTREMITIES: 2+ pulses, warm, well-perfused. No peripheral edema. NEUROLOGICAL: Cranial nerves II-XII intact. Normal speech. Sensation intact b/ l LE although patient states left leg "feels weird". sstrength in fact, no drift in LE. PSYCHIATRIC: Cooperative. Good eye contact. Appropriate mood and affect. SKIN: Warm, dry, normal turgor, no rashes or lesions noted, normal capillary refill. CBCD WBC 6.7 K/mm3 (4.0-10.0) 07/04/19 06:30 RBC 3.18 M/mm3 (3.60-5.2) L 07/04/19 06:30 Hgb 10.6 GM/dL (10.7-15.3) L 07/04/19 06:30 Hct 31.4 % (32.4-45.2) L 07/04/19 06:30 MCV 98.6 fl (80-96) H 07/04/19 06:30 MCHC 33.7 g/dl (32.0-36.0) 07/04/19 06:30 RDW 14.5 % (11.6-15.6) 07/04/19 06:30 Plt Count 295 K/MM3 (134-434) 07/04/19 06:30 MPV 8.4 fl (7.5-11.1) 07/04/19 06:30 CMP Sodium 138 mmol/L (136-145) 07/04/19 06:30 Potassium 3.7 mmol/L (3.5-5.1) 07/04/19 06:30 Chloride 109 mmol/L (98-107) H 07/04/19 06:30 Carbon Dioxide 23 mmol/L (21-32) 07/04/19 06:30 Anion Gap 7 MMOL/L (8-16) L 07/04/19 06:30 BUN 10.0 mg/dL (7-18) 07/04/19 06:30 Creatinine 0.7 mg/dL (0.55-1.3) 07/04/19 06:30 Random Glucose 97 mg/dL (74-106) 07/04/19 06:30 Calcium 8.0 mg/dL (8.5-10.1) L 07/04/19 06:30 Total Bilirubin 0.2 mg/dL (0.2-1) 07/04/19 06:30 AST 14 U/L (15-37) L 07/04/19 06:30 ALT 27 U/L (13-61) 07/04/19 06:30 Alkaline Phosphatase 101 U/L (45-117) 07/04/19 06:30 Total Protein 6.0 g/dl (6.4-8.2) L 07/04/19 06:30 Albumin 2.8 g/dl (3.4-5.0) L 07/04/19 06:30 CARDIAC ENZYMES Creatine Kinase 142 U/L (26-192) 07/04/19 00:30 Troponin I < 0.02 ng/ml (0.00-0.05) 07/04/19 00:30 ASSESSMENT/PLAN: 39 y.o. F PMH HTN, diverticulitis, nicotine dependence presented for lightheadedness, LLE numbness, L tinnitus & hearing impairment, nausea. The patient has had these similar symptoms in 2016. Symptoms began around 9pm on day prior to admission. She took her BP which she noted was elevated 150s/100s, took an extra dose of her nifedipine 60mg and noted her BP was increasing further so she came to the ED. Her tinnitus has resolved but she is now experiencing LLE weakness. On admission pt was hypertensive to 170s/100s, tachycardic. On ROS, patient denied headaches/ vision changes/ dizziness/ chest pain/ SOB/ abd pain/ myalgias/ nausea/ vomiting/ diarrhea. Head CT performed and showed no acute pathology. CTA of Head and Neck completed and awaiting official report. patient reports that her left lower extremity feels better and near baseline, discussed with her that symptoms may have been precipitated by elevation in blood pressure. We'll obtain MRI brain to evaluate and rule out stroke. Not on adaily aspirin at home. Lipid profile reviewed, LDL normal at 50. Ordered MRI brain, follow-up results, further management will be determined based on study.
--- NOTE | 2019-07-04 10:34 | PN ---
Physical Exam: SUBJECTIVE: Patient seen and examined. She says the ringing in her ears has improved. She feels her left leg isn't as weak. OBJECTIVE: Vital Signs Period Temp Pulse Resp BP Sys/Jj Pulse Ox Last 24 Hr 97.9 F 98-107 16-17 130-176/76-105 99-100 GENERAL: The patient is awake, alert, and fully oriented, in no acute distress. LUNGS: Breath sounds equal, clear to auscultation bilaterally, no wheezes, no crackles, no accessory muscle use. HEART: Regular rate and rhythm, S1, S2 without murmur, rub or gallop. ABDOMEN: Obese, soft, nontender, nondistended, normoactive bowel sounds, no guarding, no rebound, no hepatosplenomegaly, no masses. EXTREMITIES: 2+ pulses, warm, well-perfused, no edema. NEUROLOGICAL: Cranial nerves II through XII grossly intact. Normal speech. Strength 5/5 in LUE/RUE/RLE, 4+/5 in LLE. Sensation intact. Gait not observed. Laboratory Results - last 24 hr 07/03/19 07/03/19 07/03/19 23:34 23:40 23:40 WBC RBC Hgb Hct MCV MCH MCHC RDW Plt Count MPV Absolute Neuts (auto) Neutrophils % Lymphocytes % Monocytes % Eosinophils % Basophils % Nucleated RBC % PT with INR 10.30 INR 0.87 PTT (Actin FS) 29.4 Sodium Potassium Chloride Carbon Dioxide Anion Gap BUN Creatinine Est GFR (CKD-EPI)AfAm Est GFR (CKD-EPI)NonAf Random Glucose Calcium Total Bilirubin AST ALT Alkaline Phosphatase Creatine Kinase Cancelled Troponin I Cancelled Total Protein Albumin Triglycerides Cholesterol Total LDL Cholesterol HDL Cholesterol Serum , Qual Negative Urine Color Urine Appearance Urine pH Ur Specific Elkins Urine Protein Urine Glucose (UA) Urine Ketones Urine Blood Urine Nitrite Urine Bilirubin Urine Urobilinogen Ur Leukocyte Esterase Blood Type Antibody Screen 07/03/19 07/03/19 07/03/19 23:40 23:40 23:40 WBC 7.9 RBC 3.50 L Hgb 11.5 Hct 34.4 MCV 98.1 H MCH 32.9 MCHC 33.6 RDW 14.8 Plt Count 341 MPV 8.7 D Absolute Neuts (auto) 5.0 Neutrophils % 63.3 Lymphocytes % 27.3 Monocytes % 6.3 Eosinophils % 2.0 Basophils % 1.1 Nucleated RBC % 0 PT with INR INR PTT (Actin FS) Sodium Cancelled Potassium Cancelled Chloride Cancelled Carbon Dioxide Cancelled Anion Gap Cancelled BUN Cancelled Creatinine Cancelled Est GFR (CKD-EPI)AfAm Cancelled Est GFR (CKD-EPI)NonAf Cancelled Random Glucose Cancelled Calcium Cancelled Total Bilirubin Cancelled AST Cancelled ALT Cancelled Alkaline Phosphatase Cancelled Creatine Kinase Troponin I Total Protein Cancelled Albumin Cancelled Triglycerides Cancelled Cholesterol Cancelled Total LDL Cholesterol Cancelled HDL Cholesterol Cancelled Serum , Qual Urine Color Urine Appearance Urine pH Ur Specific Elkins Urine Protein Urine Glucose (UA) Urine Ketones Urine Blood Urine Nitrite Urine Bilirubin Urine Urobilinogen Ur Leukocyte Esterase Blood Type Cancelled Antibody Screen Cancelled 07/04/19 07/04/19 07/04/19 00:30 00:30 03:49 WBC RBC Hgb Hct MCV MCH MCHC RDW Plt Count MPV Absolute Neuts (auto) Neutrophils % Lymphocytes % Monocytes % Eosinophils % Basophils % Nucleated RBC % PT with INR INR PTT (Actin FS) Sodium 139 Potassium 3.8 Chloride 109 H Carbon Dioxide 23 Anion Gap 7 L BUN 11.6 Creatinine 0.6 Est GFR (CKD-EPI)AfAm 132.14 Est GFR (CKD-EPI)NonAf 114.01 Random Glucose 86 Calcium 8.4 L Total Bilirubin 0.3 AST 18 ALT 29 Alkaline Phosphatase 101 Creatine Kinase 142 Troponin I < 0.02 Total Protein 6.4 Albumin 2.9 L Triglycerides 62 Cholesterol 174 Total LDL Cholesterol 50 HDL Cholesterol 112 H Serum , Qual Urine Color Yellow Urine Appearance Clear Urine pH 5.0 Ur Specific Elkins 1.066 H Urine Protein Negative Urine Glucose (UA) Negative Urine Ketones Negative Urine Blood Negative Urine Nitrite Negative Urine Bilirubin Negative Urine Urobilinogen 0.2 Ur Leukocyte Esterase Negative Blood Type Antibody Screen 07/04/19 07/04/19 06:30 06:30 WBC 6.7 RBC 3.18 L Hgb 10.6 L Hct 31.4 L MCV 98.6 H MCH 33.2 MCHC 33.7 RDW 14.5 Plt Count 295 MPV 8.4 Absolute Neuts (auto) 4.2 Neutrophils % 63.5 Lymphocytes % 26.5 Monocytes % 7.5 Eosinophils % 1.9 Basophils % 0.6 Nucleated RBC % 0 PT with INR INR PTT (Actin FS) Sodium 138 Potassium 3.7 Chloride 109 H Carbon Dioxide 23 Anion Gap 7 L BUN 10.0 Creatinine 0.7 Est GFR (CKD-EPI)AfAm 125.61 Est GFR (CKD-EPI)NonAf 108.38 Random Glucose 97 Calcium 8.0 L Total Bilirubin 0.2 AST 14 L ALT 27 Alkaline Phosphatase 101 Creatine Kinase Troponin I Total Protein 6.0 L Albumin 2.8 L Triglycerides Cholesterol Total LDL Cholesterol HDL Cholesterol Serum , Qual Urine Color Urine Appearance Urine pH Ur Specific Elkins Urine Protein Urine Glucose (UA) Urine Ketones Urine Blood Urine Nitrite Urine Bilirubin Urine Urobilinogen Ur Leukocyte Esterase Blood Type Antibody Screen Active Medications Generic Name Dose Route Start Last Admin Trade Name Dominicq PRN Reason Stop Dose Admin Aspirin 325 mg 07/04/19 13:00 Ecotrin - PO DAILY KASSI Heparin Sodium (Porcine) 5,000 unit 07/04/19 06:00 07/04/19 08:05 Heparin - SQ 5,000 unit TID KASSI Administration Sodium Chloride 1,000 mls @ 42 mls/hr 07/03/19 23:15 07/03/19 23:48 Normal Saline - IV 42 mls/hr ASDIR KASSI Administration ASSESSMENT/PLAN: This is a 39 year old woman with a history of HTN, diverticulitis, nicotine dependence who presented to the ED with ringing in her left ear and left leg numbness/weakness. 1. Tinnitus and left leg weakness/numbness - Possible TIA/CVA - Improving - Head CT unremarkable - CTA of head and neck pending - MRI/MRA of brain ordered - Continue aspirin 2. Nicotine dependence - Smoking cessation discussed 3. Anemia, macrocytic - Chronic - Check iron studies - Monitor hgb Visit type - Emergency Visit Emergency Visit: Yes ED Registration Date: 07/04/19 Care time: The patient presented to the Emergency Department on the above date and was hospitalized for further evaluation of their emergent condition. - New Patient This patient is new to me today: Yes Date on this admission: 07/04/19 - Critical Care Critical Care patient: No - Discharge Referral Referred to [facility] No
[2019-07-04] MEDS: ASPIRIN 325 MG ENTERIC COATED TABLET (FP) PO SCH (14:07)
--- NOTE | 2019-07-04 15:16 | EKG ---
Test Reason : Blood Pressure : / mmHG Vent. Rate : 097 BPM Atrial Rate : 097 BPM P-R Int : 140 ms QRS Dur : 086 ms QT Int : 376 ms P-R-T Axes : 054 015 024 degrees QTc Int : 477 ms NORMAL SINUS RHYTHM NORMAL ECG WHEN COMPARED WITH ECG OF 22-MAY-2019 18:04, NO SIGNIFICANT CHANGE WAS FOUND Confirmed by BRIDGET DAY MD ([id number]) on 07/04/2019 3:15:59 PM Referred By: Confirmed By:BRIDGET DAY MD
--- NOTE | 2019-07-04 15:46 | ECHO ---
Name: SCALES, PATRICIA Exam:Adult Echocardiogram Study Date: 07/04/2019 03:00 PM Age: 39 yrs Reason For Study: TIA Height: 66 in Weight: 200 lb BSA: 2.0 m2 MMode/2D Measurements & Calculations IVSd: 1.1 cm Ao root diam: 2.8 cm LVIDd: 4.0 cm LA dimension: 3.5 cm LVIDs: 2.8 cm ACS: 1.7 cm LVPWd: 1.0 cm EDV(Teich): 70.3 ml LVOT diam: 2.0 cm ESV(Teich): 30.0 ml LAV (MOD-bp): 50.0 ml TAPSE: 2.2 cm RV S Eric: 14.8 cm/sec Doppler Measurements & Calculations MV E max eric: 92.8 cm/sec Ao V2 max: 149.3 cm/sec MV A max eric: 79.5 cm/sec Ao max P.9 mmHg MV E/A: 1.2 Ao V2 mean: 100.5 cm/sec MV dec time: 0.13 sec Ao mean P.7 mmHg Ao V2 VTI: 26.6 cm ROMIE(I,D): 3.5 cm2 ROMIE(V,D): 3.1 cm2 LV V1 max P.0 mmHg SV(LVOT): 94.0 ml LV V1 mean P.0 mmHg LV V1 max: 149.9 cm/sec LV V1 mean: 90.6 cm/sec LV V1 VTI: 30.3 cm TR max eric: 253.8 cm/sec PA V2 max: 116.7 cm/sec TR max P.8 mmHg PA max P.5 mmHg Med Peak E' Eric: 9.9 cm/sec Pulm Sys Eric: 114.1 cm/sec Med E/e': 9.3 Pulm Jj Eric: 62.0 cm/sec Lat Peak E' Eric: 13.9 cm/sec Pulm S/D: 1.8 Lat E/e': 6.7 Procedure A complete two-dimensional transthoracic echocardiogram was performed (2D, M-mode, Doppler and color flow Doppler). Left Ventricle The left ventricular size, thickness and function are normal. The left ventricular ejection fraction is normal. Ejection Fraction = 60-65%. The left ventricular wall motion is normal. Right Ventricle The right ventricle is normal in size and function. Atria Normal left and right atrial size and function. Mitral Valve There is no mitral regurgitation noted. Tricuspid Valve There is trace tricuspid regurgitation. Aortic Valve No hemodynamically significant valvular aortic stenosis. No aortic regurgitation is present. Pulmonic Valve There is no pulmonic valvular regurgitation. Great Vessels The aortic root is normal size. Pericardium/Pleura There is no pericardial effusion. Interpretation Summary The left ventricular size, thickness and function are normal The right ventricle is normal in size and function. There is trace tricuspid regurgitation. MD Chad Valdes 07/04/2019 03:45 PM
--- NOTE | 2019-07-04 18:30 | CONSULT ---
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 History of Recent Travel: Yes ([place] for 1 week) History - Admission Reason For Visit: HEADACHE,WEAKNESS OF LEFTLOWER EXTREMITY,NUMBNESS Speech Evaluation - Communication Primary Language: CITIZEN [place] Communication: Yes: Within Normal Limits Oral Expression Ability: Yes: No Impairment - Speech Production Apraxia: No Able to Make Needs Known: Yes: WNL Intelligibility: Yes: WNL - Speech Characteristics Voice Loudness: Normal Voice Pitch: Yes: Normal Voice Phonatory-based Quality: Yes: Normal Speech Pattern: Normal Nasal Resonance: Normal Articulation: Yes: Precise Rate of Speech: Intact - Language/Auditory Comprehension Follows: Yes: 1 Stage Simple Commands (WFL), Complex Commands (WFL) Observation: Able to respond to yes/no queries: Yes, Yes/No Confusion: No, Comprehends Conversational Speech: Yes, Benefits from Slow Speech: No, Benefits from Repetiton: No, Benefits from Increased Volume of Speech: No - Language/Verbal Expression Able to Respond to Simple Queries: Yes: WNL Able to Communicate Wants and Needs: Yes: WNL Functional Communication Status: Yes: WNL Aware of Errors: Yes Attempts to Correct Errors: Yes Use of Gestures: No Written Expression: WFL Oral Expression: WFL Reading Comprehension: WFL Calculations: WFL Attention: Yes: Intact - Memory/Perception MCC Memory: Yes: WNL Short Term Memory: Yes: WNL - Swallow Evaluation/Bedside Assessment Current Nutritional Intake: Regular, Clear Liquids Oral Secretions: Yes: WFL Tracheostomy Present: No Patient on Ventilator: No Dentition: Yes: Adequate Facial Symmetry at Rest: Symmetrical Facial Symmetry on Retraction: Symmetrical Facial Movement: Controlled Sensation: Normal Facial Comment: Vocal quality is functional for the environment with speech parameters WNL. Jaw Position: Closed at Rest Against Resistance Opening: Normal Against Resistance Closing: Normal Pucker Lips: Normal Lips, Comment: WFL for speech and swallowing purposes Lingual Movement: Normal Lingual Speed of Movement: Normal Lingual Movement Strgth Against Opposition: Normal Lingual Movement Characteristics: Normal Lingual Comment: WFL for speech and swallowing purposes Soft Palate Description: Normal Color Hard Palate Description: Normal Color Gag Reflex: Strong Velopharyngeal Movement: Normal Laryngeal Elevation: WFL Laryngeal Movement: Able to Palpate Needs Assistance: No Rate of Intake: WFL Bolus Size: WFL Labial Seal: WFL Chewing: WFL Oral Prep Time: WFL A-P Transit: WFL Pocketing: None Timing of Swallow: WFL Coughing/Throat Clear: No Change in Voice: No Other Findings/Remarks: 39 y.o. F PMH HTN, diverticulitis, nicotine dependence presenting for lightheadedness, LLE numbness, L tinnitus & hearing impairment, nausea. The patient has had these similar symptoms in 2016. Symptoms began around 9pm last evening. She took her BP which she noted was elevated 150s/100s, took an extra dose of her nifedipine 60mg and noted her BP was increasing further so she came to the ED. Her tinnitus has resolved but she is now experiencing LLE weakness. On admission pt was hypertensive to 170s/100s, tachycardic. Pt given PO trials of pureed,regular cut to bite sized pieces without assistance revealed, adequate bolus formation and A P transport with a timely pharyngeal swallow (1-2 second average). No change in voicing or respiration after the swallow. Pt given PO trials of thin liquids via cup and straw with total assistance revealed good acceptance, adequate labial containment / bolus control and, A P transport with a timely pharyngeal swallow (1-2 second average). No change in voicing or respiration after the swallow. Recommendations - Speech Evaluation, Impression/Plan Impression: The oral and pharyngeal swallow is adequate for po intake of regular solids and thin liquids. Labial containment, mastication, bolus transport, and initiation of swallow were WNL. No coughing or changes in voicing to suggest penetration / aspiration at bedside at this time. Speech and language are WNL. Sugar Cane Planter Goals: Tolerate the least restrictive solid and liquid consistencies without s/s of penetration / aspiration. Short Term Goals: Tolerate regular solids and thin liquid consistencies without s/s of penetration / aspiration. Recommended Frequency for Therapy: Follow Up PRN - Dysphagia Impressions/Plan Swallowing Skills: WFL Dysphagia Impressions: No Impairment Dysphagia Evaluation Summary: Continue po intake of regular solids and thin liquids at tolerated. Observe standard aspiration precautions. Provide oral care before and after meal meals. Results given verbally to lithopone charger and PCP via chart. INFORMATION MANAGEMENT OFFICER to follow up for diet tolerance. - Recommendations Diet Consistency: Regular, Dietary Restrictions/MD (Na controlled) Medication Administration: Whole with water Liquids: Thin Liquids
[2019-07-04] MEDS ORDERED: ATORVASTATIN CA 80 MG TABLET (FP) PO SCH (22:00)
[2019-07-05] MEDS ORDERED: HEPARIN NA (PORCINE) 5,000 UNITS/ML 1ML VIAL ONE (05:46)
[2019-07-05] MEDS: HEPARIN NA (PORCINE) 5,000 UNITS/ML 1ML VIAL SQ SCH ×2 (06:08→15:04)
[2019-07-05 07:45] LABS: HEMATOCRIT 31.8 % (32.4-45.2); HEMOGLOBIN 10.9 GM/dL (10.7-15.3); MCH 33.4 pg (25.7-33.7); MCHC 34.3 g/dl (32.0-36.0); MEAN CELL VOLUME 97.4 fl (80-96); MEAN PLT VOLUME 8.5 fl (7.5-11.1); PLATELET COUNT 311 K/MM3 (134-434); RBC 3.26 M/mm3 (3.60-5.2); RDW 14.8 % (11.6-15.6); WHITE BLOOD COUNT 5.6 K/mm3 (4.0-10.0)
[2019-07-05 08:15] LABS: BLOOD UREA NITROGEN 8.2 mg/dL (7-18); CALCIUM 8.2 mg/dL (8.5-10.1); CREATININE 0.6 mg/dL (0.55-1.3); POTASSIUM 3.7 mmol/L (3.5-5.1)
--- NOTE | 2019-07-05 09:30 | PN ---
Progress Note (short form) - Note Progress Note: Neurology CHIEF COMPLAINT: lightheadedness, tinnitus, L sided numbness HISTORY OF PRESENT ILLNESS: 39 y.o. F PMH HTN, diverticulitis, nicotine dependence presented for lightheadedness, LLE numbness, L tinnitus & hearing impairment, nausea. The patient has had these similar symptoms in 2016. Symptoms began around 9pm on day prior to admission. She took her BP which she noted was elevated 150s/100s, took an extra dose of her nifedipine 60mg and noted her BP was increasing further so she came to the ED. Her tinnitus has resolved but she is now experiencing LLE weakness. On admission pt was hypertensive to 170s/100s, tachycardic. On ROS, patient denied headaches/ vision changes/ dizziness/ chest pain/ SOB/ abd pain/ myalgias/ nausea/ vomiting/ diarrhea. Head CT performed and showed no acute pathology. CTA of Head and Neck completed and showed no stenosis in CCA and its bifurcation. Intracranially, no stenosis, aneurysm, major artery cutoff, or vascular malformation. patient reports that her left lower extremity feels better and near baseline, discussed with her that symptoms may have been precipitated by elevation in blood pressure. We'll obtain MRI brain to evaluate and rule out stroke. ot on adaily aspirin at home. Lipid profile reviewed, LDL normal at 50. MRI of brain completed and showed normal brain parenchyma, no edema, hemorrhage or demyelinating process. No evidence of acute or subacute infarction. MRA of brain also reviewed and demonstrated no evidence of aneurysm, vascular malformation or flow limiting stenosis. Neurologically, stable at this time and without deficits, states her strength is normal, discussed with patient results in detail. Would not be required to take daily aspirin at this time as imaging was negative for acute changes. Active Medications Aspirin (Ecotrin -) 325 mg PO DAILY [facility] Last Admin: 07/04/19 14:07 Dose: 325 mg Heparin Sodium (Porcine) (Heparin -) 5,000 unit SQ TID [facility] Last Admin: 07/05/19 06:08 Dose: 5,000 unit Sodium Chloride (Normal Saline -) 1,000 mls @ 42 mls/hr IV ASDIR [facility] Last Admin: 07/03/19 23:48 Dose: 42 mls/hr PHYSICAL EXAMINATION Vital Signs Period Temp Pulse Resp BP Sys/Jj Pulse Ox Last 24 Hr 97.4 F-98.4 F 82-105 18-20 118-152/68-103 97-99 GENERAL: Awake, alert, and fully oriented, in no acute distress. HEENT: NCAT EOMI PERRLA MMM LUNGS: Breath sounds equal, clear to auscultation bilaterally. No wheezes, and no crackles. No accessory muscle use. HEART: Regular rate and rhythm, normal S1 and S2 without murmur, rub or gallop. ABDOMEN: Soft, nontender, not distended, normoactive bowel sounds, no guarding MUSCULOSKELETAL: Normal range of motion at all joints. No bony deformities or tenderness. No CVA tenderness. EXTREMITIES: 2+ pulses, warm, well-perfused. No peripheral edema. NEUROLOGICAL: Cranial nerves II-XII intact. Normal speech. Sensation intact b/ l LE although patient states left leg "feels weird". sstrength in fact, no drift in LE. PSYCHIATRIC: Cooperative. Good eye contact. Appropriate mood and affect. SKIN: Warm, dry, normal turgor, no rashes or lesions noted, normal capillary refill. CBCD WBC 5.6 K/mm3 (4.0-10.0) 07/05/19 06:26 RBC 3.26 M/mm3 (3.60-5.2) L 07/05/19 06:26 Hgb 10.9 GM/dL (10.7-15.3) 07/05/19 06:26 Hct 31.8 % (32.4-45.2) L 07/05/19 06:26 MCV 97.4 fl (80-96) H 07/05/19 06:26 MCHC 34.3 g/dl (32.0-36.0) 07/05/19 06:26 RDW 14.8 % (11.6-15.6) 07/05/19 06:26 Plt Count 311 K/MM3 (134-434) 07/05/19 06:26 MPV 8.5 fl (7.5-11.1) 07/05/19 06:26 CMP Sodium 138 mmol/L (136-145) 07/05/19 06:26 Potassium 3.7 mmol/L (3.5-5.1) 07/05/19 06:26 Chloride 108 mmol/L (98-107) H 07/05/19 06:26 Carbon Dioxide 25 mmol/L (21-32) 07/05/19 06:26 Anion Gap 6 MMOL/L (8-16) L 07/05/19 06:26 BUN 8.2 mg/dL (7-18) 07/05/19 06:26 Creatinine 0.6 mg/dL (0.55-1.3) 07/05/19 06:26 Random Glucose 78 mg/dL (74-106) 07/05/19 06:26 Calcium 8.2 mg/dL (8.5-10.1) L 07/05/19 06:26 Total Bilirubin 0.2 mg/dL (0.2-1) 07/04/19 06:30 AST 14 U/L (15-37) L 07/04/19 06:30 ALT 27 U/L (13-61) 07/04/19 06:30 Alkaline Phosphatase 101 U/L (45-117) 07/04/19 06:30 Total Protein 6.0 g/dl (6.4-8.2) L 07/04/19 06:30 Albumin 2.8 g/dl (3.4-5.0) L 07/04/19 06:30 CARDIAC ENZYMES Creatine Kinase 142 U/L (26-192) 07/04/19 00:30 Troponin I < 0.02 ng/ml (0.00-0.05) 07/04/19 00:30 ASSESSMENT/PLAN: 39 y.o. F PMH HTN, diverticulitis, nicotine dependence presented for lightheadedness, LLE numbness, L tinnitus & hearing impairment, nausea. The patient has had these similar symptoms in 2015. Symptoms began around 9pm on day prior to admission. She took her BP which she noted was elevated 150s/100s, took an extra dose of her nifedipine 60mg and noted her BP was increasing further so she came to the ED. Her tinnitus has resolved but she is now experiencing LLE weakness. On admission pt was hypertensive to 170s/100s, tachycardic. On ROS, patient denied headaches/ vision changes/ dizziness/ chest pain/ SOB/ abd pain/ myalgias/ nausea/ vomiting/ diarrhea. Head CT performed and showed no acute pathology. CTA of Head and Neck completed and awaiting official report. patient reports that her left lower extremity feels better and near baseline, discussed with her that symptoms may have been precipitated by elevation in blood pressure. We'll obtain MRI brain to evaluate and rule out stroke. Not on adaily aspirin at home. Lipid profile reviewed, LDL normal at 50. Neurologically, stable at this time and without deficits, states her strength is normal, discussed with patient results in detail. Would not be required to take daily aspirin at this time as imaging was negative for acute changes. Can follow-up as outpatient.
[2019-07-05] MEDS: ASPIRIN 325 MG ENTERIC COATED TABLET (FP) PO SCH (10:33)
[2019-07-05] MEDS ORDERED: RAMIPRIL 5 MG CAPSULE (FP) PO SCH (15:00)
[2019-07-05] MEDS ORDERED: NIFEdipine E.R 60 MG TABLET PO SCH (15:00)
--- NOTE | 2019-07-05 15:09 | PN ---
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 On reg/thin liquids, without difficulty.
[2019-07-05 15:48] VITALS: TEMP 98.5
[2019-07-05 16:53] VITALS: BMI 34.3
--- NOTE | 2019-07-05 17:32 | DS ---
Physical Exam: SUBJECTIVE: Patient seen and examined at bedside, feels well. Denies any complaints. Endorses high BP at home, now resolved. OBJECTIVE: Vital Signs Period Temp Pulse Resp BP Sys/Jj Pulse Ox Last 24 Hr 97.4 F-98.5 F 82-105 18-20 118-164/82-103 97-99 Vital Signs - 24 hr 07/04/19 07/04/19 07/04/19 21:00 22:00 23:34 Temperature 97.4 F L Pulse Rate 105 H 88 Pulse Rate [ Left Radial] Pulse Rate [ Left side Sitting] Pulse Rate [ Left side Standing] Pulse Rate [ Left side Supine] Respiratory 18 20 20 Rate Blood Pressure 152/102 H 148/87 Blood Pressure [Left side Sitting] Blood Pressure [Left side Standing] Blood Pressure [Left side Supine] Blood Pressure [Right Arm] O2 Sat by Pulse 98 Oximetry (%) 07/05/19 07/05/19 07/05/19 03:00 06:09 08:21 Temperature 98.2 F Pulse Rate Pulse Rate [ 82 88 Left Radial] Pulse Rate [ 89 Left side Sitting] Pulse Rate [ 97 H Left side Standing] Pulse Rate [ 85 Left side Supine] Respiratory 18 19 Rate Blood Pressure Blood Pressure 147/102 H [Left side Sitting] Blood Pressure 148/103 H [Left side Standing] Blood Pressure 132/91 [Left side Supine] Blood Pressure 118/82 148/97 [Right Arm] O2 Sat by Pulse 98 97 Oximetry (%) 07/05/19 07/05/19 07/05/19 09:00 09:33 15:47 Temperature 98.1 F 98.5 F Pulse Rate 85 87 Pulse Rate [ Left Radial] Pulse Rate [ Left side Sitting] Pulse Rate [ Left side Standing] Pulse Rate [ Left side Supine] Respiratory 20 20 Rate Blood Pressure 142/92 164/103 H Blood Pressure [Left side Sitting] Blood Pressure [Left side Standing] Blood Pressure [Left side Supine] Blood Pressure [Right Arm] O2 Sat by Pulse 98 Oximetry (%) 07/05/19 07/05/19 16:42 16:54 Temperature 98.5 F Pulse Rate 87 Pulse Rate [ Left Radial] Pulse Rate [ Left side Sitting] Pulse Rate [ Left side Standing] Pulse Rate [ Left side Supine] Respiratory 20 Rate Blood Pressure 164/103 H Blood Pressure [Left side Sitting] Blood Pressure [Left side Standing] Blood Pressure [Left side Supine] Blood Pressure [Right Arm] O2 Sat by Pulse 98 Oximetry (%) PHYSICAL EXAM GENERAL: The patient is awake, alert, and fully oriented, in no acute distress. HEAD: Normal with no signs of trauma. EYES: PERRL, extraocular movements intact, sclera anicteric, conjunctiva clear. ENT: Ears normal, nares patent, oropharynx clear without exudates, moist mucous membranes. NECK: Trachea midline, full range of motion, supple. LUNGS: Breath sounds equal, clear to auscultation bilaterally, no wheezes, no crackles, no accessory muscle use. HEART: Regular rate and rhythm, S1, S2 without murmur, rub or gallop. ABDOMEN: Soft, nontender, nondistended, normoactive bowel sounds, no guarding, no rebound, no hepatosplenomegaly, no masses. EXTREMITIES: 2+ pulses, warm, well-perfused, no edema. NEUROLOGICAL: Cranial nerves II through XII grossly intact. Normal speech, gait not observed. PSYCH: Normal mood, normal affect. SKIN: Warm, dry, normal turgor, no rashes or lesions noted. LABS Laboratory Results - last 24 hr 07/05/19 07/05/19 06:26 06:26 WBC 5.6 RBC 3.26 L Hgb 10.9 Hct 31.8 L MCV 97.4 H MCH 33.4 MCHC 34.3 RDW 14.8 Plt Count 311 MPV 8.5 Sodium 138 Potassium 3.7 Chloride 108 H Carbon Dioxide 25 Anion Gap 6 L BUN 8.2 Creatinine 0.6 Est GFR (CKD-EPI)AfAm 132.14 Est GFR (CKD-EPI)NonAf 114.01 Random Glucose 78 Calcium 8.2 L Iron 92 TIBC 407 Iron Saturation 22 Unsaturated IBC 315 H Ferritin 21.0 Laboratory Results - last 24 hr 07/05/19 07/05/19 06:26 06:26 WBC 5.6 RBC 3.26 L Hgb 10.9 Hct 31.8 L MCV 97.4 H MCH 33.4 MCHC 34.3 RDW 14.8 Plt Count 311 MPV 8.5 Sodium 138 Potassium 3.7 Chloride 108 H Carbon Dioxide 25 Anion Gap 6 L BUN 8.2 Creatinine 0.6 Est GFR (CKD-EPI)AfAm 132.14 Est GFR (CKD-EPI)NonAf 114.01 Random Glucose 78 Calcium 8.2 L Iron 92 TIBC 407 Iron Saturation 22 Unsaturated IBC 315 H Ferritin 21.0 Home Medications Medication Instructions Recorded Nifedipine ER [Procardia XL -] 60 mg PO DAILY #30 tab.er.24 07/05/19 Ramipril [Altace] 10 mg PO DAILY 30 Days #30 capsule 07/05/19 Current Medications Generic Name Dose Route Start Last Admin Trade Name [place] PRN Reason Stop Dose Admin Aspirin 325 mg 07/04/19 13:00 07/05/19 10:33 Ecotrin - PO 325 mg DAILY KASSI Administration Heparin Sodium (Porcine) 5,000 unit 07/04/19 06:00 07/05/19 15:04 Heparin - SQ 5,000 unit TID KASSI Administration Sodium Chloride 1,000 mls @ 42 mls/hr 07/03/19 23:15 07/03/19 23:48 Normal Saline - IV 42 mls/hr ASDIR KASSI Administration Nifedipine 60 mg 07/05/19 15:00 07/05/19 16:18 Procardia Xl - PO 60 mg DAILY KASSI Administration Ramipril 10 mg 07/05/19 15:00 07/05/19 16:18 Altace - PO 10 mg DAILY KASSI Administration HOSPITAL COURSE: 39 year old AA female h/o HTN, diverticulitis, nicotine dependence presenting for lightheadedness, L lateral thigh parasthesia, L tinnitus & hearing impairment, nausea. The patient has had these similar symptoms in 2016. Symptoms began around 9pm last evening. She took her BP which she noted was elevated 150s/100s, took an extra dose of her nifedipine 60mg and noted her BP was increasing further so she came to the ED. All symptoms resolved while in the hospital. BP seen to be in 140s systolic, patient underwent MRI imaging of brain which was normal and did not show acute CVA, was seen by Neurology and was cleared for discharge and to follow up as outpatient. Patient to be discharged with Nifedipine and Ramipril with outpatient follow up w/ PCP and Neurology clinic. HTN uncontrolled resume Nifedipine and Ramipril check BP every morning and bring readings to PCP Obesity counseled on diet/exercise and weight loss Nicotine dependence counseled on smoking cessation wants to quit on her own Disposition: Patient to be discharged home with PCP and Neurology follow up in 1 week. Discharge medications: Resume home medications Nifedipine ER 60mg daily, Ramipril 10mg daily Date of Admission:07/04/19 Date of Discharge: 07/05/19 Minutes to complete discharge: 35 Discharge Summary Problems reviewed: Yes Reason For Visit: HEADACHE,WEAKNESS OF LEFTLOWER EXTREMITY,NUMBNESS Current Active Problems Headache (Acute) Left leg numbness (Acute) Left leg weakness (Acute) Condition: Improved - Instructions Diet, Activity, Other Instructions: You were admitted for uncontrolled high blood pressure. You had a Brain MRI which was found to be normal. You were started back on your blood pressure medications which you may continue daily. You may return to your regular diet, exercise and medication regimen as tolerated. You need to follow up with the neurologist in 1 week. You must also follow up with your primary care doctor in 1 week. If you feel any return of your symptoms please return to the emergency room. Referrals: Sebastian Croft MD [Staff Physician] - Disposition: HOME - Home Medications Comprehensive Discharge Medication List: Ambulatory Orders Nifedipine ER [Procardia XL -] 60 mg PO DAILY #30 tab.er.24 07/05/19 Ramipril [Altace] 10 mg PO DAILY 30 Days #30 capsule 07/05/19 This patient is new to me today: Yes Date on this admission: 07/05/19 Emergency Visit: Yes ED Registration Date: 07/04/19 Care time: The patient presented to the Emergency Department on the above date and was hospitalized for further evaluation of their emergent condition. Critical Care patient: No - Discharge Referral Referred to [facility] No
[2019-07-05] MEDS ORDERED: NIFEdipine E.R. 30 MG TABLET PO SCH (18:00)
[2019-07-05 18:50] VITALS: BP 143/86; PULSE 88
== END 2019-07-05 19:12 | disposition home or self-care (01) | DRG 199 ==
LOC: JER 21:34 → JERBED 07-04 03:43
PROVIDERS: ADMIT Internal Medicine
DX: I10 Essential (primary) hypertension (principal); R51 Headache; R00.0 Tachycardia, unspecified; H93.19 Tinnitus, unspecified ear; R42 Dizziness and giddiness; F17.200 Nicotine dependence, unspecified, uncomplicated; R29.898 Other symptoms and signs involving the musculoskeletal system; D53.9 Nutritional anemia, unspecified; R20.0 Anesthesia of skin; E66.9 Obesity, unspecified; Z68.34 Body mass index [BMI] 34.0-34.9, adult
CPT/HCPCS: 36415; 70450-TC; 70496-TC; 70498-TC; 70544-TC; 70551-TC; 71045-TC-FY; 80048; 80053; 80061; 81003; 82550; 82728; 83540; 83550; 83721; 84484; 84703; 85025; 85027; 85610; 85730; 93005; 93010; 93306-TC; 97116-GP; 97161-GP; 99285-25; J0131; J1644; J7030

== ENCOUNTER 2021-05-23 15:54 | Emergency (ER) | payer OTHER ==
[2021-05-23 17:27] VITALS: BP 142/93; PULSE 83; TEMP 98.3; BMI 37.0
[2021-05-23] MEDS ORDERED: IBUPROFEN 600 MG TABLET (FP) PO ONE ×2 (17:51→18:58)
== END 2021-05-23 21:35 | disposition home or self-care (01) ==
LOC: JER 15:54
DX: M25.532 Pain in left wrist (principal); S20.229A Contusion of unspecified back wall of thorax, initial encounter; W18.2XXA Fall in (into) shower or empty bathtub, initial encounter
CPT/HCPCS: 72128-TC; 99284-25

== ENCOUNTER 2021-07-23 23:45 | Inpatient (IN) | payer OTHER ==
[2021-07-24] MEDS ORDERED: ACETAMINOPHEN 1000 MG/100 ML BAG IVPB ONE (00:31)
[2021-07-24] MEDS ORDERED: ACETAMINOPHEN INJECTION 100 ML IVPB ONE (00:33)
[2021-07-24 00:55] LABS: URINE APPEARANCE CLEAR; URINE BILIRUBIN NEGATIVE (NEGATIVE); URINE COLOR YELLOW; URINE GLUCOSE (UA) NEGATIVE (NEGATIVE); URINE KETONE NEGATIVE (NEGATIVE); URINE LEUK ESTERASE NEGATIVE (NEGATIVE); URINE NITRITE NEGATIVE (NEGATIVE); URINE PROTEIN NEGATIVE (NEGATIVE); URINE UROBILINOGEN 0.2 mg/dL (0.2-1.0)
[2021-07-24 01:33] LABS: BASO % 0.6 % (0-2.0); EOS % 2.3 % (0-4.5); HEMATOCRIT 38.8 % (32.4-45.2); LYMPH % 37.3 % (8-40); MCH 31.8 pg (25.7-33.7); MCHC 33.5 g/dl (32.0-36.0); MEAN CELL VOLUME 94.9 fl (80-96); MEAN PLT VOLUME 8.1 fl (7.5-11.1); MONO % 5.7 % (3.8-10.2); NEUT % 54.1 % (42.8-82.8); PLATELET COUNT 281 10^3/uL (134-434); RBC 4.08 M/mm3 (3.60-5.2); WHITE BLOOD COUNT 6.8 K/mm3 (4.0-10.0)
[2021-07-24] MEDS ORDERED: SODIUM CHLORIDE 0.9% 500 ML INFUS.BAG IV ONE (01:35)
[2021-07-24] MEDS ORDERED: morphine CARPU-JECT 4 MG/1 ML DISP.SYRIN IVPUSH ONE (01:35)
[2021-07-24] MEDS ORDERED: ONDANSETRON 4 MG/2 ML VIAL IVPUSH ONE (01:37)
[2021-07-24] MEDS ORDERED: ONDANSETRON 4 MG/2 ML VIAL ONE (01:42)
[2021-07-24 01:49] LABS: ALBUMIN 3.6 g/dl (3.4-5.0); CALCIUM 8.9 mg/dL (8.5-10.1); MAGNESIUM 2.3 mg/dL (1.8-2.4)
[2021-07-24 01:52] LABS: CREATININE 0.8 mg/dL (0.55-1.3)
[2021-07-24 01:54] LABS: BILIRUBIN,TOTAL 0.2 mg/dL (0.2-1); TOT PROT 7.7 g/dl (6.4-8.2)
[2021-07-24] MEDS ORDERED: FAMOTIDINE 20 MG/50 ML IVPB 20 MG/50 ML MG IVPB ONE ×2 (02:39→02:41)
[2021-07-24] MEDS ORDERED: morphine CARPU-JECT 2 MG/1 ML DISP.SYRIN IVPUSH ONE (03:34)
[2021-07-24] MEDS ORDERED: morphine SULFATE 4 MG/ML VIAL ONE (03:42)
[2021-07-24] MEDS ORDERED: ONDANSETRON 4 MG/2 ML VIAL IVPUSH PRN (05:33)
[2021-07-24] MEDS: SODIUM CHLORIDE 1,000 ML IV SCH (08:12)
[2021-07-24 09:08] LABS: INR 1.09 (0.83-1.09); PROTHROMBIN TIME (PATIENT) 12.5 SEC (9.7-13.0)
[2021-07-24 09:11] LABS: ACTIVATED PTT 29.1 SECONDS (25.2-36.5)
[2021-07-24 09:12] LABS: BASO % 0.8 % (0-2.0); HEMATOCRIT 36.6 % (32.4-45.2); LYMPH % 38.3 % (8-40); MCH 31.4 pg (25.7-33.7); MCHC 32.8 g/dl (32.0-36.0); MEAN CELL VOLUME 95.7 fl (80-96); MEAN PLT VOLUME 8.8 fl (7.5-11.1); MONO % 8.2 % (3.8-10.2); NEUT % 50.7 % (42.8-82.8); PLATELET COUNT 290 10^3/uL (134-434); RBC 3.82 M/mm3 (3.60-5.2); WHITE BLOOD COUNT 5.4 K/mm3 (4.0-10.0)
[2021-07-24 09:34] LABS: MAGNESIUM 2.2 mg/dL (1.8-2.4)
[2021-07-24 09:35] LABS: ALBUMIN 3.3 g/dl (3.4-5.0); BLOOD UREA NITROGEN 10.7 mg/dL (7-18); CALCIUM 8.7 mg/dL (8.5-10.1)
[2021-07-24 09:38] LABS: CREATININE 0.8 mg/dL (0.55-1.3); PHOSPHOROUS 4.2 mg/dL (2.5-4.9)
[2021-07-24 09:39] LABS: BILIRUBIN,TOTAL 0.5 mg/dL (0.2-1); TOT PROT 7.1 g/dl (6.4-8.2)
[2021-07-24] MEDS ORDERED: RAMIPRIL 5 MG CAPSULE PO SCH (10:00)
[2021-07-24] MEDS: ACETAMINOPHEN 325 MG TABLET (FP) PO PRN ×2 (10:17→20:42)
[2021-07-24] MEDS: ANASTROZOLE 1 MG TABLET PO SCH (10:17)
[2021-07-24] MEDS: RAMIPRIL 5 MG CAPSULE PO SCH (11:44)
[2021-07-24] MEDS ORDERED: traMADol HCL 50 MG TABLET PO PRN (11:55)
[2021-07-24] MEDS ORDERED: SIMETHICONE 80 MG TAB.CHEW (FP) PO PRN ×2 (12:39→12:42)
[2021-07-24 13:08] VITALS: BMI 36.1
[2021-07-24] MEDS: SIMETHICONE 80 MG TAB.CHEW (FP) PO PRN (13:32)
[2021-07-24] MEDS: morphine SULFATE 4 MG/ML VIAL IVPUSH PRN (17:55)
[2021-07-24 18:14] LABS: BASO % 0.9 % (0-2.0); EOS % 1.8 % (0-4.5); HEMATOCRIT 36.2 % (32.4-45.2); HEMOGLOBIN 12.3 GM/dL (10.7-15.3); LYMPH % 32.7 % (8-40); MCH 32.2 pg (25.7-33.7); MEAN CELL VOLUME 94.7 fl (80-96); MEAN PLT VOLUME 8.6 fl (7.5-11.1); MONO % 8.4 % (3.8-10.2); NEUT % 56.2 % (42.8-82.8); PLATELET COUNT 280 10^3/uL (134-434); RBC 3.82 M/mm3 (3.60-5.2); RDW 14.2 % (11.6-15.6)
[2021-07-24 18:41] LABS: CALCIUM 8.8 mg/dL (8.5-10.1)
[2021-07-24 18:42] LABS: ALBUMIN 3.4 g/dl (3.4-5.0); BLOOD UREA NITROGEN 10.1 mg/dL (7-18)
[2021-07-24 18:45] LABS: CREATININE 0.8 mg/dL (0.55-1.3)
[2021-07-24 18:46] LABS: BILIRUBIN,TOTAL 0.4 mg/dL (0.2-1); TOT PROT 7.3 g/dl (6.4-8.2)
[2021-07-24] MEDS ORDERED: NIFEdipine E.R 60 MG TABLET PO SCH (22:00)
[2021-07-24] MEDS: NIFEdipine E.R 60 MG TABLET PO SCH (22:00)
[2021-07-25] MEDS: morphine SULFATE 4 MG/ML VIAL IVPUSH PRN ×2 (00:05→07:01)
[2021-07-25] MEDS: PREGABALIN 100 MG CAPSULE PO SCH ×3 (00:48→21:49)
[2021-07-25] MEDS: RAMIPRIL 5 MG CAPSULE PO SCH ×3 (00:50→21:48)
[2021-07-25] MEDS: SODIUM CHLORIDE 1,000 ML IV SCH (07:03)
[2021-07-25 08:04] LABS: BASO % 0.6 % (0-2.0); EOS % 1.7 % (0-4.5); HEMATOCRIT 34.5 % (32.4-45.2); HEMOGLOBIN 11.8 GM/dL (10.7-15.3); MCH 32.4 pg (25.7-33.7); MCHC 34.4 g/dl (32.0-36.0); MEAN CELL VOLUME 94.3 fl (80-96); MEAN PLT VOLUME 8.7 fl (7.5-11.1); MONO % 8.9 % (3.8-10.2); NEUT % 52.8 % (42.8-82.8); PLATELET COUNT 271 10^3/uL (134-434); RBC 3.66 M/mm3 (3.60-5.2); RDW 14.1 % (11.6-15.6); WHITE BLOOD COUNT 6.7 K/mm3 (4.0-10.0)
[2021-07-25 08:48] LABS: CALCIUM 8.7 mg/dL (8.5-10.1)
[2021-07-25 08:51] LABS: ALBUMIN 3.4 g/dl (3.4-5.0); CREATININE 0.7 mg/dL (0.55-1.3)
[2021-07-25 08:52] LABS: PHOSPHOROUS 3.9 mg/dL (2.5-4.9)
[2021-07-25 08:53] LABS: BILIRUBIN,TOTAL 0.5 mg/dL (0.2-1); TOT PROT 7.1 g/dl (6.4-8.2)
[2021-07-25] MEDS: SIMETHICONE 80 MG TAB.CHEW (FP) PO PRN (09:42)
[2021-07-25] MEDS: ENOXAPARIN NA (PORCINE) 40 MG/0.4 ML DISP.SYRIN SQ SCH (09:42)
[2021-07-25] MEDS: ANASTROZOLE 1 MG TABLET PO SCH (09:43)
[2021-07-25] MEDS: NIFEdipine E.R 60 MG TABLET PO SCH ×2 (09:44→22:02)
[2021-07-25] MEDS ORDERED: NIFEdipine E.R. 90 MG TABLET PO SCH (10:00)
[2021-07-25] MEDS: KETOROLAC TROMETHAMINE 15 MG/ML VIAL IVPUSH PRN ×2 (14:16→21:50)
[2021-07-25] MEDS: POLYETHYLENE GLYCOL (HEALTHYLAX) 3350 17 GM PACKET PO SCH ×2 (14:17→21:48)
[2021-07-25] MEDS: PANTOPRAZOLE SODIUM 40 MG VIAL IVPUSH SCH (22:02)
[2021-07-26] MEDS: POLYETHYLENE GLYCOL (HEALTHYLAX) 3350 17 GM PACKET PO SCH ×3 (05:27→21:07)
[2021-07-26 09:36] LABS: BASO % 0.7 % (0-2.0); EOS % 3.4 % (0-4.5); HEMATOCRIT 36.2 % (32.4-45.2); HEMOGLOBIN 12.2 GM/dL (10.7-15.3); LYMPH % 23.4 % (8-40); MCH 32.2 pg (25.7-33.7); MCHC 33.7 g/dl (32.0-36.0); MEAN CELL VOLUME 95.6 fl (80-96); MEAN PLT VOLUME 8.6 fl (7.5-11.1); NEUT % 64.5 % (42.8-82.8); PLATELET COUNT 260 10^3/uL (134-434); RBC 3.79 M/mm3 (3.60-5.2); RDW 14.1 % (11.6-15.6); WHITE BLOOD COUNT 4.8 K/mm3 (4.0-10.0)
[2021-07-26] MEDS ORDERED: POLYETHYLENE GLYCOL (HEALTHYLAX) 3350 17 GM PACKET PO SCH (10:00)
[2021-07-26 10:05] LABS: ALBUMIN 3.4 g/dl (3.4-5.0); BLOOD UREA NITROGEN 7.7 mg/dL (7-18); CALCIUM 8.8 mg/dL (8.5-10.1)
[2021-07-26 10:08] LABS: CREATININE 0.6 mg/dL (0.55-1.3)
[2021-07-26 10:10] LABS: BILIRUBIN,TOTAL 0.6 mg/dL (0.2-1); TOT PROT 7.1 g/dl (6.4-8.2)
[2021-07-26] MEDS: ENOXAPARIN NA (PORCINE) 40 MG/0.4 ML DISP.SYRIN SQ SCH (10:37)
[2021-07-26] MEDS: SIMETHICONE 80 MG TAB.CHEW (FP) PO PRN (10:38)
[2021-07-26] MEDS: RAMIPRIL 5 MG CAPSULE PO SCH ×2 (10:40→22:05)
[2021-07-26] MEDS: NIFEdipine E.R 60 MG TABLET PO SCH ×2 (10:40→21:07)
[2021-07-26] MEDS: ANASTROZOLE 1 MG TABLET PO SCH (10:40)
[2021-07-26] MEDS: SODIUM CHLORIDE 1,000 ML IV SCH (10:41)
[2021-07-26] MEDS: PREGABALIN 100 MG CAPSULE PO SCH ×2 (10:41→22:05)
[2021-07-26] MEDS: KETOROLAC TROMETHAMINE 15 MG/ML VIAL IVPUSH PRN (12:16)
[2021-07-26] MEDS: PANTOPRAZOLE SODIUM 40 MG VIAL IVPUSH SCH ×2 (12:17→21:08)
[2021-07-26] MEDS: ACETAMINOPHEN 1000 MG/100 ML BAG IVPB SCH ×2 (15:41→22:00)
[2021-07-26] MEDS: traZODone HCL 50 MG TABLET (FP) PO PRN (21:07)
[2021-07-27] MEDS: SODIUM CHLORIDE 1,000 ML IV SCH ×2 (02:16→16:36)
[2021-07-27] MEDS: ACETAMINOPHEN 1000 MG/100 ML BAG IVPB SCH ×2 (04:58→09:42)
[2021-07-27] MEDS: POLYETHYLENE GLYCOL (HEALTHYLAX) 3350 17 GM PACKET PO SCH ×3 (06:19→21:06)
[2021-07-27] MEDS: ANASTROZOLE 1 MG TABLET PO SCH (09:40)
[2021-07-27] MEDS: NIFEdipine E.R 60 MG TABLET PO SCH ×2 (09:40→21:05)
[2021-07-27] MEDS: ENOXAPARIN NA (PORCINE) 40 MG/0.4 ML DISP.SYRIN SQ SCH (09:41)
[2021-07-27] MEDS: PREGABALIN 100 MG CAPSULE PO SCH ×2 (09:41→21:06)
[2021-07-27] MEDS: RAMIPRIL 5 MG CAPSULE PO SCH ×2 (09:41→21:06)
[2021-07-27] MEDS: PANTOPRAZOLE SODIUM 40 MG VIAL IVPUSH SCH ×2 (09:42→21:05)
[2021-07-27 10:21] LABS: HEMATOCRIT 33.9 % (32.4-45.2); HEMOGLOBIN 11.6 GM/dL (10.7-15.3); MCH 32.4 pg (25.7-33.7); MCHC 34.3 g/dl (32.0-36.0); MEAN CELL VOLUME 94.4 fl (80-96); MEAN PLT VOLUME 8.6 fl (7.5-11.1); PLATELET COUNT 251 10^3/uL (134-434); RBC 3.59 M/mm3 (3.60-5.2); RDW 13.9 % (11.6-15.6)
[2021-07-27 10:51] LABS: CALCIUM 9.1 mg/dL (8.5-10.1)
[2021-07-27 10:52] LABS: BLOOD UREA NITROGEN 5.2 mg/dL (7-18)
[2021-07-27 10:55] LABS: CREATININE 0.6 mg/dL (0.55-1.3)
[2021-07-27] MEDS ORDERED: KETOROLAC TROMETHAMINE 15 MG/ML VIAL IVPUSH PRN (16:19)
[2021-07-27] MEDS: SIMETHICONE 80 MG TAB.CHEW (FP) PO PRN (21:06)
[2021-07-27] MEDS: traZODone HCL 50 MG TABLET (FP) PO PRN (21:07)
[2021-07-28] MEDS: SODIUM CHLORIDE 1,000 ML IV SCH ×2 (01:42→06:28)
[2021-07-28] MEDS: POLYETHYLENE GLYCOL (HEALTHYLAX) 3350 17 GM PACKET PO SCH (06:03)
[2021-07-28 08:45] LABS: HEMATOCRIT 33.3 % (32.4-45.2); HEMOGLOBIN 11.2 GM/dL (10.7-15.3); MCH 32.1 pg (25.7-33.7); MCHC 33.6 g/dl (32.0-36.0); MEAN CELL VOLUME 95.6 fl (80-96); MEAN PLT VOLUME 8.6 fl (7.5-11.1); PLATELET COUNT 238 10^3/uL (134-434); RBC 3.48 M/mm3 (3.60-5.2); WHITE BLOOD COUNT 5.2 K/mm3 (4.0-10.0)
[2021-07-28 09:07] LABS: BLOOD UREA NITROGEN 12.8 mg/dL (7-18)
[2021-07-28 09:08] LABS: CALCIUM 9.1 mg/dL (8.5-10.1)
[2021-07-28 09:11] LABS: CREATININE 0.7 mg/dL (0.55-1.3)
[2021-07-28] MEDS ORDERED: DICYCLOMINE HCL 10 MG CAPSULE PO SCH ×2 (09:45→10:00)
[2021-07-28] MEDS: PREGABALIN 100 MG CAPSULE PO SCH (10:35)
[2021-07-28] MEDS: ENOXAPARIN NA (PORCINE) 40 MG/0.4 ML DISP.SYRIN SQ SCH (10:35)
[2021-07-28] MEDS: NIFEdipine E.R 60 MG TABLET PO SCH (10:35)
[2021-07-28] MEDS: ANASTROZOLE 1 MG TABLET PO SCH (10:36)
[2021-07-28] MEDS: PANTOPRAZOLE SODIUM 40 MG VIAL IVPUSH SCH (10:36)
[2021-07-28] MEDS: RAMIPRIL 5 MG CAPSULE PO SCH (10:36)
[2021-07-28 11:21] VITALS: BP 134/92; PULSE 81; TEMP 98.5
[2021-07-28] MEDS ORDERED: metroNIDAZOLE 250 MG TABLET PO SCH (14:00)
== END 2021-07-28 12:45 | disposition home or self-care (01) | DRG 248 ==
LOC: JER 23:45 → JERBED 07-24 03:39 → J5S 07-24 06:35 → UNDODISIN 07-27 14:50
PROVIDERS: ADMIT Hospitalist; ATTEND Internal Medicine
DX: A04.9 Bacterial intestinal infection, unspecified (principal); R16.0 Hepatomegaly, not elsewhere classified; I10 Essential (primary) hypertension; K57.90 Diverticulosis of intestine, part unspecified, without perforation or abscess without bleeding; K58.9 Irritable bowel syndrome, unspecified; K59.03 Drug induced constipation; R10.9 Unspecified abdominal pain; Z85.3 Personal history of malignant neoplasm of breast; K76.0 Fatty (change of) liver, not elsewhere classified
CPT/HCPCS: 36415; 71045-TC-FY; 71046-TC-FY; 74018-TC-FY; 74019-TC-FY; 74021-TC-FY; 74176-TC; 74177-TC; 76705-TC; 76830-TC; 80048; 80053; 81003; 82962; 83605; 83690; 83735; 84100; 84443; 85025; 85027; 85610; 85730; 86140; 87040; 87045; 87046; 87086; 87177; 87186; 87209; 87324; 87449; 93005; 93010; 99285-25; C9803; U0003; U0005

== ENCOUNTER 2021-09-19 19:25 | Emergency (ER) | payer OTHER ==
[2021-09-19 19:35] VITALS: BP 119/83; PULSE 111; TEMP 98.6; BMI 37.4
[2021-09-19 21:51] LABS: EOS % 1.8 % (0-4.5); HEMATOCRIT 39.1 % (32.4-45.2); HEMOGLOBIN 12.6 GM/dL (10.7-15.3); MCH 30.3 pg (25.7-33.7); MCHC 32.1 g/dl (32.0-36.0); MEAN CELL VOLUME 94.5 fl (80-96); MEAN PLT VOLUME 8.4 fl (7.5-11.1); MONO % 5.1 % (3.8-10.2); NEUT % 51.1 % (42.8-82.8); PLATELET COUNT 344 10^3/uL (134-434); RBC 4.14 M/mm3 (3.60-5.2); RDW 14.4 % (11.6-15.6)
[2021-09-19 22:20] LABS: ALBUMIN 3.4 g/dl (3.4-5.0)
[2021-09-19 22:23] LABS: CREATININE 0.7 mg/dL (0.55-1.3)
[2021-09-19 22:24] LABS: BILIRUBIN,TOTAL 0.4 mg/dL (0.2-1); TOT PROT 7.4 g/dl (6.4-8.2)
[2021-09-20] MEDS ORDERED: ACETAMINOPHEN 500 MG TABLET (FP) ONE (00:01)
[2021-09-20] MEDS ORDERED: ACETAMINOPHEN 500 MG TABLET (FP) PO ONE (00:03)
== END 2021-09-20 00:11 | disposition home or self-care (01) ==
LOC: JER 19:25
DX: G62.9 Polyneuropathy, unspecified (principal)
CPT/HCPCS: 36415; 80053; 85025; 93005; 93010; 93971; 99285-25

== ENCOUNTER 2021-10-25 12:14 | Emergency (ER) | payer OTHER ==
[2021-10-25 13:03] VITALS: BMI 34.9
[2021-10-25] MEDS ORDERED: SODIUM CHLORIDE 0.9% 500 ML INFUS.BAG IV ONE (14:45)
[2021-10-25] MEDS ORDERED: ONDANSETRON 4 MG/2 ML VIAL IVPUSH ONE (14:45)
[2021-10-25] MEDS ORDERED: morphine CARPU-JECT 4 MG/1 ML DISP.SYRIN IVPUSH ONE (14:45)
[2021-10-25] MEDS ORDERED: morphine SULFATE 4 MG/ML VIAL ONE (15:09)
[2021-10-25] MEDS ORDERED: ACETAMINOPHEN INJECTION 100 ML IVPB ONE (15:09)
[2021-10-25] MEDS ORDERED: ONDANSETRON 4 MG/2 ML VIAL ONE (15:30)
[2021-10-25 16:38] LABS: BASO % 0.6 % (0-2.0); EOS % 1.5 % (0-4.5); HEMATOCRIT 40.6 % (32.4-45.2); HEMOGLOBIN 13.5 GM/dL (10.7-15.3); LYMPH % 38.6 % (8-40); MCH 31.9 pg (25.7-33.7); MCHC 33.2 g/dl (32.0-36.0); MEAN PLT VOLUME 8.8 fl (7.5-11.1); MONO % 4.6 % (3.8-10.2); NEUT % 54.7 % (42.8-82.8); PLATELET COUNT 306 10^3/uL (134-434); RBC 4.23 M/mm3 (3.60-5.2); RDW 14.9 % (11.6-15.6); WHITE BLOOD COUNT 6.1 K/mm3 (4.0-10.0)
[2021-10-25 16:41] LABS: PH,URINE 5.5 (5.0-8.0); URINE APPEARANCE CLEAR; URINE BILIRUBIN NEGATIVE (NEGATIVE); URINE COLOR YELLOW; URINE GLUCOSE (UA) NEGATIVE (NEGATIVE); URINE KETONE NEGATIVE (NEGATIVE); URINE LEUK ESTERASE NEGATIVE (NEGATIVE); URINE NITRITE NEGATIVE (NEGATIVE); URINE PROTEIN NEGATIVE (NEGATIVE); URINE UROBILINOGEN 0.2 mg/dL (0.2-1.0)
[2021-10-25 17:02] LABS: ALBUMIN 3.7 g/dl (3.4-5.0); BLOOD UREA NITROGEN 8.2 mg/dL (7-18); CALCIUM 9.4 mg/dL (8.5-10.1)
[2021-10-25 17:05] LABS: CREATININE 0.6 mg/dL (0.55-1.3)
[2021-10-25 17:07] LABS: BILIRUBIN,TOTAL 0.4 mg/dL (0.2-1); TOT PROT 7.6 g/dl (6.4-8.2)
[2021-10-25] MEDS ORDERED: KETOROLAC TROMETHAMINE 30 MG/1 ML VIAL IVPB ONE (17:23)
[2021-10-25] MEDS ORDERED: KETOROLAC TROMETHAMINE 30 MG/1 ML VIAL ONE (17:24)
[2021-10-25 18:40] VITALS: BP 130/88; PULSE 98; TEMP 97.9
== END 2021-10-25 20:44 | disposition home or self-care (01) ==
LOC: JER 12:14
PROC: 3E0333Z Introduction of Anti-inflammatory into Peripheral Vein, Percutaneous Approach (ICD-10-PCS; principal; 2021-10-25)
PROC: 3E033NZ Introduction of Analgesics, Hypnotics, Sedatives into Peripheral Vein, Percutaneous Approach (ICD-10-PCS; 2021-10-25)
PROC: 3E033GC Introduction of Other Therapeutic Substance into Peripheral Vein, Percutaneous Approach (ICD-10-PCS; 2021-10-25)
DX: R10.32 Left lower quadrant pain (principal)
CPT/HCPCS: 36415; 74177-TC; 80053; 81003; 83690; 85025; 87086; 99285-25; Q9967

== ENCOUNTER 2021-11-04 09:59 | Day surgery (SDC) | payer OTHER ==
[2021-11-01 16:12] VITALS: BMI 36.2
[2021-11-04] MEDS ORDERED: SODIUM BICARBONATE 8.4% 50 MEQ/50 ML VIAL ONE ×2 (11:28→14:53)
[2021-11-04] MEDS ORDERED: LIDOCAINE HCL 2% (20ML MULTI-DOSE VIAL) ONE ×3 (11:29→14:55)
[2021-11-04] MEDS ORDERED: EPINEPHrine 1:1,000 1,000 MCG/ML ML ONE (11:29)
[2021-11-04] MEDS ORDERED: BUPIVACAINE HCL/EPINEPHRINE/PF 30 ML VIAL IJ ONE (13:40)
[2021-11-04] MEDS ORDERED: PROPOFOL 20 ML ONE ×3 (14:02→15:59)
[2021-11-04] MEDS ORDERED: ROCURONIUM BROMIDE 50 MG/5 ML SYRINGE ONE (14:02)
[2021-11-04] MEDS ORDERED: fentaNYL CITRATE 250 MCG/5 ML VIAL ONE (14:02)
[2021-11-04] MEDS ORDERED: LIDOCAINE HCL/PF 2% SDV 5ML VIAL ONE (14:03)
[2021-11-04] MEDS ORDERED: LIDOCAINE HCL 2% JELLY (5 ML/TUBE) ONE (14:03)
[2021-11-04] MEDS ORDERED: MIDAZOLAM HCL 2 MG/2 ML SINGLE DOSE VIAL ONE (14:03)
[2021-11-04] MEDS ORDERED: ONDANSETRON 4 MG/2 ML VIAL ONE (14:18)
[2021-11-04] MEDS ORDERED: ceFAZolin SODIUM 1 GM VIAL ONE (14:18)
[2021-11-04] MEDS ORDERED: DEXAMETHASONE SOD PHOSPHATE 4 MG/1 ML VIAL ONE (14:18)
[2021-11-04] MEDS ORDERED: KETOROLAC TROMETHAMINE 30 MG/1 ML VIAL ONE (14:18)
[2021-11-04] MEDS ORDERED: HYDROmorphone HCL/PF 1 MG/ML VIAL ONE ×2 (15:03)
[2021-11-04] MEDS ORDERED: oxyCODONE HCL 5 MG TABLET PO PRN ×2 (16:30)
[2021-11-04] MEDS ORDERED: PROMETHAZINE HCL 25 MG/1 ML VIAL IVPUSH PRN (16:30)
[2021-11-04] MEDS ORDERED: ONDANSETRON 4 MG/2 ML VIAL IVPUSH PRN ×2 (16:30→16:35)
[2021-11-04] MEDS ORDERED: ACETAMINOPHEN 325 MG TABLET (FP) PO PRN (16:35)
[2021-11-04] MEDS ORDERED: LACTATED RINGERS SOLUTION 1,000 ML IV SCH (16:45)
[2021-11-04] MEDS ORDERED: FENTANYL CITRATE/PF 50 MCG/ML VIAL ONE ×2 (16:47→17:07)
[2021-11-04] MEDS ORDERED: oxyCODONE HCL 5 MG TABLET ONE (17:44)
[2021-11-04 18:02] VITALS: TEMP 97
[2021-11-04] MEDS ORDERED: PROMETHAZINE HCL 25 MG/1 ML VIAL ONE (18:11)
[2021-11-04 18:55] VITALS: BP 125/78; PULSE 89
== END 2021-11-04 18:55 | disposition home or self-care (01) ==
LOC: FASU 09:59
PROVIDERS: ATTEND Plastic Surgery
PROC: 0HRT07Z Replacement of Right Breast with Autologous Tissue Substitute, Open Approach (ICD-10-PCS; principal; 2021-11-04 14:33)
PROC: 0HX5XZZ Transfer Chest Skin, External Approach (ICD-10-PCS; 2021-11-04 14:33)
PROC: 0HQU0ZZ Repair Left Breast, Open Approach (ICD-10-PCS; 2021-11-04 14:33)
DX: C50.911 Malignant neoplasm of unspecified site of right female breast (principal); Z90.11 Acquired absence of right breast and nipple; N65.0 Deformity of reconstructed breast; N65.1 Disproportion of reconstructed breast
CPT/HCPCS: 88305-TC; 94760

== ENCOUNTER 2021-11-23 12:51 | Emergency (ER) | payer OTHER ==
[2021-11-23 13:29] VITALS: BP 137/88; PULSE 79; TEMP 98.1; BMI 34.9
== END 2021-11-23 15:00 | disposition left against medical advice (07) ==
LOC: JER 12:51
DX: N61.1 Abscess of the breast and nipple (principal)
CPT/HCPCS: 99281-25

== ENCOUNTER 2022-03-02 12:51 | Emergency (ER) | payer OTHER ==
[2022-03-02 13:13] VITALS: BP 132/84; PULSE 109; RESP 18; TEMP 98.4; BMI 35.7
[2022-03-02] MEDS ORDERED: ACETAMINOPHEN 1000 MG/100 ML BAG IVPB ONE (15:13)
[2022-03-02] MEDS ORDERED: morphine CARPU-JECT 4 MG/1 ML DISP.SYRIN IVPUSH ONE ×2 (15:13→16:47)
[2022-03-02] MEDS ORDERED: FAMOTIDINE 20 MG/50 ML IVPB 20 MG/50 ML MG IVPB ONE ×2 (15:13→16:00)
[2022-03-02] MEDS ORDERED: SODIUM CHLORIDE 1,000 ML IV STA (15:13)
[2022-03-02] MEDS ORDERED: morphine SULFATE 4 MG/ML VIAL ONE ×2 (16:00→17:12)
[2022-03-02] MEDS ORDERED: ACETAMINOPHEN INJECTION 100 ML IVPB ONE (16:00)
[2022-03-02 17:59] LABS: BASO % 0.8 % (0-2.0); EOS % 2.7 % (0-4.5); HEMOGLOBIN 13.1 GM/dL (10.7-15.3); LYMPH % 36.5 % (8-40); MCHC 32.8 g/dl (32.0-36.0); MEAN CELL VOLUME 94.6 fl (80-96); MEAN PLT VOLUME 9.2 fl (7.5-11.1); MONO % 4.7 % (3.8-10.2); NEUT % 55.3 % (42.8-82.8); PLATELET COUNT 345 10^3/uL (134-434); RBC 4.23 M/mm3 (3.60-5.2); RDW 15.7 % (11.6-15.6); URINE APPEARANCE CLEAR; URINE BILIRUBIN NEGATIVE (NEGATIVE); URINE COLOR YELLOW; URINE GLUCOSE (UA) NEGATIVE (NEGATIVE); URINE KETONE NEGATIVE (NEGATIVE); URINE LEUK ESTERASE NEGATIVE (NEGATIVE); URINE NITRITE NEGATIVE (NEGATIVE); URINE PROTEIN NEGATIVE (NEGATIVE); URINE UROBILINOGEN 0.2 mg/dL (0.2-1.0); WHITE BLOOD COUNT 6.9 K/mm3 (4.0-10.0)
[2022-03-02 18:18] LABS: CHLORIDE 102 mmol/L (98-107); SODIUM 138 mmol/L (136-145)
[2022-03-02 18:20] LABS: CALCIUM 9.2 mg/dL (8.5-10.1)
[2022-03-02 18:22] LABS: ALBUMIN 3.4 g/dl (3.4-5.0); BLOOD UREA NITROGEN 11.7 mg/dL (7-18); CO2 28 mmol/L (21-32); GLUCOSE,RANDOM 98 mg/dL (74-106); LIPASE 29 U/L (73-393)
[2022-03-02 18:23] LABS: CREATININE 0.7 mg/dL (0.55-1.3); SGOT/AST 78 U/L (15-37)
[2022-03-02 18:25] LABS: SGPT/ALT 63 U/L (13-61)
[2022-03-02 18:26] LABS: BILIRUBIN,TOTAL 0.4 mg/dL (0.2-1); TOT PROT 8.2 g/dl (6.4-8.2)
[2022-03-02 18:27] LABS: ALK PHOS 136 U/L (45-117)
[2022-03-02 18:30] LABS: HCG,QUALITATIVE URINE NEGATIVE
[2022-03-02 18:34] LABS: ANION GAP 7 MMOL/L (8-16)
[2022-03-02] MEDS ORDERED: HYDROmorphone HCL CARPU-JECT 2 MG/1 ML DISP.SYRIN IVPUSH ONE (19:03)
[2022-03-02] MEDS ORDERED: HYDROmorphone HCl 2 MG/ML VIAL ONE (19:15)
[2022-03-02 20:28] LABS: ALBUMIN 3.3 g/dl (3.4-5.0); BLOOD UREA NITROGEN 10.5 mg/dL (7-18); CALCIUM 8.8 mg/dL (8.5-10.1)
[2022-03-02 20:32] LABS: CREATININE 0.7 mg/dL (0.55-1.3)
[2022-03-02 20:34] LABS: BILIRUBIN,TOTAL 0.3 mg/dL (0.2-1); TOT PROT 7.3 g/dl (6.4-8.2)
== END 2022-03-02 20:40 | disposition home or self-care (01) ==
LOC: JER 12:51
PROC: 3E033GC Introduction of Other Therapeutic Substance into Peripheral Vein, Percutaneous Approach (ICD-10-PCS; principal; 2022-03-02)
DX: R10.32 Left lower quadrant pain (principal)
CPT/HCPCS: 36415; 74177-TC; 80053; 81003; 83690; 84703; 85025; 87086; 99285-25; Q9967

== ENCOUNTER 2022-03-04 21:05 | Emergency (ER) | payer OTHER ==
[2022-03-04 21:10] VITALS: BP 110/74; PULSE 104; RESP 18; TEMP 98; BMI 36.6
[2022-03-04] MEDS ORDERED: LACTATED RINGERS SOLUTION 1,000 ML/1,000 ML INFUS.BAG IV SCH (22:00)
[2022-03-04] MEDS ORDERED: morphine CARPU-JECT 4 MG/1 ML DISP.SYRIN IVPUSH ONE (22:01)
[2022-03-04] MEDS ORDERED: ONDANSETRON 4 MG/2 ML VIAL IVPUSH ONE (22:01)
[2022-03-04] MEDS ORDERED: morphine SULFATE 4 MG/ML VIAL IVPUSH ONE (22:01)
[2022-03-04] MEDS ORDERED: MAG HYDROX/AL HYDROX/SIMETH 30 ML UNIT-DOSE CUP PO ONE (22:01)
[2022-03-04] MEDS ORDERED: FAMOTIDINE 20 MG/50 ML IVPB 20 MG/50 ML MG IVPB ONE ×2 (22:01→22:33)
[2022-03-04] MEDS ORDERED: morphine SULFATE 4 MG/ML VIAL ONE (22:32)
[2022-03-04] MEDS ORDERED: ONDANSETRON 4 MG/2 ML VIAL ONE (22:33)
[2022-03-04] MEDS ORDERED: MAG HYDROX/AL HYDROX/SIMETH 30 ML UNIT-DOSE CUP ONE (22:33)
[2022-03-04 22:43] LABS: BASO % 1.4 % (0-2.0); EOS % 2.2 % (0-4.5); HEMATOCRIT 37.1 % (32.4-45.2); HEMOGLOBIN 12.3 GM/dL (10.7-15.3); LYMPH % 38.3 % (8-40); MCH 31.4 pg (25.7-33.7); MCHC 33.2 g/dl (32.0-36.0); MEAN CELL VOLUME 94.6 fl (80-96); MEAN PLT VOLUME 8.4 fl (7.5-11.1); MONO % 6.9 % (3.8-10.2); NEUT % 51.2 % (42.8-82.8); PLATELET COUNT 301 10^3/uL (134-434); RBC 3.92 M/mm3 (3.60-5.2); RDW 15.6 % (11.6-15.6); WHITE BLOOD COUNT 7.7 K/mm3 (4.0-10.0)
[2022-03-04 23:03] LABS: ALBUMIN 3.5 g/dl (3.4-5.0); BLOOD UREA NITROGEN 9.9 mg/dL (7-18)
[2022-03-04 23:06] LABS: CREATININE 0.7 mg/dL (0.55-1.3)
[2022-03-04 23:07] LABS: BILIRUBIN,TOTAL 0.2 mg/dL (0.2-1); TOT PROT 7.2 g/dl (6.4-8.2)
== END 2022-03-05 00:53 | disposition home or self-care (01) ==
LOC: JER 21:05
PROC: 3E033NZ Introduction of Analgesics, Hypnotics, Sedatives into Peripheral Vein, Percutaneous Approach (ICD-10-PCS; principal; 2022-03-04)
PROC: 3E033GC Introduction of Other Therapeutic Substance into Peripheral Vein, Percutaneous Approach (ICD-10-PCS; 2022-03-04)
PROC: 3E033GC Introduction of Other Therapeutic Substance into Peripheral Vein, Percutaneous Approach (ICD-10-PCS; 2022-03-04)
DX: R10.32 Left lower quadrant pain (principal)
CPT/HCPCS: 36415; 80053; 85025; 99284-25

== ENCOUNTER 2022-06-25 16:58 | Emergency (ER) | payer OTHER ==
[2022-06-25 17:42] VITALS: PULSE 83; RESP 18; TEMP 98.5; BMI 37.5
[2022-06-25] MEDS ORDERED: LIDOCAINE 5% TOPICAL PATCH TP ONE (18:16)
[2022-06-25] MEDS ORDERED: KETOROLAC TROMETHAMINE 30 MG/1 ML VIAL IM ONE (18:16)
[2022-06-25] MEDS ORDERED: LIDOCAINE 5% TOPICAL PATCH ONE (18:20)
[2022-06-25] MEDS ORDERED: KETOROLAC TROMETHAMINE 30 MG/1 ML VIAL ONE (18:21)
[2022-06-25 18:44] VITALS: BP 133/88
[2022-06-25] MEDS ORDERED: LIDOCAINE PATCH REMOVAL MC SCH (22:00)
== END 2022-06-25 18:54 | disposition home or self-care (01) ==
LOC: JERFT 16:58
PROC: 3E0233Z Introduction of Anti-inflammatory into Muscle, Percutaneous Approach (ICD-10-PCS; principal; 2022-06-25)
DX: G54.2 Cervical root disorders, not elsewhere classified (principal)
CPT/HCPCS: 73030-TC-RT-FY; 73110-TC-RT-FY; 93005; 93010; 99285-25

== ENCOUNTER 2022-08-16 13:49 | Emergency (ER) | payer OTHER ==
[2022-08-16 14:05] VITALS: BP 163/91; PULSE 86; RESP 17; TEMP 98.2; BMI 33.3
== END 2022-08-16 15:36 | disposition home or self-care (01) ==
LOC: JERFT 13:49 → JER 13:49 → JERFT 15:36
DX: R21 Rash and other nonspecific skin eruption (principal)
CPT/HCPCS: 99283-25

== ENCOUNTER 2022-08-17 23:55 | Observation (INO) | payer OTHER ==
[2022-08-18 00:28] VITALS: RESP 18; BMI 36.8
[2022-08-18] MEDS ORDERED: KETOROLAC TROMETHAMINE 30 MG/1 ML VIAL IM ONE (00:40)
[2022-08-18] MEDS ORDERED: KETOROLAC TROMETHAMINE 30 MG/1 ML VIAL ONE (00:46)
[2022-08-18 01:29] LABS: BASO % 0.7 % (0-2.0); EOS % 1.8 % (0-4.5); HEMATOCRIT 36.5 % (32.4-45.2); HEMOGLOBIN 12.4 GM/dL (10.7-15.3); LYMPH % 28.8 % (8-40); MCH 31.8 pg (25.7-33.7); MCHC 33.9 g/dl (32.0-36.0); MEAN CELL VOLUME 93.8 fl (80-96); MEAN PLT VOLUME 8.2 fl (7.5-11.1); MONO % 7.2 % (3.8-10.2); NEUT % 61.5 % (42.8-82.8); PLATELET COUNT 304 10^3/uL (134-434); RBC 3.89 M/mm3 (3.60-5.2); RDW 14.7 % (11.6-15.6); WHITE BLOOD COUNT 8.4 K/mm3 (4.0-10.0)
[2022-08-18 01:48] LABS: CALCIUM 9.1 mg/dL (8.5-10.1)
[2022-08-18 01:49] LABS: ALBUMIN 3.3 g/dl (3.4-5.0); BLOOD UREA NITROGEN 7.9 mg/dL (7-18)
[2022-08-18 01:52] LABS: CREATININE 0.6 mg/dL (0.55-1.3)
[2022-08-18 01:54] LABS: BILIRUBIN,TOTAL 0.4 mg/dL (0.2-1); TOT PROT 7.3 g/dl (6.4-8.2)
[2022-08-18] MEDS ORDERED: oxyCODONE HCL 5 MG TABLET PO ONE (02:09)
[2022-08-18] MEDS ORDERED: oxyCODONE HCL 5 MG TABLET ONE (02:45)
[2022-08-18] MEDS ORDERED: morphine CARPU-JECT 2 MG/1 ML DISP.SYRIN IVPUSH ONE (03:27)
[2022-08-18] MEDS ORDERED: METOCLOPRAMIDE HCL INJECTION 10 MG/2 ML VIAL IVPB ONE (06:14)
[2022-08-18] MEDS ORDERED: METOCLOPRAMIDE HCL INJECTION 10 MG/2 ML VIAL ONE (06:16)
[2022-08-18] MEDS ORDERED: ACETAMINOPHEN 1000 MG/100 ML BAG IVPB PRN (08:04)
[2022-08-18] MEDS: ENOXAPARIN NA (PORCINE) 40 MG/0.4 ML DISP.SYRIN SQ SCH (09:49)
[2022-08-18] MEDS ORDERED: oxyCODONE HCL 5 MG TABLET PO PRN (15:21)
[2022-08-18] MEDS: DOXYCYCLINE HYCLATE 100 MG CAPSULE PO SCH (17:16)
[2022-08-18] MEDS: KETOROLAC TROMETHAMINE 15 MG/ML VIAL IVPUSH PRN (19:17)
[2022-08-19] MEDS: KETOROLAC TROMETHAMINE 15 MG/ML VIAL IVPUSH PRN (05:41)
[2022-08-19 07:26] LABS: BASO % 0.9 % (0-2.0); EOS % 3.1 % (0-4.5); HEMATOCRIT 31.6 % (32.4-45.2); LYMPH % 39.1 % (8-40); MCH 32.8 pg (25.7-33.7); MCHC 34.8 g/dl (32.0-36.0); MEAN CELL VOLUME 94.3 fl (80-96); MEAN PLT VOLUME 8.8 fl (7.5-11.1); NEUT % 48.9 % (42.8-82.8); PLATELET COUNT 264 10^3/uL (134-434); RBC 3.35 M/mm3 (3.60-5.2); RDW 14.3 % (11.6-15.6); WHITE BLOOD COUNT 6.2 K/mm3 (4.0-10.0)
[2022-08-19 07:52] LABS: CALCIUM 8.7 mg/dL (8.5-10.1)
[2022-08-19 07:53] LABS: ALBUMIN 2.9 g/dl (3.4-5.0); BLOOD UREA NITROGEN 14.1 mg/dL (7-18); MAGNESIUM 2.2 mg/dL (1.8-2.4)
[2022-08-19 07:56] LABS: CREATININE 0.6 mg/dL (0.55-1.3); PHOSPHOROUS 4.2 mg/dL (2.5-4.9)
[2022-08-19 07:58] LABS: BILIRUBIN,TOTAL 0.3 mg/dL (0.2-1)
[2022-08-19 07:59] LABS: TOT PROT 6.4 g/dl (6.4-8.2)
[2022-08-19] MEDS: DOXYCYCLINE HYCLATE 100 MG CAPSULE PO SCH (09:27)
[2022-08-19] MEDS: ENOXAPARIN NA (PORCINE) 40 MG/0.4 ML DISP.SYRIN SQ SCH (09:27)
[2022-08-19 09:30] VITALS: PULSE 81
[2022-08-19] MEDS ORDERED: NIFEdipine E.R 60 MG TABLET PO SCH (14:06)
[2022-08-19] MEDS ORDERED: ANASTROZOLE 1 MG TABLET PO SCH (14:06)
[2022-08-19] MEDS ORDERED: RAMIPRIL 5 MG CAPSULE PO SCH (14:06)
[2022-08-19 15:25] VITALS: BP 134/87; TEMP 99.3
== END 2022-08-19 16:00 | disposition home or self-care (01) ==
LOC: JER 23:55 → JERBED 08-18 07:37 → J7W 08-18 09:14
PROVIDERS: ADMIT Internal Medicine
DX: R51.9 Headache, unspecified (principal); R22.0 Localized swelling, mass and lump, head; I10 Essential (primary) hypertension; Z85.3 Personal history of malignant neoplasm of breast; K57.92 Diverticulitis of intestine, part unspecified, without perforation or abscess without bleeding
CPT/HCPCS: 0241U-QW; 36415; 70487-TC; 80053; 83735; 84100; 84703; 85025; 93005; 93010; 96372; 96374; 96375; 96376; 99285-25; G0378

== ENCOUNTER 2022-09-29 03:56 | Day surgery (SDC) | payer MEDICARE, OTHER ==
[2022-09-26 18:44] VITALS: BMI 36.2
[~2022-09-29 03:56] MED LIST changes: +BACITRACIN ZINC 15 GM TUBE TOPICAL OINTMENT TP ONE; -KETOROLAC TROMETHAMINE 30 MG/1 ML VIAL IVPUSH ONE; -KETOROLAC TROMETHAMINE 30 MG/1 ML VIAL ONE; +LIDOCAINE 1%/EPI 1:100000 (50 ML MULTI DOSE VIAL) INF ONE; -ONDANSETRON 4 MG/2 ML VIAL IVPUSH ONE; -ONDANSETRON 4 MG/2 ML VIAL ONE; +OXYMETAZOLINE 0.05% NASAL SOLUTION 15 ML BOTTLE NS ONE; -SODIUM CHLORIDE 1,000 ML IV STA; +ceFAZolin SODIUM 1 GM VIAL IVPB ONE
[2022-09-29] MEDS ORDERED: BACITRACIN ZINC 15 GM TUBE TOPICAL OINTMENT ONE (09:59)
[2022-09-29] MEDS ORDERED: LIDOCAINE HCL/PF 2% SDV 5ML VIAL ONE (10:39)
[2022-09-29] MEDS ORDERED: SUCCINYLCHOLINE CHLORIDE 200 MG/10 ML SYRINGE ONE (10:40)
[2022-09-29] MEDS ORDERED: PROPOFOL 20 ML ONE ×2 (10:40→11:29)
[2022-09-29] MEDS ORDERED: MIDAZOLAM HCL 2 MG/2 ML SINGLE DOSE VIAL ONE (10:40)
[2022-09-29] MEDS ORDERED: ONDANSETRON 4 MG/2 ML VIAL ONE (10:59)
[2022-09-29] MEDS ORDERED: ceFAZolin SODIUM 1 GM VIAL ONE (10:59)
[2022-09-29] MEDS ORDERED: DEXAMETHASONE SOD PHOSPHATE 4 MG/1 ML VIAL ONE (10:59)
[2022-09-29] MEDS ORDERED: ceFAZolin SODIUM 1 GM VIAL IVPB ONE (11:00)
[2022-09-29] MEDS ORDERED: OXYMETAZOLINE 0.05% NASAL SOLUTION 15 ML BOTTLE NS ONE (11:04)
[2022-09-29] MEDS ORDERED: ROCURONIUM BROMIDE 50 MG/5 ML SYRINGE ONE (11:05)
[2022-09-29] MEDS ORDERED: LIDOCAINE 1%/EPI 1:100000 (50 ML MULTI DOSE VIAL) INF ONE ×3 (11:08)
[2022-09-29] MEDS ORDERED: BACITRACIN ZINC 15 GM TUBE TOPICAL OINTMENT TP ONE (12:35)
[2022-09-29] MEDS ORDERED: oxyCODONE HCL 5 MG TABLET PO PRN ×2 (12:54)
[2022-09-29] MEDS ORDERED: PROMETHAZINE HCL 25 MG/1 ML VIAL IVPB PRN (12:54)
[2022-09-29] MEDS ORDERED: ONDANSETRON 4 MG/2 ML VIAL IVPUSH PRN (12:54)
[2022-09-29] MEDS ORDERED: ACETAMINOPHEN 1000 MG/100 ML BAG IVPB ONE (12:55)
[2022-09-29] MEDS ORDERED: LACTATED RINGERS SOLUTION 1,000 ML IV SCH (13:00)
[2022-09-29] MEDS ORDERED: oxyCODONE HCL 10 MG SUSTAINED ACTING TABLET ONE (14:55)
[2022-09-29 14:58] VITALS: RESP 20
[2022-09-29 15:07] VITALS: TEMP 98
[2022-09-29 16:01] VITALS: BP 115/70; PULSE 85
== END 2022-09-29 16:00 | disposition home or self-care (01) ==
LOC: JASU-SURG 03:56
PROVIDERS: ATTEND Otolaryngology
PROC: 099Q7ZZ Drainage of Right Maxillary Sinus, Via Natural or Artificial Opening (ICD-10-PCS; 2022-09-29)
PROC: 09BM8ZZ Excision of Nasal Septum, Via Natural or Artificial Opening Endoscopic (ICD-10-PCS; 2022-09-29)
PROC: 09BL7ZZ Excision of Nasal Turbinate, Via Natural or Artificial Opening (ICD-10-PCS; 2022-09-29)
PROC: 099R7ZZ Drainage of Left Maxillary Sinus, Via Natural or Artificial Opening (ICD-10-PCS; principal; 2022-09-29 11:00)
DX: J34.2 Deviated nasal septum (principal); J34.3 Hypertrophy of nasal turbinates; J32.0 Chronic maxillary sinusitis; J32.2 Chronic ethmoidal sinusitis; J34.81 Nasal mucositis (ulcerative)
CPT/HCPCS: 81025; 88304-TC; 88311-TC; 94760

== ENCOUNTER 2022-11-10 13:25 | Emergency (ER) | payer MEDICARE, OTHER ==
[2022-11-10 13:43] VITALS: BP 131/82; PULSE 124; RESP 20; TEMP 97.8; BMI 36.6
== END 2022-11-10 14:23 | disposition left against medical advice (07) ==
LOC: JER 13:25
DX: R10.9 Unspecified abdominal pain (principal); R11.2 Nausea with vomiting, unspecified; R19.7 Diarrhea, unspecified
CPT/HCPCS: 93005; 93010; 99283-25

== ENCOUNTER 2022-11-21 21:16 | Emergency (ER) | payer MEDICARE, OTHER ==
[2022-11-21 21:23] VITALS: TEMP 98.3; BMI 36.6
[2022-11-22 00:54] LABS: BASO % 1.3 % (0-2.0); EOS % 1.2 % (0-4.5); HEMATOCRIT 39.3 % (32.4-45.2); HEMOGLOBIN 12.6 GM/dL (10.7-15.3); LYMPH % 35.1 % (8-40); MCH 30.9 pg (25.7-33.7); MCHC 32.1 g/dl (32.0-36.0); MEAN CELL VOLUME 96.2 fl (80-96); MONO % 6.1 % (3.8-10.2); NEUT % 56.3 % (42.8-82.8); PLATELET COUNT 351 10^3/uL (134-434); RBC 4.09 M/mm3 (3.60-5.2); RDW 14.4 % (11.6-15.6); WHITE BLOOD COUNT 8.1 K/mm3 (4.0-10.0)
[2022-11-22 01:04] LABS: INR 1.09 (0.83-1.09); PROTHROMBIN TIME (PATIENT) 12.6 SEC (9.7-13.0)
[2022-11-22 01:07] LABS: ACTIVATED PTT 28.1 SECONDS (25.2-36.5)
[2022-11-22] MEDS ORDERED: KETOROLAC TROMETHAMINE 30 MG/1 ML VIAL IM ONE (01:42)
[2022-11-22] MEDS ORDERED: KETOROLAC TROMETHAMINE 30 MG/1 ML VIAL ONE (01:43)
[2022-11-22 02:22] VITALS: BP 98/62; PULSE 92; RESP 18
== END 2022-11-22 02:47 | disposition home or self-care (01) ==
LOC: JER 21:16
PROC: 3E0233Z Introduction of Anti-inflammatory into Muscle, Percutaneous Approach (ICD-10-PCS; principal; 2022-11-22)
DX: M79.662 Pain in left lower leg (principal); R22.42 Localized swelling, mass and lump, left lower limb
CPT/HCPCS: 36415; 85025; 85610; 85730; 93971-TC; 99284-25

== ENCOUNTER 2023-05-03 20:37 | Observation (INO) | payer MEDICARE, OTHER ==
[2023-05-04 01:54] LABS: PH,URINE 5.5 (5.0-8.0); URINE APPEARANCE CLEAR; URINE BILIRUBIN NEGATIVE (NEGATIVE); URINE COLOR YELLOW; URINE GLUCOSE (UA) NEGATIVE (NEGATIVE); URINE KETONE NEGATIVE (NEGATIVE); URINE LEUK ESTERASE NEGATIVE (NEGATIVE); URINE NITRITE NEGATIVE (NEGATIVE); URINE PROTEIN NEGATIVE (NEGATIVE); URINE UROBILINOGEN 0.2 mg/dL (0.2-1.0)
[2023-05-04 02:03] LABS: COCAINE, UR NEGATIVE (NEGATIVE); OPIATES, URI NEGATIVE (NEGATIVE); URINE BARBITURATES NEGATIVE (NEGATIVE)
[2023-05-04 02:04] LABS: METHADONE, UR NEGATIVE (NEGATIVE); PHENCYCLIDINE,URINE NEGATIVE (NEGATIVE); URINE BENZODIAZEPINES NEGATIVE (NEGATIVE)
[2023-05-04 02:15] LABS: URINE AMPHETAMINES NEGATIVE (NEGATIVE)
[2023-05-04 02:27] LABS: HEMOGLOBIN 13.5 GM/dL (10.7-15.3); MCH 31.7 pg (25.7-33.7); MCHC 32.9 g/dl (32.0-36.0); MEAN CELL VOLUME 96.6 fl (80-96); MEAN PLT VOLUME 8.3 fl (7.5-11.1); PLATELET COUNT 342 10^3/uL (134-434); RBC 4.24 M/mm3 (3.60-5.2); RDW 14.3 % (11.6-15.6); WHITE BLOOD COUNT 7.1 K/mm3 (4.0-10.0)
[2023-05-04 02:34] LABS: INR 0.94 (0.83-1.09); PROTHROMBIN TIME (PATIENT) 10.9 SEC (9.7-13.0)
[2023-05-04 02:36] LABS: ACTIVATED PTT 31.2 SECONDS (25.2-36.5)
[2023-05-04 02:45] LABS: POTASSIUM 3.7 mmol/L (3.5-5.1)
[2023-05-04 02:47] LABS: ALBUMIN 3.6 g/dl (3.4-5.0); CALCIUM 8.6 mg/dL (8.5-10.1)
[2023-05-04 02:48] LABS: BLOOD UREA NITROGEN 12.7 mg/dL (7-18)
[2023-05-04 02:51] LABS: CREATININE 0.8 mg/dL (0.55-1.3)
[2023-05-04 02:52] LABS: BILIRUBIN,TOTAL 0.2 mg/dL (0.2-1); TOT PROT 7.9 g/dl (6.4-8.2)
[2023-05-04 06:11] LABS: ANISOCYTOSIS 2+; MACROCYTOSIS 0; ROULEAU 1+
[2023-05-04] MEDS ORDERED: ENOXAPARIN NA (PORCINE) 40 MG/0.4 ML DISP.SYRIN SQ SCH (10:00)
[2023-05-04] MEDS: NIFEdipine E.R 60 MG TABLET PO SCH ×2 (10:52→21:38)
[2023-05-04] MEDS: RAMIPRIL 5 MG CAPSULE PO SCH ×2 (10:52→21:38)
[2023-05-04] MEDS: DULoxetine HCL 30 MG CAPSULE.DR PO SCH (10:52)
[2023-05-04] MEDS: ENOXAPARIN NA (PORCINE) 40 MG/0.4 ML DISP.SYRIN SQ SCH ×2 (10:52→21:38)
[2023-05-04] MEDS ORDERED: PANTOPRAZOLE SODIUM 40 MG VIAL IVPUSH ONE (14:38)
[2023-05-04] MEDS ORDERED: ACETAMINOPHEN 325 MG TABLET (FP) PO PRN (14:38)
[2023-05-04] MEDS ORDERED: ACETAMINOPHEN 325 MG TABLET (FP) ONE (15:22)
[2023-05-04] MEDS ORDERED: PANTOPRAZOLE SODIUM 40 MG/100 ML BAG IVPB ONE (15:23)
[2023-05-04] MEDS ORDERED: ACETAMINOPHEN 1000 MG/100 ML BAG IVPB PRN (19:52)
[2023-05-04] MEDS ORDERED: DICYCLOMINE HCL 20 MG TABLET PO PRN (20:52)
[2023-05-04] MEDS ORDERED: ACETAMINOPHEN INJECTION 100 ML IVPB ONE (21:03)
[2023-05-04] MEDS ORDERED: ATORVASTATIN CA 40 MG TABLET (FP) ONE (21:31)
[2023-05-04] MEDS ORDERED: NIFEdipine E.R 60 MG TABLET PO ONE (21:32)
[2023-05-04] MEDS ORDERED: ENOXAPARIN NA (PORCINE) 40 MG/0.4 ML DISP.SYRIN SQ ONE (21:32)
[2023-05-04] MEDS ORDERED: RAMIPRIL 5 MG CAPSULE ONE (21:32)
[2023-05-04] MEDS: ANASTROZOLE 1 MG TABLET PO SCH (21:38)
[2023-05-04] MEDS ORDERED: ATORVASTATIN CA 40 MG TABLET (FP) PO SCH (22:00)
[2023-05-04] MEDS ORDERED: KETOROLAC TROMETHAMINE 15 MG/ML VIAL IVPUSH PRN (22:08)
[2023-05-04] MEDS ORDERED: KETOROLAC TROMETHAMINE 30 MG/1 ML VIAL ONE (22:44)
[2023-05-05] MEDS ORDERED: KETOROLAC TROMETHAMINE 15 MG/ML VIAL ONE (03:04)
[2023-05-05 06:00] VITALS: RESP 18
[2023-05-05 06:44] VITALS: BMI 37.3
[2023-05-05] MEDS ORDERED: ANASTROZOLE 1 MG TABLET PO SCH (10:00)
[2023-05-05] MEDS ORDERED: ASPIRIN COATED 81 MG TABLET.EC PO SCH (10:00)
[2023-05-05] MEDS: DULoxetine HCL 30 MG CAPSULE.DR PO SCH (10:50)
[2023-05-05] MEDS: NIFEdipine E.R 60 MG TABLET PO SCH (10:50)
[2023-05-05] MEDS: RAMIPRIL 5 MG CAPSULE PO SCH (10:51)
[2023-05-05] MEDS: ENOXAPARIN NA (PORCINE) 40 MG/0.4 ML DISP.SYRIN SQ SCH (10:51)
[2023-05-05] MEDS: ANASTROZOLE 1 MG TABLET PO SCH (11:27)
[2023-05-05 11:46] LABS: HEMATOCRIT 36.3 % (32.4-45.2); MEAN PLT VOLUME 8.7 fl (7.5-11.1); PLATELET COUNT 280 10^3/uL (134-434); RBC 3.75 M/mm3 (3.60-5.2); RDW 14.2 % (11.6-15.6); WHITE BLOOD COUNT 5.6 K/mm3 (4.0-10.0)
[2023-05-05 11:58] VITALS: BP 132/83; PULSE 88; TEMP 98.1
[2023-05-05 12:21] LABS: POTASSIUM 3.8 mmol/L (3.5-5.1)
[2023-05-05 12:23] LABS: CALCIUM 8.7 mg/dL (8.5-10.1)
[2023-05-05 12:24] LABS: BLOOD UREA NITROGEN 16.4 mg/dL (7-18)
[2023-05-05 12:27] LABS: CREATININE 0.8 mg/dL (0.55-1.3)
== END 2023-05-05 15:49 | disposition home or self-care (01) ==
LOC: JER 20:37 → JERBED 05-04 01:23 → J4W 05-05 05:57
PROVIDERS: ADMIT Internal Medicine; ATTEND Internal Medicine
DX: R07.9 Chest pain, unspecified (principal); K57.90 Diverticulosis of intestine, part unspecified, without perforation or abscess without bleeding; K58.9 Irritable bowel syndrome, unspecified; K76.0 Fatty (change of) liver, not elsewhere classified; I10 Essential (primary) hypertension; K21.9 Gastro-esophageal reflux disease without esophagitis; Z90.10 Acquired absence of unspecified breast and nipple; Z87.891 Personal history of nicotine dependence; Z86.16 Personal history of COVID-19; Z85.3 Personal history of malignant neoplasm of breast
CPT/HCPCS: 0241U-QW; 36415; 70450-TC; 70551-TC; 71046-TC-FY; 80048; 80053; 80061; 80307; 81003; 82962; 83036; 84484; 84703; 85025; 85027; 85610; 85730; 87086; 93005; 93010; 93306-TC; 94010; 96372; 96374; 96375; 99285-25; G0378

== ENCOUNTER 2023-06-01 04:04 | Day surgery (SDC) | payer MEDICARE, OTHER ==
[2023-05-26 16:41] VITALS: BMI 37.8
[2023-06-01] MEDS ORDERED: SUGAMMADEX SODIUM 200 MG/2 ML VIAL ONE (09:44)
[2023-06-01] MEDS ORDERED: PROPOFOL 40 ML ONE (09:44)
[2023-06-01] MEDS ORDERED: ROCURONIUM BROMIDE 50 MG/5 ML SYRINGE ONE (09:45)
[2023-06-01] MEDS ORDERED: MIDAZOLAM HCL 2 MG/2 ML SINGLE DOSE VIAL ONE (09:45)
[2023-06-01] MEDS ORDERED: LIDOCAINE HCL/PF 2% SDV 5ML VIAL ONE (09:48)
[2023-06-01] MEDS ORDERED: ONDANSETRON 4 MG/2 ML VIAL ONE (09:48)
[2023-06-01] MEDS ORDERED: DEXAMETHASONE SOD PHOSPHATE 4 MG/1 ML VIAL ONE (09:48)
[2023-06-01] MEDS ORDERED: OXYMETAZOLINE 0.05% NASAL SOLUTION 15 ML BOTTLE NS ONE (09:54)
[2023-06-01] MEDS ORDERED: ceFAZolin SODIUM 1 GM VIAL IVPB ONE (10:02)
[2023-06-01] MEDS ORDERED: ceFAZolin SODIUM 1 GM VIAL ONE (10:02)
[2023-06-01] MEDS ORDERED: SEVOFLURANE 250 ML BTL ONE (10:18)
[2023-06-01] MEDS ORDERED: LABETALOL HCL 20 MG/4 ML VIAL ONE (10:31)
[2023-06-01] MEDS ORDERED: PROMETHAZINE HCL 25 MG/1 ML VIAL IVPB PRN (11:27)
[2023-06-01] MEDS ORDERED: oxyCODONE HCL 5 MG TABLET PO PRN ×2 (11:27)
[2023-06-01] MEDS ORDERED: ONDANSETRON 4 MG/2 ML VIAL IVPUSH PRN (11:27)
[2023-06-01] MEDS ORDERED: LACTATED RINGERS SOLUTION 1,000 ML IV SCH (11:30)
[2023-06-01] MEDS: ACETAMINOPHEN 1000 MG/100 ML BAG IVPB ONE ×2 (12:14→12:21)
[2023-06-01 13:15] VITALS: BP 110/59; PULSE 80; RESP 20; TEMP 98
[2023-06-01] MEDS ORDERED: oxyCODONE HCL 5 MG TABLET ONE (13:31)
== END 2023-06-01 14:23 | disposition home or self-care (01) ==
LOC: JASU-SURG 04:04
PROVIDERS: ATTEND Otolaryngology
PROC: 099Q8ZZ Drainage of Right Maxillary Sinus, Via Natural or Artificial Opening Endoscopic (ICD-10-PCS; 2023-06-01)
PROC: 8E09XBZ Computer Assisted Procedure of Head and Neck Region (ICD-10-PCS; 2023-06-01)
PROC: 09BV8ZZ Excision of Left Ethmoid Sinus, Via Natural or Artificial Opening Endoscopic (ICD-10-PCS; 2023-06-01)
PROC: 099R8ZZ Drainage of Left Maxillary Sinus, Via Natural or Artificial Opening Endoscopic (ICD-10-PCS; principal; 2023-06-01 10:00)
DX: J32.0 Chronic maxillary sinusitis (principal); J32.2 Chronic ethmoidal sinusitis; J33.8 Other polyp of sinus
CPT/HCPCS: 81025; 88304-TC; 88305-TC; 94760

== ENCOUNTER 2023-08-19 02:05 | Emergency (ER) | payer MEDICARE, OTHER ==
[2023-08-19 02:12] VITALS: BP 123/84; PULSE 113; RESP 20; TEMP 98.2; BMI 36.6
== END 2023-08-19 03:26 | disposition home or self-care (01) ==
LOC: JER 02:05
DX: M79.672 Pain in left foot (principal); S92.302A Fracture of unspecified metatarsal bone(s), left foot, initial encounter for closed fracture; W18.39XA Other fall on same level, initial encounter
CPT/HCPCS: 73630-TC-LT; 99283-25